=== PATIENT | female | born 1940 | race Caucasian/White ===

== ENCOUNTER 2019-11-26 13:00 | Inpatient (IN) | payer MEDICARE, SELFPAY ==
[2019-11-26 13:39] VITALS: BP 147/72; PULSE 87; RESP 18; TEMP 36.8; O2SAT 93
[2019-11-26 14:25] VITALS: BMI 26.4
[2019-11-26 14:26] VITALS: BMI 26.5
--- NOTE | 2019-11-26 14:26 | PCM.HP.STD ---
Problem List (1) Debility Status: Acute (2) Fever Status: Acute (3) Hypoxia Status: Acute (4) Weakness Status: Acute (5) Pulmonary embolism Status: Acute (6) DVT (deep venous thrombosis) Status: Acute (7) Hyponatremia Status: Acute (8) Hypokalemia Status: Acute (9) Coronary artery disease Status: Chronic (10) Hyperlipidemia Status: Chronic (11) Obstructive sleep apnea Status: Chronic (12) Lumbar spinal stenosis Status: Chronic (13) Hypertension Status: Chronic (14) Pulmonary hypertension Status: Chronic (15) Urinary incontinence Status: Chronic (16) Cholelithiasis Status: Chronic (17) Depression Status: Chronic (18) Insomnia Status: Chronic (19) Neuropathic pain Status: Chronic (20) Encephalopathy Status: Acute History of Present Illness Date of Admission: 11/26/19 Chief Complaint: Here for rehabilitation, strengthening, prior to discharge home with . The patient is a 79 year old Female with below past medical history with followin10/05/2019 Lumbar laminectomy/fusion complicated by CSF leak at [facility]. 10/10/2019 Durotomy closure. 10/21/2019 Fever, change mental status. 10/26/2019 Fall, TIA, CT brain showed blood layering along bilateral cerebellar falx. No surgical intervention necessary. 10/31/2019 MRI brain negative. Fever, worsening right lower extremity weakness. 11/18/2019 Weakness, dry mouth, Fever 103. Unable to stand. 11/20/2019 Urine culture grew yeast, treated with Diflucan 100MG daily x 5 days. 11/23/2019 Fever, hypoxia, worsening weakness. Admit to [facility]. Hypoxia, Pulsox 88-92% on RA. CTA chest showed bilateral pulmonary embolism in all lobes, started on Eliquis. PT/OT. Hold Hydrochlorothiazide for Hyponatremia. Potassium chloride for Hypokalemia. COVID-19 NEGATIVE. 11/23/2019 Chest X-ray negative. 11/24/2019 Doppler ultrasound of bilateral lower extremity POSITIVE bilateral lower extremity DVT. 11/26/2019 Admit to TCU with debility, here for rehabilitation, strengthening, prior to discharge home with . Past Medical History Past Medical History (Chronic Problems): Chronic Problems Coronary artery disease (Chronic) Hyperlipidemia (Chronic) Obstructive sleep apnea (Chronic) Lumbar spinal stenosis (Chronic) Hypertension (Chronic) Pulmonary hypertension (Chronic) Urinary incontinence (Chronic) Cholelithiasis (Chronic) Depression (Chronic) Insomnia (Chronic) Neuropathic pain (Chronic) Allergies ibuprofen [From Advil] Adverse Reaction (Verified 11/26/19 14:00) Rash Home Medications: Ambulatory Orders Medication Instructions Recorded Acetaminophen [Tylenol] 650 mg PO Q4H PRN PRN 11/26/19 Amlodipine [Norvasc] 5 mg PO DAILY 11/26/19 Apixaban [Eliquis] 5 mg PO BID 11/26/19 Aspirin 81 mg PO DAILY 11/26/19 Atorvastatin Calcium 40 mg PO DAILY 11/26/19 Gabapentin [Neurontin] 300 mg PO TID 11/26/19 Melatonin 5 mg PO QHS 11/26/19 Mirtazapine 15 mg PO DAILY 11/26/19 Senna [Senokot] 1 tab PO DAILY PRN 11/26/19 Sertraline HCl 50 mg PO DAILY 11/26/19 Surgical History: hysterectomy, - - Lumbar spine surgery, Durotomy closure, Bladder suspension. Psychiatric History: Depression FACILITIES OFFICER History: No pertinent FACILITIES OFFICER history Lives: Spouse/ Significant Other Smoking Status: Never smoker Tobacco Use: Non-smoker Alcohol: Occasional Drugs: None - *Family History Paternal History Items: Stroke Maternal History Items: Heart Disease - Congestive Heart Failure. Sibling History Items: Diabetes, Heart Disease, Hypertension Review of Systems Constitutional: Denies: Chills, Fever, Weight Change HEENT: Denies: Head Aches, Sinus Congestion, Sinus Drainage Cardiovascular: Denies: Chest Pain, Palpitations Respiratory: Denies: Cough, Shortness of breath at rest, Sputum production Gastrointestinal: Denies: Abdominal Pain, Nausea, Vomiting Genitourinary: Denies: Dysuria Musculoskeletal: Denies: Joint Pain, Joint Tenderness Skin: Denies: Rash, Wounds Neurological: Denies: Numbness, Tingling, Focal weakness Psychiatric: Denies: Anxiety, Depression, Homicidal Ideations, Suicidal Ideations Hematologic/ Lymphatic: Denies: Easy Bruising, Easy Bleeding VTE Information - Inpt Only VTE Present on Admission: Yes VTE Mechan Device Prophylaxis: Knee High IESHA Hose VTE Pharm Prophylaxis ordered?: No Reason prophylaxis not ordered:: Treatment Not Indicated Patient Problems: Active and Suspected Problems Debility (Acute) Fever (Acute) Hypoxia (Acute) Weakness (Acute) Pulmonary embolism (Acute) DVT (deep venous thrombosis) (Acute) Hyponatremia (Acute) Hypokalemia (Acute) Encephalopathy (Acute) - Physical Exam Vitals/I&O's: Vital Signs Temp Pulse Resp BP Pulse Ox 98.3 F 87 18 147/72 H 93 11/26/19 13:39 11/26/19 13:39 11/26/19 13:39 11/26/19 13:39 11/26/19 13:39 Oxygen Delivery Method Room Air Weight: 63.616 kg Body Mass Index (BMI) 26.4 General: Alert, Oriented x3, Cooperative HEENT: Atraumatic, PERRLA, EOMI, Normocephalic Neck: Supple, No JVD, Negative Carotid Bruits Lungs: Clear to auscultation, Normal air movement Cardiovascular: Regular rate, No murmurs Abdomen: Bowel Sounds Present, Soft, Non Tender Extremities: No edema, Capillary Refill Less than 3 Seconds Skin: No rashes, No breakdown Musculoskeletal: No Tenderness to Palpation of Joints or Extremities Neurological: Cranial nerves II-XII grossly intact Psych/Mental Status: Normal Affect, Appropriate Current Medications Acetaminophen (Tylenol) 650 mg PO Q4H PRN PRN PRN Reason: Pain or Fever Amlodipine Besylate (Norvasc) 5 mg PO DAILY [facility] Apixaban (Eliquis) 5 mg PO BID [facility] Aspirin (Aspirin, Baby) 81 mg PO DAILYCM [facility] Atorvastatin Calcium (Lipitor) 40 mg PO DAILY [facility] Gabapentin (Neurontin) 300 mg PO TID [facility] Mirtazapine (Remeron) 15 mg PO QPM [facility] Non-Formulary Medication (Melatonin) 5 mg PO QHS [facility] Senna (Senokot) tablet PO DAILY PRN PRN Reason: Constipation Sertraline HCl (Zoloft) 50 mg PO DAILY [facility] Tuberculin PPD (Tubersol, Aplisol, Ppd) 5 tu ID X1 ONE Stop: 11/27/19 10:01 Tuberculin PPD (Tubersol, Aplisol, Ppd) 5 tu ID X1 ONE Stop: 12/04/19 10:01 Assessment/Plan All Active Problems Debility (Acute) Fever (Acute) Hypoxia (Acute) Weakness (Acute) Pulmonary embolism (Acute) DVT (deep venous thrombosis) (Acute) Hyponatremia (Acute) Hypokalemia (Acute) Encephalopathy (Acute) 79 year old female with below past medical history hospitalized for fever, hypoxia, weakness secondary to bilateral pulmonary embolism, bilateral lower extremity DVT, complicated by hyponatremia, hypokalemia, admitted to TCU with debility, here for rehabilitation, strengthening, prior to discharge home with . Debility - PT/OT. Encephalopathy - ST. Pain - Tylenol 1000MG Q6H PRN pain (1-10). Bowel - Miralax 17GM daily, Senna/colace 1 tablet BID, Dulcolax 10MG daily PRN. Adult immunization - Administer Prevnar 13, Pneumovax 23, Fluzone as appropriate. DVT prophylaxis - Not necessary, already anticoagulated. Hypertension - Amlodipine 5MG daily. Pulmonary embolism/DVT - Eliquis 10MG BID thru 11/29/2019, then 5MG BID. Coronary Artery Disease - Aspirin 81MG daily. Hyperlipidemia - Atorvastatin 40MG QHS. Neuropathic pain - Gabapentin 300MG TID. Insomnia - Melatonin 5MG QHS. Appetite loss - Mirtazapine 15MG QPM, stable chronic snf use, GDR not recommended. Depression - Sertraline 50MG daily, stable chronic watermaster use, GDR not recommended. Obstructive sleep apnea - CPAP at night.
[2019-11-26] MEDS: Gabapentin 300 MG Capsule PO ×2 (15:26→22:38)
--- NOTE | 2019-11-26 16:37 | NURSING ---
R' HAS HAD NO BM SINCE 11/21. DR. ESPOSITO ORDERED SSE.
[2019-11-26] MEDS: Senna/Docusate Sodium 1 Tablet PO (17:24)
[2019-11-26] MEDS: APIXABAN 5 MG TABLET 10 MG PO (17:24)
[2019-11-26] MEDS: Menthol/Lanolin/Calamine/Znox 113 GM Tube 1 APPLIC TOPICAL (17:27)
[2019-11-26] MEDS: MELATONIN 10 MG TABLET 5 MG PO (22:37)
[2019-11-27] MEDS: APIXABAN 5 MG TABLET 10 MG PO ×2 (05:33→17:32)
[2019-11-27] MEDS: Atorvastatin Calcium 40 MG Tablet PO (05:33)
[2019-11-27] MEDS: Senna/Docusate Sodium 1 Tablet PO ×2 (05:33→17:32)
[2019-11-27] MEDS: Gabapentin 300 MG Capsule PO ×3 (05:33→17:32)
[2019-11-27] MEDS: amLODIPine 5 MG Tablet PO (05:33)
[2019-11-27] MEDS: Polyethylene Glycol 3350 17 GM PACKET PO (05:33)
[2019-11-27] MEDS: Sertraline 50 MG Tablet PO (05:33)
[2019-11-27] MEDS: Menthol/Lanolin/Calamine/Znox 113 GM Tube 1 APPLIC TOPICAL ×2 (05:33→17:34)
[2019-11-27 06:47] LABS: Absolute Lymphocyte Count 1.07 X10^3/uL (0.83-4.51); Absolute Neutrophil Count 6.2 X10^3/uL (2.0-7.7); Basophil# 0.04 X10^3/uL; Basophil% 0.5 % (0-1); Eosinophil# 0.03 X10^3/uL; Eosinophils% 0.4 % (0-5); Hemoglobin 12.2 g/dL (12.0-15.0); Lymphocyte # 1.07 X10^3/ul (4.0); Lymphocyte % 13.7 % (19-41); Mean Corp Hgb Conc 33.9 g/dL (32-36); Mean Corpuscular Hgb 29.6 pg (27.0-32.0); Mean Corpuscular Volume 87.4 fL (81-99); Mean Platelet Vol. 8.4 fl (6.2-12.0); Monocyte# 0.49 X10^3/uL; Monocyte% 6.3 % (0-10); NRBC Flagged by Analyzer 0 % (0-5); Neutrophil # 6.18 X10^3/uL (2.7-7.7); Neutrophil % 78.8 % (47-70); Platelet Count 324 K/mm3 (150-450); RBC Distribution Width CV 13.1 % (11.6-14.6); RBC Distribution Width SD 41.6 fl (35.1-43.9); Red Blood Count 4.12 M/mm3 (4.2-5.4); White Blood Count 7.8 K/mm3 (4.4-11.0)
[2019-11-27 07:13] LABS: Anion Gap 11 (5-15); BUN 19 mg/dL (7-18); BUN/Creat Ratio 37.2 RATIO (10-20); Calcium,Total 9.1 mg/dL (8.5-10.1); Chloride 97 mmol/L (98-107); Creatinine, Serum 0.51 mg/dL (0.55-1.02); EST Glomerular Filtration Rate 124 mL/min (>60); Est Glom Filt Rate - Afr Amer 149 mL/min (>60); Estimated Creatinine Clearance 34.99 ml/min; Glucose 91 mg/dL (74-106); Potassium 4.1 mmol/L (3.5-5.1); Sodium Level 130 mmol/L (136-145)
[2019-11-27] MEDS: Aspirin 81 MG TAB.CHEW PO (08:46)
[2019-11-27] MEDS: Acetaminophen 500 MG Tablet 1000 MG PO ×2 (10:01→20:31)
[2019-11-27] MEDS: Tuberculin,Purif.prot.deriv. 50 TU/ML Vial 5 ML ID (10:58)
--- NOTE | 2019-11-27 15:59 | NURSING ---
Pt given soaps suds enema at this time, only tolerated 2/3 of bag, unable to withhold most of the fluid, will monitor effect
[2019-11-27 16:00] VITALS: BP 107/66; PULSE 90; RESP 20; TEMP 36.6; O2SAT 96
[2019-11-27 16:29] LABS: Bacteria 0 SEEN /hpf (None Seen); Red Blood Cells-Urine 0 SEEN /hpf (0-5); Squamous Epithelial Cells - UA 0 SEEN /hpf (5-10)
[2019-11-27 16:36] LABS: Color, Urine Yellow (Yellow); Glucose, Dipstick Normal (Normal); Ketone-Dipstick 50 mg/dl (Negative); Leukocyte Esterase-Dipstick 25 /ul (Negative); Nitrite-Dipstick Negative (Negative); Occult Blood-Urine Negative /ul (Negative); Protein-Dipstick 15 mg/dl (Negative); Specific Gravity, Urine 1.025 (1.002-1.030); Urine Clarity Sl. Cloudy (Clear); Urine Urobilinogen 1 mg/dl (Normal)
[2019-11-27 16:37] LABS: Urine Bilirubin Dipstick 1 mg/dL (Negative)
[2019-11-27 16:44] LABS: Mucous, Urine 1+ /hpf (<or=2+); White Blood Cells 0-5 SEEN /hpf (0-5); Yeast-Urine 1+ /hpf (None Seen)
[2019-11-27 20:05] VITALS: BP 143/72; PULSE 89; RESP 20; TEMP 38.6; O2SAT 89
--- NOTE | 2019-11-27 20:18 | NURSING ---
Addendum entered by Bhakti Garcia 11/27/19 22:12: Dr. Vazquez notified of Chest Xray and KUB results, as well as patient not eating well past 2 days. New orders given. Original Note: Patient diaphoretic, lethargic and unable to answer questions at this time. Vitals obtained. Fever noted at 101.4 temporal, 101.5 Axillary. Mary HARDY aware. Dr. Bailey notified.
--- NOTE | 2019-11-27 20:58 | RAD_ITS ---
STUDY: X-RAY - ABDOMEN/PELVIS REASON FOR EXAM: Female, 79 years old. Constipation. TECHNIQUE: Supine exam left lateral decubitus views of the abdomen were performed. COMPARISON: None. FINDINGS: The lung bases were not included. There is an unremarkable bowel gas pattern. There is seen throughout the colon. There is no air fluid levels or small bowel dilatation. There is no demonstrated free abdominal air. The visualized liver, spleen and kidneys are grossly normal in size and morphology. No visualized mass or organomegaly. There are no suspicious calcifications. Normal soft tissue structures. There are degenerative changes lumbar spine with L4-S1 fusion. RAD/Abd Inc Decub and/or Erect IMPRESSION: 1. No evidence of acute intra-abdominal process. There are no findings suspicious for constipation. 2. Lumbar fusion. Electronically Signed: Alfonso Garcia DO at 21:42 EDT Tel [phone], Service support ,
--- NOTE | 2019-11-27 20:58 | RAD_ITS ---
STUDY: X-RAY CHEST REASON FOR EXAM: Female, 79 years old. Fever. TECHNIQUE: PA and lateral views of the chest. COMPARISON: None. FINDINGS: Limited inspiratory effort. There is elevation of both hemidiaphragms right greater than left. There is bibasilar atelectasis There is no demonstrated pleural abnormality. Normal size heart. The mediastinum. There is mild right hilar prominence. Normal visualized aortic arch and descending thoracic aorta. Normal visualized thoracic spine. Normal visualized ribs, clavicles, and shoulders. There is no demonstrated abnormality of the visualized soft tissue structures of the upper abdomen. RAD/Chest PA and Lateral IMPRESSION: Elevated hemidiaphragms with bibasilar atelectasis. Electronically Signed: Alfonso Garcia DO at 21:56 EDT Tel [phone], Service support ,
[2019-11-27 21:47] VITALS: TEMP 37.7
[2019-11-27] MEDS: 0.9% Normal Saline 1,000 ML 999 ML IV (23:03)
[2019-11-28] MEDS: 0.9% Normal Saline 1,000 ML 60 ML IV (00:06)
[2019-11-28 04:00] VITALS: TEMP 37.9
[2019-11-28 04:16] VITALS: TEMP 37.4
[2019-11-28] MEDS: Acetaminophen 500 MG Tablet 1000 MG PO ×2 (05:37→14:33)
[2019-11-28] MEDS: amLODIPine 5 MG Tablet PO (05:37)
[2019-11-28] MEDS: Atorvastatin Calcium 40 MG Tablet PO (05:37)
[2019-11-28] MEDS: Senna/Docusate Sodium 1 Tablet PO (05:37)
[2019-11-28] MEDS: APIXABAN 5 MG TABLET 10 MG PO (05:38)
[2019-11-28] MEDS: Polyethylene Glycol 3350 17 GM PACKET PO (05:41)
[2019-11-28] MEDS: Menthol/Lanolin/Calamine/Znox 113 GM Tube 1 APPLIC TOPICAL (05:45)
[2019-11-28 06:37] LABS: Absolute Lymphocyte Count 1.09 X10^3/uL (0.83-4.51); Absolute Neutrophil Count 5.2 X10^3/uL (2.0-7.7); Basophil# 0.04 X10^3/uL; Basophil% 0.6 % (0-1); Eosinophils% 1.4 % (0-5); Hematocrit 34.4 % (37-47); Hemoglobin 11.5 g/dL (12.0-15.0); Lymphocyte # 1.09 X10^3/ul (4.0); Lymphocyte % 15.5 % (19-41); Mean Corp Hgb Conc 33.4 g/dL (32-36); Mean Corpuscular Hgb 30.1 pg (27.0-32.0); Mean Corpuscular Volume 90.1 fL (81-99); Mean Platelet Vol. 8.6 fl (6.2-12.0); Monocyte# 0.58 X10^3/uL; Monocyte% 8.3 % (0-10); NRBC Flagged by Analyzer 0 % (0-5); Neutrophil # 5.19 X10^3/uL (2.7-7.7); Neutrophil % 73.8 % (47-70); Platelet Count 297 K/mm3 (150-450); RBC Distribution Width CV 13.2 % (11.6-14.6); RBC Distribution Width SD 43.4 fl (35.1-43.9); Red Blood Count 3.82 M/mm3 (4.2-5.4)
[2019-11-28 07:00] LABS: Anion Gap 7 (5-15); BUN 16 mg/dL (7-18); BUN/Creat Ratio 34.9 RATIO (10-20); Calcium,Total 8.6 mg/dL (8.5-10.1); Chloride 105 mmol/L (98-107); Creatinine, Serum 0.46 mg/dL (0.55-1.02); EST Glomerular Filtration Rate 140 mL/min (>60); Est Glom Filt Rate - Afr Amer 170 mL/min (>60); Estimated Creatinine Clearance 34.99 ml/min; Glucose 105 mg/dL (74-106); Potassium 3.5 mmol/L (3.5-5.1); Sodium Level 135 mmol/L (136-145)
[2019-11-28] MEDS: Aspirin 81 MG TAB.CHEW PO (07:53)
[2019-11-28] MEDS: Gabapentin 300 MG Capsule PO (07:53)
[2019-11-28 08:26] VITALS: TEMP 37
[2019-11-28 09:17] VITALS: PULSE 87; RESP 16; O2SAT 97
[2019-11-28 09:26] VITALS: PULSE 87; RESP 16; TEMP 36.9; O2SAT 97
--- NOTE | 2019-11-28 14:44 | DCINST_ITS ---
- Discharge Diagnoses Current Active Problems: Current Active and Chronic Problems Debility (Acute) Fever (Acute) Hypoxia (Acute) Weakness (Acute) Pulmonary embolism (Acute) DVT (deep venous thrombosis) (Acute) Hyponatremia (Acute) Hypokalemia (Acute) Coronary artery disease (Chronic) Hyperlipidemia (Chronic) Obstructive sleep apnea (Chronic) Lumbar spinal stenosis (Chronic) Hypertension (Chronic) Pulmonary hypertension (Chronic) Urinary incontinence (Chronic) Cholelithiasis (Chronic) Depression (Chronic) Insomnia (Chronic) Neuropathic pain (Chronic) Encephalopathy (Acute) You will use the following diet at home:: No restrictions, Regular Your food should be the consistency of: Regular Your liquids should be the consistency of: Regular/Thin Discharge Activity: Return to Normal Activity, May Shower, Use Walker Weight Bearing Status: Weight bearing as tolerated Call your doctor if you observe: Fever of 101 or Higher, Inability to urinate, Inability to have a bowel movement, Shortness of breath, Chest pain, Uncontrolled pain Allergies/Adverse Reactions: Allergies ibuprofen [From Advil] Adverse Reaction (Verified 11/26/19 14:00) Rash Medications to take at Discharge Acetaminophen [Tylenol] 650 mg PO Q4H PRN PRN 11/26/19 Amlodipine [Norvasc] 5 mg PO DAILY 11/26/19 Apixaban [Eliquis] 5 mg PO BID 11/26/19 Aspirin 81 mg PO DAILY 11/26/19 Atorvastatin Calcium 40 mg PO DAILY 11/26/19 Gabapentin [Neurontin] 300 mg PO TID 11/26/19 Melatonin 5 mg PO QHS 11/26/19 Mirtazapine 15 mg PO DAILY 11/26/19 Senna [Senokot] 1 tab PO DAILY PRN 11/26/19 Sertraline HCl 50 mg PO DAILY 11/26/19 Primary Care Physician: Emile Steward [NON-STAFF] - Please follow up with your Primary Care Physician in: 1 week. Test Results: Test results from this visit will be discussed in further detail at your follow- up appointment, if applicable. Proposed Discharge Date: 11/28/19
--- NOTE | 2019-11-28 14:46 | PCM.DC.SUM ---
Discharge Date and Diagnosis - Problem List Patient Problems: Active and Suspected Problems Debility (Acute) Fever (Acute) Hypoxia (Acute) Weakness (Acute) Pulmonary embolism (Acute) DVT (deep venous thrombosis) (Acute) Hyponatremia (Acute) Hypokalemia (Acute) Encephalopathy (Acute) Date of Admission: 11/26/19 Date of Discharge: 11/28/19 - Primary Discharge Diagnosis Active and Suspected Problems Debility (Acute) Fever (Acute) Hypoxia (Acute) Weakness (Acute) Pulmonary embolism (Acute) DVT (deep venous thrombosis) (Acute) Hyponatremia (Acute) Hypokalemia (Acute) Encephalopathy (Acute) - Secondary Discharge Diagnosis Chronic Problems Coronary artery disease (Chronic) Hyperlipidemia (Chronic) Obstructive sleep apnea (Chronic) Lumbar spinal stenosis (Chronic) Hypertension (Chronic) Pulmonary hypertension (Chronic) Urinary incontinence (Chronic) Cholelithiasis (Chronic) Depression (Chronic) Insomnia (Chronic) Neuropathic pain (Chronic) Hospital Course and Treatment Imaging Results: 11/26/19 13:54 Diet: Regular Diet Food consistency:: Regular Liquid Consistency:: Regular/Thin Is pt able to select menu?: Yes Diet Comments: Low fat, Low salt Clinical Impression(s) from Imaging Studies Abdomen X-Ray 11/27/19 20:58 IMPRESSION: 1. No evidence of acute intra-abdominal process. There are no findings suspicious for constipation. 2. Lumbar fusion. Electronically Signed: Alfonso Garcia DO at 21:42 EDT Tel [phone], Service support , Chest X-Ray 11/27/19 20:58 IMPRESSION: Elevated hemidiaphragms with bibasilar atelectasis. Electronically Signed: Alfonso Garcia DO at 21:56 EDT Tel [phone], Service support , Labs (Last 48 Hours) 11/27/19 11/27/19 11/27/19 06:30 06:30 16:15 WBC 7.8 RBC 4.12 L Hgb 12.2 Hct 36.0 L MCV 87.4 MCH 29.6 MCHC 33.9 RDW Std Deviation 41.6 RDW Coeff of [place] 13.1 Plt Count 324 MPV 8.4 Immature Gran % (Auto) 0.300 Neut % (Auto) 78.8 H Lymph % (Auto) 13.7 L [place] % (Auto) 6.3 Eos % (Auto) 0.4 Baso % (Auto) 0.5 Absolute Neuts (auto) 6.2 Absolute Lymphs (auto) 1.07 Nucleated RBC % 0 Sodium 130 L Potassium 4.1 Chloride 97 L Carbon Dioxide 22.0 Anion Gap 11 BUN 19 H Creatinine 0.51 L Estim Creat Clear Calc 34.99 Est GFR (MDRD) Af Amer 149 Est GFR (MDRD) Non-Af 124 BUN/Creatinine Ratio 37.2 H Glucose 91 Calcium 9.1 Urine Color Yellow Urine Clarity Sl. Cloudy Urine pH 5.0 Ur Specific [place] 1.025 Urine Protein 15 H Urine Glucose (UA) Normal Urine Ketones 50 H Urine Occult Blood Negative Urine Nitrite Negative Urine Bilirubin 1 H Urine Urobilinogen 1 H Ur Leukocyte Esterase 25 H Urine RBC 0 SEEN Urine WBC 0-5 SEEN Ur Squamous Epith Cells 0 SEEN Urine Bacteria 0 SEEN Urine Mucus 1+ Urine Yeast 1+ 11/28/19 11/28/19 06:20 06:20 WBC 7.0 RBC 3.82 L Hgb 11.5 L Hct 34.4 L MCV 90.1 MCH 30.1 MCHC 33.4 RDW Std Deviation 43.4 RDW Coeff of [place] 13.2 Plt Count 297 MPV 8.6 Immature Gran % (Auto) 0.400 Neut % (Auto) 73.8 H Lymph % (Auto) 15.5 L [place] % (Auto) 8.3 Eos % (Auto) 1.4 Baso % (Auto) 0.6 Absolute Neuts (auto) 5.2 Absolute Lymphs (auto) 1.09 Nucleated RBC % 0 Sodium 135 L Potassium 3.5 Chloride 105 Carbon Dioxide 23.0 Anion Gap 7 BUN 16 Creatinine 0.46 L Estim Creat Clear Calc 34.99 Est GFR (MDRD) Af Amer 170 Est GFR (MDRD) Non-Af 140 BUN/Creatinine Ratio 34.9 H Glucose 105 Calcium 8.6 Urine Color Urine Clarity Urine pH Ur Specific [place] Urine Protein Urine Glucose (UA) Urine Ketones Urine Occult Blood Urine Nitrite Urine Bilirubin Urine Urobilinogen Ur Leukocyte Esterase Urine RBC Urine WBC Ur Squamous Epith Cells Urine Bacteria Urine Mucus Urine Yeast Microbiology 11/27/19 22:00 Blood Culture (Wb) - Left Hand Blood Culture - Preliminary 11/27/19 16:15 Urine, Catheterized Urine Culture - Preliminary Gram negative tonja 11/27/19 21:55 Mucosa - Nose Respiratory Panel (PCR) - Final Operations: None Procedures: None Summary of Care Provided: The patient is a 79 year old Female with below past medical history hospitalized for fever, hypoxia, weakness secondary to bilateral pulmonary embolism, bilateral lower extremity DVT, complicated by hyponatremia, hypokalemia, admitted to TCU with debility, here for rehabilitation, strengthening, prior to discharge home with . 11/26/2019 Resident encephalopathic on admission. 11/27/2019 Confusion worsened, not eating, Fever 101.4. Bloodwork unremarkable, UA, Urine culture negative, respiratory panel negative, COVID-19 negative previously, CXR negative, KUB negative. Resident started on IV fluids. 11/28/2019 Not eating, blood culture positive gram positive cocci in clusters aerobic bottle. 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 Discharge to [facility] Emergency Department for evaluation, admission to hospital. Patient Problems: Active and Suspected Problems Debility (Acute) Fever (Acute) Hypoxia (Acute) Weakness (Acute) Pulmonary embolism (Acute) DVT (deep venous thrombosis) (Acute) Hyponatremia (Acute) Hypokalemia (Acute) Encephalopathy (Acute) - Physical Exam Vitals/I&O's: Vital Signs Temp Pulse Resp BP Pulse Ox 98.4 F 87 16 143/72 H 97 11/28/19 09:26 11/28/19 09:26 11/28/19 09:26 11/27/19 20:05 11/28/19 09:26 Oxygen Delivery Method Room Air Weight: 63.616 kg Body Mass Index (BMI) 26.4 Intake and Output for Last 24 Hours 11/26/19 11/27/19 11/28/19 23:59 23:59 23:59 Intake Total 240 / 240 300 / 300 1180 / 1180 Balance 240 / 240 300 / 300 1180 / 1180 Microbiology Past 72 Hours 11/27/19 22:00 Blood Culture (Wb) - Left Hand Blood Culture - Preliminary 11/27/19 16:15 Urine, Catheterized Urine Culture - Preliminary Gram negative tonja 11/27/19 21:55 Mucosa - Nose Respiratory Panel (PCR) - Final Laboratory Results 11/27/19 16:15: Urine Color Yellow, Urine Clarity Sl. Cloudy, Urine pH 5.0, Ur Specific [place] 1.025, Urine Protein 15 H, Urine Glucose (UA) Normal, Urine Ketones 50 H, Urine Occult Blood Negative, Urine Nitrite Negative, Urine Bilirubin 1 H, Urine Urobilinogen 1 H, Ur Leukocyte Esterase 25 H, Urine RBC 0 SEEN, Urine WBC 0-5 SEEN, Ur Squamous Epith Cells 0 SEEN, Urine Bacteria 0 SEEN, Urine Mucus 1+, Urine Yeast 1+ 11/28/19 06:20: WBC 7.0, RBC 3.82 L, Hgb 11.5 L, Hct 34.4 L, MCV 90.1, MCH 30.1, MCHC 33.4, RDW Std Deviation 43.4, RDW Coeff of [place] 13.2, Plt Count 297, MPV 8.6, Immature Gran % (Auto) 0.400, Neut % (Auto) 73.8 H, Lymph % (Auto) 15.5 L, [place] % (Auto) 8.3, Eos % (Auto) 1.4, Baso % (Auto) 0.6, Absolute Neuts (auto) 5.2, Absolute Lymphs (auto) 1.09, Nucleated RBC % 0 11/28/19 06:20: Sodium 135 L, Potassium 3.5, Chloride 105, Carbon Dioxide 23.0, Anion Gap 7, BUN 16, Creatinine 0.46 L, Estim Creat Clear Calc 34.99, Est GFR (MDRD) Af Amer 170, Est GFR (MDRD) Non-Af 140, BUN/Creatinine Ratio 34.9 H, Glucose 105, Calcium 8.6 Current Medications Acetaminophen (Tylenol) 1,000 mg PO Q6H PRN Last Admin: 11/28/19 14:33 Dose: 1,000 mg Documented by: Amlodipine Besylate (Norvasc) 5 mg PO DAILY [facility] Last Admin: 11/28/19 05:37 Dose: 5 mg Documented by: Apixaban (Eliquis) 10 mg PO BID [facility] Stop: 11/29/19 23:59 Last Admin: 11/28/19 05:38 Dose: 10 mg Documented by: Apixaban (Eliquis) 5 mg PO BID [facility], [facility]) [facility] Last Admin: 11/28/19 07:53 Dose: 81 mg Documented by: Atorvastatin Calcium (Lipitor) 40 mg PO DAILY [facility] Last Admin: 11/28/19 05:37 Dose: 40 mg Documented by: Bisacodyl (Dulcolax) 10 mg PO DAILY PRN PRN Reason: Constipation Calamine/Phenol (Calmoseptine Ointment) 1 applic TOPICAL BID [facility]; Protocol Last Admin: 11/28/19 05:45 Dose: 1 applicatio Documented by: Gabap[facility]in) [facility] Stop: 11/30/19 17:01 Last Admin: 11/28/19 07:53 Dose: 300 mg Documented by: Gabapentin (Neurontin) 300 mg PO QHS [facility] Stop: 12/04/19 22:01 Dextrose/Sodium Chloride () 1,000 mls @ 75 mls/hr IV .[id number] [facility] Polyethylene Glycol (Miralax) 17 gm PO DAILY [facility] Last Admin: 11/28/19 05:41 Dose: 17 gm Documented by: Senna/Docusate Sodium (Senokot-S, Karlene-Colace) 1 tablet PO BID [facility] Last Admin: 11/28/19 05:37 Dose: 1 tablet Documented by: Sodium Chloride () 10 - 40 ml IV UD PRN PRN Reason: SALINE FLUSH Tuberculin PPD (Tubersol, Aplisol, Ppd) 5 tu ID X1 ONE Stop: 12/04/19 10:01 Discharge Diet: No Restrictions Discharge Activity: Return to Normal Activity, May Shower, Use Walker Weight Bearing Status: Weight bearing as tolerated Call your doctor if you observe: Fever of 101 or Higher, Inability to urinate, Inability to have a bowel movement, Shortness of breath, Chest pain, Uncontrolled pain Home Medications: Medications to take at Discharge Acetaminophen [Tylenol] 650 mg PO Q4H PRN PRN 11/26/19 Amlodipine [Norvasc] 5 mg PO DAILY 11/26/19 Apixaban [Eliquis] 5 mg PO BID 11/26/19 Aspirin 81 mg PO DAILY 11/26/19 Atorvastatin Calcium 40 mg PO DAILY 11/26/19 Gabapentin [Neurontin] 300 mg PO TID 11/26/19 Melatonin 5 mg PO QHS 11/26/19 Mirtazapine 15 mg PO DAILY 11/26/19 Senna [Senokot] 1 tab PO DAILY PRN 11/26/19 Sertraline HCl 50 mg PO DAILY 11/26/19 Primary Care Physician: Emile Steward [NON-STAFF] - Please follow up with your Primary Care Physician in: 1 week. Disposition: Acute care Hospital Minutes spent on discharge:: 30 Patient Condition:: Guarded Medical Necessity - Tobacco Use Smoking Status: Never smoker Tobacco Use: Non-smoker Meaningful Use Info Meaningful Use Diagnoses (Choose all that apply): None applicable
--- NOTE | 2019-11-28 14:53 | NURSING ---
Lab called with blood culture prelim results, Dr. Vazquez paged and results read. N.O. to send to the ER for eval and admission to acute side of hospital. Vitals obtained, report called to ER, camp housekeeper updated, family updated.
--- NOTE | 2019-12-07 09:22 | MDS.RN ---
Information for the mds was obtained from review of the clinical record, interview of resident, staff, and direct observation of resident's care.
== END 2019-11-28 18:38 | disposition short-term general hospital (02) | DRG 176 ==
PROVIDERS: Admitting Provider Family Medicine Geriatric Medicine; Visit Provider Family Medicine Geriatric Medicine
DX: I26.99 Other pulmonary embolism without acute cor pulmonale (principal); I82.403 Acute embolism and thrombosis of unspecified deep veins of lower extremity, bilateral; E87.1 Hypo-osmolality and hyponatremia; G93.40 Encephalopathy, unspecified; I25.10 Atherosclerotic heart disease of native coronary artery without angina pectoris; E78.5 Hyperlipidemia, unspecified; I10 Essential (primary) hypertension; G47.33 Obstructive sleep apnea (adult) (pediatric); M48.061 Spinal stenosis, lumbar region without neurogenic claudication; I27.20 Pulmonary hypertension, unspecified; F32.9 Major depressive disorder, single episode, unspecified; Z98.1 Arthrodesis status; G62.9 Polyneuropathy, unspecified
CPT/HCPCS: 36415; 71046; 74019; 80048; 81001; 85025; 87040; 87077; 87086; 87088; 87149; 87186; 87633; 92507; 92523; 97110; 97162; 97166; 97530; 97535; J7030

== ENCOUNTER 2019-11-28 15:06 | Emergency (ER) | payer MEDICARE, SELFPAY ==
[2019-11-28 15:08] VITALS: BP 135/67; PULSE 89; RESP 18; TEMP 36.6; O2SAT 95; BMI 26.6
[2019-11-28 15:14] VITALS: BP 135/67; PULSE 89; RESP 18; TEMP 36.6; O2SAT 95
[2019-11-28 16:10] VITALS: O2SAT 96
[2019-11-28 16:23] VITALS: BP 113/79; PULSE 83; RESP 20; TEMP 36.6; O2SAT 96; O2SAT 97
[2019-11-28 16:48] LABS: International Normalized Ratio 1.9
[2019-11-28 16:51] LABS: Partial Thromboplast Time 98.1 Seconds (24.1-36.2)
[2019-11-28 17:03] VITALS: BP 112/74; PULSE 79; RESP 20; TEMP 36.7; O2SAT 99
--- NOTE | 2019-11-28 17:06 | ED.VISSUMM ---
- ER Visit Summary Date of Service: 11/28/19 Chief Complaint: Positive blood culture History of Present Illness: The patient is a [address] Nima vincent. Patient was sent down from TCU because she had a fever and a blood culture was obtained yesterday. Both the aerobic and anaerobic cultures show gram-positive cocci in clusters. Currently the patient reports that she has a slight headache. She denies back pain. Physical Examination: Vitals: Stable. Afebrile. General: Well-nourished and well-developed. Head: Normocephalic atraumatic. Neck: Supple, no lymphadenopathy. No JVD. Nontender. Cardiovascular: Regular rate and rhythm. No murmurs. Respiratory: No respiratory distress. Clear to auscultation bilaterally. Abdominal: Soft, nontender, nondistended, normal bowel sounds. No guarding, rebound, or peritoneal signs. Back: Nontender. Incision is well-healed. There is no erythema, induration, or fluctuance. It is nontender. Extremities: Nontender, no edema. Skin: Normal color, no rash. Neurologic: Alert and oriented ?2. Cranial nerves II through XII are intact. Normal strength and sensation. Psych: Normal affect. Test Results: Patient has had blood work obtained this morning. Her white count was normal with segmented neutrophils of 74 and lymphocytes of 16. H&H is 11.5 and 34.4. Chem-7 showed a sodium of 135 and creatinine 0.46. UA from yesterday showed leukocytes, ketones, and 1+ yeast. The urine culture shows less than 1000 colony-forming units of gram-negative rods. She had a negative respiratory panel yesterday. She had a chest x-ray shows atelectasis yesterday. These were not repeated. Emergency Department Course and Treatment: Due to the concern of bacteremia the patient was given Rocephin and vancomycin IV to cover the possibility of an epidural abscess. The patient had a lumbar laminectomy and fusion on October 04. She had a dural leak that was closed on October 09. The notes from TCU stated the patient had a fever of 103 degrees with weakness on November 17. She had a urine culture on November 19 that showed yeast and was placed on Diflucan. She was admitted to [facility] on November 22. At that time she was diagnosed with a PE and hyponatremia. She was COVID negative. She was placed on Eliquis. I am unsure whether they got an MRI there. I am waiting on records from there. On arrival to the TCU on November 25 it is documented the patient was encephalopathic. She developed a fever to 101.4 degrees on the second. She has had poor p.o. intake. Treatment Plan: Patient was discussed with Dr. Olmos. There is concerned that she does have an epidural abscess given her recent procedure and her bacteremia. She is also had a significant risk of developing an epidural abscess with a bacteremia given her recent procedure. She has the patient be transferred to a tertiary care center. She was discussed with Dr. Fernandez at [facility] who is accepted her in transfer. Disposition: Transferred in stable condition. Impression: 1. Gram-positive cocci in clusters bacteremia. 2. Status post lumbar laminectomy/fusion October 05, 2019. This note was generated with [employer] dictation software. It may contain incorrect words, spelling, and punctuation that were not noted in review of the chart prior to signing ED Disposition - Plan for ED Patient: Referrals: Emile Steward [Primary Care Provider] -
--- NOTE | 2019-11-28 17:40 | NURSING ---
CALLED [facility] FOR TRANSPORT
[2019-11-28] MEDS: Vancomycin IV 1,000 MG/200 ML BAG 200 MG IV (17:48)
[2019-11-28 18:02] VITALS: BP 119/77; PULSE 83; PULSE 84; PULSE 87; RESP 18; TEMP 36.5; O2SAT 100; O2SAT 99
== END 2019-11-28 18:22 | disposition short-term general hospital (02) ==
PROVIDERS: Emergency Provider Emergency Medicine; PCP Internal Medicine
DX: R78.81 Bacteremia (principal); R51 Headache; Z98.1 Arthrodesis status; J98.11 Atelectasis; I25.10 Atherosclerotic heart disease of native coronary artery without angina pectoris; I10 Essential (primary) hypertension; E78.00 Pure hypercholesterolemia, unspecified; G47.33 Obstructive sleep apnea (adult) (pediatric); Z87.19 Personal history of other diseases of the digestive system; Z86.711 Personal history of pulmonary embolism; Z79.01 Long term (current) use of anticoagulants; Z79.82 Long term (current) use of aspirin; Z79.899 Other long term (current) drug therapy
CPT/HCPCS: 83605; 85610; 85730; 87040; 96365; 96367; 99284; J7050; J0696

== ENCOUNTER 2019-12-06 15:30 | Inpatient (IN) | payer MEDICARE, SELFPAY ==
[2019-12-06 16:02] VITALS: BP 165/84; PULSE 82; RESP 16; TEMP 36.8; O2SAT 96; BMI 24.9
[2019-12-06 17:45] VITALS: BMI 24.9
[2019-12-06] MEDS: Gabapentin 300 MG Capsule PO (18:17)
[2019-12-06 18:29] LABS: Anion Gap 10 (5-15); BUN 11 mg/dL (7-18); BUN/Creat Ratio 12.4 RATIO (10-20); Calcium,Total 9.6 mg/dL (8.5-10.1); Chloride 102 mmol/L (98-107); Creatinine, Serum 0.89 mg/dL (0.55-1.02); EST Glomerular Filtration Rate 65 mL/min (>60); Est Glom Filt Rate - Afr Amer 79 mL/min (>60); Glucose 107 mg/dL (74-106); Potassium 3.1 mmol/L (3.5-5.1); Sodium Level 137 mmol/L (136-145)
[2019-12-06] MEDS: APIXABAN 5 MG TABLET PO (18:59)
--- NOTE | 2019-12-06 20:45 | HP.PCM_ITS ---
Problem List (1) Toxic encephalopathy Status: Acute (2) Bacteremia Status: Acute (3) Hydrocephalus Status: Chronic (4) Meningitis Status: Acute (5) Debility Status: Acute (6) Fever Status: Acute (7) Pulmonary embolism Status: Chronic (8) DVT (deep venous thrombosis) Status: Chronic (9) Hypokalemia Status: Acute (10) Coronary artery disease Status: Chronic (11) Hyperlipidemia Status: Chronic (12) Obstructive sleep apnea Status: Chronic (13) Lumbar spinal stenosis Status: Chronic (14) Hypertension Status: Chronic (15) Pulmonary hypertension Status: Chronic (16) Cholelithiasis Status: Chronic (17) Insomnia Status: Chronic (18) Neuropathic pain Status: Chronic History of Present Illness Date of Admission: 12/06/19 Chief Complaint: Here for rehabilitation, strengthening, intravenous antibiotics, prior to discharge home with . The patient is a 79 year old Female with below past medical history with followin11/26/2019 Admit to TCU debility, pulmonary embolism, DVT. 11/28/2019 [facility] Emergency Department fever, confusion, gram positive cocci clusters, blood cultures x 2 bottles. Transfer to [facility]. 11/28/2019 Admit to [facility]. 11/29/2019 CTA head/neck negative for significant stenosis/occlusion. 11/29/2019 MRI lumbar spine small fluid collection L4-L5. 11/29/2019 CT brain ?hydrocephalus, small vessel ischemic disease. 11/29/2019 Neurosurgery thought hydrocephalus unlikely. Recommended MRI/MRA brain, neck. 11/30/2019 MRI brain ?left occipital horn infarct, plan for lumbar puncture. 12/01/2019 Infectious Disease, no signs or symptoms infection lumbar spine. Staph epidermidis bacteremia resolved, repeat blood cultures negative to date. Echo negative vegetation. 12/01/2019 Neurology concerned with infectious meningitis. Recommend lumbar puncture. Meropenem, Vancomycin IV for bacteremia. 12/02/2019 MRI brain no enhancement, infection less likely. Patient continues to have waxing/waning mental status. COVID negative. 12/05/2019 Lumbar puncture WBC 248. Infectious Disease recommends Acyclovir, Vancomycin, Meropenem for acute meningitis. PICC line right upper extremity. 12/06/2019 Admit to TCU with debility, here for rehabilitation, strengthening, intravenous antibiotics, prior to discharge home with . Past Medical History Past Medical History (Chronic Problems): Chronic Problems Pulmonary embolism (Chronic) DVT (deep venous thrombosis) (Chronic) Coronary artery disease (Chronic) Hyperlipidemia (Chronic) Obstructive sleep apnea (Chronic) Lumbar spinal stenosis (Chronic) Hypertension (Chronic) Pulmonary hypertension (Chronic) Urinary incontinence (Chronic) Cholelithiasis (Chronic) Depression (Chronic) Insomnia (Chronic) Neuropathic pain (Chronic) Hydrocephalus (Chronic) Allergies ibuprofen [From Advil] Adverse Reaction (Verified 11/28/19 15:14) Rash Home Medications: Ambulatory Orders Medication Instructions Recorded Amlodipine [Norvasc] 5 mg PO DAILY 11/26/19 Apixaban [Eliquis] 5 mg PO BID 11/26/19 Atorvastatin Calcium 40 mg PO DAILY 11/26/19 Gabapentin [Neurontin] 300 mg PO TID 11/26/19 Melatonin 5 mg PO QHS PRN 11/26/19 Mirtazapine 15 mg PO DAILY 11/26/19 Senna [Senokot] 1 tab PO DAILY PRN 11/26/19 Sertraline HCl 50 mg PO DAILY 11/26/19 Acyclovir Sodium 660 mg IV Q8 12/06/19 Meropenem 2 gm IV Q8 12/06/19 Oxybutynin Chloride [Oxybutynin 10 mg PO DAILY 12/06/19 Chloride ER] Oxycodone HCl/Acetaminophen 1 ea PO Q6H PRN PRN 12/06/19 [Oxycodone-Acetaminophen 5-325] Vancomycin HCl in Water 1,250 mg IV DAILY 12/06/19 [Vancomycin 1,250 mg/12.5 ml Vl] Surgical History: hysterectomy, - - Lumbar spine surgery, Durotomy closure, Bladder suspension. 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 Sibling History Items: Diabetes, Heart Disease, Hypertension Review of Systems Constitutional: Denies: Chills, Fever, Weight Change HEENT: Denies: Head Aches, Sinus Congestion, Sinus Drainage Cardiovascular: Denies: Chest Pain, Palpitations Respiratory: Denies: Cough, Shortness of breath at rest, Sputum production Gastrointestinal: Denies: Abdominal Pain, Nausea, Vomiting Genitourinary: Denies: Dysuria Musculoskeletal: Denies: Joint Pain, Joint Tenderness Skin: Denies: Rash, Wounds Neurological: Denies: Numbness, Tingling, Focal weakness Psychiatric: Denies: Anxiety, Depression, Homicidal Ideations, Suicidal Ideations Hematologic/ Lymphatic: Denies: Easy Bruising, Easy Bleeding VTE Information - Inpt Only VTE Present on Admission: Yes VTE Mechan Device Prophylaxis: Knee High IESHA Hose VTE Pharm Prophylaxis ordered?: No Reason prophylaxis not ordered:: Treatment Not Indicated Patient Problems: Active and Suspected Problems Toxic encephalopathy (Acute) Bacteremia (Acute) Meningitis (Acute) - Physical Exam Vitals/I&O's: Vital Signs Temp Pulse Resp BP Pulse Ox 98.2 F 82 16 165/84 H 96 12/06/19 16:02 12/06/19 16:02 12/06/19 16:02 12/06/19 16:02 12/06/19 16:02 Oxygen Delivery Method Room Air Weight: 63.73 kg Body Mass Index (BMI) 24.9 General: Alert, Oriented x3, Cooperative HEENT: Atraumatic, PERRLA, EOMI, Normocephalic Neck: Supple, No JVD, Negative Carotid Bruits Lungs: Clear to auscultation, Normal air movement Cardiovascular: Regular rate, No murmurs Abdomen: Bowel Sounds Present, Soft, Non Tender Extremities: No edema, Capillary Refill Less than 3 Seconds, - - Right upper extremity PICC line. Skin: No rashes, No breakdown Musculoskeletal: No Tenderness to Palpation of Joints or Extremities Neurological: Cranial nerves II-XII grossly intact Psych/Mental Status: Normal Affect, Appropriate Laboratory Results 12/06/19 18:07: Sodium 137, Potassium 3.1 L, Chloride 102, Carbon Dioxide 25.0, Anion Gap 10, BUN 11, Creatinine 0.89, Estim Creat Clear Calc 41.20, Est GFR (MDRD) Af Amer 79, Est GFR (MDRD) Non-Af 65, BUN/Creatinine Ratio 12.4, Glucose 107 H, Calcium 9.6 12/06/19 20:19: COVID-19 (PRIETO) Pending Current Medications Amlodipine Besylate (Norvasc) 5 mg PO DAILY [facility] Apixaban (Eliquis) 5 mg PO BID [facility] Last Admin: 12/06/19 18:59 Dose: 5 mg Documented by: Atorvastatin Calcium (Lipitor) 40 mg PO QHS DAREK Gabapentin (Neurontin) 300 mg PO TIDCM [facility] Last Admin: 12/06/19 18:17 Dose: 300 mg Documented by: Meropenem 2 gm/ Sodium (Chloride) 290 mls @ 97 mls/hr IV Q12 DAREK Acyclovir Sodium 525 mg/ (Dextrose) 260.5 mls @ 260.5 mls/hr IV Q12H [facility] Vancomycin IV Pharmacy to Dose (1 ea/ Sodium Chloride) 500 mls @ 250 mls/hr IV PRN PRN; Protocol PRN Reason: Rx to Dose Melatonin (Melatonin) 5 mg PO QHS PRN PRN Reason: INSOMNIA Mirtazapine (Remeron) 15 mg PO QHS DAREK Oxycodone HCl (Oxyir) 5 mg PO Q6H PRN PRN PRN Reason: Pain Score 1-10/10 Senna (Senokot) 1 tablet PO DAILY PRN PRN Reason: Constipation Sertraline HCl (Zoloft) 50 mg PO DAILY [facility] Tolterodine Tartrate (Detrol La) 2 mg PO DAILY [facility] Tuberculin PPD (Tubersol, Aplisol, Ppd) 5 tu ID [id number] ONE Stop: 12/07/19 10:01 Tuberculin PPD (Tubersol, Aplisol, Ppd) 5 tu ID [id number] ONE Stop: 12/14/19 10:01 Assessment/Plan All Active Problems Debility (Acute) Fever (Acute) Hypoxia (Acute) Weakness (Acute) Hyponatremia (Acute) Hypokalemia (Acute) Encephalopathy (Acute) Toxic encephalopathy (Acute) Bacteremia (Acute) Meningitis (Acute) 79 year old female with below past medical history hospitalized for toxic encephalopathy secondary to meningitis, complicated by staph epidermidis bacteremia, admitted to TCU with debility, here for rehabilitation, strengthening, intravenous antibiotics, prior to discharge home with . * Debility - PT/OT. * Pain - Tylenol 1000MG Q6H PRN pain (1-5), Oxycodone 5MG Q6H PRN pain (6-10) * Bowel - Miralax 17GM daily, Senna/colace 1 tablet BID, Dulcolax 10MG daily PRN. * Adult immunization - Administer Prevnar 13, Pneumovax 23, Fluzone as appropriate. * DVT prophylaxis - Not necessary, already on Eliquis. * Meningitis - Acyclovir 525MG IV Q12H, Meropenem 2GM IV Q12H, Vancomycin 1250MG IV Q24H, Consult Dr. Hamilton. * Hypertension - Amlodipine 5MG daily. * Pulmonary embolism/DVT - Eliquis 5MG BID. * Hyperlipidemia - Atorvastatin 40MG QHS. * Neuropathic pain - Gabapentin 300MG TIDCM. * Insomnia - Melatonin 5MG QHS PRN. * Appetite loss - Mirtazapine 15MG QHS. * Depression - Sertraline 50MG daily. * Overactive bladder - Tolterodine 2MG daily. * Hypokalemia - KCL 20MEQ PO x 1 dose, then daily, BMP in 2 days.
[2019-12-06] MEDS: Atorvastatin Calcium 40 MG Tablet PO (21:01)
[2019-12-06] MEDS: Mirtazapine 15 MG Tablet PO (21:01)
--- NOTE | 2019-12-07 02:24 | PCM.RX.CS ---
Consult Pharmacy has been consulted to manage selected antiobiotic: Vancomycin Type of Consult: New start Suspected Infection: Meningitis Labs: Sodium 137 mmol/L (136-145) 12/06/19 18:07 Potassium 3.1 mmol/L (3.5-5.1) L 12/06/19 18:07 Chloride 102 mmol/L (98-107) 12/06/19 18:07 Carbon Dioxide 25.0 mmol/L (21.0-32.0) 12/06/19 18:07 Anion Gap 10 (5-15) 12/06/19 18:07 BUN 11 mg/dL (7-18) 12/06/19 18:07 Creatinine 0.89 mg/dL (0.55-1.02) 12/06/19 18:07 Est GFR (MDRD) Af Amer 79 mL/min (>60) 12/06/19 18:07 Est GFR (MDRD) Non-Af 65 mL/min (>60) 12/06/19 18:07 BUN/Creatinine Ratio 12.4 RATIO (10-20) 12/06/19 18:07 Glucose 107 mg/dL (74-106) H 12/06/19 18:07 Microbiology: Microbiology 12/06/19 20:19 Mucosa - Nasopharyngeal Coronavirus COVID-19 PCR - Final Goal Trough: 15-20 mcg/mL Pharmacy Plan for Drug Dosing: Pharmacy Service will continue to monitor and adjust dosing as required. Medications Vancomycin HCl 1,250 mg/ (Sodium Chloride) 275 mls @ 167 mls/hr IV Q24H DAREK Follow-Up Labs: Trough Vancomycin Labs to be done on [date and time ordered]: 12/06 @ 7610
[2019-12-07 03:29] VITALS: RESP 18; TEMP 36.3
[2019-12-07] MEDS: Menthol/Lanolin/Calamine/Znox 113 GM Tube 1 APPLIC TOPICAL ×2 (05:26→18:08)
[2019-12-07] MEDS: amLODIPine 5 MG Tablet PO (05:31)
[2019-12-07] MEDS: APIXABAN 5 MG TABLET PO ×2 (05:31→18:02)
[2019-12-07] MEDS: Tolterodine Tartrate 2 MG CAP.SA PO (05:31)
[2019-12-07] MEDS: Senna/Docusate Sodium 1 Tablet PO ×2 (05:32→18:02)
[2019-12-07] MEDS: Polyethylene Glycol 3350 17 GM PACKET PO (05:32)
[2019-12-07] MEDS: Sertraline 50 MG Tablet PO (05:32)
[2019-12-07 06:06] LABS: Absolute Lymphocyte Count 0.87 X10^3/uL (0.83-4.51); Absolute Neutrophil Count 3.1 X10^3/uL (2.0-7.7); Basophil# 0.04 X10^3/uL; Basophil% 0.8 % (0-1); Eosinophil# 0.21 X10^3/uL; Eosinophils% 4.4 % (0-5); Hematocrit 32.5 % (37-47); Hemoglobin 10.8 g/dL (12.0-15.0); Lymphocyte # 0.87 X10^3/ul (4.0); Lymphocyte % 18.3 % (19-41); Mean Corp Hgb Conc 33.2 g/dL (32-36); Mean Corpuscular Hgb 30.4 pg (27.0-32.0); Mean Corpuscular Volume 91.5 fL (81-99); Mean Platelet Vol. 9.2 fl (6.2-12.0); Monocyte# 0.55 X10^3/uL; Monocyte% 11.6 % (0-10); NRBC Flagged by Analyzer 0 % (0-5); Neutrophil # 3.06 X10^3/uL (2.7-7.7); Neutrophil % 64.5 % (47-70); Platelet Count 197 K/mm3 (150-450); RBC Distribution Width SD 45.7 fl (35.1-43.9); Red Blood Count 3.55 M/mm3 (4.2-5.4); White Blood Count 4.8 K/mm3 (4.4-11.0)
[2019-12-07 06:31] LABS: Anion Gap 7 (5-15); BUN 11 mg/dL (7-18); BUN/Creat Ratio 13.4 RATIO (10-20); Calcium,Total 9.1 mg/dL (8.5-10.1); Chloride 104 mmol/L (98-107); Creatinine, Serum 0.82 mg/dL (0.55-1.02); EST Glomerular Filtration Rate 71 mL/min (>60); Est Glom Filt Rate - Afr Amer 86 mL/min (>60); Estimated Creatinine Clearance 44.72 ml/min; Glucose 94 mg/dL (74-106); Potassium 3.2 mmol/L (3.5-5.1); Sodium Level 138 mmol/L (136-145)
[2019-12-07] MEDS: Gabapentin 300 MG Capsule PO ×3 (08:30→18:02)
[2019-12-07] MEDS: Tuberculin,Purif.prot.deriv. 50 TU/ML Vial 5 ML ID (09:07)
--- NOTE | 2019-12-07 11:10 | CON.PCM_ITS ---
Problem List (1) Meningitis Status: Acute Reason for Consult: meningitis Consulted by: Dr. Vazquez History of Present Illness: The patient is a 79 year old F with h/o CAD, htn, now admitted to TCU. Had lumbar laminectomy by Dr. Alexandra 10/05/19, had 2 more admissions for CSF leak and punctate ICH. Developed fever around 11/17, dx with diffuse bilat PE 11/22. COVID neg at [facility] reportedly 11/24. Admitted to rehab unit, developed fever, sent to [facility] ED, bcx x2 with MRSE. 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 Was on vanc/cefepime without improvement, changed to vanc/zohaib. Seen by ID, neuro, and neurosurg. Sx then reported to be improving. Had LP done 12/01 with wbc 248, 69% neutrophils. Acyclovir added 12/02. Discharged 12/05 on 2 more weeks of vanc/zohaib/acyclovir. Covid neg here. Feeling fine, no fever, no headache, no issues with lumbar incision, no problems with picc. Full ROS performed and neg except as noted above. - Medical History Past Medical History (Chronic Problems): Chronic Problems Pulmonary embolism (Chronic) DVT (deep venous thrombosis) (Chronic) Coronary artery disease (Chronic) Hyperlipidemia (Chronic) Obstructive sleep apnea (Chronic) Lumbar spinal stenosis (Chronic) Hypertension (Chronic) Pulmonary hypertension (Chronic) Urinary incontinence (Chronic) Cholelithiasis (Chronic) Depression (Chronic) Insomnia (Chronic) Neuropathic pain (Chronic) Hydrocephalus (Chronic) Allergies/Adverse Reactions: Allergies ibuprofen [From Advil] Adverse Reaction (Verified 11/28/19 15:14) Rash Home Medications: Ambulatory Orders Medication Instructions Recorded Amlodipine [Norvasc] 5 mg PO DAILY 11/26/19 Apixaban [Eliquis] 5 mg PO BID 11/26/19 Atorvastatin Calcium 40 mg PO DAILY 11/26/19 Gabapentin [Neurontin] 300 mg PO TID 11/26/19 Melatonin 5 mg PO QHS PRN 11/26/19 Mirtazapine 15 mg PO DAILY 11/26/19 Senna [Senokot] 1 tab PO DAILY PRN 11/26/19 Sertraline HCl 50 mg PO DAILY 11/26/19 Acyclovir Sodium 660 mg IV Q8 12/06/19 Meropenem 2 gm IV Q8 12/06/19 Oxybutynin Chloride [Oxybutynin 10 mg PO DAILY 12/06/19 Chloride ER] Oxycodone HCl/Acetaminophen 1 ea PO Q6H PRN PRN 12/06/19 [Oxycodone-Acetaminophen 5-325] Vancomycin HCl in Water 1,250 mg IV DAILY 12/06/19 [Vancomycin 1,250 mg/12.5 ml Vl] - Social History SMOKING STATUS:: Never smoker Vital Signs Temp Pulse Resp BP Pulse Ox 97.4 F L 82 18 165/84 H 96 12/07/19 03:29 12/06/19 16:02 12/07/19 03:29 12/06/19 16:02 12/06/19 16:02 Oxygen Delivery Method Room Air Weight: 63.73 kg Body Mass Index (BMI) 24.9 Microbiology Past 72 Hours 12/06/19 20:19 Coronavirus COVID-19 PCR - Final Mucosa - Nasopharyngeal Laboratory Tests Past 24 Hrs 12/06/19 12/06/19 12/07/19 18:07 20:19 05:25 WBC 4.8 RBC 3.55 L Hgb 10.8 L Hct 32.5 L MCV 91.5 MCH 30.4 MCHC 33.2 RDW Std Deviation 45.7 H RDW Coeff of La 14.0 Plt Count 197 MPV 9.2 Immature Gran % (Auto) 0.400 Neut % (Auto) 64.5 Lymph % (Auto) 18.3 L Ashley % (Auto) 11.6 H Eos % (Auto) 4.4 Baso % (Auto) 0.8 Absolute Neuts (auto) 3.1 Absolute Lymphs (auto) 0.87 Nucleated RBC % 0 Sodium 137 Potassium 3.1 L Chloride 102 Carbon Dioxide 25.0 Anion Gap 10 BUN 11 Creatinine 0.89 Estim Creat Clear Calc 41.20 Est GFR (MDRD) Af Amer 79 Est GFR (MDRD) Non-Af 65 BUN/Creatinine Ratio 12.4 Glucose 107 H Calcium 9.6 COVID-19 (PRIETO) Pending 12/07/19 05:25 WBC RBC Hgb Hct MCV MCH MCHC RDW Std Deviation RDW Coeff of La Plt Count MPV Immature Gran % (Auto) Neut % (Auto) Lymph % (Auto) Ashley % (Auto) Eos % (Auto) Baso % (Auto) Absolute Neuts (auto) Absolute Lymphs (auto) Nucleated RBC % Sodium 138 Potassium 3.2 L Chloride 104 Carbon Dioxide 27.0 Anion Gap 7 BUN 11 Creatinine 0.82 Estim Creat Clear Calc 44.72 Est GFR (MDRD) Af Amer 86 Est GFR (MDRD) Non-Af 71 BUN/Creatinine Ratio 13.4 Glucose 94 Calcium 9.1 COVID-19 (PRIETO) - Other Studies Radiology: [] reviewed Other Studies: [] Route of nutrition/ use of supplements: [] Nutritional Intake: [] IV Site: [] Stanton Catheter: [] - Physical Exam General: Alert, Oriented x3, Cooperative, No apparent distress HEENT: Atraumatic, PERRLA, EOMI Neck: Supple, No Nodes Lungs: Clear to auscultation, Normal air movement Cardiovascular: Regular rate, Regular Rhythm, No murmurs Abdomen: Soft, Non Tender, Non-Distended Extremities: No edema Skin: No rashes, Incision - lumbar incision well healed IV Site: PICC, without redness Musculoskeletal: No Tenderness to Palpation of Joints or Extremities Neurological: Cranial nerves II-XII grossly intact - Assessment/Plan Antibiotics: [] Assessment/Plan: [] Active and Suspected Problems Toxic encephalopathy (Acute) Bacteremia (Acute) Meningitis (Acute) MRSE bacteremia, suspected bacterial meningitis s/p lumbar laminectomy complicated by CSF leak. LP done at [place] 12/02/19, reviewed [place] records, labs, imaging, notes. CSF pcr neg for virus. Daily notes reported she was improving prior to starting acyclovir; with no evidence of viral infection, will stop acyclovir. COVID neg here, but suspicious for the infection given fever, PEs, and stroke. Will send serology testing for covid. Cont vanc/zohaib, trough for vanc planned. Following weekly bmp, cbc, LFT, vanc trough. Ok for her to be out of isolation. Planned stop date for abx is 12/19. May need repeat MRI w/contrast of brain prior to stopping. Will follow, thank you.
--- NOTE | 2019-12-07 12:55 | PCM.PN.RX ---
<TerrancechantelleAngelia M - Last Filed: 12/07/19 12:55> Progress Note - Pharmacy Subjective: TCU ADMISSION Objective: Allergies ibuprofen [From Advil] Adverse Reaction (Verified 11/28/19 15:14) Rash Current Medications Generic Name Dose Route Start Last Admin Trade Name Freq PRN Reason Stop Dose Admin Acetaminophen 1,000 mg 12/06/19 21:07 Tylenol PO Q6H PRN PRN Pain Score 1-5/10 Amlodipine Besylate 5 mg 12/07/19 06:00 12/07/19 05:31 Norvasc PO 5 mg DAILY [facility] Administration Apixaban 5 mg 12/06/19 18:00 12/07/19 05:31 Eliquis PO 5 mg BID D[facility]K Administration Atorvastatin Calcium 40 mg 12/06/19 22:00 12/06/19 21:01 Lipitor PO 40 mg QHS D[facility]K Administration Bisacodyl 10 mg 12/06/19 21:08 Dulcolax PO DAILY PRN Constipation Calamine/Phenol 1 applic 12/07/19 06:00 12/07/19 05:26 Calmoseptine Ointment TOPICAL 1 applicatio BID [facility]K Administration Protocol Gabapentin 300 mg 12/06/19 17:45 12/07/19 08:30 Neurontin PO 300 mg TIDCM [facility] Administration Heparin Sodium (Beef Lung) 50 units 12/07/19 10:16 IV UD PRN PICC Line Heparin Flush Meropenem 2 gm/ Sodium 290 mls @ 97 mls/hr 12/07/19 06:00 12/07/19 09:24 Chloride IV Infused Q12 [facility] Infusion Vancomycin IV Pharmacy to Dose 500 mls @ 250 mls/hr 12/06/19 20:39 1 ea/ Sodium Chloride IV PRN PRN Rx to Dose Protocol Vancomycin HCl 1,250 mg/ 275 mls @ 167 mls/hr 12/07/19 22:00 Sodium Chloride IV Q24H [facility] Melatonin 5 mg 12/06/19 22:00 Melatonin PO QHS PRN INSOMNIA Mirtazapine 15 mg 12/06/19 22:00 12/06/19 21:01 Remeron PO 15 mg QHS [facility] Administration Multi-Ingredient Cream 1 applic 12/06/19 22:00 12/07/19 05:27 Eucerin TOPICAL 1 applicatio 599,2199 D[facility] Administration Protocol Oxycodone HCl 5 mg 05/11/20 17:35 Oxyir PO Q6H PRN PRN Pain Score 6-10/10 Polyethylene Glycol 17 gm 12/07/19 06:00 12/07/19 05:32 Miralax PO 17 gm DAILY D[facility]K Administration Potassium Chloride 20 meq 12/07/19 17:00 K-Dur PO BIDCM D[facility]K Senna/Docusate Sodium 1 tablet 12/07/19 06:00 12/07/19 05:32 Senokot-S, Karlene-Colace PO 1 tablet BID [facility] Administration Sertraline HCl 50 mg 12/07/19 06:00 12/07/19 05:32 Zoloft PO 50 mg DAILY [facility] Administration Sodium Chloride 10 - 30 ml 12/07/19 06:57 0.9% Nacl (Sterile) Posiflush IV PRN PRN saline flush Sodium Chloride 250 ml 12/07/19 06:57 IV PRN PRN IVPB flush Sodium Chloride 10 - 40 ml 12/07/19 10:16 IV UD PRN Open End PICC Flush Sodium Chloride 10 - 40 ml 12/07/19 10:16 0.9% Nacl (Sterile) Posiflush IV UD PRN Port access or dressing change Tolterodine Tartrate 2 mg 12/07/19 06:00 12/07/19 05:31 Detrol La PO 2 mg DAILY D[facility] Administration Tuberculin PPD 5 tu 12/14/19 10:00 Tubersol, Aplisol, Ppd ID 12/14/19 10:01 X1 ONE Problem List Toxic encephalopathy (Acute) Bacteremia (Acute) Hydrocephalus (Chronic) Meningitis (Acute) Vital Signs Temp Pulse Resp BP Pulse Ox 97.4 F L 82 18 165/84 H 96 12/07/19 03:29 12/06/19 16:02 12/07/19 03:29 12/06/19 16:02 12/06/19 16:02 Oxygen Delivery Method Room Air Weight: 63.73 kg Body Mass Index (BMI) 24.9 Sodium 138 mmol/L (136-145) 12/07/19 05:25 Potassium 3.2 mmol/L (3.5-5.1) L 12/07/19 05:25 Chloride 104 mmol/L (98-107) 12/07/19 05:25 Carbon Dioxide 27.0 mmol/L (21.0-32.0) 12/07/19 05:25 Anion Gap 7 (5-15) 12/07/19 05:25 BUN 11 mg/dL (7-18) 12/07/19 05:25 Creatinine 0.82 mg/dL (0.55-1.02) 12/07/19 05:25 Est GFR (MDRD) Af Amer 86 mL/min (>60) 12/07/19 05:25 Est GFR (MDRD) Non-Af 71 mL/min (>60) 12/07/19 05:25 BUN/Creatinine Ratio 13.4 RATIO (10-20) 12/07/19 05:25 Glucose 94 mg/dL (74-106) 12/07/19 05:25 Assessment/Plan: 1. Pain: Tylenol 100mg PO Q6h PRN pain 1-10, Oxycodone 5mg PO Q6h PRN pain 6-10. Please continue to monitor for S/S of increased/decreased pain, PRN medication usage. 2. Meningitis/ Bacteremia: Meropenem 2g IV Q12h, Vancomycin 1250mg IV Q24h. Please continue to monitor for improvement in mentation, S/S of infection reoccurrence, renal function, culture data. ID consulted, no stop date for abx at this time. 3. DVT/PE: Eliquis 5mg PO BID. Please continue to monitor renal function, S/S bleeding/bruising, or S/S of recurrent DVT/Stroke/PE. 4. Hypertension: Norvasc 5mg PO Daily. Please continue to monitor BP, HR. 5. Hyperlipidemia: Lipitor 40mg PO QHS. Please continue to monitor lipid panel at least annually or sooner if clinically indicated. 6. Hypokalemia: KCl 20mEq PO BID. Please continue to monitor potassium levels appropriately to assess if more/less repletion is needed. 7. Neuropathic Pain: Gabapentin 300mg PO TID. Please continue to monitor for medication effectiveness, as well as renal function. If renal function declines, medication dose adjustment may be required. 8. Overactive Bladder: Detrol LA 2mg PO Daily. Please continue to monitor for improvement in OAB symptoms, medication effectiveness. 9. Insomnia: Melatonin 5,g PO QHS PRN. Please continue to monitor PRN medication use, medication effectiveness. Psychotropic Medications: *10. Depression: Zoloft 50mg PO Daily. Please consider a GDR by 05/2020 if clinically indicated. *11. Appetite loss: Remeron 15mg PO QHS. Please evaluate appetite on a frequent basis and reduce dose/discontinue medication if clinically appropriate. Unnecessary Medications: None noted Bowel Regimen: Miralax 17g PO daily, Senna/ Docusate 1 tab PO BID, Bisacodyl 10mg PO Daily PRN. Please continue to monitor for increased/decreased constipation and/or diarrhea. Date of Note:: 12/07/19 - Provider Comments Provider responsibility: Provider responsible to enter orders to implement recommendations <Aldo Vazquez Chi - Last Filed: 12/07/19 17:36> Progress Note - Pharmacy Subjective: [] Objective: Allergies ibuprofen [From Advil] Adverse Reaction (Verified 11/28/19 15:14) Rash Current Medications Generic Name Dose Route Start Last Admin Trade Name Freq PRN Reason Stop Dose Admin Acetaminophen 1,000 mg 12/06/19 21:07 Tylenol PO Q6H PRN PRN Pain Score 1-5/10 Amlodipine Besylate 5 mg 12/07/19 06:00 12/07/19 05:31 Norvasc PO 5 mg DAILY D[facility] Administration Apixaban 5 mg 12/06/19 18:00 12/07/19 05:31 Eliquis PO 5 mg BID DAREK Administration Atorvastatin Calcium 40 mg 12/06/19 22:00 12/06/19 21:01 Lipitor PO 40 mg QHS DAREK Administration Bisacodyl 10 mg 12/06/19 21:08 Dulcolax PO DAILY PRN Constipation Calamine/Phenol 1 applic 12/07/19 06:00 12/07/19 05:26 Calmoseptine Ointment TOPICAL 1 applicatio BID D[facility]K Administration Protocol Gabapentin 300 mg 12/06/19 17:45 12/07/19 13:05 Neurontin PO 300 mg TIDCM D[facility]K Administration Heparin Sodium (Beef Lung) 50 units 12/07/19 10:16 IV UD PRN PICC Line Heparin Flush Meropenem 2 gm/ Sodium 290 mls @ 97 mls/hr 12/07/19 06:00 12/07/19 09:24 Chloride IV Infused Q12 [facility] Infusion Vancomycin IV Pharmacy to Dose 500 mls @ 250 mls/hr 12/06/19 20:39 1 ea/ Sodium Chloride IV PRN PRN Rx to Dose Protocol Vancomycin HCl 1,250 mg/ 275 mls @ 167 mls/hr 12/07/19 22:00 Sodium Chloride IV Q24H [facility] Melatonin 5 mg 12/06/19 22:00 Melatonin PO QHS PRN INSOMNIA Mirtazapine 15 mg 12/06/19 22:00 12/06/19 21:01 Remeron PO 15 mg QHS D[facility]K Administration Multi-Ingredient Cream 1 applic 12/06/19 22:00 12/07/19 05:27 Eucerin TOPICAL 1 applicatio 0600,2200 [facility] Administration Protocol Oxycodone HCl 5 mg 12/06/19 17:35 Oxyir PO Q6H PRN PRN Pain Score 6-10/10 Polyethylene Glycol 17 gm 12/07/19 06:00 12/07/19 05:32 Miralax PO 17 gm DAILY DAREK Administration Potassium Chloride 20 meq 12/07/19 17:00 K-Dur PO BIDCM DAREK Senna/Docusate Sodium 1 tablet 12/07/19 06:00 12/07/19 05:32 Senokot-S, Karlene-Colace PO 1 tablet BID [facility] Administration Sertraline HCl 50 mg 12/07/19 06:00 12/07/19 05:32 Zoloft PO 50 mg DAILY DAREK Administration Sodium Chloride 10 - 30 ml 12/07/19 06:57 0.9% Nacl (Sterile) Posiflush IV PRN PRN saline flush Sodium Chloride 250 ml 12/07/19 06:57 IV PRN PRN IVPB flush Sodium Chloride 10 - 40 ml 12/07/19 10:16 IV UD PRN Open End PICC Flush Sodium Chloride 10 - 40 ml 12/07/19 10:16 0.9% Nacl (Sterile) Posiflush IV UD PRN Port access or dressing change Tolterodine Tartrate 2 mg 12/07/19 06:00 12/07/19 05:31 Detrol La PO 2 mg DAILY DAREK Administration Tuberculin PPD 5 tu 12/14/19 10:00 Tubersol, Aplisol, Ppd ID 12/14/19 10:01 X1 ONE Problem List Toxic encephalopathy (Acute) Bacteremia (Acute) Hydrocephalus (Chronic) Meningitis (Acute) Vital Signs Temp Pulse Resp BP Pulse Ox 97.9 F 82 20 H 126/60 H 95 12/07/19 16:00 12/07/19 16:00 12/07/19 16:00 12/07/19 16:00 12/07/19 16:00 Oxygen Delivery Method Room Air Weight: 63.7 kg Body Mass Index (BMI) 24.9 Sodium 138 mmol/L (136-145) 12/07/19 05:25 Potassium 3.2 mmol/L (3.5-5.1) L 12/07/19 05:25 Chloride 104 mmol/L (98-107) 12/07/19 05:25 Carbon Dioxide 27.0 mmol/L (21.0-32.0) 12/07/19 05:25 Anion Gap 7 (5-15) 12/07/19 05:25 BUN 11 mg/dL (7-18) 12/07/19 05:25 Creatinine 0.82 mg/dL (0.55-1.02) 12/07/19 05:25 Est GFR (MDRD) Af Amer 86 mL/min (>60) 12/07/19 05:25 Est GFR (MDRD) Non-Af 71 mL/min (>60) 12/07/19 05:25 BUN/Creatinine Ratio 13.4 RATIO (10-20) 12/07/19 05:25 Glucose 94 mg/dL (74-106) 12/07/19 05:25 Assessment/Plan: Psychotropic Medications: Unnecessary Medications: Bowel Regimen: - Provider Comments Provider responsibility: Provider responsible to enter orders to implement recommendations Provider Comments to Recommendations by Pharmacy: Agree
[2019-12-07 13:09] VITALS: TEMP 36.4
[2019-12-07 16:00] VITALS: BP 126/60; PULSE 82; RESP 20; TEMP 36.6; O2SAT 95
[2019-12-07] MEDS: 0.9% Saline Lock 10 ML Syringe IV (18:08)
[2019-12-07] MEDS: Juven (unflavored) Packet 1 PACKET PO (18:08)
--- NOTE | 2019-12-07 18:18 | NURSING ---
Stool softener given. Resident states its been about a week since last BM but this is normal for me.
[2019-12-07] MEDS: Atorvastatin Calcium 40 MG Tablet PO (22:48)
[2019-12-07] MEDS: Mirtazapine 15 MG Tablet PO (22:51)
[2019-12-07 23:25] LABS: Vancomycin, Trough Level 25.4 ug/mL (5.0-15.0)
[2019-12-08] MEDS: Menthol/Lanolin/Calamine/Znox 113 GM Tube 1 APPLIC TOPICAL ×2 (04:48→17:59)
[2019-12-08] MEDS: Sertraline 50 MG Tablet PO (04:52)
[2019-12-08] MEDS: Tolterodine Tartrate 2 MG CAP.SA PO (04:52)
[2019-12-08] MEDS: amLODIPine 5 MG Tablet PO (04:52)
[2019-12-08] MEDS: Polyethylene Glycol 3350 17 GM PACKET PO (04:52)
[2019-12-08] MEDS: APIXABAN 5 MG TABLET PO ×2 (04:53→17:59)
[2019-12-08] MEDS: Senna/Docusate Sodium 1 Tablet PO ×2 (04:55→17:59)
[2019-12-08 06:06] LABS: Anion Gap 7 (5-15); BUN 17 mg/dL (7-18); BUN/Creat Ratio 22.1 RATIO (10-20); Calcium,Total 9.4 mg/dL (8.5-10.1); Chloride 105 mmol/L (98-107); Creatinine, Serum 0.77 mg/dL (0.55-1.02); EST Glomerular Filtration Rate 77 mL/min (>60); Est Glom Filt Rate - Afr Amer 93 mL/min (>60); Estimated Creatinine Clearance 38.35 ml/min; Glucose 90 mg/dL (74-106); Potassium 3.7 mmol/L (3.5-5.1); Sodium Level 139 mmol/L (136-145)
--- NOTE | 2019-12-08 06:29 | PCM.RX.CS ---
Consult Pharmacy has been consulted to manage selected antiobiotic: Vancomycin Type of Consult: Follow-up Labs: Sodium 139 mmol/L (136-145) 12/08/19 05:20 Potassium 3.7 mmol/L (3.5-5.1) 12/08/19 05:20 Chloride 105 mmol/L (98-107) 12/08/19 05:20 Carbon Dioxide 27.0 mmol/L (21.0-32.0) 12/08/19 05:20 Anion Gap 7 (5-15) 12/08/19 05:20 BUN 17 mg/dL (7-18) 12/08/19 05:20 Creatinine 0.77 mg/dL (0.55-1.02) 12/08/19 05:20 Est GFR (MDRD) Af Amer 93 mL/min (>60) 12/08/19 05:20 Est GFR (MDRD) Non-Af 77 mL/min (>60) 12/08/19 05:20 BUN/Creatinine Ratio 22.1 RATIO (10-20) H 12/08/19 05:20 Glucose 90 mg/dL (74-106) 12/08/19 05:20 Vancomycin Trough 25.4 ug/mL (5.0-15.0) H 12/07/19 21:30 Microbiology: Microbiology 12/06/19 20:19 Mucosa - Nasopharyngeal Coronavirus COVID-19 PCR - Final Goal Trough: 15-20 mcg/mL Pharmacy Plan for Drug Dosing: Pharmacy Service will continue to monitor and adjust dosing as required. TROUGH 25.1 HOLD AND REDRAW TROUGH 12/08 @ 1000 Follow-Up Labs: Trough Vancomycin Labs to be done on [date and time ordered]: 12/08 @1000
[2019-12-08 07:11] VITALS: BP 120/63; PULSE 62; RESP 16; TEMP 36.9; O2SAT 95
[2019-12-08] MEDS: Juven (unflavored) Packet 1 PACKET PO (08:22)
[2019-12-08] MEDS: Gabapentin 300 MG Capsule PO ×3 (08:23→17:59)
[2019-12-08] MEDS: 0.9% Saline Lock 10 ML Syringe IV ×2 (09:49→18:00)
[2019-12-08 11:47] VITALS: PULSE 88; RESP 18; O2SAT 97
[2019-12-08 13:46] VITALS: BP 134/67; PULSE 87; RESP 18; TEMP 36.3; O2SAT 94
[2019-12-08] MEDS: 0.9% Normal Saline 250 ML IV.SOLN. IV (18:00)
[2019-12-08] MEDS: Mirtazapine 15 MG Tablet PO (22:59)
[2019-12-08] MEDS: Atorvastatin Calcium 40 MG Tablet PO (22:59)
[2019-12-09] MEDS: Menthol/Lanolin/Calamine/Znox 113 GM Tube 1 APPLIC TOPICAL ×2 (06:26→18:17)
[2019-12-09] MEDS: Senna/Docusate Sodium 1 Tablet PO ×2 (06:27→18:17)
[2019-12-09] MEDS: Tolterodine Tartrate 2 MG CAP.SA PO (06:27)
[2019-12-09] MEDS: Sertraline 50 MG Tablet PO (06:27)
[2019-12-09] MEDS: amLODIPine 5 MG Tablet PO (06:27)
[2019-12-09] MEDS: Polyethylene Glycol 3350 17 GM PACKET PO (06:27)
[2019-12-09] MEDS: APIXABAN 5 MG TABLET PO ×2 (06:27→18:17)
[2019-12-09 06:30] VITALS: BP 133/63; PULSE 82; RESP 16; TEMP 36.5; O2SAT 96
[2019-12-09] MEDS: Gabapentin 300 MG Capsule PO ×3 (08:36→18:17)
[2019-12-09] MEDS: 0.9% Saline Lock 10 ML Syringe IV ×4 (08:37→21:38)
[2019-12-09] MEDS: Juven (unflavored) Packet 1 PACKET PO ×2 (08:42→18:17)
[2019-12-09 15:55] VITALS: BP 124/67; PULSE 85; RESP 16; TEMP 36.9; O2SAT 95
--- NOTE | 2019-12-09 16:09 | PCM.RX.CS ---
Consult Pharmacy has been consulted to manage selected antiobiotic: Vancomycin Type of Consult: Follow-up Suspected Infection: Meningitis Prior Doses of Antibiotics Received/Current Regimen: Last dose 1250mg iv on 12.07.19. Labs: Sodium 139 mmol/L (136-145) 12/08/19 05:20 Potassium 3.7 mmol/L (3.5-5.1) 12/08/19 05:20 Chloride 105 mmol/L (98-107) 12/08/19 05:20 Carbon Dioxide 27.0 mmol/L (21.0-32.0) 12/08/19 05:20 Anion Gap 7 (5-15) 12/08/19 05:20 BUN 17 mg/dL (7-18) 12/08/19 05:20 Creatinine 0.77 mg/dL (0.55-1.02) 12/08/19 05:20 Est GFR (MDRD) Af Amer 93 mL/min (>60) 12/08/19 05:20 Est GFR (MDRD) Non-Af 77 mL/min (>60) 12/08/19 05:20 BUN/Creatinine Ratio 22.1 RATIO (10-20) H 12/08/19 05:20 Glucose 90 mg/dL (74-106) 12/08/19 05:20 Vancomycin Trough 25.4 ug/mL (5.0-15.0) H 12/07/19 21:30 Random Vancomycin 18.0 ug/mL (0.0-15.0) H 12/09/19 10:12 Microbiology: Microbiology 12/06/19 20:19 Mucosa - Nasopharyngeal Coronavirus COVID-19 PCR - Final Weight used for dosin.7 kg Estimated Creatinine Clearance: ~38ml/min Goal Trough: 15-20 mcg/mL Pharmacy Plan for Drug Dosing: Today's random level ~35hrs post last dose was 18. Will reduce dose from previous 1250mg to 750mg iv q24h starting at 2200 12.09.19. Another trough level will be ordered for before 4th dose of this new dosing schedule on 12.12.19. Pharmacy Service will continue to monitor and adjust dosing as required. Follow-Up Labs: Trough Vancomycin - 12.12.19 @2130 before 2200 dose
[2019-12-09] MEDS: Mirtazapine 15 MG Tablet PO (21:37)
[2019-12-09] MEDS: Atorvastatin Calcium 40 MG Tablet PO (21:37)
[2019-12-09] MEDS: 0.9% Normal Saline 250 ML IV.SOLN. IV (21:42)
[2019-12-10 04:58] VITALS: BP 129/71; PULSE 78; RESP 18; TEMP 36.2; O2SAT 94
[2019-12-10] MEDS: Polyethylene Glycol 3350 17 GM PACKET PO (05:00)
[2019-12-10] MEDS: Sertraline 50 MG Tablet PO (05:01)
[2019-12-10] MEDS: Tolterodine Tartrate 2 MG CAP.SA PO (05:01)
[2019-12-10] MEDS: APIXABAN 5 MG TABLET PO ×2 (05:01→17:58)
[2019-12-10] MEDS: amLODIPine 5 MG Tablet PO (05:01)
[2019-12-10] MEDS: Senna/Docusate Sodium 1 Tablet PO ×2 (05:01→17:58)
[2019-12-10] MEDS: Menthol/Lanolin/Calamine/Znox 113 GM Tube 1 APPLIC TOPICAL ×2 (05:05→17:58)
[2019-12-10 05:48] LABS: SAR-COV-2 IGG ANTIBODY Negative (Negative); SAR-COV-2 IGM ANTIBODY Negative (Negative)
[2019-12-10] MEDS: Gabapentin 300 MG Capsule PO ×3 (08:48→17:58)
[2019-12-10] MEDS: Juven (unflavored) Packet 1 PACKET PO ×2 (08:48→17:58)
[2019-12-10 11:08] VITALS: PULSE 90
[2019-12-10 14:28] VITALS: BP 160/70; PULSE 92; RESP 18; TEMP 36.5; O2SAT 93
--- NOTE | 2019-12-10 16:20 | PN.ID_ITS ---
Patient Problems: Active and Suspected Problems Toxic encephalopathy (Acute) Bacteremia (Acute) Meningitis (Acute) Subjective: Feeling ok, no fever, mild loose BM today. - Physical Exam Vitals/I&O's: Vital Signs Temp Pulse Resp BP Pulse Ox 97.7 F L 92 18 160/70 H 93 12/10/19 14:28 12/10/19 14:28 12/10/19 14:28 12/10/19 14:28 12/10/19 14:28 Oxygen Delivery Method Room Air Weight: 63.7 kg Body Mass Index (BMI) 24.9 Intake and Output for Last 24 Hours 12/08/19 12/09/19 12/10/19 23:59 23:59 23:59 Intake Total 1215 / 1215 1205 / 1205 770 / 770 Balance 1215 / 1215 1205 / 1205 770 / 770 General: Alert, Cooperative, No apparent distress Lungs: Clear to auscultation, Normal air movement Cardiovascular: Regular rate, Regular Rhythm Abdomen: Soft, Non Tender, Non-Distended Skin: No rashes Laboratory Results 12/08/19 05:20: SARS-CoV-2 IgG Ab Negative, SARS-CoV-2 IgM Ab Negative Current Medications Acetaminophen (Tylenol) 1,000 mg PO Q6H PRN PRN PRN Reason: Pain Score 1-5/10 Amlodipine Besylate (Norvasc) 5 mg PO DAILY [facility] Last Admin: 12/10/19 05:01 Dose: 5 mg Documented by: Apixaban (Eliquis) 5 mg PO BID [facility] Last Admin: 12/10/19 05:01 Dose: 5 mg Documented by: Atorvastatin Calcium (Lipitor) 40 mg PO QHS [facility] Last Admin: 12/09/19 21:37 Dose: 40 mg Documented by: Bisacodyl (Dulcolax) 10 mg PO DAILY PRN PRN Reason: Constipation Calamine/Phenol (Calmoseptine Ointment) 1 applic TOPICAL BID [facility]; Protocol Last Admin: 12/10/19 05:05 Dose: 1 applicatio Documented by: Gabapentin (Neurontin) 300 mg PO TIDCM [facility] Last Admin: 12/10/19 14:34 Dose: 300 mg Documented by: Heparin Sodium (Beef Lung) () 50 units IV UD PRN PRN Reason: PICC Line Heparin Flush Meropenem 2 gm/ Sodium (Chloride) 290 mls @ 97 mls/hr IV Q12 [facility] Last Infusion: 12/10/19 08:05 Dose: Infused Documented by: Vancomycin IV Pharmacy to Dose (1 ea/ Sodium Chloride) 500 mls @ 250 mls/hr IV PRN PRN; Protocol PRN Reason: Rx to Dose Vancomycin HCl 750 mg/ Sodium (Chloride) 265 mls @ 250 mls/hr IV Q24H [facility] Last Infusion: 12/09/19 23:00 Dose: Infused Documented by: Melatonin (Melatonin) 5 mg PO QHS PRN PRN Reason: INSOMNIA Mirtazapine (Remeron) 15 mg PO QHS [facility] Last Admin: 12/09/19 21:37 Dose: 15 mg Documented by: Multi-Ingredient Cream (Eucerin) 1 applic TOPICAL 0600,2200 [facility]; Protocol Last Admin: 12/10/19 05:00 Dose: 1 applicatio Documented by: Oxycodone HCl (Oxyir) 5 mg PO Q6H PRN PRN PRN Reason: Pain Score 6-10/10 Polyethylene Glycol (Miralax) 17 gm PO DAILY [facility] Last Admin: 12/10/19 05:00 Dose: 17 gm Documented by: [facility] Admin: 12/10/19 08:48 Dose: 20 meq Documented by: Senna/Docusate Sodium (Senokot-S, Karlene-Colace) 1 tablet PO BID [facility] Last Admin: 12/10/19 05:01 Dose: 1 tablet Documented by: Sertraline HCl (Zoloft) 50 mg PO DAILY [facility] Last Admin: 12/10/19 05:01 Dose: 50 mg Documented by: Sodium Chloride (0.9% Nacl (Sterile) Posiflush) 10 - 30 ml IV PRN PRN PRN Reason: saline flush Sodium Chloride () 250 ml IV PRN PRN PRN Reason: IVPB flush Last Admin: 12/09/19 21:42 Dose: 250 ml Documented by: Sodium Chloride () 10 - 40 ml IV UD PRN PRN Reason: Open End PICC Flush Last Admin: 12/09/19 21:38 Dose: 20 ml Documented by: Sodium Chloride (0.9% Nacl (Sterile) Posiflush) 10 - 40 ml IV UD PRN PRN Reason: Port access or dressing change Tolterodine Tartrate (Detrol La) 2 mg PO DAILY [facility] Last Admin: 12/10/19 05:01 Dose: 2 mg Documented by: Tuberculin PPD (Tubersol, Aplisol, Ppd) 5 tu ID [id number] ONE Stop: 12/14/19 10:01 Medical Necessity - Tobacco Use Smoking Status: Never smoker Tobacco Use: Non-smoker Route of nutrition/ use of supplements: [] Nutritional Intake: [] IV Site: [] Stanton Catheter: [] - Assessment/Plan Antibiotics: [] Assessment/Plan: [] Active and Suspected Problems Toxic encephalopathy (Acute) Bacteremia (Acute) Meningitis (Acute) MRSE bacteremia, suspected bacterial meningitis s/p lumbar laminectomy complicated by CSF leak. LP done at [facility] 12/02/19, reviewed [facility] records, labs, imaging, notes. CSF pcr neg for virus. Daily notes reported she was improving prior to starting acyclovir; with no evidence of viral infection, stopped acyclovir here. COVID serology neg. Cont vanc/zohaib. Following weekly bmp, cbc, LFT, vanc trough. Ok for her to be out of isolation. Planned stop date for abx is 12/19. May need repeat MRI w/contrast of brain prior to stop ping. Will follow
[2019-12-10] MEDS: 0.9% Saline Lock 10 ML Syringe IV ×2 (18:00→23:04)
[2019-12-10] MEDS: Mirtazapine 15 MG Tablet PO (20:38)
[2019-12-10] MEDS: Atorvastatin Calcium 40 MG Tablet PO (20:38)
[2019-12-10] MEDS: 0.9% Normal Saline 250 ML IV.SOLN. IV (23:04)
[2019-12-11 05:49] VITALS: BP 136/70; PULSE 87; RESP 18; TEMP 36.6; O2SAT 96
[2019-12-11] MEDS: Sertraline 50 MG Tablet PO (05:51)
[2019-12-11] MEDS: Senna/Docusate Sodium 1 Tablet PO ×2 (05:51→17:53)
[2019-12-11] MEDS: Polyethylene Glycol 3350 17 GM PACKET PO (05:51)
[2019-12-11] MEDS: Tolterodine Tartrate 2 MG CAP.SA PO (05:51)
[2019-12-11] MEDS: amLODIPine 5 MG Tablet PO (05:51)
[2019-12-11] MEDS: APIXABAN 5 MG TABLET PO ×2 (05:51→17:53)
[2019-12-11] MEDS: Menthol/Lanolin/Calamine/Znox 113 GM Tube 1 APPLIC TOPICAL ×2 (05:57→17:59)
[2019-12-11] MEDS: Juven (unflavored) Packet 1 PACKET PO ×2 (09:13→17:52)
[2019-12-11] MEDS: Gabapentin 300 MG Capsule PO ×3 (09:13→17:53)
[2019-12-11] MEDS: 0.9% Saline Lock 10 ML Syringe IV (09:18)
[2019-12-11 14:39] VITALS: BP 141/69; PULSE 87; RESP 16; TEMP 36.7; O2SAT 95
[2019-12-11 20:12] VITALS: RESP 18
[2019-12-11] MEDS: Mirtazapine 15 MG Tablet PO (20:13)
[2019-12-11] MEDS: Atorvastatin Calcium 40 MG Tablet PO (20:13)
[2019-12-11 21:53] VITALS: BP 115/56; PULSE 94; RESP 18; TEMP 37.6; O2SAT 91
[2019-12-12 06:15] VITALS: BP 123/79; PULSE 85; RESP 18; TEMP 36.6; O2SAT 94
[2019-12-12] MEDS: 0.9% Saline Lock 10 ML Syringe IV ×3 (06:24→22:29)
[2019-12-12] MEDS: Tolterodine Tartrate 2 MG CAP.SA PO (06:24)
[2019-12-12] MEDS: amLODIPine 5 MG Tablet PO (06:24)
[2019-12-12] MEDS: Sertraline 50 MG Tablet PO (06:24)
[2019-12-12] MEDS: Senna/Docusate Sodium 1 Tablet PO ×2 (06:24→17:09)
[2019-12-12] MEDS: APIXABAN 5 MG TABLET PO ×2 (06:24→17:08)
[2019-12-12] MEDS: Menthol/Lanolin/Calamine/Znox 113 GM Tube 1 APPLIC TOPICAL ×2 (06:33→17:12)
--- NOTE | 2019-12-12 06:34 | NURSING ---
She does not want the Miralax yet this morning. Pt would like Miralax with breakfast this morning with water.
[2019-12-12] MEDS: Gabapentin 300 MG Capsule PO ×3 (09:06→17:08)
[2019-12-12] MEDS: Polyethylene Glycol 3350 17 GM PACKET PO (09:06)
[2019-12-12] MEDS: Juven (unflavored) Packet 1 PACKET PO ×2 (09:06→17:08)
[2019-12-12 15:21] VITALS: BP 125/61; PULSE 91; RESP 16; TEMP 37.3; O2SAT 96
[2019-12-12] MEDS: Atorvastatin Calcium 40 MG Tablet PO (20:05)
[2019-12-12] MEDS: Mirtazapine 15 MG Tablet PO (20:05)
[2019-12-12 22:22] LABS: Vancomycin, Trough Level 14.7 ug/mL (5.0-15.0)
--- NOTE | 2019-12-12 22:53 | PCM.RX.CS ---
Consult Pharmacy has been consulted to manage selected antiobiotic: Vancomycin Type of Consult: Follow-up Suspected Infection: Meningitis Prior Doses of Antibiotics Received/Current Regimen: Medications Vancomycin HCl 750 mg/ Sodium (Chloride) 265 mls @ 250 mls/hr IV Q24H [facility] Last Admin: 12/12/19 22:23 Dose: 220 mls/hr Labs: Sodium 139 mmol/L (136-145) 12/08/19 05:20 Potassium 3.7 mmol/L (3.5-5.1) 12/08/19 05:20 Chloride 105 mmol/L (98-107) 12/08/19 05:20 Carbon Dioxide 27.0 mmol/L (21.0-32.0) 12/08/19 05:20 Anion Gap 7 (5-15) 12/08/19 05:20 BUN 17 mg/dL (7-18) 12/08/19 05:20 Creatinine 0.77 mg/dL (0.55-1.02) 12/08/19 05:20 Est GFR (MDRD) Af Amer 93 mL/min (>60) 12/08/19 05:20 Est GFR (MDRD) Non-Af 77 mL/min (>60) 12/08/19 05:20 BUN/Creatinine Ratio 22.1 RATIO (10-20) H 12/08/19 05:20 Glucose 90 mg/dL (74-106) 12/08/19 05:20 Vancomycin Trough 14.7 ug/mL (5.0-15.0) 12/12/19 21:33 Random Vancomycin 18.0 ug/mL (0.0-15.0) H 12/09/19 10:12 Microbiology: Microbiology 12/06/19 20:19 Mucosa - Nasopharyngeal Coronavirus COVID-19 PCR - Final Weight used for dosin.7 kg Estimated Creatinine Clearance: 38 Goal Trough: 15-20 mcg/mL Pharmacy Plan for Drug Dosing: Trough level of 14.7 was just slightly below target goal range of 15-20. Will continue same dosing and re-draw trough in 3 days. Pharmacy Service will continue to monitor and adjust dosing as required. Follow-Up Labs: Trough Vancomycin Labs to be done on [date and time ordered]: 12/15/19 @2078
[2019-12-13 05:41] VITALS: BP 154/91; PULSE 80; RESP 16; TEMP 36.6; O2SAT 91
[2019-12-13] MEDS: 0.9% Normal Saline 250 ML IV.SOLN. IV (05:42)
[2019-12-13] MEDS: 0.9% Saline Lock 10 ML Syringe IV ×3 (05:49→21:30)
[2019-12-13] MEDS: amLODIPine 5 MG Tablet PO (05:52)
[2019-12-13] MEDS: Senna/Docusate Sodium 1 Tablet PO ×3 (05:52→17:45)
[2019-12-13] MEDS: APIXABAN 5 MG TABLET PO ×2 (05:52→17:45)
[2019-12-13] MEDS: Sertraline 50 MG Tablet PO (05:52)
[2019-12-13] MEDS: Polyethylene Glycol 3350 17 GM PACKET PO (05:53)
[2019-12-13] MEDS: Tolterodine Tartrate 2 MG CAP.SA PO (05:53)
[2019-12-13] MEDS: Menthol/Lanolin/Calamine/Znox 113 GM Tube 1 APPLIC TOPICAL ×2 (05:58→17:51)
[2019-12-13] MEDS: Gabapentin 300 MG Capsule PO ×3 (07:59→17:45)
[2019-12-13] MEDS: Juven (unflavored) Packet 1 PACKET PO (07:59)
[2019-12-13 16:00] VITALS: BP 116/77; PULSE 82; RESP 16; TEMP 36.4; O2SAT 94
[2019-12-13] MEDS: Atorvastatin Calcium 40 MG Tablet PO (21:38)
[2019-12-13] MEDS: Mirtazapine 15 MG Tablet PO (21:38)
[2019-12-14 05:47] LABS: Absolute Lymphocyte Count 0.96 X10^3/uL (0.83-4.51); Absolute Neutrophil Count 2.7 X10^3/uL (2.0-7.7); Basophil# 0.05 X10^3/uL; Basophil% 1.1 % (0-1); Eosinophil# 0.38 X10^3/uL; Eosinophils% 8.3 % (0-5); Hematocrit 31.5 % (37-47); Hemoglobin 10.4 g/dL (12.0-15.0); Lymphocyte # 0.96 X10^3/ul (4.0); Lymphocyte % 21.1 % (19-41); Mean Corpuscular Hgb 30.9 pg (27.0-32.0); Mean Corpuscular Volume 93.5 fL (81-99); Mean Platelet Vol. 9.3 fl (6.2-12.0); NRBC Flagged by Analyzer 0 % (0-5); Neutrophil # 2.66 X10^3/uL (2.7-7.7); Neutrophil % 58.3 % (47-70); Platelet Count 182 K/mm3 (150-450); RBC Distribution Width CV 14.8 % (11.6-14.6); RBC Distribution Width SD 50.4 fl (35.1-43.9); Red Blood Count 3.37 M/mm3 (4.2-5.4); White Blood Count 4.6 K/mm3 (4.4-11.0)
[2019-12-14 06:11] LABS: Anion Gap 6 (5-15); BUN 20 mg/dL (7-18); BUN/Creat Ratio 29.9 RATIO (10-20); Calcium,Total 8.8 mg/dL (8.5-10.1); Chloride 110 mmol/L (98-107); Creatinine, Serum 0.67 mg/dL (0.55-1.02); EST Glomerular Filtration Rate 91 mL/min (>60); Est Glom Filt Rate - Afr Amer 110 mL/min (>60); Estimated Creatinine Clearance 38.35 ml/min; Glucose 82 mg/dL (74-106); Potassium 3.9 mmol/L (3.5-5.1); Sodium Level 142 mmol/L (136-145)
[2019-12-14 06:40] VITALS: BP 136/76; PULSE 85; RESP 20; TEMP 36.8; O2SAT 95
[2019-12-14] MEDS: APIXABAN 5 MG TABLET PO ×2 (06:46→17:33)
[2019-12-14] MEDS: Tolterodine Tartrate 2 MG CAP.SA PO (06:46)
[2019-12-14] MEDS: amLODIPine 5 MG Tablet PO (06:46)
[2019-12-14] MEDS: Polyethylene Glycol 3350 17 GM PACKET PO (06:46)
[2019-12-14] MEDS: Sertraline 50 MG Tablet PO (06:46)
[2019-12-14] MEDS: Menthol/Lanolin/Calamine/Znox 113 GM Tube 1 APPLIC TOPICAL ×2 (06:48→17:34)
[2019-12-14] MEDS: Gabapentin 300 MG Capsule PO ×3 (08:22→17:33)
[2019-12-14] MEDS: 0.9% Saline Lock 10 ML Syringe IV ×3 (10:29→21:26)
[2019-12-14 14:16] VITALS: BP 118/74; PULSE 92; RESP 17; TEMP 36.2; O2SAT 98
[2019-12-14] MEDS: Tuberculin,Purif.prot.deriv. 50 TU/ML Vial 5 ML ID (15:24)
[2019-12-14] MEDS: Senna/Docusate Sodium 1 Tablet PO (17:34)
[2019-12-14] MEDS: Mirtazapine 15 MG Tablet PO (20:10)
[2019-12-14] MEDS: Atorvastatin Calcium 40 MG Tablet PO (20:11)
[2019-12-15 05:26] VITALS: BP 145/74; PULSE 88; RESP 16; TEMP 36.8; O2SAT 96
[2019-12-15] MEDS: amLODIPine 5 MG Tablet PO (05:28)
[2019-12-15] MEDS: Polyethylene Glycol 3350 17 GM PACKET PO (05:28)
[2019-12-15] MEDS: Sertraline 50 MG Tablet PO (05:28)
[2019-12-15] MEDS: Tolterodine Tartrate 2 MG CAP.SA PO (05:28)
[2019-12-15] MEDS: Senna/Docusate Sodium 1 Tablet PO ×2 (05:28→17:07)
[2019-12-15] MEDS: APIXABAN 5 MG TABLET PO ×2 (05:28→17:07)
[2019-12-15] MEDS: 0.9% Saline Lock 10 ML Syringe IV ×2 (05:31→09:04)
[2019-12-15] MEDS: Menthol/Lanolin/Calamine/Znox 113 GM Tube 1 APPLIC TOPICAL ×2 (05:36→17:13)
[2019-12-15] MEDS: Gabapentin 300 MG Capsule PO ×3 (09:03→17:07)
--- NOTE | 2019-12-15 11:56 | CASEMGMT ---
Social Work IDT met with patient and left message with son for care plan meeting. Pt is SBA for bed mobility, transfers, ambulating 50 ft x2 with rest breaks with FWW. Pt is using 2# wts for LE exercises. Pt is CGA for grooming, min assist for all ADLs. Pt does get fatigued and rt leg can give out. Pt is on a soft/thin diet, completed DAVID test and having trouble with numbers, requires assistance with daily cognitive tasks and problem solving for safety. Pt reported her does meds and finances currently. Activities continues with 1:1 visits, and when out of room isolation on 12/18 will begin baking. Pt receiving IV ATB Q109/20. Explained [employer] insurance NRD 12/20, approved through 12/22. Pt was independent prior, 2 steps to enter. Spouse can assist with minimal things at home. Will continue to follow. Bren Garcia, [employer] SPECIALIST DIVISION DIRECTOR
[2019-12-15 13:47] VITALS: BP 128/72; PULSE 83; RESP 18; TEMP 37; O2SAT 95
[2019-12-15] MEDS: Atorvastatin Calcium 40 MG Tablet PO (21:04)
[2019-12-15] MEDS: Mirtazapine 15 MG Tablet PO (21:04)
[2019-12-15 22:00] VITALS: RESP 16
[2019-12-15 22:17] LABS: Vancomycin, Trough Level 26.2 ug/mL (5.0-15.0)
--- NOTE | 2019-12-16 00:09 | PCM.RX.CS ---
Consult Pharmacy has been consulted to manage selected antiobiotic: Vancomycin Type of Consult: Follow-up Labs: Sodium 142 mmol/L (136-145) 12/14/19 05:10 Potassium 3.9 mmol/L (3.5-5.1) 12/14/19 05:10 Chloride 110 mmol/L (98-107) H 12/14/19 05:10 Carbon Dioxide 26.0 mmol/L (21.0-32.0) 12/14/19 05:10 Anion Gap 6 (5-15) 12/14/19 05:10 BUN 20 mg/dL (7-18) H 12/14/19 05:10 Creatinine 0.67 mg/dL (0.55-1.02) 12/14/19 05:10 Est GFR (MDRD) Af Amer 110 mL/min (>60) 12/14/19 05:10 Est GFR (MDRD) Non-Af 91 mL/min (>60) 12/14/19 05:10 BUN/Creatinine Ratio 29.9 RATIO (10-20) H 12/14/19 05:10 Glucose 82 mg/dL (74-106) 12/14/19 05:10 Vancomycin Trough 26.2 ug/mL (5.0-15.0) H 12/15/19 21:34 Random Vancomycin 18.0 ug/mL (0.0-15.0) H 12/09/19 10:12 Microbiology: Microbiology 12/06/19 20:19 Mucosa - Nasopharyngeal Coronavirus COVID-19 PCR - Final Goal Trough: 15-20 mcg/mL Pharmacy Plan for Drug Dosing: Pharmacy Service will continue to monitor and adjust dosing as required. TROUGH 26.2 DRAWN 30 MIN AFTER VANCO BAG STARTED. REDRAW NEW TROUGH WITH NEXT DOSE Follow-Up Labs: Trough Vancomycin Labs to be done on [date and time ordered]: 12/15 @ 7656
[2019-12-16 06:39] VITALS: BP 159/72; PULSE 87; RESP 16; TEMP 37.2; O2SAT 94
[2019-12-16] MEDS: Menthol/Lanolin/Calamine/Znox 113 GM Tube 1 APPLIC TOPICAL ×2 (06:42→17:52)
[2019-12-16] MEDS: Senna/Docusate Sodium 1 Tablet PO ×2 (06:43→17:46)
[2019-12-16] MEDS: amLODIPine 5 MG Tablet PO (06:43)
[2019-12-16] MEDS: Tolterodine Tartrate 2 MG CAP.SA PO (06:43)
[2019-12-16] MEDS: APIXABAN 5 MG TABLET PO ×2 (06:43→17:46)
[2019-12-16] MEDS: Sertraline 50 MG Tablet PO (06:43)
[2019-12-16] MEDS: Polyethylene Glycol 3350 17 GM PACKET PO (06:44)
[2019-12-16] MEDS: Gabapentin 300 MG Capsule PO ×3 (09:18→17:45)
[2019-12-16] MEDS: 0.9 % NaCl (Sterile) Posiflush 10 mL IV (10:39)
[2019-12-16 13:34] VITALS: PULSE 92; RESP 16; O2SAT 95
[2019-12-16 15:05] VITALS: BP 133/65; PULSE 86; RESP 18; TEMP 36.6; O2SAT 96
[2019-12-16] MEDS: 0.9% Saline Lock 10 ML Syringe IV (17:49)
[2019-12-16] MEDS: Mirtazapine 15 MG Tablet PO (22:02)
[2019-12-16] MEDS: Atorvastatin Calcium 40 MG Tablet PO (22:02)
[2019-12-16 23:03] LABS: Vancomycin, Trough Level 12.6 ug/mL (5.0-15.0)
--- NOTE | 2019-12-17 01:15 | PCM.RX.CS ---
Consult Pharmacy has been consulted to manage selected antiobiotic: Vancomycin Type of Consult: Follow-up Labs: Sodium 142 mmol/L (136-145) 12/14/19 05:10 Potassium 3.9 mmol/L (3.5-5.1) 12/14/19 05:10 Chloride 110 mmol/L (98-107) H 12/14/19 05:10 Carbon Dioxide 26.0 mmol/L (21.0-32.0) 12/14/19 05:10 Anion Gap 6 (5-15) 12/14/19 05:10 BUN 20 mg/dL (7-18) H 12/14/19 05:10 Creatinine 0.67 mg/dL (0.55-1.02) 12/14/19 05:10 Est GFR (MDRD) Af Amer 110 mL/min (>60) 12/14/19 05:10 Est GFR (MDRD) Non-Af 91 mL/min (>60) 12/14/19 05:10 BUN/Creatinine Ratio 29.9 RATIO (10-20) H 12/14/19 05:10 Glucose 82 mg/dL (74-106) 12/14/19 05:10 Vancomycin Trough 12.6 ug/mL (5.0-15.0) 12/16/19 21:40 Random Vancomycin 18.0 ug/mL (0.0-15.0) H 12/09/19 10:12 Microbiology: Microbiology 12/06/19 20:19 Mucosa - Nasopharyngeal Coronavirus COVID-19 PCR - Final Goal Trough: 15-20 mcg/mL Pharmacy Plan for Drug Dosing: Pharmacy Service will continue to monitor and adjust dosing as required. TROUGH 12.6 INCREASE TO 1GM Q24 HOURS Follow-Up Labs: Trough Vancomycin Labs to be done on [date and time ordered]: 12/18 @ 0878
[2019-12-17 05:17] VITALS: BP 116/57; PULSE 89; RESP 18; TEMP 37.1; O2SAT 94
[2019-12-17] MEDS: Polyethylene Glycol 3350 17 GM PACKET PO (05:23)
[2019-12-17] MEDS: Senna/Docusate Sodium 1 Tablet PO ×2 (05:24→17:41)
[2019-12-17] MEDS: Tolterodine Tartrate 2 MG CAP.SA PO (05:24)
[2019-12-17] MEDS: APIXABAN 5 MG TABLET PO ×2 (05:24→17:41)
[2019-12-17] MEDS: amLODIPine 5 MG Tablet PO (05:24)
[2019-12-17] MEDS: Sertraline 50 MG Tablet PO (05:24)
[2019-12-17] MEDS: Menthol/Lanolin/Calamine/Znox 113 GM Tube 1 APPLIC TOPICAL ×2 (05:26→17:43)
[2019-12-17] MEDS: 0.9% Saline Lock 10 ML Syringe IV ×3 (07:17→21:44)
[2019-12-17] MEDS: Gabapentin 300 MG Capsule PO ×3 (08:19→17:41)
[2019-12-17 14:33] VITALS: BP 130/77; PULSE 88; RESP 16; TEMP 36.9; O2SAT 97
[2019-12-17] MEDS: Vancomycin IV 1,000 MG/200 ML BAG 200 MG IV (21:40)
[2019-12-17] MEDS: Atorvastatin Calcium 40 MG Tablet PO (21:43)
[2019-12-17] MEDS: Mirtazapine 15 MG Tablet PO (21:43)
[2019-12-18 04:00] VITALS: BP 131/71; PULSE 94; RESP 18; TEMP 37.1; O2SAT 94
[2019-12-18] MEDS: 0.9% Normal Saline 250 ML IV.SOLN. IV (05:36)
[2019-12-18] MEDS: Polyethylene Glycol 3350 17 GM PACKET PO (05:36)
[2019-12-18] MEDS: APIXABAN 5 MG TABLET PO ×2 (05:36→17:56)
[2019-12-18] MEDS: Tolterodine Tartrate 2 MG CAP.SA PO (05:36)
[2019-12-18] MEDS: Sertraline 50 MG Tablet PO (05:36)
[2019-12-18] MEDS: amLODIPine 5 MG Tablet PO (05:37)
[2019-12-18] MEDS: Senna/Docusate Sodium 1 Tablet PO ×2 (05:37→17:56)
[2019-12-18] MEDS: Menthol/Lanolin/Calamine/Znox 113 GM Tube 1 APPLIC TOPICAL ×2 (05:37→17:58)
[2019-12-18] MEDS: Gabapentin 300 MG Capsule PO ×3 (08:40→17:56)
[2019-12-18] MEDS: 0.9% Saline Lock 10 ML Syringe IV ×2 (09:17→17:58)
[2019-12-18 10:00] VITALS: PULSE 96; RESP 16; O2SAT 97
[2019-12-18 13:53] VITALS: BP 118/60; PULSE 80; RESP 18; TEMP 37.3; O2SAT 94
[2019-12-18] MEDS: Mirtazapine 15 MG Tablet PO (21:12)
[2019-12-18] MEDS: Atorvastatin Calcium 40 MG Tablet PO (21:13)
[2019-12-18] MEDS: Vancomycin IV 1,000 MG/200 ML BAG 200 MG IV (21:13)
[2019-12-19] MEDS: Polyethylene Glycol 3350 17 GM PACKET PO (05:59)
[2019-12-19] MEDS: Senna/Docusate Sodium 1 Tablet PO ×2 (06:00→17:55)
[2019-12-19] MEDS: amLODIPine 5 MG Tablet PO (06:00)
[2019-12-19] MEDS: Tolterodine Tartrate 2 MG CAP.SA PO (06:00)
[2019-12-19] MEDS: Sertraline 50 MG Tablet PO (06:00)
[2019-12-19] MEDS: APIXABAN 5 MG TABLET PO ×2 (06:00→17:55)
[2019-12-19] MEDS: Menthol/Lanolin/Calamine/Znox 113 GM Tube 1 APPLIC TOPICAL ×2 (06:01→17:56)
[2019-12-19 06:06] VITALS: BP 137/69; PULSE 83; RESP 16; TEMP 37.2; O2SAT 93
[2019-12-19] MEDS: Gabapentin 300 MG Capsule PO ×3 (07:42→17:55)
[2019-12-19 14:52] VITALS: BP 107/73; PULSE 88; RESP 16; TEMP 36.9; O2SAT 94
[2019-12-19] MEDS: 0.9% Saline Lock 10 ML Syringe IV ×2 (18:02→22:48)
[2019-12-19] MEDS: Mirtazapine 15 MG Tablet PO (21:35)
[2019-12-19] MEDS: Atorvastatin Calcium 40 MG Tablet PO (21:35)
[2019-12-19 22:18] LABS: Vancomycin, Trough Level 14.5 ug/mL (5.0-15.0)
[2019-12-19] MEDS: Vancomycin IV 1,000 MG/200 ML BAG 200 MG IV (22:45)
--- NOTE | 2019-12-20 00:03 | PCM.RX.CS ---
Consult Pharmacy has been consulted to manage selected antiobiotic: Vancomycin Type of Consult: Follow-up Labs: Sodium 142 mmol/L (136-145) 12/14/19 05:10 Potassium 3.9 mmol/L (3.5-5.1) 12/14/19 05:10 Chloride 110 mmol/L (98-107) H 12/14/19 05:10 Carbon Dioxide 26.0 mmol/L (21.0-32.0) 12/14/19 05:10 Anion Gap 6 (5-15) 12/14/19 05:10 BUN 20 mg/dL (7-18) H 12/14/19 05:10 Creatinine 0.67 mg/dL (0.55-1.02) 12/14/19 05:10 Est GFR (MDRD) Af Amer 110 mL/min (>60) 12/14/19 05:10 Est GFR (MDRD) Non-Af 91 mL/min (>60) 12/14/19 05:10 BUN/Creatinine Ratio 29.9 RATIO (10-20) H 12/14/19 05:10 Glucose 82 mg/dL (74-106) 12/14/19 05:10 Vancomycin Trough 14.5 ug/mL (5.0-15.0) 12/19/19 21:30 Random Vancomycin 18.0 ug/mL (0.0-15.0) H 12/09/19 10:12 Microbiology: Microbiology 12/06/19 20:19 Mucosa - Nasopharyngeal Coronavirus COVID-19 PCR - Final Goal Trough: 15-20 mcg/mL Pharmacy Plan for Drug Dosing: Pharmacy Service will continue to monitor and adjust dosing as required. TROUGH 14.5 NO CHANGES Follow-Up Labs: Trough Vancomycin Labs to be done on [date and time ordered]: 12/23 @ 4557
[2019-12-20 04:00] VITALS: BP 123/63; PULSE 91; RESP 18; O2SAT 93
[2019-12-20] MEDS: Senna/Docusate Sodium 1 Tablet PO (05:48)
[2019-12-20] MEDS: Tolterodine Tartrate 2 MG CAP.SA PO (05:48)
[2019-12-20] MEDS: Polyethylene Glycol 3350 17 GM PACKET PO (05:48)
[2019-12-20] MEDS: Sertraline 50 MG Tablet PO (05:48)
[2019-12-20] MEDS: amLODIPine 5 MG Tablet PO (05:48)
[2019-12-20] MEDS: APIXABAN 5 MG TABLET PO ×2 (05:48→17:26)
[2019-12-20] MEDS: 0.9% Saline Lock 10 ML Syringe IV ×3 (05:55→22:03)
[2019-12-20] MEDS: Menthol/Lanolin/Calamine/Znox 113 GM Tube 1 APPLIC TOPICAL ×2 (05:58→17:27)
[2019-12-20] MEDS: Gabapentin 300 MG Capsule PO ×3 (07:48→17:26)
[2019-12-20 10:25] VITALS: PULSE 97; RESP 18; O2SAT 97
[2019-12-20 14:58] VITALS: BP 117/64; PULSE 90; RESP 14; TEMP 36.9; O2SAT 93
[2019-12-20] MEDS: Mirtazapine 15 MG Tablet PO (21:08)
[2019-12-20] MEDS: Atorvastatin Calcium 40 MG Tablet PO (21:08)
[2019-12-20] MEDS: Vancomycin IV 1,000 MG/200 ML BAG 200 MG IV (22:03)
[2019-12-21 05:49] LABS: Absolute Lymphocyte Count 0.69 X10^3/uL (0.83-4.51); Absolute Neutrophil Count 2.2 X10^3/uL (2.0-7.7); Basophil# 0.04 X10^3/uL; Eosinophil# 0.42 X10^3/uL; Hematocrit 30.5 % (37-47); Hemoglobin 9.9 g/dL (12.0-15.0); Lymphocyte # 0.69 X10^3/ul (4.0); Lymphocyte % 18.1 % (19-41); Mean Corp Hgb Conc 32.5 g/dL (32-36); Mean Corpuscular Hgb 30.4 pg (27.0-32.0); Mean Corpuscular Volume 93.6 fL (81-99); Mean Platelet Vol. 9.2 fl (6.2-12.0); Monocyte# 0.43 X10^3/uL; Monocyte% 11.3 % (0-10); NRBC Flagged by Analyzer 0 % (0-5); Neutrophil # 2.22 X10^3/uL (2.7-7.7); Neutrophil % 58.3 % (47-70); Platelet Count 187 K/mm3 (150-450); RBC Distribution Width CV 14.7 % (11.6-14.6); RBC Distribution Width SD 49.8 fl (35.1-43.9); Red Blood Count 3.26 M/mm3 (4.2-5.4); White Blood Count 3.8 K/mm3 (4.4-11.0)
[2019-12-21 06:04] VITALS: BP 119/62; PULSE 82; RESP 18; TEMP 36.8; O2SAT 94
[2019-12-21] MEDS: Senna/Docusate Sodium 1 Tablet PO ×2 (06:05→17:05)
[2019-12-21] MEDS: Polyethylene Glycol 3350 17 GM PACKET PO (06:05)
[2019-12-21] MEDS: Tolterodine Tartrate 2 MG CAP.SA PO (06:05)
[2019-12-21] MEDS: APIXABAN 5 MG TABLET PO ×2 (06:05→17:05)
[2019-12-21] MEDS: Sertraline 50 MG Tablet PO (06:05)
[2019-12-21] MEDS: amLODIPine 5 MG Tablet PO (06:05)
[2019-12-21] MEDS: Menthol/Lanolin/Calamine/Znox 113 GM Tube 1 APPLIC TOPICAL ×2 (06:07→17:04)
[2019-12-21] MEDS: 0.9% Saline Lock 10 ML Syringe IV ×2 (06:07→22:09)
[2019-12-21 06:11] LABS: Anion Gap 5 (5-15); BUN 13 mg/dL (7-18); BUN/Creat Ratio 19.6 RATIO (10-20); Calcium,Total 8.6 mg/dL (8.5-10.1); Chloride 110 mmol/L (98-107); Creatinine, Serum 0.66 mg/dL (0.55-1.02); EST Glomerular Filtration Rate 91 mL/min (>60); Est Glom Filt Rate - Afr Amer 111 mL/min (>60); Estimated Creatinine Clearance 38.35 ml/min; Glucose 88 mg/dL (74-106); Sodium Level 140 mmol/L (136-145)
[2019-12-21] MEDS: Gabapentin 300 MG Capsule PO ×3 (07:54→17:04)
--- NOTE | 2019-12-21 10:59 | PN.ID_ITS ---
Patient Problems: Active and Suspected Problems Toxic encephalopathy (Acute) Bacteremia (Acute) Meningitis (Acute) Subjective: Feeling well, no fever, no n/v/d, no headache, no neck pain - Physical Exam Vitals/I&O's: Vital Signs Temp Pulse Resp BP Pulse Ox 98.2 F 82 18 119/62 94 12/21/19 06:04 12/21/19 06:04 12/21/19 06:04 12/21/19 06:04 12/21/19 06:04 Oxygen Delivery Method Room Air Weight: 70.534 kg Body Mass Index (BMI) 24.9 Intake and Output for Last 24 Hours 12/19/19 12/20/19 12/21/19 23:59 23:59 23:59 Intake Total 1360 / 1360 1600 / 1600 120 / 120 Balance 1360 / 1360 1600 / 1600 120 / 120 General: Alert, Cooperative, No apparent distress Lungs: Clear to auscultation, Normal air movement Cardiovascular: Regular rate, Regular Rhythm Abdomen: Soft, Non Tender, Non-Distended Skin: No rashes Laboratory Results 12/21/19 05:25: WBC 3.8 L, RBC 3.26 L, Hgb 9.9 L, Hct 30.5 L, MCV 93.6, MCH 30.4, MCHC 32.5, RDW Std Deviation 49.8 H, RDW Coeff of La 14.7 H, Plt Count 187, MPV 9.2, Immature Gran % (Auto) 0.300, Neut % (Auto) 58.3, Lymph % (Auto) 18.1 L, Reeves % (Auto) 11.3 H, Eos % (Auto) 11.0 H, Baso % (Auto) 1.0, Absolute Neuts (auto) 2.2, Absolute Lymphs (auto) 0.69 L, Nucleated RBC % 0 12/21/19 05:25: Sodium 140, Potassium 4.0, Chloride 110 H, Carbon Dioxide 25.0, Anion Gap 5, BUN 13, Creatinine 0.66, Estim Creat Clear Calc 38.35, Est GFR (MDRD) Af Amer 111, Est GFR (MDRD) Non-Af 91, BUN/Creatinine Ratio 19.6, Glucose 88, Calcium 8.6 Current Medications Acetaminophen (Tylenol) 1,000 mg PO Q6H PRN PRN PRN Reason: Pain Score 1-5/10 Amlodipine Besylate (Norvasc) 5 mg PO DAILY [facility] Last Admin: 12/21/19 06:05 Dose: 5 mg Documented by: Apixaban (Eliquis) 5 mg PO BID [facility] Last Admin: 12/21/19 06:05 Dose: 5 mg Documented by: Atorvastatin Calcium (Lipitor) 40 mg PO QHS [facility] Last Admin: 12/20/19 21:08 Dose: 40 mg Documented by: Bisacodyl (Dulcolax) 10 mg PO DAILY PRN PRN Reason: Constipation Calamine/Phenol (Calmoseptine Ointment) 1 applic TOPICAL BID [facility]; Protocol Last Admin: 12/21/19 06:07 Dose: 1 applicatio Documented by: Gabapentin (Neurontin) 300 mg PO TIDCM [facility] Last Admin: 12/21/19 07:54 Dose: 300 mg Documented by: Heparin Sodium (Beef Lung) () 50 units IV UD PRN PRN Reason: PICC Line Heparin Flush Melatonin (Melatonin) 5 mg PO QHS PRN PRN Reason: INSOMNIA Mirtazapine (Remeron) 15 mg PO QHS [facility] Last Admin: 12/20/19 21:08 Dose: 15 mg Documented by: Multi-Ingredient Cream (Eucerin) 1 applic TOPICAL 0600,2200 [facility]; Protocol Last Admin: 12/21/19 06:07 Dose: 1 applicatio Documented by: Oxycodone HCl (Oxyir) 5 mg PO Q6H PRN PRN PRN Reason: Pain Score 6-10/10 Polyethylene Glycol (Miralax) 17 gm PO DAILY [facility] Last Admin: 12/21/19 06:05 Dose: 17 gm Documented by: Potassium Chloride (K-Dur) 20 meq PO BIDCM [facility] Last Admin: 12/21/19 07:54 Dose: 20 meq Documented by: Senna/Docusate Sodium (Senokot-S, Karlene-Colace) 1 tablet PO BID [facility] Last Admin: 12/21/19 06:05 Dose: 1 tablet Documented by: Sertraline HCl (Zoloft) 50 mg PO DAILY [facility] Last Admin: 12/21/19 06:05 Dose: 50 mg Documented by: Sodium Chloride (0.9% Nacl (Sterile) Posiflush) 10 - 30 ml IV PRN PRN PRN Reason: saline flush Last Admin: 12/16/19 10:39 Dose: 20 ml Documented by: Sodium Chloride () 250 ml IV PRN PRN PRN Reason: IVPB flush Last Admin: 12/18/19 05:36 Dose: 250 ml Documented by: Sodium Chloride () 10 - 40 ml IV UD PRN PRN Reason: Open End PICC Flush Last Admin: 12/21/19 06:07 Dose: 20 ml Documented by: Sodium Chloride (0.9% Nacl (Sterile) Posiflush) 10 - 40 ml IV UD PRN PRN Reason: Port access or dressing change Tolterodine Tartrate (Detrol La) 2 mg PO DAILY [facility] Last Admin: 12/21/19 06:05 Dose: 2 mg Documented by: Medical Necessity - Tobacco Use Smoking Status: Never smoker Tobacco Use: Non-smoker Route of nutrition/ use of supplements: [] Nutritional Intake: [] IV Site: [] Stanton Catheter: [] - Assessment/Plan Antibiotics: [] Assessment/Plan: [] Active and Suspected Problems Toxic encephalopathy (Acute) Bacteremia (Acute) Meningitis (Acute) MRSE bacteremia, suspected bacterial meningitis s/p lumbar laminectomy complicated by CSF leak. LP done at [facility] 12/02/19, reviewed [facility] records, labs, imaging, notes. CSF pcr neg for virus. Now completed abx and feeling well. Ok for discharge and picc removal from my perspective. Will follow as needed
[2019-12-21 16:00] VITALS: BP 138/74; PULSE 92; RESP 16; TEMP 37.4; O2SAT 95
--- NOTE | 2019-12-21 16:16 | CASEMGMT ---
Addendum entered by Bren Garcia 12/23/19 15:42: Provided pt list of [facility] agencies - pt used [facility] prior. Referral made for PT/OT/ST. No DME needs. Plan: DC home alone 12/30 with [facility] PT.OT.ST. Original Note: Social Work ID. Dr. Patel IV AT. Spoke with pt, dtr and son. Pt is still progressing in therapy. Pt agreeable to remain in TCU. IDT recommending DC date 12/30. Pt agreeable. Pt will DC home with [facility] PT/OT/ST. Will continue to follow. 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
[2019-12-21] MEDS: Mirtazapine 15 MG Tablet PO (20:23)
[2019-12-21] MEDS: Atorvastatin Calcium 40 MG Tablet PO (20:23)
--- NOTE | 2019-12-21 21:08 | DCINST_ITS ---
- Discharge Diagnoses Current Active Problems: Current Active and Chronic Problems Toxic encephalopathy (Acute) Bacteremia (Acute) Hydrocephalus (Chronic) Meningitis (Acute) You will use the following diet at home:: No restrictions, Regular Your food should be the consistency of: Regular Your liquids should be the consistency of: Regular/Thin Discharge Activity: Return to Normal Activity, May Shower, Use Walker Weight Bearing Status: Weight bearing as tolerated Call your doctor if you observe: Fever of 101 or Higher, Inability to urinate, Inability to have a bowel movement, Shortness of breath, Chest pain, Uncontrolled pain Allergies/Adverse Reactions: Allergies ibuprofen [From Advil] Adverse Reaction (Verified 11/28/19 15:14) Rash Medications to take at Discharge Amlodipine [Norvasc] 5 mg PO DAILY 11/26/19 Apixaban [Eliquis] 5 mg PO BID 11/26/19 Atorvastatin Calcium 40 mg PO DAILY 11/26/19 Gabapentin [Neurontin] 300 mg PO TID 11/26/19 Melatonin 5 mg PO QHS PRN 11/26/19 Mirtazapine 15 mg PO DAILY 11/26/19 Sertraline HCl 50 mg PO DAILY 11/26/19 Oxybutynin Chloride [Oxybutynin Chloride ER] 10 mg PO DAILY 12/06/19 Acetaminophen [Tylenol] 1,000 mg PO Q6H PRN PRN tablet 12/21/19 Menthol/Lanolin/Calamine/Znox [Calmoseptine Ointment] 1 applic TOPICAL BID tube 12/21/19 Mineral Oil/Petrolatum,White [Eucerin] 1 applic TOPICAL 0600,2200 jar 12/21/19 Potassium Chloride [K-Dur] 20 meq PO BIDCM #60 tab 12/21/19 The following prescriptions were given: Potassium Chloride [K-Dur] 20 meq PO BIDCM #60 tab Transmission Status: Pending to [id number] Primary Care Physician: Emile Steward MD [Primary Care Provider] - Please follow up with your Primary Care Physician in: 1 week. Test Results: Test results from this visit will be discussed in further detail at your follow- up appointment, if applicable. Please Follow Up With: KRISTAL BRIONES BA, MD Please Follow Up With: Rodger Morel When: prn Please Follow Up With: Bin Baptiste When: PRN Please Follow Up With: Neurosurgery When: [phone] Please Follow Up With: MRI (brain) Proposed Discharge Date: 12/31/19
--- NOTE | 2019-12-21 21:09 | PCM.DC.SUM ---
Discharge Date and Diagnosis - Problem List Patient Problems: Active and Suspected Problems Toxic encephalopathy (Acute) Bacteremia (Acute) Meningitis (Acute) Date of Admission: 12/06/19 Date of Discharge: 12/31/19 - Primary Discharge Diagnosis Acute Problems: Active Problems Toxic encephalopathy (Acute) Bacteremia (Acute) Meningitis (Acute) - Secondary Discharge Diagnosis Chronic Problems: Chronic Problems Pulmonary embolism (Chronic) DVT (deep venous thrombosis) (Chronic) Coronary artery disease (Chronic) Hyperlipidemia (Chronic) Obstructive sleep apnea (Chronic) Lumbar spinal stenosis (Chronic) Hypertension (Chronic) Pulmonary hypertension (Chronic) Urinary incontinence (Chronic) Cholelithiasis (Chronic) Depression (Chronic) Insomnia (Chronic) Neuropathic pain (Chronic) Hydrocephalus (Chronic) Hospital Course and Treatment Imaging Results: 12/06/19 17:15 Diet: Regular Diet Food consistency:: Soft Liquid Consistency:: Regular/Thin Is pt able to select menu?: Yes Diet Comments: add sauce/gravy to tray; magic cup with every meal; no milk Labs (Last 48 Hours) 12/06/19 12/19/19 12/21/19 20:19 21:30 05:25 WBC 3.8 L RBC 3.26 L Hgb 9.9 L Hct 30.5 L MCV 93.6 MCH 30.4 MCHC 32.5 RDW Std Deviation 49.8 H RDW Coeff of La 14.7 H Plt Count 187 MPV 9.2 Immature Gran % (Auto) 0.300 Neut % (Auto) 58.3 Lymph % (Auto) 18.1 L Mills % (Auto) 11.3 H Eos % (Auto) 11.0 H Baso % (Auto) 1.0 Absolute Neuts (auto) 2.2 Absolute Lymphs (auto) 0.69 L Nucleated RBC % 0 Sodium Potassium Chloride Carbon Dioxide Anion Gap BUN Creatinine Estim Creat Clear Calc Est GFR (MDRD) Af Amer Est GFR (MDRD) Non-Af BUN/Creatinine Ratio Glucose Calcium Vancomycin Trough 14.5 COVID-19 ([facility]) Cancelled 12/21/19 05:25 WBC RBC Hgb Hct MCV MCH MCHC RDW Std Deviation RDW Coeff of La Plt Count MPV Immature Gran % (Auto) Neut % (Auto) Lymph % (Auto) Mills % (Auto) Eos % (Auto) Baso % (Auto) Absolute Neuts (auto) Absolute Lymphs (auto) Nucleated RBC % Sodium 140 Potassium 4.0 Chloride 110 H Carbon Dioxide 25.0 Anion Gap 5 BUN 13 Creatinine 0.66 Estim Creat Clear Calc 38.35 Est GFR (MDRD) Af Amer 111 Est GFR (MDRD) Non-Af 91 BUN/Creatinine Ratio 19.6 Glucose 88 Calcium 8.6 Vancomycin Trough COVID-19 ([facility]) Operations: None Procedures: None Summary of Care Provided: The patient is a 79 year old Female with below past medical history hospitalized for toxic encephalopathy secondary to meningitis, complicated by staph epidermidis bacteremia, admitted to TCU with debility, here for rehabilitation, strengthening, intravenous antibiotics, prior to discharge home with . Discharge home with , Home Health Care PT/OT/ST. Patient Problems: Active and Suspected Problems Toxic encephalopathy (Acute) Bacteremia (Acute) Meningitis (Acute) - Physical Exam Vitals/I&O's: Vital Signs Temp Pulse Resp BP Pulse Ox 99.4 F H 92 16 138/74 H 95 12/21/19 16:00 12/21/19 16:00 12/21/19 16:00 12/21/19 16:00 12/21/19 16:00 Oxygen Delivery Method Room Air Weight: 69.763 kg Body Mass Index (BMI) 24.9 Intake and Output for Last 24 Hours 12/19/19 12/20/19 12/21/19 23:59 23:59 23:59 Intake Total 1360 / 1360 1600 / 1600 240 / 240 Balance 1360 / 1360 1600 / 1600 240 / 240 Laboratory Results 12/06/19 20:19: COVID-19 ([facility]) Cancelled 12/21/19 05:25: WBC 3.8 L, RBC 3.26 L, Hgb 9.9 L, Hct 30.5 L, MCV 93.6, MCH 30.4, MCHC 32.5, RDW Std Deviation 49.8 H, RDW Coeff of La 14.7 H, Plt Count 187, MPV 9.2, Immature Gran % (Auto) 0.300, Neut % (Auto) 58.3, Lymph % (Auto) 18.1 L, Mills % (Auto) 11.3 H, Eos % (Auto) 11.0 H, Baso % (Auto) 1.0, Absolute Neuts (auto) 2.2, Absolute Lymphs (auto) 0.69 L, Nucleated RBC % 0 12/21/19 05:25: Sodium 140, Potassium 4.0, Chloride 110 H, Carbon Dioxide 25.0, Anion Gap 5, BUN 13, Creatinine 0.66, Estim Creat Clear Calc 38.35, Est GFR (MDRD) Af Amer 111, Est GFR (MDRD) Non-Af 91, BUN/Creatinine Ratio 19.6, Glucose 88, Calcium 8.6 Current Medications Acetaminophen (Tylenol) 1,000 mg PO Q6H PRN PRN PRN Reason: Pain Score 1-5/10 Amlodipine Besylate (Norvasc) 5 mg PO DAILY [facility] Last Admin: 12/21/19 06:05 Dose: 5 mg Documented by: Apixaban (Eliquis) 5 mg PO BID [facility] Last Admin: 12/21/19 17:05 Dose: 5 mg Documented by: Atorvastatin Calcium (Lipitor) 40 mg PO QHS [facility] Last Admin: 12/21/19 20:23 Dose: 40 mg Documented by: Bisacodyl (Dulcolax) 10 mg PO DAILY PRN PRN Reason: Constipation Calamine/Phenol (Calmoseptine Ointment) 1 applic TOPICAL BID [facility]; Protocol Last Admin: 12/21/19 17:04 Dose: 1 applicatio Documented by: Gabapentin (Neurontin) 300 mg PO TIDCM [facility] Last Admin: 12/21/19 17:04 Dose: 300 mg Documented by: Heparin Sodium (Beef Lung) () 50 units IV UD PRN PRN Reason: PICC Line Heparin Flush Melatonin (Melatonin) 5 mg PO QHS PRN PRN Reason: INSOMNIA Mirtazapine (Remeron) 15 mg PO QHS [facility] Last Admin: 12/21/19 20:23 Dose: 15 mg Documented by: Multi-Ingredient Cream (Eucerin) 1 applic TOPICAL 0600,2200 [facility]; Protocol Last Admin: 12/21/19 20:22 Dose: 1 applicatio Documented by: Oxycodone HCl (Oxyir) 5 mg PO Q6H PRN PRN PRN Reason: Pain Score 6-10/10 Polyethylene Glycol (Miralax) 17 gm PO DAILY [facility] Last Admin: 12/21/19 06:05 Dose: 17 gm Documented by: Potassium Chloride (K-Dur) 20 meq PO BIDCM [facility] Last Admin: 12/21/19 17:04 Dose: 20 meq Documented by: Senna/Docusate Sodium (Senokot-S, Karlene-Colace) 1 tablet PO BID [facility] Last Admin: 12/21/19 17:05 Dose: 1 tablet Documented by: Sertraline HCl (Zoloft) 50 mg PO DAILY [facility] Last Admin: 12/21/19 06:05 Dose: 50 mg Documented by: Sodium Chloride (0.9% Nacl (Sterile) Posiflush) 10 - 30 ml IV PRN PRN PRN Reason: saline flush Last Admin: 12/16/19 10:39 Dose: 20 ml Documented by: Sodium Chloride () 250 ml IV PRN PRN PRN Reason: IVPB flush Last Admin: 12/18/19 05:36 Dose: 250 ml Documented by: Sodium Chloride () 10 - 40 ml IV UD PRN PRN Reason: Open End PICC Flush Last Admin: 12/21/19 06:07 Dose: 20 ml Documented by: Sodium Chloride (0.9% Nacl (Sterile) Posiflush) 10 - 40 ml IV UD PRN PRN Reason: Port access or dressing change Tolterodine Tartrate (Detrol La) 2 mg PO DAILY [facility] Last Admin: 12/21/19 06:05 Dose: 2 mg Documented by: Discharge Diet: No Restrictions Discharge Activity: Return to Normal Activity, May Shower, Use Walker Weight Bearing Status: Weight bearing as tolerated Call your doctor if you observe: Fever of 101 or Higher, Inability to urinate, Inability to have a bowel movement, Shortness of breath, Chest pain, Uncontrolled pain Home Medications: Medications to take at Discharge Amlodipine [Norvasc] 5 mg PO DAILY 11/26/19 Apixaban [Eliquis] 5 mg PO BID 11/26/19 Atorvastatin Calcium 40 mg PO DAILY 11/26/19 Gabapentin [Neurontin] 300 mg PO TID 11/26/19 Melatonin 5 mg PO QHS PRN 11/26/19 Mirtazapine 15 mg PO DAILY 11/26/19 Sertraline HCl 50 mg PO DAILY 11/26/19 Oxybutynin Chloride [Oxybutynin Chloride ER] 10 mg PO DAILY 12/06/19 Acetaminophen [Tylenol] 1,000 mg PO Q6H PRN PRN tablet 12/21/19 Menthol/Lanolin/Calamine/Znox [Calmoseptine Ointment] 1 applic TOPICAL BID tube 12/21/19 Mineral Oil/Petrolatum,White [Eucerin] 1 applic TOPICAL 0600,2200 jar 12/21/19 Potassium Chloride [K-Dur] 20 meq PO BIDCM #60 tab 12/21/19 Following Prescrptions Were Given to Patient: Potassium Chloride [K-Dur] 20 meq PO BIDCM #60 tab Transmission Status: Pending to [id number] Primary Care Physician: Emile Steward MD [Primary Care Provider] - Please follow up with your Primary Care Physician in: 1 week. Please Follow Up With: KRISTAL BRIONES BA, MD Please Follow Up With: Rodger Morel When: prn Please Follow Up With: Bin Baptiste When: PRN Please Follow Up With: Neurosurgery When: [phone] Please Follow Up With: MRI (brain) Disposition: Home with Home Health Minutes spent on discharge:: 35 Patient Condition:: Stable Medical Necessity - Tobacco Use Smoking Status: Never smoker Tobacco Use: Non-smoker Meaningful Use Info Meaningful Use Diagnoses (Choose all that apply): None applicable
[2019-12-22 05:51] VITALS: BP 132/68; PULSE 87; RESP 18; TEMP 36.9; O2SAT 93
[2019-12-22] MEDS: Polyethylene Glycol 3350 17 GM PACKET PO (05:55)
[2019-12-22] MEDS: APIXABAN 5 MG TABLET PO ×2 (06:00→18:09)
[2019-12-22] MEDS: Menthol/Lanolin/Calamine/Znox 113 GM Tube 1 APPLIC TOPICAL ×2 (06:00→18:10)
[2019-12-22] MEDS: Tolterodine Tartrate 2 MG CAP.SA PO (06:00)
[2019-12-22] MEDS: Senna/Docusate Sodium 1 Tablet PO ×2 (06:01→18:09)
[2019-12-22] MEDS: Sertraline 50 MG Tablet PO (06:01)
[2019-12-22] MEDS: amLODIPine 5 MG Tablet PO (06:01)
--- NOTE | 2019-12-22 06:51 | NURSING ---
PICC line removed from right upper ext. Pt tolerated well. petroleum jelly, 2x2 and [id number] dressing applied. Updated pt to let staff know if she notices and discomfort or bleeding. Resting in bed with call light in reach.
[2019-12-22] MEDS: Gabapentin 300 MG Capsule PO ×3 (07:46→18:09)
[2019-12-22 10:00] VITALS: PULSE 97; RESP 16; O2SAT 97
[2019-12-22 13:22] VITALS: BP 122/59; PULSE 90; RESP 16; TEMP 36.4; O2SAT 96
[2019-12-22] MEDS: Atorvastatin Calcium 40 MG Tablet PO (20:15)
[2019-12-22] MEDS: Mirtazapine 15 MG Tablet PO (20:16)
[2019-12-23 04:00] VITALS: BP 141/68; PULSE 83; RESP 18; TEMP 36.8; O2SAT 94
[2019-12-23] MEDS: APIXABAN 5 MG TABLET PO ×2 (06:13→17:34)
[2019-12-23] MEDS: Sertraline 50 MG Tablet PO (06:13)
[2019-12-23] MEDS: Senna/Docusate Sodium 1 Tablet PO ×2 (06:13→17:34)
[2019-12-23] MEDS: amLODIPine 5 MG Tablet PO (06:13)
[2019-12-23] MEDS: Tolterodine Tartrate 2 MG CAP.SA PO (06:14)
[2019-12-23] MEDS: Menthol/Lanolin/Calamine/Znox 113 GM Tube 1 APPLIC TOPICAL ×2 (06:18→20:44)
[2019-12-23] MEDS: Gabapentin 300 MG Capsule PO ×3 (08:01→17:34)
[2019-12-23] MEDS: Polyethylene Glycol 3350 17 GM PACKET PO (12:38)
[2019-12-23 14:58] VITALS: BP 124/70; PULSE 97; RESP 18; TEMP 36.7; O2SAT 97
[2019-12-23] MEDS: Bisacodyl 5 MG Tablet 10 MG PO (17:36)
[2019-12-23] MEDS: Mirtazapine 15 MG Tablet PO (20:44)
[2019-12-23] MEDS: Atorvastatin Calcium 40 MG Tablet PO (20:44)
[2019-12-24 06:42] VITALS: BP 142/80; PULSE 84; RESP 18; TEMP 37.1; O2SAT 96
[2019-12-24] MEDS: Sertraline 50 MG Tablet PO (06:46)
[2019-12-24] MEDS: Polyethylene Glycol 3350 17 GM PACKET PO (06:46)
[2019-12-24] MEDS: amLODIPine 5 MG Tablet PO (06:47)
[2019-12-24] MEDS: APIXABAN 5 MG TABLET PO ×2 (06:47→16:42)
[2019-12-24] MEDS: Tolterodine Tartrate 2 MG CAP.SA PO (06:47)
[2019-12-24] MEDS: Senna/Docusate Sodium 1 Tablet PO ×2 (06:47→16:42)
[2019-12-24] MEDS: Menthol/Lanolin/Calamine/Znox 113 GM Tube 1 APPLIC TOPICAL ×2 (06:47→16:42)
[2019-12-24] MEDS: Gabapentin 300 MG Capsule PO ×3 (07:56→16:42)
--- NOTE | 2019-12-24 08:34 | NURSING ---
ox sat 97% on 4 lm turned down to 3 lm.
[2019-12-24] MEDS: Furosemide 40 MG Tablet PO (09:30)
--- NOTE | 2019-12-24 14:08 | NURSING ---
called to update, son Phillips, very appreciative of answers to questions. Dr Vazquez on phone speaking with Phillips. Kelley PT aware to update Phillips as well per his request.
[2019-12-24 14:15] VITALS: BP 116/73; PULSE 89; RESP 18; TEMP 36.9; O2SAT 98
[2019-12-24] MEDS: Mirtazapine 15 MG Tablet PO (20:35)
[2019-12-24] MEDS: Atorvastatin Calcium 40 MG Tablet PO (20:35)
[2019-12-25] MEDS: Sertraline 50 MG Tablet PO (05:13)
[2019-12-25] MEDS: Senna/Docusate Sodium 1 Tablet PO ×2 (05:13→17:19)
[2019-12-25] MEDS: Tolterodine Tartrate 2 MG CAP.SA PO (05:13)
[2019-12-25] MEDS: Furosemide 40 MG Tablet PO (05:13)
[2019-12-25] MEDS: APIXABAN 5 MG TABLET PO ×2 (05:13→17:19)
[2019-12-25] MEDS: amLODIPine 5 MG Tablet PO (05:13)
[2019-12-25] MEDS: Menthol/Lanolin/Calamine/Znox 113 GM Tube 1 APPLIC TOPICAL ×2 (05:16→17:21)
[2019-12-25 05:17] VITALS: BP 146/80; PULSE 75; RESP 18; TEMP 36.4; O2SAT 96
[2019-12-25] MEDS: Gabapentin 300 MG Capsule PO ×3 (07:45→17:19)
[2019-12-25] MEDS: Acetaminophen 500 MG Tablet 1000 MG PO ×2 (11:20→18:54)
[2019-12-25 12:40] VITALS: PULSE 94; RESP 18; O2SAT 95
[2019-12-25 14:32] VITALS: BP 151/85; PULSE 106; RESP 181; TEMP 36.9; O2SAT 96
--- NOTE | 2019-12-25 14:44 | NURSING ---
AID CALLED THIS NURSE TO ROOM. PT WAS SITTING ON FLOOR IN BATH ROOM AGAINST WALL. ASKED PT WHAT HAPPENED PT STATED I DONT KNOW. ASKED PT IF SHE HURT OR HIT HER HEAD. PT STATED NO. GOT PT UP AND TO CHAIR. VITALS DONE, NO SIGNS OF CUTS OR BRUISES AT THIS TIME. REPORTED TO RN AND ALARM TO CHAIR AND BED APPLIED. EXPLAINED TO PT ON WHY TO USE CALL LIGHT AND REORIENTED TO CALL LIGHT. PT STATED SHE UNDER STOOD. 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
--- NOTE | 2019-12-25 15:12 | NURSING ---
THIS NURSE CALLED SON TO UPDATE ON HIS MOTHER. STATED TO SON THAT PT GOT UP ON OWN AND FOUND PT ON FLOOR IN BATHROOM. THIS NURSE STATED TO SON NO CUTS,BRUISES ETC WAS FOUND BUT WILL CONTINUE TO MONITOR. AND PT STATED SHE DIDNT KNOW WHAT HAPPENED. ASKED SON IF HE KNEW HOW PT ACTED IF SHE EVER HAD A UTI/INFECTION. SON STATED THAT THE LAST FEW TIMES SHE CAME HOME AFTER A HOSPITAL STAY AND WAS OFF ANTIBIOTICS A FEW DAYS SHE STARTED GOING BACKWARDS TO BEING CONFUSED AND NOT PUTTING SENTENCES TOGETHER AGAIN. SON STATED HE WOULD CALL HIS MOM AND SEE IF HE NOTICED ANY THING DIFFERENT. THIS NURSE STATED SHE WOULD WAIT TO HERE FROM HIM.
--- NOTE | 2019-12-25 15:37 | NURSING ---
Notified Dr. Vazquez of patient's status change, received orders for. Respiratory panel, CBC with diff, BMP, UA & CS, 2 sets of blood cultures, Chest X-Ray, KUB, and start a line running D5 1/2 NS at 75 ml/hr.
--- NOTE | 2019-12-25 15:43 | NURSING ---
SON CALLED THIS NURSE BACK AND STATED HIS MOM IS CONFESSED AND FUMBLING HER WORDS. THANKED SON FOR CALLING AND THIS NURSE AND RN WENT IN TO REVALUATE XOCHILT. XOCHILT CANT REMEMBER WHERE SHE IS AT AND IS JITTERY AND FUMBLING HER WORDS. XOCHILT HAS A TEMP AND FEELS HOT TO THE TOUCH. PT STATED SHE HAS A HEADACHE AND IS COLD. GOT PATENT BACK TO BED AND CALL MADE TO DR. ESPOSITO. WILL UPDATE SON.
--- NOTE | 2019-12-25 16:00 | RAD_ITS ---
STUDY: X-RAY CHEST REASON FOR EXAM: Female, 79 years old. confusion, recent fall, no complaints per pt TECHNIQUE: AP upright COMPARISON: None. FINDINGS: Nonspecific elevation of right hemidiaphragm. No acute infiltration.. There is no demonstrated pleural abnormality. Normal size heart. Normal mediastinum and fide. Normal visualized pulmonary arteries. Tortuous aortic arch and descending thoracic aorta. Dorsal spine demonstrates scoliosis and degenerative changes. Normal visualized ribs and, clavicles. There are degenerative changes of the shoulder joints.. There is no demonstrated abnormality of the visualized soft tissue structures of the upper abdomen. RAD/Chest 1 View IMPRESSION: No acute cardiopulmonary pathology Electronically Signed: Chandra Cast MD at 20:06 EDT , Service support ,
--- NOTE | 2019-12-25 16:00 | RAD_ITS ---
STUDY: X-RAY - ABDOMEN/PELVIS REASON FOR EXAM: Female, 79 years old. confusion, recent fall, no complaints per pt TECHNIQUE: Two AP supine views of the abdomen and pelvis. COMPARISON: November 27, 2019 FINDINGS: Normal visualized lung bases. There is an unremarkable bowel gas pattern. There is no demonstrated free abdominal air. The visualized liver, spleen and kidneys are grossly normal in size and morphology. Multiple gallstones. Lower lumbar postoperative changes. RAD/Abdomen Single View IMPRESSION: Normal bowel gas pattern. Multiple gallstones. Electronically Signed: Martir Irving MD at 16:03 EDT Tel , Service support ,
--- NOTE | 2019-12-25 16:02 | NURSING ---
UPDATED SON ON NEW ORDERS AND STATED TO SON WE WILL KEEP HIM UPDATED ON RESULTS AND ANY THING NEW. SON VERY THANKFUL.
[2019-12-25 16:49] LABS: Absolute Neutrophil Count 5.6 X10^3/uL (2.0-7.7); Basophil# 0.06 X10^3/uL; Basophil% 0.8 % (0-1); Eosinophil# 0.19 X10^3/uL; Eosinophils% 2.7 % (0-5); Hemoglobin 10.9 g/dL (12.0-15.0); Lymphocyte % 11.2 % (19-41); Mean Corp Hgb Conc 31.1 g/dL (32-36); Mean Corpuscular Hgb 30.6 pg (27.0-32.0); Mean Corpuscular Volume 98.3 fL (81-99); Mean Platelet Vol. 9.3 fl (6.2-12.0); Monocyte# 0.45 X10^3/uL; Monocyte% 6.3 % (0-10); NRBC Flagged by Analyzer 0 % (0-5); Neutrophil # 5.61 X10^3/uL (2.7-7.7); Neutrophil % 78.7 % (47-70); Platelet Count 236 K/mm3 (150-450); RBC Distribution Width CV 14.1 % (11.6-14.6); Red Blood Count 3.56 M/mm3 (4.2-5.4); White Blood Count 7.1 K/mm3 (4.4-11.0)
[2019-12-25] MEDS: Dext 5%-0.45% NS 1,000 ML 75 ML IV (16:55)
[2019-12-25 17:07] LABS: ALB/GLOB Ratio 0.9 RATIO (0.9-2.4); AST(SGOT) 20 U/L (15-37); Alanine Aminotransfer ALT/SGPT 16 U/L (13-56); Albumin, Serum 3.5 g/dL (3.2-5.0); Alkaline Phosphatase 135 U/L (45-117); Anion Gap 9 (5-15); BUN 13 mg/dL (7-18); BUN/Creat Ratio 16.7 RATIO (10-20); Calcium,Total 9.1 mg/dL (8.5-10.1); Chloride 106 mmol/L (98-107); Creatinine, Serum 0.78 mg/dL (0.55-1.02); EST Glomerular Filtration Rate 76 mL/min (>60); Est Glom Filt Rate - Afr Amer 92 mL/min (>60); Estimated Creatinine Clearance 38.35 ml/min; Globulin 3.7 g/dL (2.2-4.2); Glucose 97 mg/dL (74-106); Potassium 3.8 mmol/L (3.5-5.1); Protein, Total 7.2 g/dL (6.4-8.2); Sodium Level 136 mmol/L (136-145)
[2019-12-25 17:47] LABS: Bacteria 0 SEEN /hpf (None Seen); Mucous, Urine 0 SEEN /hpf (<or=2+); Red Blood Cells-Urine 0 SEEN /hpf (0-5); Squamous Epithelial Cells - UA 0 SEEN /hpf (5-10)
[2019-12-25 18:11] LABS: Color, Urine Yellow (Yellow); Glucose, Dipstick Normal (Normal); Ketone-Dipstick Negative (Negative); Leukocyte Esterase-Dipstick Negative /ul (Negative); Nitrite-Dipstick Negative (Negative); Occult Blood-Urine Negative /ul (Negative); Protein-Dipstick 30 mg/dl (Negative); Urine Bilirubin Dipstick Negative (Negative); Urine Clarity Clear (Clear); Urine Urobilinogen Normal (Normal)
[2019-12-25 18:32] LABS: White Blood Cells 0-5 SEEN /hpf (0-5)
[2019-12-25 18:45] VITALS: TEMP 39.2
[2019-12-25 18:49] VITALS: BP 162/83; PULSE 113; RESP 18; O2SAT 93
--- NOTE | 2019-12-25 18:55 | NURSING ---
temp taken oral,temp 102.6. prn Tylenol given. rn notified.
--- NOTE | 2019-12-25 18:56 | NURSING ---
Addendum entered by Yareli Balderas 12/25/19 19:08: 1908- pt's son Phillips updated on plan of care and pt's transfer to ER. Original Note: 1849- Notified by Toan BERNAL of increase in pt's temp and having aches/chills. Dr. Vazquez updated on pt's vital signs and symptoms. PRN tylenol administered, will continue to monitor. 1857- Send to ER per Dr. Vazquez
== END 2019-12-25 19:30 | disposition short-term general hospital (02) | DRG 94 ==
PROVIDERS: Internal Medicine Infectious Disease; Admitting Provider Family Medicine Geriatric Medicine; PCP Internal Medicine; Referring Provider Family Medicine Geriatric Medicine; Visit Provider Family Medicine Geriatric Medicine
DX: G00.9 Bacterial meningitis, unspecified (principal); G92 Toxic encephalopathy; B95.7 Other staphylococcus as the cause of diseases classified elsewhere; E78.5 Hyperlipidemia, unspecified; F32.9 Major depressive disorder, single episode, unspecified; I10 Essential (primary) hypertension; N32.81 Overactive bladder; E87.6 Hypokalemia; G47.33 Obstructive sleep apnea (adult) (pediatric); I27.20 Pulmonary hypertension, unspecified; M48.061 Spinal stenosis, lumbar region without neurogenic claudication; I25.10 Atherosclerotic heart disease of native coronary artery without angina pectoris; Z86.711 Personal history of pulmonary embolism; Z86.718 Personal history of other venous thrombosis and embolism; R41.0 Disorientation, unspecified
CPT/HCPCS: 36415; 71045; 74018; 80048; 80053; 80202; 81001; 85025; 86769; 87040; 87086; 87635; 92507; 92523; 92526; 92610; 97110; 97116; 97162; 97166; 97530; 97535; 97802; G2023; J2185; J7050; A4216; J7799; U0002; U0004

== ENCOUNTER 2019-12-25 19:13 | Inpatient (IN) | payer MEDICARE, SELFPAY ==
[2019-12-25] VITALS (9 sets, daily range): BP systolic 108–149; BP diastolic 58–78; PULSE 93–111; RESP 18–29; TEMP 36.9–39.4; O2SAT 89–98; BMI 26.6; BMI 29.4
--- NOTE | 2019-12-25 19:19 | EKG12_ITS ---
Test Reason : FEVER, CONFUSION Blood Pressure : / mmHG Vent. Rate : 102 BPM Atrial Rate : 102 BPM P-R Int : 166 ms QRS Dur : 088 ms QT Int : 356 ms P-R-T Axes : 041 -58 024 degrees QTc Int : 463 ms Sinus tachycardia Left anterior fascicular block Abnormal ECG Confirmed by EDWIN OSWALD, VJ ([id number]), assignment editor JEANNA PANCHAL ([id number]) on 12/28/2019 1:39:21 PM Referred By: JAMESON Confirmed By:VJ PINEDA MD
[2019-12-25] MEDS: Acetaminophen 650 MG Suppository RECTAL (19:54)
--- NOTE | 2019-12-25 20:00 | ED.DCSUM_ITS ---
History of Present Illness Chief Complaint: Fever Informant: [facility] Onset: Today Current Severity: Moderate Maximum Severity: Moderate Worsened by: Unknown Relieved by: Unknown Associated Symptoms: Per TCU nurse, Yareli, complained of aches and chills at 1100 Narrative: Patient is a 79-year-old woman who presents from the TCU because of a change in mental status that occurred abruptly today. She complained of aches and chills at 1100. She was found wandering the halls and disoriented at 1400. She was sent to the ER because Dr. Narayan apparently could not authorize a CAT scan of her head. Chest x-ray and abdominal x-rays were obtained. These were not read by radiology and I reviewed them at 1930. The chest x-ray is unremarkable. There is slight rotation. There is no infiltrate. Cardiac silhouette and size are normal. Mediastinum is normal. Osseous structures appear normal. Abdominal x- ray was obtained which reveals an ossific gas pattern with no evidence of obstruction or pneumoperitoneum. 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 MRI on November 28 of the lumbar spine revealed a small fluid collection at L4 and 5. CT of the brain revealed question of hydrocephalus with small vessel ischemic changes noted. Neurosurgery was consulted and commented hydrocephalus unlikely. 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 6 infectious disease no signs or symptoms of infectious lumbar spine. Comment made staph epidermidis bacteremia resolved repeat blood cultures negative. Echo was performed which was negative. On 11 30 neurology concerned infectious meningitis recommended lumbar puncture. Patient was started on broad-spectrum antibiotics. MRI on December 01 no enhancement infection unlikely. COVID test was negative. She had waxing waning mental status changes at that time. Lumbar puncture revealed 248 WBCs. Infectious disease recommended acyclovir, vancomycin and meropenem. On December 05 she was admitted to TCU with debility and here for rehabilitation, strengthening, intravenous antibiotics. Past medical history medical for pulmonary embolus, chronic, DVT, chronic, coronary disease, hyperlipidemia, obstructive sleep apnea, lumbar stenosis, hypertension, pulmonary hypertension, cholelithiasis Patient is unable to contribute to her history. Prior similar symptoms: Yes Recent Illness/Hospitalization: Yes - Past Medical History (1) Meningitis Status: Inactive (2) Toxic encephalopathy Status: Deleted (3) Hypokalemia Status: Deleted (4) Cholelithiasis Status: Chronic (5) Coronary artery disease Status: Chronic (6) DVT (deep venous thrombosis) Status: Chronic (7) Depression Status: Chronic (8) Hyperlipidemia Status: Chronic (9) Hypertension Status: Chronic (10) Lumbar spinal stenosis Status: Chronic (11) Obstructive sleep apnea Status: Chronic (12) Pulmonary embolism Status: Chronic Past Medical History - Allergies and Home Meds Allergies/Adverse Reactions: Allergies ibuprofen [From Advil] Adverse Reaction (Verified 11/28/19 15:14) Rash Primary Care Physician: Emile Steward MD [Primary Care Provider] - Prior records reviewed: Yes Surgical History: hysterectomy, - - Lumbar spine surgery, Durotomy closure, Bladder suspension. [facility]: [facility] Smoking Status: Never smoker Alcohol: None Drugs: None - Family History Paternal Family History: Reports: Stroke Maternal Family History: Reports: Heart Disease - Congestive Heart Failure. Sibling Family History: Reports: Diabetes, Heart Disease, Hypertension Review of Systems ROS: Unable to Obtain Physical Exam Vital Signs/Narrative: Vital Signs Temp Pulse Resp BP Pulse Ox 12/25/19 19:34 108 H 28 H 147/74 H 96 12/25/19 19:15 101 F H 111 H 23 H 149/66 H 94 12/25/19 19:13 101 F H 111 H 23 H 149/66 H 94 General: Well nourished, Well developed, No Acute Distress Head: Normocephalic, Atraumatic Eyes: Perrl, EOMI. Negative for: Pale conjunctiva, Scleral icterus ENT: Moist mucous membranes, No rhinorrhea, TM's clear Neck: Supple, Nontender, No lymphadenopathy, No JVD Cardiovascular: Regular rhythm, No murmurs, Normal S1, Normal S2, Tachycardia Respiratory: No distress, CTA bilaterally, Chest nontender, - - Is tachypneic but in no distress Abdomen: Soft, Nontender, Nondistended, Normal bowel sounds, No masses Rectal: Deferred Back: Nontender, - - Midline lumbar incision well-healed without erythema, warmth, point tenderness to percussion or fluctuance. There is no induration.. Negative for: CVA tenderness, Spinal tenderness Skin: Normal color, No rash, No Trauma. Negative for: Cyanosis, Diaphoresis, Jaundice Neurological: Cranial nerves II-XII grossly intact, Normal Strength, Normal Sensation, Normal DTR. Negative for: Alert, Oriented x3 Psychological: Normal affect Diagnostic/Tx/Re-eval Chest X-Ray - ED: 1 View, Read by ED Physician, - - Chest x-ray and abdominal x-rays that were performed separately were documented in the HPI portion of the chart. These were read prior to radiologist read. Laboratory Results 12/25/19 12/25/19 19:40 19:40 PT 17.9 H INR 1.5 APTT 75.3 H Lactic Acid 2.1 H* Lactate is elevated. Patient does not have obvious source. COVID test is pending. - Rhythm Strip Rhythm Strip: Sinus Tach Rate: 106 Ectopy: None - EKG Initial EKG Interpretation: Sinus Tachycardia - Sinus tachycardia with a ventricular rate of 102. OR interval 106 6 ms. QRS duration 88 ms. QT duration 3 and 56 ms. [place] is to the left. There appears to be a left anterior fascicular block. - Medical Decision Making She presents with abrupt onset of mental status change and fever. Sepsis work- up was undertaken. Patient had test done prior to arrival. X-rays of the chest and abdomen were reviewed interpreted by me as previously documented. Blood work reveals a normal white count, basic metabolic panel is unremarkable. BUN and creatinine are normal. Alkaline phosphatase is slight elevated 135 which is nonspecific. UA is a clean specimen and normal. In light of history of meningitis she was treated with 2 g of Rocephin and 25 mg/kg of vancomycin. A lumbar puncture was not performed since she is on Eliquis and this is a contraindication because there is a 50+ percent incidence of hemiplegia. Since she does not have focal neurologic findings and had similar presentation with extensive work-up that did not reveal any intracranial pathology and there is no history of trauma or evidence of trauma imaging was not repeated. After had perform a history and physical left the room the patient's nurse, Ms. Herron, informed me that patient had a significant nonproductive cough. This raises concern for COVID since x-ray is normal. Patient's initial cover test may be negative since symptoms started less than 12 hours ago and viral load may be low. Will page hospitalist to discuss case for admission. Infectious disease was also paged since they were involved in her care at the TCU. The hospitalist informed me at 0220 since patient has fever, tachycardia, tachypnea with elevated lactate she meets criteria for severe sepsis. - Critical Care Time Critical care time (excluding procedures): 30-74 minutes, Discussing w/Patient &/or Family/Circular Knitter Helper, Discussing w/Consultants - Case was discussed with infe ctious disease and specifically Dr. Raghavendra Hamilton. He agrees with antibiotic choice. He agrees LP cannot be performed because patient is on Eliquis. He does not believe there is a reason to transfer patient. Therefore, hospitalist was paged for admission., Arranging Admission or Transfer - CC time 32 minutes ED Disposition - Plan for ED Patient: Disposition: Acute Care Hospital [facility] Diagnosis: Infectious encephalitis, Sinus tachycardia by electrocardiogram, Fever and chills, Suspected 2019 novel coronavirus infection, Severe sepsis Referrals: Emile Steward MD [Primary Care Provider] -
[2019-12-25 20:04] LABS: International Normalized Ratio 1.5; Prothrombin Time (Protime)PT. 17.9 SECONDS (11.7-14.9)
[2019-12-25 20:05] LABS: Partial Thromboplast Time 75.3 Seconds (24.1-36.2)
[2019-12-25 20:20] LABS: Lactic Acid 2.1 mmol/L (0.4-1.9)
--- NOTE | 2019-12-25 21:39 | HP.PCM_ITS ---
Problem List (1) Pulmonary embolism Status: Chronic (2) DVT (deep venous thrombosis) Status: Chronic (3) Coronary artery disease Status: Chronic (4) Hyperlipidemia Status: Chronic (5) Obstructive sleep apnea Status: Chronic (6) Hypertension Status: Chronic (7) Urinary incontinence Status: Chronic (8) Depression Status: Chronic (9) Encephalopathy Status: Acute (10) Bacteremia Status: Suspected History of Present Illness Date of Admission: 12/25/19 Chief Complaint: Fever. The patient is a 79 year old F with past medical history as mentioned above was sent from TCU to the emergency department because of fever and confusion. At this time, patient is confused and disoriented although she was able to answer direct questions. Her complaints are headache that has been going on for couple of days as well as dry cough. She is aware that she was sent to ED from TCU because of fever. According to TCU nursing staff, patient had change in mental status started yesterday and she complained of chills. From dry cough, no shortness of breath, denied nasal or sinus congestion. She denied abdominal pain, nausea or vomiting. She denied urinary symptoms. Patient admitted to TCU on November 26, 2019 due to debility for PT OT after she underwent lumbar laminectomy and fusion that was complicated by CSF leak and suspected meningitis and MRSE bacteremia that was treated with IV antibiotics and was completed on December 21, 2019. She had blood culture on November 27, 2019 that revealed staph epidermidis that was resistant to oxacillin. On the same day, she had urine culture that was positive for pseudomonas aeruginosa. She had a repeat blood culture on November 27 that showed no growth in 5 days. Her COVID-19 test came back negative on December 06, 2019. On November 24, 2019, she was found to have bilateral lower extremity DVT and she has been on Eliquis since then. She had a history of hypertension and has been under control with Norvasc and Lasix. She had a history of hyperlipidemia and she has been on statins. In the emergency department, patient was febrile, tachycardic, tachypneic, blood pressure was stable and pulse ox was 94% on room air. Her routine blood work was remarkable for hemoglobin of 10.9 g/dL, otherwise normal. LFT was unremarkable. Lactic acid was 2.1. Urinalysis showed no evidence of acute infection. Chest x-ray showed no acute infiltrate or consolidation. EKG revealed sinus tachycardia, otherwise unremarkable. She is being admitted for severe sepsis probably due to persistent bacteremia without obvious source of infection. Past Medical History Past Medical History (Chronic Problems): Chronic Problems Pulmonary embolism (Chronic) DVT (deep venous thrombosis) (Chronic) Coronary artery disease (Chronic) Hyperlipidemia (Chronic) Obstructive sleep apnea (Chronic) Lumbar spinal stenosis (Chronic) Hypertension (Chronic) Pulmonary hypertension (Chronic) Urinary incontinence (Chronic) Cholelithiasis (Chronic) Depression (Chronic) Insomnia (Chronic) Neuropathic pain (Chronic) Hydrocephalus (Chronic) Allergies ibuprofen [From Advil] Adverse Reaction (Verified 11/28/19 15:14) Rash Home Medications: Ambulatory Orders Medication Instructions Recorded Amlodipine [Norvasc] 5 mg PO DAILY 11/26/19 Apixaban [Eliquis] 5 mg PO BID 11/26/19 Atorvastatin Calcium 40 mg PO DAILY 11/26/19 Gabapentin [Neurontin] 300 mg PO TID 11/26/19 Melatonin 5 mg PO QHS PRN 11/26/19 Mirtazapine 15 mg PO DAILY 11/26/19 Sertraline HCl 50 mg PO DAILY 11/26/19 Oxybutynin Chloride [Oxybutynin 5 mg PO DAILY 12/06/19 Chloride ER] Acetaminophen [Tylenol] 1,000 mg PO Q6H PRN PRN tab 12/21/19 Menthol/Lanolin/Calamine/Znox 1 applic TOPICAL BID tube 12/21/19 [Calmoseptine Ointment] Mineral Oil/Petrolatum,White 1 applic TOPICAL 0600,2200 jar 12/21/19 [Eucerin] Potassium Chloride [K-Dur] 20 meq PO BIDCM #60 tab 12/21/19 Bisacodyl [Dulcolax] 10 mg PO PRN PRN 12/25/19 Furosemide [Lasix] 40 mg PO DAILY 12/25/19 Polyethylene Glycol 3350 [Miralax] 17 gm PO DAILY 12/25/19 Sennosides/Docusate Sodium 1 ea PO BID 12/25/19 [Senna-Docusate Sodium Tablet] Tolterodine Tartrate [Detrol LA] 2 mg PO DAILY 12/25/19 Surgical History: hysterectomy, - - Lumbar spine surgery, Durotomy closure, Bladder suspension. 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 Sibling History Items: Diabetes, Heart Disease, Hypertension Review of Systems Constitutional: Reports: Chills, Fever, Weakness. Denies: Anorexia Eyes: Denies: Blurred vision, Double vision, Drainage, Redness HEENT: Reports: Head Aches. Denies: Difficulty Hearing, Ear Pain, Eye Pain, Nasal Congestion, Sore Throat Cardiovascular: Denies: Chest Pain, Chest Pressure, Chest Tightness, Edema, Light Headedness, Palpitations, Paroxysmal Noc. Dyspnea, Syncope Respiratory: Reports: Cough. Denies: Pleuritic Pain, Shortness of Breath, Sputum production, Wheezing Gastrointestinal: Denies: Abdominal Pain, Constipation, Diarrhea, Nausea, Vomiting Genitourinary: Denies: Dysuria, Frequency, Hematuria Musculoskeletal: Denies: Arm Pain, Back Pain, Foot Pain Skin: Denies: Dryness, Rash Neurological: Reports: Headaches. Denies: Balance problems, Blurred vision, Double vision, Slurred speech, Confusion, Focal weakness, Incoordination, Numbness Psychiatric: Reports: Depression. Denies: Anxiety Endocrine: Denies: Change in Body Habitus, Polydipsia, Polyuria VTE Information - Inpt Only VTE Present on Admission: No VTE Mechan Device Prophylaxis: None VTE Pharm Prophylaxis ordered?: No Patient Problems: Active and Suspected Problems Severe sepsis (Acute) - Physical Exam Vitals/I&O's: Vital Signs Temp Pulse Resp BP Pulse Ox 101.6 F H 101 H 23 H 131/72 H 94 12/25/19 21:35 12/25/19 21:35 12/25/19 21:35 12/25/19 21:35 12/25/19 21:35 Oxygen Delivery Method Room Air Weight: 145 lb 15.136 oz Body Mass Index (BMI) 26.6 Intake and Output for Last 24 Hours 12/23/19 12/24/19 12/25/19 23:59 23:59 23:59 Intake Total 550 / 550 Balance 550 / 550 General: Alert, Cooperative, No apparent distress, Confused, Disoriented HEENT: Atraumatic, PERRLA, EOMI Oral: Moist Mucosa, No Gingival or Mucosal Lesions/ Ulcerations Neck: Supple, No JVD, Negative Carotid Bruits, Trachea Midline, Thyroid Normal Size and Texture Lungs: Clear to auscultation, Normal air movement, No rhonchi, No wheeze, No rales, Diminished Cardiovascular: Regular rate, Regular Rhythm, Normal S1, Normal S2, PMI Normal, Tachycardic Abdomen: Bowel Sounds Present, Soft, Non Tender, Non-Distended, No Hepato- splenomegaly Extremities: No clubbing, No cyanosis, No edema Skin: No rashes, No breakdown, - - Lower back surgical scar intact, dry, no evidence of infection or drainage. Musculoskeletal: No Tenderness to Palpation of Joints or Extremities Lymphatic: No Cervical, Supraclavicular, or Inguinal Adenopathy Neurological: Cranial nerves II-XII grossly intact, Motor Exam 5/5 strength throughout Psych/Mental Status: Normal Affect, Appropriate Laboratory Results 12/25/19 19:40: PT 17.9 H, INR 1.5, APTT 75.3 H 12/25/19 19:40: Lactic Acid 2.1 H* RAD/Chest 1 View IMPRESSION: No acute cardiopulmonary pathology Electronically Signed: Chandra Cast MD at 20:06 EDT , Service support , Current Medications Vancomycin HCl 1,750 mg/ (Sodium Chloride) 535 mls @ 250 mls/hr IV X1 ONE Stop: 12/25/19 21:48 Last Admin: 12/25/19 20:40 Dose: 250 mls/hr Documented by: Assessment/Plan All Active Problems Severe sepsis (Acute) Encephalopathy (Acute) This is a 79 years old female patient was referred from TCU to ED because of fever and confusion, found to have severe sepsis in context of recent history of lumbar laminectomy/fusion that was complicated by CSF leak and suspected meningitis and also complicated by MRSE bacteremia and she is being admitted for evaluation and treatment. #1 severe sepsis: Without obvious source of infection. She had recent history of suspected meningitis and MRSE bacteremia following lumbar laminectomy/fusion with CSF leak. Chest x-ray showed no acute findings. Urinalysis was unremarkable. COVID-19 test is negative. Previous blood and urine cultures reviewed. Patient had work-up for bacteremia at [facility] including 2D echocardiogram which was unremarkable according to the H&P from her admission to TCU. Plan: Admit to PCU stepdown, repeat blood culture, urine culture, gentle IV fluids for hydration, repeat lactic acid in 3 hours, start IV vancomycin and meropenem, infectious disease consult, CT scan abdomen and pelvis with IV and oral contrast, patient may need AHSAN, repeat CBC and BMP tomorrow morning, PT OT evaluation and treatment. #2 encephalopathy: Patient is confused, disoriented. It is likely due to severe sepsis. No focal deficits. Plan to treat underlying cause. #3 recent history of MRSA bacteremia: Completed course of IV antibiotics including meropenem and vancomycin on December 21, 2019. As mentioned on her chart, she had 2D echocardiogram at [facility] which was unremarkable. Plan as above, IV antibiotics, CT scan abdomen pelvis, patient may need AHSAN, infectious disease consult. #4 recent history of lumbar laminectomy/fusion/CSF leak: Surgical scar at the lower back is clean, dry, no open wounds, no drainage, no local tenderness, no erythema. #5 recent history of bilateral lower extremity DVT: Continue Eliquis. #6 hypertension: Blood pressure stable, continue Norvasc, hold Lasix for now. #7 hyperlipidemia: Continue statins. #8 obstructive sleep apnea: Not sure if she uses CPAP at home or not. #9 depression/insomnia: Continue melatonin and sertraline. #10 DVT prophylaxis: Continue Eliquis. This note was generated with [employer]ol[employer] dictation software. It may contain incorrect words, spelling, and punctuation that were not noted in checking the note before signing. Inpatient E&M: 45353 Init Hosp L3
--- NOTE | 2019-12-25 22:52 | ED.RN ---
THIS NURSE CALLED PT'S SON TAHIR YBARRA AT [phone] AND INFORMED HIM THAT PT WAS BEING ADMITTED TO PCU 101.
--- NOTE | 2019-12-25 23:25 | CT_ITS ---
STUDY: CT ABDOMEN AND PELVIS WITH CONTRAST REASON FOR EXAM: Female, 79 years old. FEVER, PERSISTENT BACTEREMIA, CONFUSION, CHILLS. Patient with known cholelithiasis. RADIATION DOSAGE (If Supplied By Facility): CTDIvol = ( 27.98 ) mGy, DLP = ( 624.40 ) mGycm TECHNIQUE: Transaxial 3.75 mm images were obtained from the dome of the diaphragm to the symphysis pubis with oral contrast. 100mL Isovue-300 was administered. Sagittal and coronal images were reconstructed. Individualized dose optimization techniques were used for this CT. COMPARISON: None. FINDINGS: Atelectatic changes in the lung bases. There is coronary artery calcification. Normal liver. There are multiple gallstones in the distended gallbladder. There is no gallbladder wall thickening. There is no intra or extrahepatic biliary ductal dilatation or choledocholithiasis. Normal spleen. Normal pancreas. Normal bilateral adrenal glands. Normal right kidney. 0.8 cm low-attenuation in the left posterior upper renal pole. Probable small peripelvic cysts. Minimal indistinct contour of the left greater than right kidney. There is a moderate to large size hiatal hernia. Oral contrast is reaching the distal transverse colon. Normal small intestine. There are multiple colonic diverticula consistent with diverticulosis. The appendix is visualized and appears normal allowing for a 2 mm appendicolith.. There is atherosclerosis of the abdominal aorta, greater branches and pelvic arteries without aneurysm or leak. Normal inferior vena cava. Normal retroperitoneum. Stanton catheter decompressing the urinary bladder which has wall thickening. There is air within the nondependent portion of the urinary bladder likely iatrogenic. There is mild mucosal enhancement. The urinary bladder appears low lying.. Normal abdominal wall. There are diffuse degenerative changes of the visualized spine, bilateral hip and sacroiliac joints, osteopenia, mild lower lumbar laminectomy and fusion, grade 1 anterolisthesis L3 on L4.. CT/Abdomen/Pelvis WITH Contrast IMPRESSION: Wall thickening of the urinary bladder with mild mucosal enhancement may indicate mild inflammation. Clinical laboratory correlation advised. Wall thickening can be seen due to nondistention. Probable left peripelvic cyst, small cortical cysts suspected. This can be verified with ultrasound as needed. The left kidney is minimally indistinct in contour, there is however no filling defect to suggest pyelonephritis or obstructing renal or ureteral calculus. Cholelithiasis without wall thickening. Distention possibly due to nothing by mouth status. Presumed atelectasis in the lung bases. Extensive coronary artery disease and atherosclerosis. Hiatal hernia. Colonic diverticulosis predominantly involving the sigmoid colon. Degenerative changes and osteopenia. Electronically Signed: Lexy Dutton MD at 3:22 EDT , Service support ,
[2019-12-25 23:45] LABS: Reflex Lactate? Y
--- NOTE | 2019-12-25 23:58 | PCM.RX.CS ---
Consult Pharmacy has been consulted to manage selected antiobiotic: Vancomycin Type of Consult: New start Suspected Infection: Sepsis Prior Doses of Antibiotics Received/Current Regimen: Medications Vancomycin HCl (Vancomycin) 1,000 mg in 200 mls @ 200 mls/hr IV Q24H DAREK Discontinued Medications Vancomycin HCl 1,750 mg/ (Sodium Chloride) 535 mls @ 250 mls/hr IV X1 ONE Stop: 12/25/19 21:48 Last Admin: 12/25/19 23:01 Dose: Infused Microbiology: Microbiology 12/25/19 19:50 Mucosa - Nasopharyngeal Coronavirus COVID-19 PCR - Final Weight used for dosin.2 kg Estimated Creatinine Clearance: 38 Goal Trough: 15-20 mcg/mL Pharmacy Plan for Drug Dosing: Pharmacy Service will continue to monitor and adjust dosing as required. Follow-Up Labs: Trough Vancomycin Labs to be done on [date and time ordered]: 12/27/19 @1999
[2019-12-26] VITALS (16 sets, daily range): BP systolic 120–150; BP diastolic 59–82; PULSE 90–105; RESP 16–20; TEMP 37.8–39.5; O2SAT 93–99; BMI 29.4
[2019-12-26] MEDS: 0.9% Normal Saline 1,000 ML 75 ML IV ×2 (00:04→10:11)
[2019-12-26] MEDS: Gabapentin 300 MG Capsule PO ×4 (01:06→22:19)
[2019-12-26] MEDS: APIXABAN 5 MG TABLET PO ×3 (01:06→22:19)
[2019-12-26] MEDS: 0.9% Saline Lock 10 ML Syringe IV (05:40)
[2019-12-26] MEDS: Acetaminophen 325 MG Tablet 650 MG PO (05:51)
[2019-12-26 06:23] LABS: Absolute Lymphocyte Count 0.68 X10^3/uL (0.83-4.51); Absolute Neutrophil Count 4.7 X10^3/uL (2.0-7.7); Basophil# 0.05 X10^3/uL; Basophil% 0.8 % (0-1); Eosinophil# 0.08 X10^3/uL; Eosinophils% 1.3 % (0-5); Hematocrit 30.4 % (37-47); Hemoglobin 9.7 g/dL (12.0-15.0); Lymphocyte # 0.68 X10^3/ul (4.0); Lymphocyte % 11.2 % (19-41); Mean Corp Hgb Conc 31.9 g/dL (32-36); Mean Corpuscular Hgb 29.8 pg (27.0-32.0); Mean Corpuscular Volume 93.3 fL (81-99); Mean Platelet Vol. 9.5 fl (6.2-12.0); Monocyte# 0.59 X10^3/uL; Monocyte% 9.7 % (0-10); NRBC Flagged by Analyzer 0 % (0-5); Neutrophil # 4.65 X10^3/uL (2.7-7.7); Neutrophil % 76.7 % (47-70); Platelet Count 244 K/mm3 (150-450); RBC Distribution Width CV 14.6 % (11.6-14.6); RBC Distribution Width SD 49.4 fl (35.1-43.9); Red Blood Count 3.26 M/mm3 (4.2-5.4); White Blood Count 6.1 K/mm3 (4.4-11.0)
[2019-12-26 06:58] LABS: Anion Gap 7 (5-15); BUN 9 mg/dL (7-18); BUN/Creat Ratio 12.8 RATIO (10-20); Calcium,Total 8.5 mg/dL (8.5-10.1); Chloride 112 mmol/L (98-107); EST Glomerular Filtration Rate 85 mL/min (>60); Est Glom Filt Rate - Afr Amer 103 mL/min (>60); Glucose 99 mg/dL (74-106); Potassium 3.7 mmol/L (3.5-5.1); Sodium Level 141 mmol/L (136-145)
[2019-12-26] MEDS: Polyethylene Glycol 3350 17 GM PACKET PO (10:06)
[2019-12-26] MEDS: Sertraline 50 MG Tablet PO (10:07)
[2019-12-26] MEDS: amLODIPine 5 MG Tablet PO (10:07)
[2019-12-26] MEDS: Tolterodine Tartrate 2 MG CAP.SA PO (10:07)
--- NOTE | 2019-12-26 10:44 | MRI_ITS ---
STUDY: MRI LUMBAR SPINE WITH AND WITHOUT CONTRAST REASON FOR EXAM: Female, 79 years old. LOW BACK PAIN, FEVER TECHNIQUE: Standardized fat and water weighted pulse sequences were obtained in the sagittal and axial planes. IV 10cc dotarem was administered for the contrast portion of the examination. COMPARISON: None FINDINGS: T12-L1: Bulging annulus without compressive sequelae. Grade 1 L3-4 anterolisthesis. There is no substantial scoliosis. Normal conus medullaris that terminates at the L1 level. Bilateral posterior pedicle fusions at the L3, L4, and L5 levels. L1-2: Bulging annulus with severe left and moderate right foraminal stenoses. L2-3: Bulging annulus and bilateral facet and ligamentum flavum hypertrophy. Central disc protrusion with moderate central canal stenosis. Moderate bilateral foraminal stenoses. L3-4: Bilateral laminectomies. Anterolisthesis and bulging annulus with mild central canal and moderate bilateral foraminal stenoses. L4-5: Bilateral laminectomies. Bulging annulus and bilateral facet hypertrophy with mild bilateral foraminal stenoses. L5-S1: Bulging annulus and bilateral facet hypertrophy with mild left foraminal stenosis. Normal visualized sacral ala. Normal visualized paraspinous soft tissue structures. MRI/Spine Lumbar W/WO Contrast IMPRESSION: No evidence of discitis, osteomyelitis, or epidural abscess. Multilevel degenerative disease and postoperative change as described. Severe left foraminal stenosis at the L1-2 level. No evidence of abnormal intrathecal postcontrast enhancement. Electronically Signed: Martir Irving MD at 18:39 EDT Tel , Service support ,
--- NOTE | 2019-12-26 12:48 | PN_ITS ---
<Don Lewis - Last Filed: 12/26/19 12:48> Patient Problems: Active and Suspected Problems Severe sepsis (Acute) Subjective: Patient resting comfortably in bed NAD. She complains primarily of increased lumbar pain. She denies radicular pain. She has mild neck soreness however no nuchal rigidity and no increased pain with flexion (chin to chest). She has ongoing fever/chills. She denies hx of recent dysuria. Stanton placed last night. No cough or SOB. No abd pain, nausea/vomiting/diarrhea. She denies wounds. The skin around her surgical site and sutures look well healed without evidence of infection. Vitals/I&O's: Vital Signs Temp Pulse Resp BP Pulse Ox 100.4 F H 104 H 18 140/61 H 99 12/26/19 10:15 12/26/19 11:00 12/26/19 10:15 12/26/19 10:15 12/26/19 10:15 Oxygen Flow Rate (L/min) 1 Oxygen Delivery Method Nasal Cannula Weight: 140 lb 10.479 oz Body Mass Index (BMI) 29.4 Intake and Output for Last 24 Hours 12/24/19 12/25/19 12/26/19 23:59 23:59 23:59 Intake Total 1085 / 1085 1271.50 / 1271.50 Output Total 1200 / 1200 1500 / 1500 Balance -115 / -115 -228.50 / -228.50 General: Alert, Oriented x3, Cooperative HEENT: Atraumatic, PERRLA, EOMI, Normocephalic, - Neck: Supple, No JVD, Negative Carotid Bruits, No Nuchal Rigidity Lungs: Clear to auscultation, Normal air movement Cardiovascular: Regular rate, No murmurs Abdomen: Bowel Sounds Present, Soft, Non Tender Extremities: No edema, Capillary Refill Less than 3 Seconds Skin: No rashes, No breakdown Musculoskeletal: No Tenderness to Palpation of Joints or Extremities Neurological: Cranial nerves II-XII grossly intact Psych/Mental Status: Normal Affect, Appropriate, Alert and oriented to time, place, person, mood and affect Microbiology Past 72 Hours 12/25/19 19:50 Mucosa - Nasopharyngeal Coronavirus COVID-19 PCR - Final Laboratory Results 12/25/19 19:40: PT 17.9 H, INR 1.5, APTT 75.3 H 12/25/19 19:40: Lactic Acid 2.1 H* 12/26/19 00:15: Lactic Acid 2.0 12/26/19 05:41: WBC 6.1, RBC 3.26 L, Hgb 9.7 L, Hct 30.4 L, MCV 93.3 D, MCH 29.8, MCHC 31.9 L, RDW Std Deviation 49.4 H, RDW Coeff of La 14.6, Plt Count 244, MPV 9.5, Immature Gran % (Auto) 0.300, Neut % (Auto) 76.7 H, Lymph % (Auto) 11.2 L, [place]asta % (Auto) 9.7, Eos % (Auto) 1.3, Baso % (Auto) 0.8, Absolute Neuts (auto) 4.7, Absolute Lymphs (auto) 0.68 L, Nucleated RBC % 0 12/26/19 05:41: Sodium 141, Potassium 3.7, Chloride 112 H, Carbon Dioxide 22.0, Anion Gap 7, BUN 9, Creatinine 0.70, Estim Creat Clear Calc 46.70, Est GFR (MDRD) Af Amer 103, Est GFR (MDRD) Non-Af 85, BUN/Creatinine Ratio 12.8, Glucose 99, Calcium 8.5 Current Medications Acetaminophen (Tylenol) 650 mg PO Q6H PRN PRN PRN Reason: Pain Score 1-10/Temp > 100.7 F Last Admin: 12/26/19 05:51 Dose: 650 mg Documented by: Amlodipine Besylate (Norvasc) 5 mg PO DAILY [facility] Last Admin: 12/26/19 10:07 Dose: 5 mg Documented by: Apixaban (Eliquis) 5 mg PO BID [facility] Last Admin: 12/26/19 10:07 Dose: 5 mg Documented by: Atorvastatin Calcium (Lipitor) 40 mg PO DAILY@2200 [facility] Gabapentin (Neurontin) 300 mg PO TID [facility] Last Admin: 12/26/19 05:40 Dose: 300 mg Documented by: Sodium Chloride () 1,000 mls @ 75 mls/hr IV .[id number] [facility] Last Admin: 12/26/19 10:11 Dose: 75 mls/hr Documented by: Vancomycin HCl 750 mg/ Sodium (Chloride) 265 mls @ 250 mls/hr IV PRN PRN Meropenem 1 gm/ Sodium (Chloride) 120 mls @ 33 mls/hr IV Q12 [facility] Last Admin: 12/26/19 10:09 Dose: 33 mls/hr Documented by: Sodium Chloride () 250 mls @ 15 mls/hr IV .[id number] PRN PRN Reason: Saline Flush Last Infusion: 12/26/19 05:55 Dose: 0 mls/hr Documented by: Sodium Chloride () 250 mls @ 15 mls/hr IV .[id number] PRN PRN Reason: Additional IVPB Infusion Vancomycin HCl (Vancomycin) 1,000 mg in 200 mls @ 200 mls/hr IV Q24H [facility] Mirtazapine (Remeron) 15 mg PO DAILY@2200 [facility] Ondansetron HCl (Zofran) 4 mg IV Q8H PRN PRN PRN Reason: NAUSEA/VOMITING Polyethylene Glycol (Miralax) 17 gm PO DAILY [facility] Last Admin: 12/26/19 10:06 Dose: 17 gm Documented by: Potassium Chloride (K-Dur) 20 meq PO BIDCM [facility] Last Admin: 12/26/19 07:55 Dose: 20 meq Documented by: Senna/Docusate Sodium (Senokot-S, Karlene-Colace) 2 tablet PO BID PRN PRN PRN Reason: Constipation Sertraline HCl (Zoloft) 50 mg PO DAILY [facility] Last Admin: 12/26/19 10:07 Dose: 50 mg Documented by: Sodium Chloride () 10 - 40 ml IV UD PRN PRN Reason: SALINE FLUSH Last Admin: 12/26/19 05:40 Dose: 30 ml Documented by: Tolterodine Tartrate (Detrol La) 2 mg PO DAILY [facility] Last Admin: 12/26/19 10:07 Dose: 2 mg Documented by: Zolpidem Tartrate (Ambien (Generic)) 5 mg PO QHS PRN PRN PRN Reason: INSOMNIA STROKE Vital Signs/Narrative: Vital Signs Temp Pulse Resp BP Pulse Ox 12/26/19 11:00 104 H 12/26/19 10:15 100.4 F H 105 H 18 140/61 H 99 Medical Necessity - Tobacco Use Smoking Status: Never smoker Assessment/Plan All Active Problems Severe sepsis (Acute) Encephalopathy (Acute) 1. Severe sepsis 2/2 suspected recurrent bacteremia - pt has had meningitis and bacteremia following Lumbar fusion. Her initial surgery and subsequent readmission were at [facility]. I have requested MRI reports and records from recent admissions. She continues to have fever. Lactate was elevated at admission however no leukocytosis. ID to see the patient tomorrow. Blood cultures pending. UA is negative. She has worsening back pain so I have requested an MRI of the lumbar spine w&w/o to look for abscess or discitis as a possible etiology. She has negative meningeal signs. Her surgical sight looks well healed and she has no obvious wounds. 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 She previously had Pseudomonas UTI. UA is negative. Chest xray neg and no pulmonary symptoms. No abdominal symptoms. CT abdomen is without an obvious source of infection. She is now on Vancomycin and meropenem. 2. Encephalopathy - acute metabolic 2/2 above. resolved. 3. Recent lumbar laminectomy, fusion, CSF leak, bacteremia, meningitis - as above. Previously completed vanc/zohaib regimen. 4. Recent BL DVTs - eliquis 5. HTN -stable 6. HLD - statin 7. RHIANNON - need to clarify if she has CPAP 8. Depression/insomnia - continue home meds DVT ppx: eliquis DC planning: likely return to TCU for rehab when stable. This patient was seen by Don Lewis PA-C under the supervision of Dr. Ott. <Eric Ott F - Last Filed: 12/26/19 15:26> Vitals/I&O's: Vital Signs Temp Pulse Resp BP Pulse Ox 100.4 F H 104 H 16 140/61 H 93 12/26/19 10:15 12/26/19 11:00 12/26/19 14:30 12/26/19 10:15 12/26/19 14:30 Oxygen Flow Rate (L/min) 1 Oxygen Delivery Method Nasal Cannula Weight: 140 lb 10.479 oz Body Mass Index (BMI) 29.4 Intake and Output for Last 24 Hours 12/24/19 12/25/19 12/26/19 23:59 23:59 23:59 Intake Total 1085 / 1085 1576.80 / 1576.80 Output Total 1200 / 1200 1500 / 1500 Balance -115 / -115 76.80 / 76.80 Microbiology Past 72 Hours 12/25/19 19:50 Mucosa - Nasopharyngeal Coronavirus COVID-19 PCR - Final Laboratory Results 12/25/19 19:40: PT 17.9 H, INR 1.5, APTT 75.3 H 12/25/19 19:40: Lactic Acid 2.1 H* 12/26/19 00:15: Lactic Acid 2.0 12/26/19 05:41: WBC 6.1, RBC 3.26 L, Hgb 9.7 L, Hct 30.4 L, MCV 93.3 D, MCH 29.8, MCHC 31.9 L, RDW Std Deviation 49.4 H, RDW Coeff of La 14.6, Plt Count 244, MPV 9.5, Immature Gran % (Auto) 0.300, Neut % (Auto) 76.7 H, Lymph % (Auto) 11.2 L, [place] % (Auto) 9.7, Eos % (Auto) 1.3, Baso % (Auto) 0.8, Absolute Neuts (auto) 4.7, Absolute Lymphs (auto) 0.68 L, Nucleated RBC % 0 12/26/19 05:41: Sodium 141, Potassium 3.7, Chloride 112 H, Carbon Dioxide 22.0, Anion Gap 7, BUN 9, Creatinine 0.70, Estim Creat Clear Calc 46.70, Est GFR (MDRD) Af Amer 103, Est GFR (MDRD) Non-Af 85, BUN/Creatinine Ratio 12.8, Glucose 99, Calcium 8.5 12/26/19 14:45: POC Glucose 106 Current Medications Acetaminophen (Tylenol) 650 mg PO Q6H PRN PRN PRN Reason: Pain Score 1-10/Temp > 100.7 F Last Admin: 12/26/19 05:51 Dose: 650 mg Documented by: Amlodipine Besylate (Norvasc) 5 mg PO DAILY [facility] Last Admin: 12/26/19 10:07 Dose: 5 mg Documented by: Apixaban (Eliquis) 5 mg PO BID [facility] Last Admin: 12/26/19 10:07 Dose: 5 mg Documented by: Atorvastatin Calcium (Lipitor) 40 mg PO DAILY@2200 [facility] Gabapentin (Neurontin) 300 mg PO TID [facility] Last Admin: 12/26/19 05:40 Dose: 300 mg Documented by: Sodium Chloride () 1,000 mls @ 75 mls/hr IV .[id number] [facility] Last Infusion: 12/26/19 13:00 Dose: 0 mls/hr Documented by: Vancomycin HCl 750 mg/ Sodium (Chloride) 265 mls @ 250 mls/hr IV PRN PRN Meropenem 1 gm/ Sodium (Chloride) 120 mls @ 33 mls/hr IV Q12 [facility] Last Infusion: 12/26/19 13:00 Dose: 0 mls/hr Documented by: Sodium Chloride () 250 mls @ 15 mls/hr IV .[id number] PRN PRN Reason: Saline Flush Last Infusion: 12/26/19 05:55 Dose: 0 mls/hr Documented by: Sodium Chloride () 250 mls @ 15 mls/hr IV .[id number] PRN PRN Reason: Additional IVPB Infusion Vancomycin HCl (Vancomycin) 1,000 mg in 200 mls @ 200 mls/hr IV Q24H [facility] Mirtazapine (Remeron) 15 mg PO DAILY@2200 [facility] Ondansetron HCl (Zofran) 4 mg IV Q8H PRN PRN PRN Reason: NAUSEA/VOMITING Polyethylene Glycol (Miralax) 17 gm PO DAILY [facility] Last Admin: 12/26/19 10:06 Dose: 17 gm Documented by: Potassium Chloride (K-Dur) 20 meq PO BIDCM [facility] Last Admin: 12/26/19 07:55 Dose: 20 meq Documented by: Senna/Docusate Sodium (Senokot-S, Karlene-Colace) 2 tablet PO BID PRN PRN PRN Reason: Constipation Sertraline HCl (Zoloft) 50 mg PO DAILY [facility] Last Admin: 12/26/19 10:07 Dose: 50 mg Documented by: Sodium Chloride () 10 - 40 ml IV UD PRN PRN Reason: SALINE FLUSH Last Admin: 12/26/19 05:40 Dose: 30 ml Documented by: Tolterodine Tartrate (Detrol La) 2 mg PO DAILY [facility] Last Admin: 12/26/19 10:07 Dose: 2 mg Documented by: Zolpidem Tartrate (Ambien (Generic)) 5 mg PO QHS PRN PRN PRN Reason: INSOMNIA STROKE Vital Signs/Narrative: Vital Signs Resp Pulse Ox 12/26/19 14:30 16 93 Addendum: Dr. Ott I personally examined the patient and reviewed the chart. I agree with the above. 79-year-old female who was sent from TCU because of fever and confusion last night. She recently has had a history of DVT and is on Eliquis as well as spinal fusion of her lumbar region and suspected CSF leak with meningitis treated at [facility]. She was started on vancomycin and meropenem on admission and this morning was doing well. Because she was having increased back pain another MRI of her lumbar spine was obtained for further evaluation though I expect the read will be difficult given hardware. At the time of my evaluation at around 215, she appeared confused with a left facial droop that according to staff was there in the morning. She also had drift in her right lower extremity as well as dysarthria and was given an NIH of 6. A stroke alert was called and she was transferred down to the ER, blood sugar was 106 CT of the head was negative and a CTA of the head and neck was also negative. The case was discussed with [facility] neurology and because she had received Eliquis this morning for diagnosis of a DVT around October this year, she was not a candidate for TPA. She at this time does appear to be improving so we will continue with NIH every 4 for at least 24 hours and continue to monitor. Blood cultures are pending and ID has been consulted to assist in management given the complexity of her previous infectious disease. Inpatient E&M: [id number] Subs Hosp L2
--- NOTE | 2019-12-26 14:25 | CT_ITS ---
We are attempting to reach an attending provider to discuss findings. An addendum with communication details will be sent when the communication is complete. STUDY: CT BRAIN WITHOUT CONTRAST REASON FOR EXAM: Female, 79 years old. Altered mental status, FACIAL DROOP. RADIATION DOSAGE (If Supplied By Facility): CTDIvol = ( 45 ) mGy, DLP = ( 745 ) mGycm TECHNIQUE: Transaxial CT imaging of the brain was performed without administration of intravenous contrast material. Individualized dose optimization techniques were used for this CT. COMPARISON: No relevant priors. FINDINGS: Normal soft tissue structures. Normal calvarium. Normal size ventricles and extra-axial spaces for the patient''s age. There are areas of decreased attenuation within the white matter tracts of the supratentorial brain, consistent with microvascular disease changes. Normal age-related changes of the basal ganglia. Normal brainstem. Normal cerebellum. There is no intracranial hemorrhage. There are no findings of an acute ischemic infarction. Normal visualized paranasal sinuses. CT/Brain/Head without Contrast IMPRESSION: No CT evidence of acute infarct or hemorrhage. ASPECTS Score 10/10. If there is clinical concern for hyperacute ischemia that is not evident by CT, MRI should be considered if possible. Electronically Signed: Martir Irving MD at 14:48 EDT Tel , Service support ,
--- NOTE | 2019-12-26 14:38 | CT_ITS ---
We are attempting to reach an attending provider to discuss findings. An addendum with communication details will be sent when the communication is complete. STUDY: CTA HEAD AND NECK WITH CONTRAST REASON FOR EXAM: Female, 79 years old. CVA, altered mental status. RADIATION DOSAGE (If Supplied By Facility): CTDIvol = ( 13.46 ) mGy, DLP = ( 667.44 ) mGycm TECHNIQUE: CT angiography was performed with a multi-detector CT scanner. Data acquisition was obtained from the skull base through the vertex following intravenous administration of 100mL isovue 300. MIP images were reconstructed from the axial data set. Post-processing of the angiographic images was performed, with multiplanar reformation and 3D reconstruction. Individualized dose optimization techniques were used for this CT. COMPARISON: Head CT same day FINDINGS: Intracranial ICA calcifications. Otherwise: Normal bilateral petrous carotid arteries. Normal right cavernous carotid artery with a normal supraclinoid bifurcation. Normal left cavernous carotid artery with a normal supraclinoid bifurcation. Normal right A1 segments of the anterior cerebral artery. Normal left A1 segments of the anterior cerebral artery. Normal intact anterior communicating artery (ACOM). Normal bilateral A2 segments of the anterior cerebral arteries. Normal right M1 and M2 segments of the middle cerebral arteries, with a normal M1 bifurcation. Normal left M1 and M2 segments of the middle cerebral arteries, with a normal M1 bifurcation. Normal right posterior communicating artery (PCOM). There is a persistent origin of the left posterior cerebral artery with absence of the posterior communicating artery (PCOM). The left vertebral artery terminates as the posterior inferior cerebellar artery. Normal basilar artery with a normal basilar bifurcation. The visualized bilateral superior cerebellar (SCA) arteries are normal. Normal bilateral P1, P2 and visualized P3 segments of the posterior cerebral arteries. There is no demonstrated aneurysm of the [place] of [place]. There is no demonstrated abnormality of the visualized brain. AORTIC ARCH: Bovine aortic arch. Normal origins of the brachiocephalic, left common carotid, and left subclavian arteries. RIGHT CAROTID ARTERIES: Normal right common carotid artery (CCA). Mild eccentric calcified bulb plaque without underlying stenosis. Normal origin of the right internal carotid (ICA) artery without a hemodynamically significant stenosis. Retropharyngeal ICA. Normal origin of the right external carotid artery (ECA). LEFT CAROTID ARTERIES: Normal left common carotid artery (CCA). Normal left common carotid bulb. Normal origin of the left internal carotid (ICA) artery without a hemodynamically significant stenosis. Normal visualized cervical portion of the left internal carotid artery. Normal origin of the left external carotid artery (ECA). VERTEBRAL ARTERIES: Normal bilateral vertebral arteries. CT/CTA Head AND Neck W/ Contrast IMPRESSION: No CTA evidence of significant intracranial arterial pathology. No CTA evidence of significant arterial pathology in the neck. NASCET criteria was used. Electronically Signed: Martir Irving MD at 15:11 EDT Tel , Service support ,
--- NOTE | 2019-12-26 14:40 | NURSING ---
Called [facility] to give report/update on pt concerning stroke alert. Was informed someone else was speaking to them from [facility] and they would call if they needed additional info.
[2019-12-26] MEDS: Acetaminophen 650 MG Suppository RECTAL (14:50)
[2019-12-26 15:01] LABS: Bedside Glucose 106 mg/dL (70-110)
--- NOTE | 2019-12-26 15:02 | PCM.PN.BLA ---
Progress Note Stroke alert note: Pt returned from MRI of the lumbar spine and was found confused at 1415. She had slurred speech, confusion, right arm and leg weakness and decreased coordination, left lip and eye droop. NIH was 6. stroke alert was called. [facility] contacted and the pt was not a candidate for tPA due to receiving eliquis this AM. CTA of the head and neck are pending. Don Lewis PA-C STROKE Vital Signs/Narrative: Vital Signs Resp Pulse Ox 12/26/19 14:30 16 93
--- NOTE | 2019-12-26 15:22 | EKG12_ITS ---
Test Reason : STROKE TEAM Blood Pressure : / mmHG Vent. Rate : 097 BPM Atrial Rate : 097 BPM P-R Int : 164 ms QRS Dur : 090 ms QT Int : 350 ms P-R-T Axes : 049 -46 019 degrees QTc Int : 444 ms Normal sinus rhythm Low voltage QRS Left anterior fascicular block Abnormal ECG When compared with ECG of 25-DEC-2019 19:55, MANUAL COMPARISON REQUIRED, DATA IS UNCONFIRMED Confirmed by EDWIN OSWALD, VJ ([id number]), subeditor JEANNA PANCHAL ([id number]) on 12/28/2019 1:58:31 PM Referred By: NENO Confirmed By:VJ PINEDA MD
[2019-12-26] MEDS: Vancomycin IV 1,000 MG/200 ML BAG 200 MG IV (20:37)
[2019-12-26] MEDS: Mirtazapine 15 MG Tablet PO (22:19)
[2019-12-26] MEDS: Atorvastatin Calcium 40 MG Tablet PO (22:19)
[2019-12-27] VITALS (12 sets, daily range): BP systolic 126–150; BP diastolic 65–77; PULSE 80–110; RESP 17–20; TEMP 36.5–38.7; O2SAT 90–96; BMI 29.4
[2019-12-27] MEDS: Acetaminophen 325 MG Tablet 650 MG PO ×3 (02:11→21:42)
[2019-12-27] MEDS: 0.9% Normal Saline 1,000 ML 75 ML IV (02:14)
[2019-12-27 05:48] LABS: Absolute Lymphocyte Count 0.94 X10^3/uL (0.83-4.51); Absolute Neutrophil Count 5.1 X10^3/uL (2.0-7.7); Basophil# 0.07 X10^3/uL; Eosinophil# 0.05 X10^3/uL; Eosinophils% 0.7 % (0-5); Hematocrit 27.6 % (37-47); Hemoglobin 8.9 g/dL (12.0-15.0); Lymphocyte # 0.94 X10^3/ul (4.0); Lymphocyte % 13.6 % (19-41); Mean Corp Hgb Conc 32.2 g/dL (32-36); Mean Corpuscular Hgb 30.7 pg (27.0-32.0); Mean Corpuscular Volume 95.2 fL (81-99); Mean Platelet Vol. 9.5 fl (6.2-12.0); Monocyte# 0.78 X10^3/uL; Monocyte% 11.3 % (0-10); NRBC Flagged by Analyzer 0 % (0-5); Neutrophil # 5.06 X10^3/uL (2.7-7.7); Neutrophil % 73.1 % (47-70); Platelet Count 213 K/mm3 (150-450); RBC Distribution Width CV 14.6 % (11.6-14.6); RBC Distribution Width SD 51.4 fl (35.1-43.9); White Blood Count 6.9 K/mm3 (4.4-11.0)
[2019-12-27] MEDS: Gabapentin 300 MG Capsule PO ×3 (06:13→21:35)
[2019-12-27 06:31] LABS: ALB/GLOB Ratio 0.8 RATIO (0.9-2.4); AST(SGOT) 13 U/L (15-37); Alanine Aminotransfer ALT/SGPT 12 U/L (13-56); Albumin, Serum 2.6 g/dL (3.2-5.0); Alkaline Phosphatase 86 U/L (45-117); Anion Gap 7 (5-15); BUN 11 mg/dL (7-18); BUN/Creat Ratio 14.9 RATIO (10-20); Calcium,Total 8.5 mg/dL (8.5-10.1); Chloride 109 mmol/L (98-107); Creatinine, Serum 0.74 mg/dL (0.55-1.02); EST Glomerular Filtration Rate 81 mL/min (>60); Est Glom Filt Rate - Afr Amer 98 mL/min (>60); Globulin 3.4 g/dL (2.2-4.2); Glucose 103 mg/dL (74-106); Potassium 3.5 mmol/L (3.5-5.1); Sodium Level 138 mmol/L (136-145)
[2019-12-27] MEDS: amLODIPine 5 MG Tablet PO (08:15)
[2019-12-27] MEDS: Tolterodine Tartrate 2 MG CAP.SA PO (08:15)
[2019-12-27] MEDS: Polyethylene Glycol 3350 17 GM PACKET PO (08:15)
[2019-12-27] MEDS: APIXABAN 5 MG TABLET PO ×2 (08:15→21:34)
[2019-12-27] MEDS: Sertraline 50 MG Tablet PO (08:16)
--- NOTE | 2019-12-27 08:27 | MRI_ITS ---
We are attempting to reach an attending provider to discuss findings. An addendum with communication details will be sent when the communication is complete. STUDY: MRI BRAIN WITHOUT CONTRAST REASON FOR EXAM: Female, 79 years old. stroke TECHNIQUE: Standardized multiplanar fat and water weighted pulse sequences were obtained. COMPARISON: 12/26/2019 FINDINGS: There is moderate cerebral atrophy with widening of the extra-axial spaces and ventricular dilatation. There are multiple white matter hyperintensities, distributed throughout the deep white matter tracts of the cerebral hemispheres, consistent with moderate chronic white matter ischemic changes. Punctate hyperintensity of the pericecal white matter of the left occipital lobe demonstrates restricted diffusion consistent with an acute/subacute infarct. Normal T2* images of the brain without demonstrated susceptibility artifact. There is no demonstrated hemosiderin stain. Normal bilateral basal ganglia. Normal thalami. There is no extra-axial fluid accumulation. Normal flow voids within the major intracranial circulation suggesting patency by spin echo criteria. Normal sella turcica, pituitary gland, infundibular stalk, optic chiasm and hypothalamus. Normal tectal plate and pineal gland. Normal midbrain, ras and medulla. Normal cerebellum. Normal basal cisterns. Normal bilateral temporal bones. Normal bilateral internal auditory canals. No demonstrated orbital abnormality, within the constraints of a routine brain study. Normal visualized paranasal sinuses. Normal calvarium and skull base. Normal visualized soft tissue structures. Normal visualized upper cervical spine. MRI/Brain without Contrast IMPRESSION: Involutional changes of the brain, as described above. 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 Electronically Signed: Morgan Ochoa MD at 11:33 EDT Tel , Service support ,
--- NOTE | 2019-12-27 09:41 | RAD_ITS ---
STUDY: X-RAY CHEST REASON FOR EXAM: Female, 79 years old. FEVER AND SEPSIS TECHNIQUE: Single AP portable view of the chest. COMPARISON: Comparison is made with prior study dated December 25, 2019. FINDINGS: EKG electrodes are seen. Elevation of the right hemidiaphragm. Mild increased linear markings at the left lung base suggestive of linear atelectasis. There is no demonstrated pleural abnormality. Normal size heart. Normal mediastinum and fide. Normal visualized pulmonary arteries. There is atherosclerotic calcification of the aortic arch with tortuosity. There are diffuse degenerative changes of the visualized thoracic spine. Normal visualized ribs, clavicles, and shoulders. Small hiatal hernia. RAD/Chest 1 View (Portable) IMPRESSION: Increased linear markings at the left lung base suggestive of overlying atelectasis. Small hiatal hernia. Electronically Signed: Ubaldo Oshea, at 12:23 EDT , Service support ,
--- NOTE | 2019-12-27 09:56 | PN.ID_ITS ---
Patient Problems: Active and Suspected Problems Severe sepsis (Acute) Subjective: Sent to ED 12/24 with fever, altered mental status. Started on vanc/ceftriaxone, changed to vanc/zohaib. Concern yesterday for new focal weakness. This AM, feeling ok, denies weakness, denies fever. No cough/SOB, no dysuria, no abd pain, no n/v/d, no headache, no neck pain. - Physical Exam Vitals/I&O's: Vital Signs Temp Pulse Resp BP Pulse Ox 97.7 F L 85 18 126/66 H 90 12/27/19 06:00 12/27/19 06:44 12/27/19 06:00 12/27/19 06:00 12/27/19 07:00 Oxygen Flow Rate (L/min) 1.5 Oxygen Delivery Method Room Air Weight: 63.8 kg Body Mass Index (BMI) 29.4 Finger Stick Blood Glucose 106 Intake and Output for Last 24 Hours 12/25/19 12/26/19 12/27/19 23:59 23:59 23:59 Intake Total 1085 / 1085 2162.75 / 2162.75 1452.5 / 1452.5 Output Total 1200 / 1200 2200 / 2200 200 / 200 Balance -115 / -115 -37.25 / -37.25 1252.5 / 1252.5 General: Alert, Cooperative, No apparent distress Neck: Supple Lungs: Clear to auscultation, Normal air movement Cardiovascular: Regular rate, Regular Rhythm Abdomen: Soft, Non Tender, Non-Distended Extremities: No edema Skin: No rashes Microbiology Past 72 Hours 12/25/19 19:50 Mucosa - Nasopharyngeal Coronavirus COVID-19 PCR - Final Laboratory Results 12/26/19 14:45: POC Glucose 106 12/27/19 05:10: WBC 6.9, RBC 2.90 L, Hgb 8.9 L, Hct 27.6 L, MCV 95.2, MCH 30.7, MCHC 32.2, RDW Std Deviation 51.4 H, RDW Coeff of La 14.6, Plt Count 213, MPV 9.5, Immature Gran % (Auto) 0.300, Neut % (Auto) 73.1 H, Lymph % (Auto) 13.6 L, [place] % (Auto) 11.3 H, Eos % (Auto) 0.7, Baso % (Auto) 1.0, Absolute Neuts (auto) 5.1, Absolute Lymphs (auto) 0.94, Nucleated RBC % 0 12/27/19 05:10: Sodium 138, Potassium 3.5, Chloride 109 H, Carbon Dioxide 22.0, Anion Gap 7, BUN 11, Creatinine 0.74, Estim Creat Clear Calc 46.70, Est GFR (MDRD) Af Amer 98, Est GFR (MDRD) Non-Af 81, BUN/Creatinine Ratio 14.9, Glucose 103, Calcium 8.5, Total Bilirubin 0.80, AST 13 L, ALT 12 L, Alkaline Phosphatase 86, Total Protein 6.0 L, Albumin 2.6 L, Globulin 3.4, Albumin/Globulin Ratio 0.8 L Current Medications Acetaminophen (Tylenol) 650 mg PO Q6H PRN PRN PRN Reason: Pain Score 1-10/Temp > 100.7 F Last Admin: 12/27/19 02:11 Dose: 650 mg Documented by: Amlodipine Besylate (Norvasc) 5 mg PO DAILY [facility] Last Admin: 12/27/19 08:15 Dose: 5 mg Documented by: Apixaban (Eliquis) 5 mg PO BID [facility] Last Admin: 12/27/19 08:15 Dose: 5 mg Documented by: Atorvastatin Calcium (Lipitor) 40 mg PO DAILY@2200 [facility] Last Admin: 12/26/19 22:19 Dose: 40 mg Documented by: Gabapentin (Neurontin) 300 mg PO TID [facility] Last Admin: 12/27/19 06:13 Dose: 300 mg Documented by: Sodium Chloride () 1,000 mls @ 75 mls/hr IV .[id number] [facility] Last Infusion: 12/27/19 08:30 Dose: 0 mls/hr Documented by: Vancomycin HCl 750 mg/ Sodium (Chloride) 265 mls @ 250 mls/hr IV PRN PRN Meropenem 1 gm/ Sodium (Chloride) 120 mls @ 33 mls/hr IV Q12 [facility] Last Infusion: 12/27/19 01:58 Dose: Infused Documented by: Sodium Chloride () 250 mls @ 15 mls/hr IV .[id number] PRN PRN Reason: Saline Flush Last Infusion: 12/26/19 05:55 Dose: 0 mls/hr Documented by: Sodium Chloride () 250 mls @ 15 mls/hr IV .[id number] PRN PRN Reason: Additional IVPB Infusion Vancomycin HCl (Vancomycin) 1,000 mg in 200 mls @ 200 mls/hr IV Q24H [facility] Last Infusion: 12/26/19 21:37 Dose: Infused Documented by: Mirtazapine (Remeron) 15 mg PO DAILY@2200 [facility] Last Admin: 12/26/19 22:19 Dose: 15 mg Documented by: Ondansetron HCl (Zofran) 4 mg IV Q8H PRN PRN PRN Reason: NAUSEA/VOMITING Polyethylene Glycol (Miralax) 17 gm PO DAILY [facility] Last Admin: 12/27/19 08:15 Dose: 17 gm Documented by: Potassium Chloride (K-Dur) 20 meq PO BIDCM [facility] Last Admin: 12/27/19 08:15 Dose: 20 meq Documented by: Senna/Docusate Sodium (Senokot-S, Karlene-Colace) 2 tablet PO BID PRN PRN PRN Reason: Constipation Sertraline HCl (Zoloft) 50 mg PO DAILY [facility] Last Admin: 12/27/19 08:16 Dose: 50 mg Documented by: Sodium Chloride () 10 - 40 ml IV UD PRN PRN Reason: SALINE FLUSH Last Admin: 12/26/19 05:40 Dose: 30 ml Documented by: Tolterodine Tartrate (Detrol La) 2 mg PO DAILY [facility] Last Admin: 12/27/19 08:15 Dose: 2 mg Documented by: Zolpidem Tartrate (Ambien (Generic)) 5 mg PO QHS PRN PRN PRN Reason: INSOMNIA Medical Necessity - Tobacco Use Smoking Status: Never smoker Tobacco Use: Non-smoker Route of nutrition/ use of supplements: [] Nutritional Intake: [] IV Site: [] Stanton Catheter: [] - Assessment/Plan Antibiotics: [] Assessment/Plan: [] Active and Suspected Problems Severe sepsis (Acute) Fever, normal wbc, altered mental status with concern for new stroke on 12/25 after completing empiric course of vanc/zohaib 12/20 for suspected bacterial meningitis after admission to [place]. Prior h/o CSF leak from laminectomy in the past few months. Now back on vanc/zohaib. Fever to 103.1 yesterday but afebrile overnight. CXR clear, UA clear, bcx neg so far. Mental status seems to be improving. Brain/spine imaging neg so far. Will check repeat bcx and cxr today. Cont vanc/zohaib. Recommend holding eliquis as she may need LP. Will follow
--- NOTE | 2019-12-27 10:26 | NURSING ---
NIH & VS late d/t CXR & lab in room.
--- NOTE | 2019-12-27 11:27 | CASEMGMT ---
SW spoke w/[facility] in TCU as pt is here from TCU. They will take pt back when ready, and pt will not need a COVID test to return. A new precert will be needed. SW spoke w/pt in room, confirmed the plan will be for her to go back to TCU when ready. SW asked if she would like SW to check in w/ or son, pt states not needed, she is her own decision maker. SW will continue to follow, will go to [facility] for precert for pt to return to TCU when appropriate. NATE Elliott
--- NOTE | 2019-12-27 11:33 | CASEMGMT ---
LW/POA forms not on file. SW let pt know that the forms are not on file and asked her to have family bring in the forms as able. Pt states understanding. She states she thinks her son is POA. NATE Elliott
--- NOTE | 2019-12-27 12:18 | PCM.PN.HOSP ---
<Don Lewis - Last Filed: 12/27/19 12:18> Patient Problems: Active and Suspected Problems Severe sepsis (Acute) Reason for Visit: Fever Subjective: Pt continues to have right upper and lower ext weakness, frontal headache, and left facial droop at the lips. She has ongoing back pain that is about the same as yesterday. No Neck pain. No subjective fever/chills. Pt denies recent hx of ataxia or urinary incontinence. The patient has no N/V/D. She denies vision or hearing changes, denies parasthesias. Vitals/I&O's: Vital Signs Temp Pulse Resp BP Pulse Ox 99.8 F H 97 18 137/76 H 95 12/27/19 10:22 12/27/19 10:22 12/27/19 10:22 12/27/19 10:22 12/27/19 10:22 Oxygen Flow Rate (L/min) 1.5 Oxygen Delivery Method Room Air Weight: 140 lb 10.479 oz Body Mass Index (BMI) 29.4 Finger Stick Blood Glucose 106 Intake and Output for Last 24 Hours 12/25/19 12/26/19 12/27/19 23:59 23:59 23:59 Intake Total 1085 / 1085 2162.75 / 2162.75 1452.5 / 1452.5 Output Total 1200 / 1200 2200 / 2200 200 / 200 Balance -115 / -115 -37.25 / -37.25 1252.5 / 1252.5 General: Alert, Oriented x3, Cooperative HEENT: Atraumatic, PERRLA, EOMI, Normocephalic Neck: Supple, No JVD, Negative Carotid Bruits Lungs: Clear to auscultation, Normal air movement Cardiovascular: Regular rate, No murmurs Abdomen: Bowel Sounds Present, Soft, Non Tender Extremities: No edema, Capillary Refill Less than 3 Seconds Skin: No rashes, No breakdown Musculoskeletal: No Tenderness to Palpation of Joints or Extremities Neurological: Facial Droop, - - decreased strength right arm and leg. left lip droop. Speech is improved. Confusion is improved. Psych/Mental Status: Normal Affect, Appropriate, Alert and oriented to time, place, person, mood and affect Microbiology Past 72 Hours 12/26/19 12:15 Urine Catheter - Stanton Urine Culture - Preliminary Culture exhibits no growth. 12/25/19 19:50 Mucosa - Nasopharyngeal Coronavirus COVID-19 PCR - Final Laboratory Results 12/26/19 14:45: POC Glucose 106 12/27/19 05:10: WBC 6.9, RBC 2.90 L, Hgb 8.9 L, Hct 27.6 L, MCV 95.2, MCH 30.7, MCHC 32.2, RDW Std Deviation 51.4 H, RDW Coeff of La 14.6, Plt Count 213, MPV 9.5, Immature Gran % (Auto) 0.300, Neut % (Auto) 73.1 H, Lymph % (Auto) 13.6 L, [place] % (Auto) 11.3 H, Eos % (Auto) 0.7, Baso % (Auto) 1.0, Absolute Neuts (auto) 5.1, Absolute Lymphs (auto) 0.94, Nucleated RBC % 0 12/27/19 05:10: Sodium 138, Potassium 3.5, Chloride 109 H, Carbon Dioxide 22.0, Anion Gap 7, BUN 11, Creatinine 0.74, Estim Creat Clear Calc 46.70, Est GFR (MDRD) Af Amer 98, Est GFR (MDRD) Non-Af 81, BUN/Creatinine Ratio 14.9, Glucose 103, Calcium 8.5, Total Bilirubin 0.80, AST 13 L, ALT 12 L, Alkaline Phosphatase 86, Total Protein 6.0 L, Albumin 2.6 L, Globulin 3.4, Albumin/Globulin Ratio 0.8 L Current Medications Acetaminophen (Tylenol) 650 mg PO Q6H PRN PRN PRN Reason: Pain Score 1-10/Temp > 100.7 F Last Admin: 12/27/19 02:11 Dose: 650 mg Documented by: Amlodipine Besylate (Norvasc) 5 mg PO DAILY [facility] Last Admin: 12/27/19 08:15 Dose: 5 mg Documented by: Apixaban (Eliquis) 5 mg PO BID [facility] Last Admin: 12/27/19 08:15 Dose: 5 mg Documented by: Atorvastatin Calcium (Lipitor) 40 mg PO DAILY@2200 [facility] Last Admin: 12/26/19 22:19 Dose: 40 mg Documented by: Gabapentin (Neurontin) 300 mg PO TID [facility] Last Admin: 12/27/19 06:13 Dose: 300 mg Documented by: Sodium Chloride () 1,000 mls @ 75 mls/hr IV .[id number] [facility] Last Infusion: 12/27/19 08:30 Dose: 0 mls/hr Documented by: Vancomycin HCl 750 mg/ Sodium (Chloride) 265 mls @ 250 mls/hr IV PRN PRN Meropenem 1 gm/ Sodium (Chloride) 120 mls @ 33 mls/hr IV Q12 [facility] Last Infusion: 12/27/19 01:58 Dose: Infused Documented by: Sodium Chloride () 250 mls @ 15 mls/hr IV .[id number] PRN PRN Reason: Saline Flush Last Infusion: 12/26/19 05:55 Dose: 0 mls/hr Documented by: Sodium Chloride () 250 mls @ 15 mls/hr IV .[id number] PRN PRN Reason: Additional IVPB Infusion Vancomycin HCl (Vancomycin) 1,000 mg in 200 mls @ 200 mls/hr IV Q24H [facility] Last Infusion: 12/26/19 21:37 Dose: Infused Documented by: Mirtazapine (Remeron) 15 mg PO DAILY@2200 [facility] Last Admin: 12/26/19 22:19 Dose: 15 mg Documented by: Ondansetron HCl (Zofran) 4 mg IV Q8H PRN PRN PRN Reason: NAUSEA/VOMITING Polyethylene Glycol (Miralax) 17 gm PO DAILY [facility] Last Admin: 12/27/19 08:15 Dose: 17 gm Documented by: Potassium Chloride (K-Dur) 20 meq PO BIDCM [facility] Last Admin: 12/27/19 08:15 Dose: 20 meq Documented by: Senna/Docusate Sodium (Senokot-S, Karlene-Colace) 2 tablet PO BID PRN PRN PRN Reason: Constipation Sertraline HCl (Zoloft) 50 mg PO DAILY [facility] Last Admin: 12/27/19 08:16 Dose: 50 mg Documented by: Sodium Chloride () 10 - 40 ml IV UD PRN PRN Reason: SALINE FLUSH Last Admin: 12/26/19 05:40 Dose: 30 ml Documented by: Tolterodine Tartrate (Detrol La) 2 mg PO DAILY [facility] Last Admin: 12/27/19 08:15 Dose: 2 mg Documented by: Zolpidem Tartrate (Ambien (Generic)) 5 mg PO QHS PRN PRN PRN Reason: INSOMNIA STROKE Vital Signs/Narrative: Vital Signs Temp Pulse Resp BP Pulse Ox 12/27/19 10:22 99.8 F H 97 18 137/76 H 95 Medical Necessity - Tobacco Use Smoking Status: Never smoker Tobacco Use: Non-smoker Assessment/Plan All Active Problems Severe sepsis (Acute) Encephalopathy (Acute) 1. Severe sepsis 2/2 suspected recurrent bacteremia - ID following. Continue Vanc/Zosyn. Called micro, prelim blood cx NTD. Fever 103.1 at time of mental status change yesterday. -MRI lumbar spine neg for source of infection -UA neg -CT abd / pelvis neg -covid neg -urine cx negative -CXR pending. -No leukocytosis -negative meningeal signs 2. Acute/subacute infarct - punctuate infarct periventricular white matter left occipital lobe on MRI today. CT brain yesterday neg. CTA head/neck negative. She has ongoing right upper/lower ext weakness and left facial droop. Mentation and speech improved. She did not receive tPA due to eliquis. Per imaging received from [facility] at previous admission she had an MRI showing right cerebellar hemorrhage, lacunar infarct. 3. Encephalopathy - acute metabolic 2/2 #1 and #2. fluctuant. 4. Recent lumbar laminectomy, fusion, CSF leak, bacteremia, meningitis - as above. Previously completed vanc/zohaib regimen. 5. 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 HTN -stable 7. HLD - statin 8. Hx of RHIANNON 9. Depression/insomnia - continue home meds DVT ppx: eliquis DC planning: Consider acute rehab [place]. This patient was seen by Don Lewis PA-C under the supervision of Dr. Fontanez <Braxton Fontanez - Last Filed: 12/27/19 13:41> Reason for Visit: Fever, infection of unclear focus. Subjective: Patient has right upper and lower extremity weakness and left facial droop. No neck rigidity. Patient externalized lumbar spine pain. T-max 103.1 yesterday afternoon. Vitals/I&O's: Vital Signs Temp Pulse Resp BP Pulse Ox 99.8 F H 97 18 137/76 H 95 12/27/19 10:22 12/27/19 10:12/27/19 10:12/27/19 10:22 12/27/19 10:22 Oxygen Flow Rate (L/min) 1.5 Oxygen Delivery Method Room Air Weight: 140 lb 10.479 oz Body Mass Index (BMI) 29.4 Finger Stick Blood Glucose 106 Intake and Output for Last 24 Hours 12/25/19 12/26/19 12/27/19 23:59 23:59 23:59 Intake Total 1085 / 1085 2162.75 / 2162.75 1452.5 / 1452.5 Output Total 1200 / 1200 2200 / 2200 200 / 200 Balance -115 / -115 -37.25 / -37.25 1252.5 / 1252.5 General: Alert, Oriented x3, Cooperative HEENT: Atraumatic, PERRLA, EOMI, Normocephalic Neck: Supple, No JVD, Negative Carotid Bruits Lungs: Clear to auscultation, No rhonchi, No wheeze, No rales, Diminished Cardiovascular: Regular rate, Regular Rhythm, Normal S1, Normal S2, No murmurs Abdomen: Bowel Sounds Present, Soft, Non Tender, Non-Distended Extremities: No edema, Capillary Refill Less than 3 Seconds Skin: No rashes, No breakdown Musculoskeletal: No Tenderness to Palpation of Joints or Extremities, Arthritic Changes Neurological: Cranial nerves II-XII grossly intact, Facial Droop, - - decreased strength right leg. left face face droop. Speech is improved. Confusion is improved. Psych/Mental Status: Appropriate Microbiology Past 72 Hours 12/26/19 12:15 Urine Catheter - Stanton Urine Culture - Preliminary Culture exhibits no growth. 12/25/19 19:50 Mucosa - Nasopharyngeal Coronavirus COVID-19 PCR - Final Laboratory Results 12/26/19 14:45: POC Glucose 106 12/27/19 05:10: WBC 6.9, RBC 2.90 L, Hgb 8.9 L, Hct 27.6 L, MCV 95.2, MCH 30.7, MCHC 32.2, RDW Std Deviation 51.4 H, RDW Coeff of La 14.6, Plt Count 213, MPV 9.5, Immature Gran % (Auto) 0.300, Neut % (Auto) 73.1 H, Lymph % (Auto) 13.6 L, [place] % (Auto) 11.3 H, Eos % (Auto) 0.7, Baso % (Auto) 1.0, Absolute Neuts (auto) 5.1, Absolute Lymphs (auto) 0.94, Nucleated RBC % 0 12/27/19 05:10: Sodium 138, Potassium 3.5, Chloride 109 H, Carbon Dioxide 22.0, Anion Gap 7, BUN 11, Creatinine 0.74, Estim Creat Clear Calc 46.70, Est GFR (MDRD) Af Amer 98, Est GFR (MDRD) Non-Af 81, BUN/Creatinine Ratio 14.9, Glucose 103, Calcium 8.5, Total Bilirubin 0.80, AST 13 L, ALT 12 L, Alkaline Phosphatase 86, Total Protein 6.0 L, Albumin 2.6 L, Globulin 3.4, Albumin/Globulin Ratio 0.8 L Current Medications Acetaminophen (Tylenol) 650 mg PO Q6H PRN PRN PRN Reason: Pain Score 1-10/Temp > 100.7 F Last Admin: 12/27/19 02:11 Dose: 650 mg Documented by: Amlodipine Besylate (Norvasc) 5 mg PO DAILY [facility] Last Admin: 12/27/19 08:15 Dose: 5 mg Documented by: Apixaban (Eliquis) 5 mg PO BID [facility] Last Admin: 12/27/19 08:15 Dose: 5 mg Documented by: Atorvastatin Calcium (Lipitor) 40 mg PO DAILY@2200 [facility] Last Admin: 12/26/19 22:19 Dose: 40 mg Documented by: Gabapentin (Neurontin) 300 mg PO TID [facility] Last Admin: 12/27/19 06:13 Dose: 300 mg Documented by: Sodium Chloride () 1,000 mls @ 75 mls/hr IV .[id number] [facility] Last Infusion: 12/27/19 08:30 Dose: 0 mls/hr Documented by: Vancomycin HCl 750 mg/ Sodium (Chloride) 265 mls @ 250 mls/hr IV PRN PRN Meropenem 1 gm/ Sodium (Chloride) 120 mls @ 33 mls/hr IV Q12 [facility] Last Infusion: 12/27/19 01:58 Dose: Infused Documented by: Sodium Chloride () 250 mls @ 15 mls/hr IV .[id number] PRN PRN Reason: Saline Flush Last Infusion: 12/26/19 05:55 Dose: 0 mls/hr Documented by: Sodium Chloride () 250 mls @ 15 mls/hr IV .[id number] PRN PRN Reason: Additional IVPB Infusion Vancomycin HCl (Vancomycin) 1,000 mg in 200 mls @ 200 mls/hr IV Q24H [facility] Last Infusion: 12/26/19 21:37 Dose: Infused Documented by: Mirtazapine (Remeron) 15 mg PO DAILY@2200 [facility] Last Admin: 12/26/19 22:19 Dose: 15 mg Documented by: Ondansetron HCl (Zofran) 4 mg IV Q8H PRN PRN PRN Reason: NAUSEA/VOMITING Polyethylene Glycol (Miralax) 17 gm PO DAILY [facility] Last Admin: 12/27/19 08:15 Dose: 17 gm Documented by: Potassium Chloride (K-Dur) 20 meq PO BIDCM [facility] Last Admin: 12/27/19 08:15 Dose: 20 meq Documented by: Senna/Docusate Sodium (Senokot-S, Karlene-Colace) 2 tablet PO BID PRN PRN PRN Reason: Constipation Sertraline HCl (Zoloft) 50 mg PO DAILY [facility] Last Admin: 12/27/19 08:16 Dose: 50 mg Documented by: Sodium Chloride () 10 - 40 ml IV UD PRN PRN Reason: SALINE FLUSH Last Admin: 12/26/19 05:40 Dose: 30 ml Documented by: Tolterodine Tartrate (Detrol La) 2 mg PO DAILY [facility] Last Admin: 12/27/19 08:15 Dose: 2 mg Documented by: Zolpidem Tartrate (Ambien (Generic)) 5 mg PO QHS PRN PRN PRN Reason: INSOMNIA STROKE Vital Signs/Narrative: Vital Signs Temp Pulse Resp BP Pulse Ox 12/27/19 10:22 99.8 F H 97 18 137/76 H 95 Assessment/Plan This patient was seen in conjunction with Don CLEMONS. I have independently interviewed and examined the patient and reviewed pertinent history, examination findings, laboratory and plan of management. I have reviewed the note and agree with the documented findings with the few additional points. In brief, patient is admitted for fever, altered mental status severe sepsis secondary to recurrent bacteremia: Previous blood culture on 11/27/2019 shows gram-positive cocci in cluster, MRSE and urine culture was positive of Pseudomonas aeruginosa. Patient seen by ID wig sales consultant. As mentioned above, MRI lumbar spine, UA and urine culture negative, COVID-19 PCR are negative. Patient is on vancomycin and meropenem. No meningeal signs suggestive of meningitis but prior history of CSF leak after lumbar spine laminectomy in August 2019. Eliquis is on hold as she might need LP. MRI brain shows acute/subacute punctate infarct of periventricular white matter of left occipital lobe. CTA brain and neck are negative. Patient had acute encephalopathy probably secondary to infectious or metabolic. Other comorbidities as mentioned above. Total time of the visit including total time spent in counseling or coordination of care, (more than 50% of the total time, spent in obtaining medical information from nurses and other ancillary care providers), discussion with wig sales consultant, clinical update son and daughter, review of labs and imaging is 30 minutes I have discussed my assessment with Don CLEMONS and orders have been reviewed. Inpatient E&M: [id number] [facility] L[facility]
--- NOTE | 2019-12-27 13:05 | CHAPLAIN ---
Type of Pastoral Visit _x__ Initial Visit ___ Follow-up Visit ___ On-call Visit ___ General Patient Visit ___ Spiritual Assessment ___ Family Conference ___ Bereavement ___ Rapid Response ___ Code Blue ___ Other (describe below) Pastoral Care Referral From _x__ Patient ___ Family ___ Nurse ___ Physician ___ Public Relations Account Supervisor ___ Surgical Services Assistant ___ Other (describe below) Sacrament/Intervention _x__ Active listening ___ Anointing ___ Amish ___ Bereavement ___ Communion ___ Nikkie exploration ___ ___ Life review _x__ Prayer ___ Reconciliation ___ Sacrament of Sick _x__ Supportive presence ___ Wedding ___ Other (describe below) Pastoral Comments
--- NOTE | 2019-12-27 14:17 | CASEMGMT ---
SW completed PHQ-9 w/pt, pt scored a 3. No further intervention in regard to this required at this time. NATE Elliott
--- NOTE | 2019-12-27 14:20 | CASEMGMT ---
SW spoke w/PA who suggested rehab may be indicated for this pt as she had a stroke. SW spoke w/pt about this, and she is agreeable to see if insurance would authorize. SW explained when indicated, SW will follow up w/insurance to see if they would authorize. NATE Elliott
[2019-12-27] MEDS: 0.9% Saline Lock 10 ML Syringe IV (14:37)
[2019-12-27] MEDS: Mirtazapine 15 MG Tablet PO (21:35)
[2019-12-27] MEDS: Atorvastatin Calcium 40 MG Tablet PO (21:35)
[2019-12-27 21:36] LABS: Vancomycin, Trough Level 9.1 ug/mL (5.0-15.0)
[2019-12-27] MEDS: Vancomycin IV 1,000 MG/200 ML BAG 200 MG IV (21:41)
--- NOTE | 2019-12-27 23:06 | PCM.RX.CS ---
Consult Pharmacy has been consulted to manage selected antiobiotic: Vancomycin Type of Consult: Follow-up Suspected Infection: Sepsis Prior Doses of Antibiotics Received/Current Regimen: Medications Vancomycin HCl 750 mg/ Sodium (Chloride) 265 mls @ 250 mls/hr IV Q12H [facility] Discontinued Medications Vancomycin HCl (Vancomycin) 1,000 mg in 200 mls @ 200 mls/hr IV Q24H [facility] Last Admin: 12/27/19 21:41 Dose: 200 mls/hr Labs: Sodium 138 mmol/L (136-145) 12/27/19 05:10 Potassium 3.5 mmol/L (3.5-5.1) 12/27/19 05:10 Chloride 109 mmol/L (98-107) H 12/27/19 05:10 Carbon Dioxide 22.0 mmol/L (21.0-32.0) 12/27/19 05:10 Anion Gap 7 (5-15) 12/27/19 05:10 BUN 11 mg/dL (7-18) 12/27/19 05:10 Creatinine 0.74 mg/dL (0.55-1.02) 12/27/19 05:10 Est GFR (MDRD) Af Amer 98 mL/min (>60) 12/27/19 05:10 Est GFR (MDRD) Non-Af 81 mL/min (>60) 12/27/19 05:10 BUN/Creatinine Ratio 14.9 RATIO (10-20) 12/27/19 05:10 Glucose 103 mg/dL (74-106) 12/27/19 05:10 Vancomycin Trough 9.1 ug/mL (5.0-15.0) 12/27/19 20:20 Microbiology: Microbiology 12/26/19 12:15 Urine Catheter - Stanton Urine Culture - Preliminary Culture exhibits no growth. 12/25/19 19:50 Mucosa - Nasopharyngeal Coronavirus COVID-19 PCR - Final Weight used for dosin.8 kg Estimated Creatinine Clearance: 47 Goal Trough: 15-20 mcg/mL Pharmacy Plan for Drug Dosing: Trough level of 9.1 was lower than the target range of 15-20. Using vancomycin dosing calculator, the dose was adjusted to 750mg q12h. Will re-draw trough level prior to 4th dose of new regimen. Pharmacy Service will continue to monitor and adjust dosing as required. Follow-Up Labs: Trough Vancomycin Labs to be done on [date and time ordered]: 12/29/19 @2100
[2019-12-27] MEDS: Aspirin 81 MG TAB.CHEW PO (23:17)
[2019-12-28] VITALS (16 sets, daily range): BP systolic 97–127; BP diastolic 60–94; PULSE 73–90; RESP 16–20; TEMP 36.5–38.5; O2SAT 90–96; BMI 29.4
[2019-12-28] MEDS: 0.9% Normal Saline 1,000 ML 75 ML IV ×2 (03:23→16:43)
[2019-12-28 05:44] LABS: Absolute Neutrophil Count 2.8 X10^3/uL (2.0-7.7); Basophil# 0.04 X10^3/uL; Basophil% 0.9 % (0-1); Eosinophil# 0.27 X10^3/uL; Hematocrit 31.4 % (37-47); Hemoglobin 10.4 g/dL (12.0-15.0); Lymphocyte % 19.9 % (19-41); Mean Corp Hgb Conc 33.1 g/dL (32-36); Mean Corpuscular Hgb 30.7 pg (27.0-32.0); Mean Corpuscular Volume 92.6 fL (81-99); Mean Platelet Vol. 9.5 fl (6.2-12.0); Monocyte# 0.52 X10^3/uL; Monocyte% 11.5 % (0-10); NRBC Flagged by Analyzer 0 % (0-5); Neutrophil # 2.77 X10^3/uL (2.7-7.7); Platelet Count 209 K/mm3 (150-450); RBC Distribution Width SD 47.9 fl (35.1-43.9); Red Blood Count 3.39 M/mm3 (4.2-5.4); White Blood Count 4.5 K/mm3 (4.4-11.0)
[2019-12-28 06:04] LABS: Anion Gap 8 (5-15); BUN 10 mg/dL (7-18); BUN/Creat Ratio 15.1 RATIO (10-20); Calcium,Total 8.9 mg/dL (8.5-10.1); Chloride 111 mmol/L (98-107); Cholesterol 150 mg/dL (200); Creatinine, Serum 0.66 mg/dL (0.55-1.02); EST Glomerular Filtration Rate 91 mL/min (>60); Est Glom Filt Rate - Afr Amer 111 mL/min (>60); Glucose 84 mg/dL (74-106); High Density Lipoprotein 38 mg/dL; Potassium 3.7 mmol/L (3.5-5.1); Sodium Level 142 mmol/L (136-145); Triglycerides 148 mg/dL; Very Low Density Lipoprotein 30 mg/dL (5-40)
[2019-12-28 08:26] LABS: Erythrocyte Sedimentation Rate 46 mm/hr (0-30)
[2019-12-28] MEDS: Acetaminophen 325 MG Tablet 650 MG PO ×2 (08:33→21:24)
--- NOTE | 2019-12-28 09:59 | PN.ID_ITS ---
Patient Problems: Active and Suspected Problems Severe sepsis (Acute) Subjective: Feeling ok, no fever. No cough or SOB. - Physical Exam Vitals/I&O's: Vital Signs Temp Pulse Resp BP Pulse Ox 98.4 F 86 18 126/66 H 92 12/28/19 06:20 12/28/19 06:46 12/28/19 06:20 12/28/19 06:20 12/28/19 07:45 Oxygen Flow Rate (L/min) 1.5 Oxygen Delivery Method Room Air Weight: 63.8 kg Body Mass Index (BMI) 29.4 Finger Stick Blood Glucose 106 Intake and Output for Last 24 Hours 12/26/19 12/27/19 12/28/19 23:59 23:59 23:59 Intake Total 2162.75 / 2162.75 2986.55 / 2986.55 520.95 / 520.95 Output Total 2200 / 2200 925 / 925 900 / 900 Balance -37.25 / -37.25 2061.55 / 2061.55 -379.05 / -379.05 General: Cooperative, No apparent distress Lungs: Clear to auscultation, Normal air movement Cardiovascular: Regular rate, Regular Rhythm Abdomen: Soft, Non Tender, Non-Distended Skin: No rashes Microbiology Past 72 Hours 12/25/19 19:40 Blood Culture (Wb) - Right Hand Blood Culture - Preliminary No growth in 48 hours. 12/26/19 12:15 Urine Catheter - Stanton Urine Culture - Preliminary Culture exhibits no growth. 12/25/19 19:50 Mucosa - Nasopharyngeal Coronavirus COVID-19 PCR - Final Laboratory Results 12/27/19 20:20: Vancomycin Trough 9.1 12/28/19 05:05: WBC 4.5, RBC 3.39 L, Hgb 10.4 L, Hct 31.4 L, MCV 92.6, MCH 30.7, MCHC 33.1, RDW Std Deviation 47.9 H, RDW Coeff of La 14.0, Plt Count 209, MPV 9.5, Immature Gran % (Auto) 0.700, Neut % (Auto) 61.0, Lymph % (Auto) 19.9, [place] % (Auto) 11.5 H, Eos % (Auto) 6.0 H, Baso % (Auto) 0.9, Absolute Neuts (auto) 2.8, Absolute Lymphs (auto) 0.90, Nucleated RBC % 0 12/28/19 05:05: Sodium 142, Potassium 3.7, Chloride 111 H, Carbon Dioxide 23.0, Anion Gap 8, BUN 10, Creatinine 0.66, Estim Creat Clear Calc 46.70, Est GFR (MDRD) Af Amer 111, Est GFR (MDRD) Non-Af 91, BUN/Creatinine Ratio 15.1, Glucose 84, Calcium 8.9, Triglycerides 148, Cholesterol 150, LDL Cholesterol 82, VLDL Cholesterol 30, HDL Cholesterol 38 L 12/28/19 05:05: ESR 46 H 12/28/19 05:05: C-React Prot Ext Range 66.60 H Current Medications Acetaminophen (Tylenol) 650 mg PO Q6H PRN PRN PRN Reason: Pain Score 1-10/Temp > 100.7 F Last Admin: 12/28/19 08:33 Dose: 650 mg Documented by: Amlodipine Besylate (Norvasc) 5 mg PO DAILY [facility] Last Admin: 12/27/19 08:15 Dose: 5 mg Documented by: Apixaban (Eliquis) 5 mg PO BID [facility] Last Admin: 12/27/19 21:34 Dose: 5 mg Documented by: Atorvastatin Calcium (Lipitor) 40 mg PO DAILY@2200 [facility] Last Admin: 12/27/19 21:35 Dose: 40 mg Documented by: Gabapentin (Neurontin) 300 mg PO TID [facility] Last Admin: 12/28/19 06:28 Dose: Not Given Documented by: Sodium Chloride () 1,000 mls @ 75 mls/hr IV .[id number] [facility] Last Admin: 12/28/19 03:23 Dose: 75 mls/hr Documented by: Vancomycin HCl 750 mg/ Sodium (Chloride) 265 mls @ 250 mls/hr IV PRN PRN Meropenem 1 gm/ Sodium (Chloride) 120 mls @ 33 mls/hr IV Q12 [facility] Last Admin: 12/28/19 09:40 Dose: 33 mls/hr Documented by: Sodium Chloride () 250 mls @ 15 mls/hr IV .[id number] PRN PRN Reason: Saline Flush Last Infusion: 12/26/19 05:55 Dose: 0 mls/hr Documented by: Sodium Chloride () 250 mls @ 15 mls/hr IV .[id number] PRN PRN Reason: Additional IVPB Infusion Vancomycin HCl 750 mg/ Sodium (Chloride) 265 mls @ 250 mls/hr IV Q12H [facility] Last Infusion: 12/28/19 09:40 Dose: Infused Documented by: Mirtazapine (Remeron) 15 mg PO DAILY@2200 [facility] Last Admin: 12/27/19 21:35 Dose: 15 mg Documented by: Ondansetron HCl (Zofran) 4 mg IV Q8H PRN PRN PRN Reason: NAUSEA/VOMITING Polyethylene Glycol (Miralax) 17 gm PO DAILY [facility] Last Admin: 12/27/19 08:15 Dose: 17 gm Documented by: Potassium Chloride (K-Dur) 20 meq PO BIDCM [facility] Last Admin: 12/27/19 17:42 Dose: 20 meq Documented by: Senna/Docusate Sodium (Senokot-S, Karlene-Colace) 2 tablet PO BID PRN PRN PRN Reason: Constipation Sertraline HCl (Zoloft) 50 mg PO DAILY [facility] Last Admin: 12/27/19 08:16 Dose: 50 mg Documented by: Sodium Chloride () 10 - 40 ml IV UD PRN PRN Reason: SALINE FLUSH Last Admin: 12/27/19 14:37 Dose: 10 ml Documented by: Tolterodine Tartrate (Detrol La) 2 mg PO DAILY [facility] Last Admin: 12/27/19 08:15 Dose: 2 mg Documented by: Zolpidem Tartrate (Ambien (Generic)) 5 mg PO QHS PRN PRN PRN Reason: INSOMNIA Medical Necessity - Tobacco Use Smoking Status: Never smoker Tobacco Use: Non-smoker Route of nutrition/ use of supplements: [] Nutritional Intake: [] IV Site: [] Stanton Catheter: [] - Assessment/Plan Antibiotics: [] Assessment/Plan: [] Active and Suspected Problems Severe sepsis (Acute) Fever, normal wbc, altered mental status with concern for new stroke on 12/25 after completing empiric course of vanc/zohaib 12/20 for suspected bacterial meningitis after admission to [place]. Prior h/o CSF leak from laminectomy in the past few months. Now back on vanc/zohaib. CXR clear, UA clear, bcx neg so far. Mental status seems to be improving, fever resolved. MRI now shows new occipital stroke, recommend AHSAN, d/w primary team and cardiology. Will follow
--- NOTE | 2019-12-28 10:54 | CASEMGMT ---
CRUZ called Teri at [facility]. SW inquired if patient would possibly be able to go to the Inpatient Rehab Unit at [facility] instead of back to TCU as she had a Stroke. She said if patient can tolerate the 3 hours of therapy she could possibly be approved to go to Rehab instead. SW will check with therapy and patient to see what their thoughts are for d/c. Antoinette KILPATRICK
--- NOTE | 2019-12-28 11:05 | PN_ITS ---
<Don Lewis - Last Filed: 12/28/19 11:05> Patient Problems: Active and Suspected Problems Severe sepsis (Acute) Reason for Visit: Recurrent fever. Subjective: Pt has no specific complaints today. No cough/sob. No fever/chills. No CP, pressure heaviness, tightness, or palp. No LH/dizziness. No neck pain. No dysuria. No abd pain, nausea/vomiting/diarrhea. Vitals/I&O's: Vital Signs Temp Pulse Resp BP Pulse Ox 98.4 F 82 16 114/62 94 12/28/19 09:30 12/28/19 09:30 12/28/19 09:30 12/28/19 09:30 12/28/19 09:30 Oxygen Flow Rate (L/min) 1.5 Oxygen Delivery Method Room Air Weight: 140 lb 10.479 oz Body Mass Index (BMI) 29.4 Finger Stick Blood Glucose 106 Intake and Output for Last 24 Hours 12/26/19 12/27/19 12/28/19 23:59 23:59 23:59 Intake Total 2162.75 / 2162.75 2986.55 / 2986.55 520.95 / 520.95 Output Total 2200 / 2200 925 / 925 900 / 900 Balance -37.25 / -37.25 2061.55 / 2061.55 -379.05 / -379.05 General: Alert, Oriented x3, Cooperative HEENT: Atraumatic, PERRLA, EOMI, Normocephalic Neck: Supple, No JVD, Negative Carotid Bruits Lungs: Clear to auscultation, Normal air movement Cardiovascular: Regular rate, No murmurs Abdomen: Bowel Sounds Present, Soft, Non Tender Extremities: No edema, Capillary Refill Less than 3 Seconds Skin: No rashes, No breakdown Musculoskeletal: No Tenderness to Palpation of Joints or Extremities Neurological: Cranial nerves II-XII grossly intact, - - ongoing slight left lip droop. Psych/Mental Status: Normal Affect, Appropriate, Alert and oriented to time, place, person, mood and affect Microbiology Past 72 Hours 12/25/19 19:40 Blood Culture (Wb) - Right Hand Blood Culture - Preliminary No growth in 48 hours. 12/26/19 12:15 Urine Catheter - Stanton Urine Culture - Preliminary Culture exhibits no growth. 12/25/19 19:50 Mucosa - Nasopharyngeal Coronavirus COVID-19 PCR - Final Laboratory Results 12/27/19 20:20: Vancomycin Trough 9.1 12/28/19 05:05: WBC 4.5, RBC 3.39 L, Hgb 10.4 L, Hct 31.4 L, MCV 92.6, MCH 30.7, MCHC 33.1, RDW Std Deviation 47.9 H, RDW Coeff of La 14.0, Plt Count 209, MPV 9.5, Immature Gran % (Auto) 0.700, Neut % (Auto) 61.0, Lymph % (Auto) 19.9, [place] % (Auto) 11.5 H, Eos % (Auto) 6.0 H, Baso % (Auto) 0.9, Absolute Neuts (auto) 2.8, Absolute Lymphs (auto) 0.90, Nucleated RBC % 0 12/28/19 05:05: Sodium 142, Potassium 3.7, Chloride 111 H, Carbon Dioxide 23.0, Anion Gap 8, BUN 10, Creatinine 0.66, Estim Creat Clear Calc 46.70, Est GFR (MDRD) Af Amer 111, Est GFR (MDRD) Non-Af 91, BUN/Creatinine Ratio 15.1, Glucose 84, Calcium 8.9, Triglycerides 148, Cholesterol 150, LDL Cholesterol 82, VLDL Cholesterol 30, HDL Cholesterol 38 L 12/28/19 05:05: ESR 46 H 12/28/19 05:05: C-React Prot Ext Range 66.60 H Current Medications Acetaminophen (Tylenol) 650 mg PO Q6H PRN PRN PRN Reason: Pain Score 1-10/Temp > 100.7 F Last Admin: 12/28/19 08:33 Dose: 650 mg Documented by: Amlodipine Besylate (Norvasc) 5 mg PO DAILY [facility] Last Admin: 12/27/19 08:15 Dose: 5 mg Documented by: Apixaban (Eliquis) 5 mg PO BID [facility] Last Admin: 12/27/19 21:34 Dose: 5 mg Documented by: Atorvastatin Calcium (Lipitor) 40 mg PO DAILY@2200 [facility] Last Admin: 12/27/19 21:35 Dose: 40 mg Documented by: Gabapentin (Neurontin) 300 mg PO TID [facility] Last Admin: 12/28/19 06:28 Dose: Not Given Documented by: Sodium Chloride () 1,000 mls @ 75 mls/hr IV .[id number] [facility] Last Admin: 12/28/19 03:23 Dose: 75 mls/hr Documented by: Vancomycin HCl 750 mg/ Sodium (Chloride) 265 mls @ 250 mls/hr IV PRN PRN Meropenem 1 gm/ Sodium (Chloride) 120 mls @ 33 mls/hr IV Q12 [facility] Last Admin: 12/28/19 09:40 Dose: 33 mls/hr Documented by: Sodium Chloride () 250 mls @ 15 mls/hr IV .[id number] PRN PRN Reason: Saline Flush Last Infusion: 12/26/19 05:55 Dose: 0 mls/hr Documented by: Sodium Chloride () 250 mls @ 15 mls/hr IV .[id number] PRN PRN Reason: Additional IVPB Infusion Vancomycin HCl 750 mg/ Sodium (Chloride) 265 mls @ 250 mls/hr IV Q12H [facility] Last Infusion: 12/28/19 09:40 Dose: Infused Documented by: Mirtazapine (Remeron) 15 mg PO DAILY@2200 [facility] Last Admin: 12/27/19 21:35 Dose: 15 mg Documented by: Ondansetron HCl (Zofran) 4 mg IV Q8H PRN PRN PRN Reason: NAUSEA/VOMITING Polyethylene Glycol (Miralax) 17 gm PO DAILY [facility] Last Admin: 12/27/19 08:15 Dose: 17 gm Documented by: Potassium Chloride (K-Dur) 20 meq PO BIDCM [facility] Last Admin: 12/27/19 17:42 Dose: 20 meq Documented by: Senna/Docusate Sodium (Senokot-S, Karlene-Colace) 2 tablet PO BID PRN PRN PRN Reason: Constipation Sertraline HCl (Zoloft) 50 mg PO DAILY [facility] Last Admin: 12/27/19 08:16 Dose: 50 mg Documented by: Sodium Chloride () 10 - 40 ml IV UD PRN PRN Reason: SALINE FLUSH Last Admin: 12/27/19 14:37 Dose: 10 ml Documented by: Tolterodine Tartrate (Detrol La) 2 mg PO DAILY [facility] Last Admin: 12/27/19 08:15 Dose: 2 mg Documented by: Zolpidem Tartrate (Ambien (Generic)) 5 mg PO QHS PRN PRN PRN Reason: INSOMNIA STROKE Vital Signs/Narrative: Vital Signs Temp Pulse Resp BP Pulse Ox 12/28/19 09:30 98.4 F 82 16 114/62 94 12/28/19 07:45 92 Medical Necessity - Tobacco Use Smoking Status: Never smoker Tobacco Use: Non-smoker Assessment/Plan All Active Problems Severe sepsis (Acute) Encephalopathy (Acute) 1. Severe sepsis 2/2 suspected recurrent bacteremia - ID following. Continue Vanc/Zosyn. Blood cx pending. Last fever last night 100.5 at 2130. -MRI lumbar spine neg for source of infection -UA neg -CT abd / pelvis neg -covid neg -urine cx negative -CXR pending. -No leukocytosis -negative meningeal signs -AHSAN -I discussed this with neuro and ID, recommend AHSAN. -Infarct possibly septic emboli. -Reviewed Recent TTE at [place] - no vegetation, at that time recommended AHSAN if suspicious for endocarditis. -ESR 46, CRP 66.60 -Neuro does not recommend LP at this time. 2. Acute/subacute infarct - d/w neuro, as above, needs AHSAN. Continue eliquis and statin. Infarct is small, punctate infarct of the periventricular white matter of the left occipital lobe. 3. Encephalopathy - acute metabolic 2/2 #1 and #2. fluctuant. A/ox3 today 4. Recent lumbar laminectomy, fusion, CSF leak, bacteremia, meningitis - as above. Previously completed vanc/zohaib regimen. 5. 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 HTN -stable 7. HLD - statin 8. Hx of RHIANNON 9. Depression/insomnia - continue home meds DVT ppx: eliquis DC planning: Consider acute rehab at [facility]. This patient was seen by Don Lewis PA-C under the supervision of Dr. Fontanez <Braxton Fontanez - Last Filed: 12/28/19 13:15> Reason for Visit: Recurrent fever, focus of infection unclear Objective: T-max 100.5 Fahrenheit last night. Currently afebrile. Normal sinus rhythm. Pulse ox 94% on room air. Right lower extremity weakness Vitals/I&O's: Vital Signs Temp Pulse Resp BP Pulse Ox 98.4 F 82 16 114/62 94 12/28/19 09:30 12/28/19 09:30 12/28/19 09:30 12/28/19 09:30 12/28/19 09:30 Oxygen Flow Rate (L/min) 1.5 Oxygen Delivery Method Room Air Weight: 140 lb 10.479 oz Body Mass Index (BMI) 29.4 Finger Stick Blood Glucose 106 Intake and Output for Last 24 Hours 12/26/19 12/27/19 12/28/19 23:59 23:59 23:59 Intake Total 2162.75 / 2162.75 2986.55 / 2986.55 520.95 / 520.95 Output Total 2200 / 2200 925 / 925 900 / 900 Balance -37.25 / -37.25 2061.55 / 2061.55 -379.05 / -379.05 General: Alert, Oriented x3, Cooperative HEENT: Atraumatic, PERRLA, EOMI, Normocephalic Neck: Supple, No JVD, Negative Carotid Bruits Lungs: Clear to auscultation, Normal air movement Cardiovascular: Regular rate, Regular Rhythm, Normal S1, Normal S2, No murmurs Abdomen: Bowel Sounds Present, Soft, Non Tender, Non-Distended Extremities: No edema, Capillary Refill Less than 3 Seconds Skin: No rashes, No breakdown Musculoskeletal: No Tenderness to Palpation of Joints or Extremities Neurological: Cranial nerves II-XII grossly intact, - - ongoing slight left lip droop. Right lower weakness, strength 4/5. Mild left-sided facial droop Psych/Mental Status: Normal Affect, Appropriate Microbiology Past 72 Hours 12/25/19 19:40 Blood Culture (Wb) - Right Hand Blood Culture - Preliminary No growth in 48 hours. 12/26/19 12:15 Urine Catheter - Stanton Urine Culture - Preliminary Culture exhibits no growth. 12/25/19 19:50 Mucosa - Nasopharyngeal Coronavirus COVID-19 PCR - Final Laboratory Results 12/27/19 20:20: Vancomycin Trough 9.1 12/28/19 05:05: WBC 4.5, RBC 3.39 L, Hgb 10.4 L, Hct 31.4 L, MCV 92.6, MCH 30.7, MCHC 33.1, RDW Std Deviation 47.9 H, RDW Coeff of La 14.0, Plt Count 209, MPV 9.5, Immature Gran % (Auto) 0.700, Neut % (Auto) 61.0, Lymph % (Auto) 19.9, [place] % (Auto) 11.5 H, Eos % (Auto) 6.0 H, Baso % (Auto) 0.9, Absolute Neuts (auto) 2.8, Absolute Lymphs (auto) 0.90, Nucleated RBC % 0 12/28/19 05:05: Sodium 142, Potassium 3.7, Chloride 111 H, Carbon Dioxide 23.0, Anion Gap 8, BUN 10, Creatinine 0.66, Estim Creat Clear Calc 46.70, Est GFR (MDRD) Af Amer 111, Est GFR (MDRD) Non-Af 91, BUN/Creatinine Ratio 15.1, Glucose 84, Calcium 8.9, Triglycerides 148, Cholesterol 150, LDL Cholesterol 82, VLDL Cholesterol 30, HDL Cholesterol 38 L 12/28/19 05:05: ESR 46 H 12/28/19 05:05: C-React Prot Ext Range 66.60 H Current Medications Acetaminophen (Tylenol) 650 mg PO Q6H PRN PRN PRN Reason: Pain Score 1-10/Temp > 100.7 F Last Admin: 12/28/19 08:33 Dose: 650 mg Documented by: Amlodipine Besylate (Norvasc) 5 mg PO DAILY [facility] Last Admin: 12/27/19 08:15 Dose: 5 mg Documented by: Apixaban (Eliquis) 5 mg PO BID [facility] Last Admin: 12/27/19 21:34 Dose: 5 mg Documented by: Atorvastatin Calcium (Lipitor) 40 mg PO DAILY@2200 [facility] Last Admin: 12/27/19 21:35 Dose: 40 mg Documented by: Gabapentin (Neurontin) 300 mg PO TID [facility] Last Admin: 12/28/19 06:28 Dose: Not Given Documented by: Sodium Chloride () 1,000 mls @ 75 mls/hr IV .[id number] [facility] Last Admin: 12/28/19 03:23 Dose: 75 mls/hr Documented by: Vancomycin HCl 750 mg/ Sodium (Chloride) 265 mls @ 250 mls/hr IV PRN PRN Meropenem 1 gm/ Sodium (Chloride) 120 mls @ 33 mls/hr IV Q12 [facility] Last Admin: 12/28/19 09:40 Dose: 33 mls/hr Documented by: Sodium Chloride () 250 mls @ 15 mls/hr IV .[id number] PRN PRN Reason: Saline Flush Last Infusion: 12/26/19 05:55 Dose: 0 mls/hr Documented by: Sodium Chloride () 250 mls @ 15 mls/hr IV .[id number] PRN PRN Reason: Additional IVPB Infusion Vancomycin HCl 750 mg/ Sodium (Chloride) 265 mls @ 250 mls/hr IV Q12H [facility] Last Infusion: 12/28/19 09:40 Dose: Infused Documented by: Mirtazapine (Remeron) 15 mg PO DAILY@2200 [facility] Last Admin: 12/27/19 21:35 Dose: 15 mg Documented by: Ondansetron HCl (Zofran) 4 mg IV Q8H PRN PRN PRN Reason: NAUSEA/VOMITING Polyethylene Glycol (Miralax) 17 gm PO DAILY [facility] Last Admin: 12/27/19 08:15 Dose: 17 gm Documented by: Potassium Chloride (K-Dur) 20 meq PO BIDCM [facility] Last Admin: 12/27/19 17:42 Dose: 20 meq Documented by: Senna/Docusate Sodium (Senokot-S, Karlene-Colace) 2 tablet PO BID PRN PRN PRN Reason: Constipation Sertraline HCl (Zoloft) 50 mg PO DAILY [facility] Last Admin: 12/27/19 08:16 Dose: 50 mg Documented by: Sodium Chloride () 10 - 40 ml IV UD PRN PRN Reason: SALINE FLUSH Last Admin: 12/27/19 14:37 Dose: 10 ml Documented by: Tolterodine Tartrate (Detrol La) 2 mg PO DAILY [facility] Last Admin: 12/27/19 08:15 Dose: 2 mg Documented by: Zolpidem Tartrate (Ambien (Generic)) 5 mg PO QHS PRN PRN PRN Reason: INSOMNIA STROKE Vital Signs/Narrative: Vital Signs Temp Pulse Resp BP Pulse Ox 12/28/19 09:30 98.4 F 82 16 114/62 94 Assessment/Plan This patient was seen in conjunction with Don CLEMONS. I have independently interviewed and examined the patient and reviewed pertinent history, examination findings, laboratory and plan of management. I have reviewed the note and agree with the documented findings with the few additional points. In brief, patient is admitted for fever, altered mental status severe sepsis secondary to recurrent bacteremia: Previous blood culture on 11/27/2019 shows gram-positive cocci in cluster, MRSE and urine culture was positive of Pseudomonas aeruginosa. As mentioned above, MRI lumbar spine, UA and urine culture negative, COVID-19 PCR are negative. Patient is on vancomycin and meropenem. No meningeal signs suggestive of meningitis but prior history of CSF leak after lumbar spine laminectomy in August 2019. Eliquis is on hold as she might need LP. MRI brain shows acute/subacute punctate infarct of periventricular white matter of left occipital lobe. CTA brain and neck are negative. Continue Eliquis and statin. Patient is on Eliquis for DVT/PE. Patient had acute encephalopathy probably secondary to infectious or metabolic. Recent 2D echo from [facility], 11/29/2019 reviewed. No significant valvular pathology. Mild TR. No vegetation on TTE. Patient had AHSAN today and no vegetation found. Cultures have so far been negative. Discussed with ID. Other comorbidities as mentioned above. Total time of the visit including total time spent in counseling or coordination of care, (more than 50% of the total time, spent in obtaining medical information from nurses and other ancillary care providers), discussion with store consultant, clinical update son and daughter, review of labs and imaging is 30 minutes Inpatient E&M: 30140 Subs Hosp L2
[2019-12-28] MEDS: Tolterodine Tartrate 2 MG CAP.SA PO (16:42)
[2019-12-28] MEDS: Gabapentin 300 MG Capsule PO ×2 (16:42→21:18)
[2019-12-28] MEDS: Polyethylene Glycol 3350 17 GM PACKET PO (16:42)
[2019-12-28] MEDS: APIXABAN 5 MG TABLET PO ×2 (16:42→21:18)
[2019-12-28] MEDS: amLODIPine 5 MG Tablet PO (16:43)
[2019-12-28] MEDS: Sertraline 50 MG Tablet PO (16:43)
--- NOTE | 2019-12-28 19:40 | NURSING ---
DTR CALLED FOR UPDATE ON PT. INFORMATION PROVIDED TO HER. CHECKED IN PT ROOM TO CONFIRM THAT HER ROOM PHONE WAS AVAILABLE AND AT PT'S SIDE.
[2019-12-28] MEDS: Mirtazapine 15 MG Tablet PO (21:18)
[2019-12-28] MEDS: Atorvastatin Calcium 40 MG Tablet PO (21:18)
[2019-12-29] VITALS (13 sets, daily range): BP systolic 110–137; BP diastolic 52–76; PULSE 69–93; RESP 16–18; TEMP 36.6–37.4; O2SAT 91–97; BMI 29.4
[2019-12-29] MEDS: 0.9% Normal Saline 1,000 ML 75 ML IV (05:21)
[2019-12-29] MEDS: Gabapentin 300 MG Capsule PO ×3 (05:22→21:15)
[2019-12-29 05:45] LABS: Absolute Lymphocyte Count 0.73 X10^3/uL (0.83-4.51); Absolute Neutrophil Count 2.4 X10^3/uL (2.0-7.7); Basophil# 0.06 X10^3/uL; Basophil% 1.5 % (0-1); Eosinophil# 0.36 X10^3/uL; Hematocrit 31.3 % (37-47); Lymphocyte # 0.73 X10^3/ul (4.0); Lymphocyte % 18.2 % (19-41); Mean Corp Hgb Conc 31.9 g/dL (32-36); Mean Corpuscular Hgb 30.1 pg (27.0-32.0); Mean Corpuscular Volume 94.3 fL (81-99); Monocyte# 0.42 X10^3/uL; Monocyte% 10.4 % (0-10); NRBC Flagged by Analyzer 0 % (0-5); Neutrophil # 2.44 X10^3/uL (2.7-7.7); Neutrophil % 60.7 % (47-70); Platelet Count 230 K/mm3 (150-450); RBC Distribution Width CV 13.9 % (11.6-14.6); RBC Distribution Width SD 47.6 fl (35.1-43.9); Red Blood Count 3.32 M/mm3 (4.2-5.4)
[2019-12-29 06:09] LABS: Anion Gap 7 (5-15); BUN 9 mg/dL (7-18); BUN/Creat Ratio 13.7 RATIO (10-20); Calcium,Total 8.8 mg/dL (8.5-10.1); Chloride 108 mmol/L (98-107); Creatinine, Serum 0.66 mg/dL (0.55-1.02); EST Glomerular Filtration Rate 93 mL/min (>60); Est Glom Filt Rate - Afr Amer 112 mL/min (>60); Glucose 80 mg/dL (74-106); Potassium 3.6 mmol/L (3.5-5.1); Sodium Level 139 mmol/L (136-145)
--- NOTE | 2019-12-29 09:11 | CASEMGMT ---
SW met with patient, introduced self and role at [facility]. SW spoke with patient about going back to TCU vs the Inpatient Rehab Unit. SW told her SW spoke with insurance and they would approve her for either unit. She told SW she would prefer to go home and do therapy at home. She said she has had the agency in [place] in the past and that is who she would like again. SW asked her how her family feels and she said she could talk with them. SW told her we can see how she does with therapy today and decide. Antoinette BACK DISABILITY LIAISON OFFICER
[2019-12-29] MEDS: Sertraline 50 MG Tablet PO (10:03)
[2019-12-29] MEDS: Polyethylene Glycol 3350 17 GM PACKET PO (10:03)
[2019-12-29] MEDS: amLODIPine 5 MG Tablet PO (10:03)
[2019-12-29] MEDS: Tolterodine Tartrate 2 MG CAP.SA PO (10:03)
[2019-12-29 10:20] LABS: International Normalized Ratio 1.4; Prothrombin Time (Protime)PT. 16.8 SECONDS (11.7-14.9)
[2019-12-29] MEDS: Enoxaparin 80 MG/0.8 ML Syringe 70 MG SC ×2 (11:48→21:14)
--- NOTE | 2019-12-29 11:48 | PN_ITS ---
<Don Lewis - Last Filed: 12/29/19 11:48> Patient Problems: Active and Suspected Problems Severe sepsis (Acute) Reason for Visit: Fever unknown etiology Subjective: Last fever last night 101.3. She is doing well otherwise with no complaints and wants to go home. No new neurologic changes. Vitals/I&O's: Vital Signs Temp Pulse Resp BP Pulse Ox 99 F 88 18 110/55 L 96 12/29/19 09:00 12/29/19 09:00 12/29/19 09:00 12/29/19 09:00 12/29/19 09:00 Oxygen Flow Rate (L/min) 2 Oxygen Delivery Method Room Air Weight: 140 lb 10.479 oz Body Mass Index (BMI) 29.4 Finger Stick Blood Glucose 106 Intake and Output for Last 24 Hours 12/27/19 12/28/19 12/29/19 23:59 23:59 23:59 Intake Total 2986.55 / 2986.55 2882.62 / 3122.62 1812.5 / 1812.5 Output Total 925 / 925 1950 / 1950 500 / 500 Balance 2061.55 / 2061.55 932.62 / 1172.62 1312.5 / 1312.5 General: Alert, Oriented x3, Cooperative HEENT: Atraumatic, PERRLA, EOMI, Normocephalic Neck: Supple, No JVD, Negative Carotid Bruits Lungs: Clear to auscultation, Normal air movement Cardiovascular: Regular rate, No murmurs Abdomen: Bowel Sounds Present, Soft, Non Tender Extremities: No edema, Capillary Refill Less than 3 Seconds Skin: No rashes, No breakdown Musculoskeletal: No Tenderness to Palpation of Joints or Extremities Neurological: Cranial nerves II-XII grossly intact Psych/Mental Status: Normal Affect, Appropriate, Alert and oriented to time, place, person, mood and affect Microbiology Past 72 Hours 12/27/19 12:15 Blood Culture (Wb) - Left Hand Blood Culture - Preliminary No growth in 48 hours. 12/27/19 09:40 Blood Culture (Wb) - Right Hand Blood Culture - Preliminary No growth in 48 hours. 12/26/19 12:15 Urine Catheter - Stanton Urine Culture - Final Culture exhibits no growth. 12/25/19 19:40 Blood Culture (Wb) - Right Hand Blood Culture - Preliminary No growth in 48 hours. Laboratory Results 12/29/19 05:15: WBC 4.0 L, RBC 3.32 L, Hgb 10.0 L, Hct 31.3 L, MCV 94.3, MCH 30.1, MCHC 31.9 L, RDW Std Deviation 47.6 H, RDW Coeff of La 13.9, Plt Count 230, MPV 9.0, Immature Gran % (Auto) 0.200, Neut % (Auto) 60.7, Lymph % (Auto) 18.2 L, Dickenson % (Auto) 10.4 H, Eos % (Auto) 9.0 H, Baso % (Auto) 1.5 H, Absolute Neuts (auto) 2.4, Absolute Lymphs (auto) 0.73 L, Nucleated RBC % 0 12/29/19 05:15: Sodium 139, Potassium 3.6, Chloride 108 H, Carbon Dioxide 24.0, Anion Gap 7, BUN 9, Creatinine 0.66, Estim Creat Clear Calc 46.70, Est GFR (MDRD) Af Amer 112, Est GFR (MDRD) Non-Af 93, BUN/Creatinine Ratio 13.7, Glucose 80, Calcium 8.8 12/29/19 10:00: PT 16.8 H, INR 1.4 Current Medications Acetaminophen (Tylenol) 650 mg PO Q6H PRN PRN PRN Reason: Pain Score 1-10/Temp > 100.7 F Last Admin: 12/28/19 21:24 Dose: 650 mg Documented by: Amlodipine Besylate (Norvasc) 5 mg PO DAILY [facility] Last Admin: 12/29/19 10:03 Dose: 5 mg Documented by: Atorvastatin Calcium (Lipitor) 40 mg PO DAILY@2200 [facility] Last Admin: 12/28/19 21:18 Dose: 40 mg Documented by: Enoxaparin Sodium (Lovenox) 70 mg SC Q12 [facility] Gabapentin (Neurontin) 300 mg PO TID [facility] Last Admin: 12/29/19 05:22 Dose: 300 mg Documented by: Meropenem 1 gm/ Sodium (Chloride) 120 mls @ 33 mls/hr IV Q12 [facility] Last Admin: 12/29/19 09:55 Dose: 33 mls/hr Documented by: Sodium Chloride () 250 mls @ 15 mls/hr IV .[id number] PRN PRN Reason: Saline Flush Last Admin: 12/29/19 05:22 Dose: 15 mls/hr Documented by: Sodium Chloride () 250 mls @ 15 mls/hr IV .[id number] PRN PRN Reason: Additional IVPB Infusion Vancomycin HCl 750 mg/ Sodium (Chloride) 265 mls @ 250 mls/hr IV Q12H [facility] Last Infusion: 12/29/19 09:55 Dose: Infused Documented by: Vancomycin IV Pharmacy to Dose (1 ea/ Sodium Chloride) 500 mls @ 250 mls/hr IV X1 PRN; Protocol PRN Reason: Rx to Dose Mirtazapine (Remeron) 15 mg PO DAILY@2200 [facility] Last Admin: 12/28/19 21:18 Dose: 15 mg Documented by: Ondansetron HCl (Zofran) 4 mg IV Q8H PRN PRN PRN Reason: NAUSEA/VOMITING Phenol/Menthol (Chloraseptic (Bkc)) 5 spray MM Q2H PRN PRN PRN Reason: SORE THROAT Polyethylene Glycol (Miralax) 17 gm PO DAILY [facility] Last Admin: 12/29/19 10:03 Dose: 17 gm Documented by: Potassium Chloride (K-Dur) 20 meq PO BIDCM [facility] Last Admin: 12/29/19 08:11 Dose: 20 meq Documented by: Senna/Docusate Sodium (Senokot-S, Karlene-Colace) 2 tablet PO BID PRN PRN PRN Reason: Constipation Sertraline HCl (Zoloft) 50 mg PO DAILY [facility] Last Admin: 12/29/19 10:03 Dose: 50 mg Documented by: Sodium Chloride () 10 - 40 ml IV UD PRN PRN Reason: SALINE FLUSH Last Admin: 12/27/19 14:37 Dose: 10 ml Documented by: Tolterodine Tartrate (Detrol La) 2 mg PO DAILY [facility] Last Admin: 12/29/19 10:03 Dose: 2 mg Documented by: Warfarin Sodium (Coumadin (Pbkc)) 5 mg PO DAILY@1700 [facility] Zolpidem Tartrate (Ambien (Generic)) 5 mg PO QHS PRN PRN PRN Reason: INSOMNIA STROKE Vital Signs/Narrative: Vital Signs Temp Pulse Resp BP Pulse Ox 12/29/19 09:00 99 F 88 18 110/55 L 96 Medical Necessity - Tobacco Use Smoking Status: Never smoker Tobacco Use: Non-smoker Assessment/Plan All Active Problems Severe sepsis (Acute) Encephalopathy (Acute) 1. Severe sepsis 2/2 suspected recurrent bacteremia - ID following. Continue Vanc/Zosyn. Blood cx neg. Fever last night again. Unclear etiology. -UA neg -CT abd / pelvis neg -covid neg -urine cx negative -CXR increased linear marking left lung base suggestive of atelectasis, small hiatal hernia -No leukocytosis -negative meningeal signs -AHSAN negative for vegetation -Reviewed Recent TTE at [place] - no vegetation, at that time recommended AHSAN if suspicious for endocarditis. -ESR 46, CRP 66.60 -Neuro does not recommend LP at this time. -lymphopenic now. 2. Acute/subacute infarct - d/w neuro, as above, needs AHSAN. Continue eliquis and statin. Infarct is small, punctate infarct of the periventricular white matter of the left occipital lobe. -AHSAN no vegetation, escresescence of laml, small PFO. -eliquis stopped, possibly eliquis failure, pt does have recent hx DVT and PE. Started warfarin with lovenox bridge. 3. Encephalopathy - acute metabolic 2/2 #1 and #2. resolved. 4. Recent lumbar laminectomy, fusion, CSF leak, bacteremia, meningitis - as above. Previously completed vanc/zohaib regimen. 5. 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 HTN -stable 7. HLD - statin 8. Hx of RHIANNON 9. Depression/insomnia - continue home meds DVT ppx: stop lovenox started warfarin with lovenox bridge. OR planning: Consider acute rehab [place]. This patient was seen by Don Lewis PA-C under the supervision of Dr. Fontanez <Braxton Fontanez - Last Filed: 12/29/19 16:17> Subjective: Patient had fever last night, T-max 101.3 Fahrenheit. No tachycardia. No hypoxia or tachypnea. Patient awake and alert oriented x3. Objective: On physical exam General: Alert, Oriented x3, Cooperative HEENT: Atraumatic, PERRLA, EOMI, Normocephalic Neck: Supple, No JVD, Negative Carotid Bruits Lungs: Clear to auscultation, Normal air movement Cardiovascular: Regular rate, Regular Rhythm, Normal S1, Normal S2, No murmurs Abdomen: Bowel Sounds Present, Soft, Non Tender, Non-Distended Extremities: No edema, Capillary Refill Less than 3 Seconds Skin: No rashes, No breakdown Musculoskeletal: No Tenderness to Palpation of Joints or Extremities Neurological: Cranial nerves II-XII grossly intact, Right lower weakness, strength 4/5. Mild left-sided facial droop Psych/Mental Status: Normal Affect, Appropriate Vitals/I&O's: Vital Signs Temp Pulse Resp BP Pulse Ox 98.2 F 69 18 125/52 H 97 12/29/19 13:00 12/29/19 13:00 12/29/19 13:00 12/29/19 13:00 12/29/19 13:00 Oxygen Flow Rate (L/min) 2 Oxygen Delivery Method Room Air Weight: 140 lb 10.479 oz Body Mass Index (BMI) 29.4 Finger Stick Blood Glucose 106 Intake and Output for Last 24 Hours 12/27/19 12/28/19 12/29/19 23:59 23:59 23:59 Intake Total 2986.55 / 2986.55 2882.62 / 3122.62 2633.75 / 2633.75 Output Total 925 / 925 1950 / 1950 1500 / 1500 Balance 2061.55 / 2061.55 932.62 / 1172.62 1133.75 / 1133.75 Microbiology Past 72 Hours 12/27/19 12:15 Blood Culture (Wb) - Left Hand Blood Culture - Preliminary No growth in 48 hours. 12/27/19 09:40 Blood Culture (Wb) - Right Hand Blood Culture - Preliminary No growth in 48 hours. 12/26/19 12:15 Urine Catheter - Stanton Urine Culture - Final Culture exhibits no growth. 12/25/19 19:40 Blood Culture (Wb) - Right Hand Blood Culture - Preliminary No growth in 48 hours. Laboratory Results 12/29/19 05:15: WBC 4.0 L, RBC 3.32 L, Hgb 10.0 L, Hct 31.3 L, MCV 94.3, MCH 30.1, MCHC 31.9 L, RDW Std Deviation 47.6 H, RDW Coeff of La 13.9, Plt Count 230, MPV 9.0, Immature Gran % (Auto) 0.200, Neut % (Auto) 60.7, Lymph % (Auto) 18.2 L, Dickenson % (Auto) 10.4 H, Eos % (Auto) 9.0 H, Baso % (Auto) 1.5 H, Absolute Neuts (auto) 2.4, Absolute Lymphs (auto) 0.73 L, Nucleated RBC % 0 12/29/19 05:15: Sodium 139, Potassium 3.6, Chloride 108 H, Carbon Dioxide 24.0, Anion Gap 7, BUN 9, Creatinine 0.66, Estim Creat Clear Calc 46.70, Est GFR (MDRD) Af Amer 112, Est GFR (MDRD) Non-Af 93, BUN/Creatinine Ratio 13.7, Glucose 80, Calcium 8.8 12/29/19 10:00: PT 16.8 H, INR 1.4 Current Medications Acetaminophen (Tylenol) 650 mg PO Q6H PRN PRN PRN Reason: Pain Score 1-10/Temp > 100.7 F Last Admin: 12/28/19 21:24 Dose: 650 mg Documented by: Amlodipine Besylate (Norvasc) 5 mg PO DAILY [facility] Last Admin: 12/29/19 10:03 Dose: 5 mg Documented by: Atorvastatin Calcium (Lipitor) 40 mg PO DAILY@2200 [facility] Last Admin: 12/28/19 21:18 Dose: 40 mg Documented by: Enoxaparin Sodium (Lovenox) 70 mg SC Q12 [facility] Last Admin: 12/29/19 11:48 Dose: 70 mg Documented by: Gabapentin (Neurontin) 300 mg PO TID [facility] Last Admin: 12/29/19 15:09 Dose: 300 mg Documented by: Meropenem 1 gm/ Sodium (Chloride) 120 mls @ 33 mls/hr IV Q12 [facility] Last Infusion: 12/29/19 14:41 Dose: Infused Documented by: Sodium Chloride () 250 mls @ 15 mls/hr IV .[id number] PRN PRN Reason: Saline Flush Last Admin: 12/29/19 05:22 Dose: 15 mls/hr Documented by: Sodium Chloride () 250 mls @ 15 mls/hr IV .[id number] PRN PRN Reason: Additional IVPB Infusion Vancomycin HCl 750 mg/ Sodium (Chloride) 265 mls @ 250 mls/hr IV Q12H [facility] Last Infusion: 12/29/19 09:55 Dose: Infused Documented by: Vancomycin IV Pharmacy to Dose (1 ea/ Sodium Chloride) 500 mls @ 250 mls/hr IV X1 PRN; Protocol PRN Reason: Rx to Dose Mirtazapine (Remeron) 15 mg PO DAILY@2200 [facility] Last Admin: 12/28/19 21:18 Dose: 15 mg Documented by: Ondansetron HCl (Zofran) 4 mg IV Q8H PRN PRN PRN Reason: NAUSEA/VOMITING Phenol/Menthol (Chloraseptic (Bkc)) 5 spray MM Q2H PRN PRN PRN Reason: SORE THROAT Polyethylene Glycol (Miralax) 17 gm PO DAILY [facility] Last Admin: 12/29/19 10:03 Dose: 17 gm Documented by: Potassium Chloride (K-Dur) 20 meq PO BIDCM [facility] Last Admin: 12/29/19 08:11 Dose: 20 meq Documented by: Senna/Docusate Sodium (Senokot-S, Karlene-Colace) 2 tablet PO BID PRN PRN PRN Reason: Constipation Sertraline HCl (Zoloft) 50 mg PO DAILY [facility] Last Admin: 12/29/19 10:03 Dose: 50 mg Documented by: Sodium Chloride () 10 - 40 ml IV UD PRN PRN Reason: SALINE FLUSH Last Admin: 12/27/19 14:37 Dose: 10 ml Documented by: Tolterodine Tartrate (Detrol La) 2 mg PO DAILY [facility] Last Admin: 12/29/19 10:03 Dose: 2 mg Documented by: Warfarin Sodium (Coumadin (Pbkc)) 5 mg PO DAILY@1700 [facility] Zolpidem Tartrate (Ambien (Generic)) 5 mg PO QHS PRN PRN PRN Reason: INSOMNIA STROKE Vital Signs/Narrative: Vital Signs Temp Pulse Resp BP Pulse Ox 12/29/19 13:00 98.2 F 69 18 125/52 H 97 Assessment/Plan This patient was seen in conjunction with Don CLEMONS. I have independently interviewed and examined the patient and reviewed pertinent history, examination findings, laboratory and plan of management. I have reviewed the note and agree with the documented findings with the few additional points. In brief, patient is admitted for fever, altered mental status severe sepsis secondary to recurrent bacteremia: Previous blood culture on 11/27/2019 shows gram-positive cocci in cluster, MRSE and urine culture was positive of Pseu domonas aeruginosa. As mentioned above, MRI lumbar spine, UA and urine culture negative, COVID-19 PCR are negative. Patient is on vancomycin and meropenem. No meningeal signs suggestive of meningitis but prior history of CSF leak after lumbar spine laminectomy in August 2019. Eliquis is on hold as she might need LP. MRI brain shows acute/subacute punctate infarct of periventricular white ma tter of left occipital lobe. CTA brain and neck are negative. Continue Eliquis and statin. Patient is on Eliquis for DVT/PE. Patient had acute encephalopathy probably secondary to infectious or metabolic. Recent 2D echo from [facility], 11/29/2019 reviewed. No significant valvular pathology. Mild TR. No vegetation on TTE. Patient had AHSAN today and no vegetation found although reported as small patent PFO with [id number] interatrial shunt. Since patient has small ischemic acute stroke even on Eliquis therefore antithrombotic agent changed to Coumadin with Lovenox overlap. Discussed with the patient. Cultures have so far been negative. Discussed with ID. Other comorbidities as mentioned above. Total time of the visit including total time spent in counseling or coordination of care, (more than 50% of the total time, spent in obtaining medical information from nurses and other ancillary care providers), discussion with financial sales consultant, clinical update son and daughter, review of labs and imaging is 30 minutes Inpatient E&M: [id number] [facility] L2
--- NOTE | 2019-12-29 15:29 | CASEMGMT ---
Infectious Disease Physician said patient will need to stay on the IV Meropenem Q12 for 4 weeks. SW will notify RN JOSE if patient still plans on going home. Antoinette BACK MSW
--- NOTE | 2019-12-29 16:53 | PCM.PN.ID ---
Patient Problems: Active and Suspected Problems Severe sepsis (Acute) Subjective: Feeling much better, wants to go home soon, denies fever, no cough or SOB. - Physical Exam Vitals/I&O's: Vital Signs Temp Pulse Resp BP Pulse Ox 98.2 F 69 18 125/52 H 97 12/29/19 13:00 12/29/19 13:00 12/29/19 13:00 12/29/19 13:00 12/29/19 13:00 Oxygen Flow Rate (L/min) 2 Oxygen Delivery Method Room Air Weight: 63.8 kg Body Mass Index (BMI) 29.4 Finger Stick Blood Glucose 106 Intake and Output for Last 24 Hours 12/27/19 12/28/19 12/29/19 23:59 23:59 23:59 Intake Total 2986.55 / 2986.55 2882.62 / 3122.62 2633.75 / 2633.75 Output Total 925 / 925 1950 / 1950 1500 / 1500 Balance 2061.55 / 2061.55 932.62 / 1172.62 1133.75 / 1133.75 General: Alert, Cooperative, No apparent distress Lungs: Clear to auscultation, Normal air movement Cardiovascular: Regular rate, Regular Rhythm Abdomen: Soft, Non Tender, Non-Distended Skin: No rashes Microbiology Past 72 Hours 12/27/19 12:15 Blood Culture (Wb) - Left Hand Blood Culture - Preliminary No growth in 48 hours. 12/27/19 09:40 Blood Culture (Wb) - Right Hand Blood Culture - Preliminary No growth in 48 hours. 12/26/19 12:15 Urine Catheter - Stanton Urine Culture - Final Culture exhibits no growth. 12/25/19 19:40 Blood Culture (Wb) - Right Hand Blood Culture - Preliminary No growth in 48 hours. Laboratory Results 12/29/19 05:15: WBC 4.0 L, RBC 3.32 L, Hgb 10.0 L, Hct 31.3 L, MCV 94.3, MCH 30.1, MCHC 31.9 L, RDW Std Deviation 47.6 H, RDW Coeff of La 13.9, Plt Count 230, MPV 9.0, Immature Gran % (Auto) 0.200, Neut % (Auto) 60.7, Lymph % (Auto) 18.2 L, Mellette % (Auto) 10.4 H, Eos % (Auto) 9.0 H, Baso % (Auto) 1.5 H, Absolute Neuts (auto) 2.4, Absolute Lymphs (auto) 0.73 L, Nucleated RBC % 0 12/29/19 05:15: Sodium 139, Potassium 3.6, Chloride 108 H, Carbon Dioxide 24.0, Anion Gap 7, BUN 9, Creatinine 0.66, Estim Creat Clear Calc 46.70, Est GFR (MDRD) Af Amer 112, Est GFR (MDRD) Non-Af 93, BUN/Creatinine Ratio 13.7, Glucose 80, Calcium 8.8 12/29/19 10:00: PT 16.8 H, INR 1.4 Current Medications Acetaminophen (Tylenol) 650 mg PO Q6H PRN PRN PRN Reason: Pain Score 1-10/Temp > 100.7 F Last Admin: 12/28/19 21:24 Dose: 650 mg Documented by: Amlodipine Besylate (Norvasc) 5 mg PO DAILY ON LICENSE OF [facility] Last Admin: 12/29/19 10:03 Dose: 5 mg Documented by: Atorvastatin Calcium (Lipitor) 40 mg PO DAILY@2200 ON LICENSE OF [facility] Last Admin: 12/28/19 21:18 Dose: 40 mg Documented by: Enoxaparin Sodium (Lovenox) 70 mg SC Q12 ON LICENSE OF [facility] Last Admin: 12/29/19 11:48 Dose: 70 mg Documented by: Gabapentin (Neurontin) 300 mg PO TID ON LICENSE OF [facility] Last Admin: 12/29/19 15:09 Dose: 300 mg Documented by: Meropenem 1 gm/ Sodium (Chloride) 120 mls @ 33 mls/hr IV Q12 ON LICENSE OF [facility] Last Infusion: 12/29/19 14:41 Dose: Infused Documented by: Sodium Chloride () 250 mls @ 15 mls/hr IV .[id number] PRN PRN Reason: Saline Flush Last Admin: 12/29/19 05:22 Dose: 15 mls/hr Documented by: Sodium Chloride () 250 mls @ 15 mls/hr IV .[id number] PRN PRN Reason: Additional IVPB Infusion Vancomycin HCl 750 mg/ Sodium (Chloride) 265 mls @ 250 mls/hr IV Q12H ON LICENSE OF [facility] Last Infusion: 12/29/19 09:55 Dose: Infused Documented by: Vancomycin IV Pharmacy to Dose (1 ea/ Sodium Chloride) 500 mls @ 250 mls/hr IV X1 PRN; Protocol PRN Reason: Rx to Dose Mirtazapine (Remeron) 15 mg PO DAILY@2200 ON LICENSE OF [facility] Last Admin: 12/28/19 21:18 Dose: 15 mg Documented by: Ondansetron HCl (Zofran) 4 mg IV Q8H PRN PRN PRN Reason: NAUSEA/VOMITING Phenol/Menthol (Chloraseptic (Bkc)) 5 spray MM Q2H PRN PRN PRN Reason: SORE THROAT Polyethylene Glycol (Miralax) 17 gm PO DAILY ON LICENSE OF [facility] Last Admin: 12/29/19 10:03 Dose: 17 gm Documented by: Potassium Chloride (K-Dur) 20 meq PO BIDCM ON LICENSE OF [facility] Last Admin: 12/29/19 08:11 Dose: 20 meq Documented by: Senna/Docusate Sodium (Senokot-S, Karlene-Colace) 2 tablet PO BID PRN PRN PRN Reason: Constipation Sertraline HCl (Zoloft) 50 mg PO DAILY ON LICENSE OF [facility] Last Admin: 12/29/19 10:03 Dose: 50 mg Documented by: Sodium Chloride () 10 - 40 ml IV UD PRN PRN Reason: SALINE FLUSH Last Admin: 12/27/19 14:37 Dose: 10 ml Documented by: Tolterodine Tartrate (Detrol La) 2 mg PO DAILY ON LICENSE OF [facility] Last Admin: 12/29/19 10:03 Dose: 2 mg Documented by: Warfarin Sodium (Coumadin (Pbkc)) 5 mg PO DAILY@1700 ON LICENSE OF [facility] Zolpidem Tartrate (Ambien (Generic)) 5 mg PO QHS PRN PRN PRN Reason: INSOMNIA Medical Necessity - Tobacco Use Smoking Status: Never smoker Tobacco Use: Non-smoker Route of nutrition/ use of supplements: [] Nutritional Intake: [] IV Site: [] Stanton Catheter: [] - Assessment/Plan Antibiotics: [] Assessment/Plan: [] Active and Suspected Problems Severe sepsis (Acute) Fever, normal wbc, altered mental status with concern for new stroke on 12/25 after completing empiric course of vanc/zohaib 12/20 for suspected bacterial meningitis after admission to [place]. Prior h/o CSF leak from laminectomy in the past few months. Now back on vanc/zohaib. CXR clear, UA clear, bcx neg so far. Mental status much improved, fever resolved except for one time temp last night. MRI now shows new occipital stroke. AHSAN showed no veg. Difficult to say what her infection is at this time with all her negative cxs, but it does seem that she has responded to iv abx. Tentative plan at this point will be discharge home on iv vanc/zohaib for 4-6 weeks of treatment. 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
[2019-12-29] MEDS: Mirtazapine 15 MG Tablet PO (21:15)
[2019-12-29] MEDS: Atorvastatin Calcium 40 MG Tablet PO (21:15)
[2019-12-29 22:45] LABS: Vancomycin, Trough Level 17.5 ug/mL (5.0-15.0)
[2019-12-30] VITALS (8 sets, daily range): BP systolic 108–127; BP diastolic 58–60; PULSE 73–97; RESP 18; TEMP 36.8–37.1; O2SAT 93–96; BMI 29.4
[2019-12-30] MEDS: Gabapentin 300 MG Capsule PO ×2 (05:04→13:54)
[2019-12-30 05:33] LABS: Absolute Lymphocyte Count 0.69 X10^3/uL (0.83-4.51); Absolute Neutrophil Count 1.7 X10^3/uL (2.0-7.7); Basophil# 0.05 X10^3/uL; Basophil% 1.6 % (0-1); Eosinophil# 0.31 X10^3/uL; Eosinophils% 9.9 % (0-5); Hemoglobin 8.9 g/dL (12.0-15.0); Lymphocyte # 0.69 X10^3/ul (4.0); Mean Corp Hgb Conc 31.8 g/dL (32-36); Mean Corpuscular Hgb 30.2 pg (27.0-32.0); Mean Corpuscular Volume 94.9 fL (81-99); Monocyte# 0.36 X10^3/uL; Monocyte% 11.5 % (0-10); NRBC Flagged by Analyzer 0 % (0-5); Neutrophil # 1.72 X10^3/uL (2.7-7.7); Neutrophil % 54.7 % (47-70); Platelet Count 215 K/mm3 (150-450); RBC Distribution Width CV 13.9 % (11.6-14.6); RBC Distribution Width SD 48.2 fl (35.1-43.9); Red Blood Count 2.95 M/mm3 (4.2-5.4); White Blood Count 3.1 K/mm3 (4.4-11.0)
[2019-12-30 05:49] LABS: International Normalized Ratio 1.5
--- NOTE | 2019-12-30 05:54 | PCM.RX.CS ---
Consult Pharmacy has been consulted to manage selected antiobiotic: Vancomycin Type of Consult: Follow-up Suspected Infection: Sepsis Labs: Vancomycin Trough 17.5 ug/mL (5.0-15.0) H 12/29/19 21:06 Microbiology: Microbiology 12/27/19 12:15 Blood Culture (Wb) - Left Hand Blood Culture - Preliminary No growth in 48 hours. 12/27/19 09:40 Blood Culture (Wb) - Right Hand Blood Culture - Preliminary No growth in 48 hours. 12/26/19 12:15 Urine Catheter - Stanton Urine Culture - Final Culture exhibits no growth. 12/25/19 19:40 Blood Culture (Wb) - Right Hand Blood Culture - Preliminary No growth in 48 hours. 12/25/19 19:50 Mucosa - Nasopharyngeal Coronavirus COVID-19 PCR - Final Goal Trough: 15-20 mcg/mL Pharmacy Plan for Drug Dosing: Pharmacy Service will continue to monitor and adjust dosing as required. TROUGH 17.5 NO CHANGES Follow-Up Labs: Trough Vancomycin Labs to be done on [date and time ordered]: 01/01 @ 2100
[2019-12-30 05:58] LABS: Anion Gap 10 (5-15); BUN 8 mg/dL (7-18); BUN/Creat Ratio 12.8 RATIO (10-20); Calcium,Total 8.9 mg/dL (8.5-10.1); Chloride 111 mmol/L (98-107); Creatinine, Serum 0.63 mg/dL (0.55-1.02); EST Glomerular Filtration Rate 98 mL/min (>60); Est Glom Filt Rate - Afr Amer 118 mL/min (>60); Glucose 85 mg/dL (74-106); Potassium 3.7 mmol/L (3.5-5.1); Sodium Level 142 mmol/L (136-145)
--- NOTE | 2019-12-30 10:13 | PCM.PN.ID ---
Patient Problems: Active and Suspected Problems Severe sepsis (Acute) Subjective: Feeling ok, no fever, no cough. - Physical Exam Vitals/I&O's: Vital Signs Temp Pulse Resp BP Pulse Ox 98.3 F 73 18 127/59 H 95 12/30/19 09:00 12/30/19 09:00 12/30/19 09:00 12/30/19 09:00 12/30/19 09:00 Oxygen Flow Rate (L/min) 2 Oxygen Delivery Method Room Air Weight: 63.8 kg Body Mass Index (BMI) 29.4 Finger Stick Blood Glucose 106 Intake and Output for Last 24 Hours 12/28/19 12/29/19 12/30/19 23:59 23:59 23:59 Intake Total 2882.62 / 3122.62 3389.50 / 3489.50 320 / 320 Output Total 1950 / 1950 1900 / 1900 550 / 550 Balance 932.62 / 1172.62 1489.50 / 1589.50 -230 / -230 General: Alert, Cooperative, No apparent distress Lungs: Clear to auscultation, Normal air movement Cardiovascular: Regular rate, Regular Rhythm Abdomen: Soft, Non Tender, Non-Distended Skin: No rashes Microbiology Past 72 Hours 12/27/19 12:15 Blood Culture (Wb) - Left Hand Blood Culture - Preliminary No growth in 48 hours. 12/27/19 09:40 Blood Culture (Wb) - Right Hand Blood Culture - Preliminary No growth in 48 hours. 12/26/19 12:15 Urine Catheter - Stanton Urine Culture - Final Culture exhibits no growth. 12/25/19 19:40 Blood Culture (Wb) - Right Hand Blood Culture - Preliminary No growth in 48 hours. Laboratory Results 12/29/19 10:00: PT 16.8 H, INR 1.4 12/29/19 21:06: Vancomycin Trough 17.5 H 12/30/19 04:52: WBC 3.1 L, RBC 2.95 L, Hgb 8.9 L, Hct 28.0 L, MCV 94.9, MCH 30.2, MCHC 31.8 L, RDW Std Deviation 48.2 H, RDW Coeff of La 13.9, Plt Count 215, MPV 9.0, Immature Gran % (Auto) 0.300, Neut % (Auto) 54.7, Lymph % (Auto) 22.0, [place] % (Auto) 11.5 H, Eos % (Auto) 9.9 H, Baso % (Auto) 1.6 H, Absolute Neuts (auto) 1.7 L, Absolute Lymphs (auto) 0.69 L, Nucleated RBC % 0 12/30/19 04:52: Sodium 142, Potassium 3.7, Chloride 111 H, Carbon Dioxide 21.0, Anion Gap 10, BUN 8, Creatinine 0.63, Estim Creat Clear Calc 46.70, Est GFR (MDRD) Af Amer 118, Est GFR (MDRD) Non-Af 98, BUN/Creatinine Ratio 12.8, Glucose 85, Calcium 8.9 12/30/19 04:52: PT 18.0 H, INR 1.5 Current Medications Acetaminophen (Tylenol) 650 mg PO Q6H PRN PRN PRN Reason: Pain Score 1-10/Temp > 100.7 F Last Admin: 12/28/19 21:24 Dose: 650 mg Documented by: Amlodipine Besylate (Norvasc) 5 mg PO DAILY [facility] Last Admin: 12/29/19 10:03 Dose: 5 mg Documented by: Atorvastatin Calcium (Lipitor) 40 mg PO DAILY@2200 [facility] Last Admin: 12/29/19 21:15 Dose: 40 mg Documented by: Enoxaparin Sodium (Lovenox) 70 mg SC Q12 [facility] Last Admin: 12/29/19 21:14 Dose: 70 mg Documented by: Gabapentin (Neurontin) 300 mg PO TID [facility] Last Admin: 12/30/19 05:04 Dose: 300 mg Documented by: Sodium Chloride () 250 mls @ 15 mls/hr IV .[id number] PRN PRN Reason: Saline Flush Last Infusion: 12/29/19 14:05 Dose: 0 mls/hr Documented by: Sodium Chloride () 250 mls @ 15 mls/hr IV .[id number] PRN PRN Reason: Additional IVPB Infusion Vancomycin HCl 750 mg/ Sodium (Chloride) 265 mls @ 250 mls/hr IV Q12H [facility] Last Infusion: 12/29/19 22:39 Dose: Infused Documented by: Vancomycin IV Pharmacy to Dose (1 ea/ Sodium Chloride) 500 mls @ 250 mls/hr IV X1 PRN; Protocol PRN Reason: Rx to Dose Meropenem 1 gm/ Sodium (Chloride) 120 mls @ 33 mls/hr IV Q8 DAREK Mirtazapine (Remeron) 15 mg PO DAILY@2200 [facility] Last Admin: 12/29/19 21:15 Dose: 15 mg Documented by: Ondansetron HCl (Zofran) 4 mg IV Q8H PRN PRN PRN Reason: NAUSEA/VOMITING Phenol/Menthol (Chloraseptic (Bkc)) 5 spray MM Q2H PRN PRN PRN Reason: SORE THROAT Polyethylene Glycol (Miralax) 17 gm PO DAILY [facility] Last Admin: 12/29/19 10:03 Dose: 17 gm Documented by: Potassium Chloride (K-Dur) 20 meq PO BIDCM [facility] Last Admin: 12/29/19 16:51 Dose: 20 meq Documented by: Senna/Docusate Sodium (Senokot-S, Karlene-Colace) 2 tablet PO BID PRN PRN PRN Reason: Constipation Sertraline HCl (Zoloft) 50 mg PO DAILY [facility] Last Admin: 12/29/19 10:03 Dose: 50 mg Documented by: Sodium Chloride () 10 - 40 ml IV UD PRN PRN Reason: SALINE FLUSH Last Admin: 12/27/19 14:37 Dose: 10 ml Documented by: Tolterodine Tartrate (Detrol La) 2 mg PO DAILY [facility] Last Admin: 12/29/19 10:03 Dose: 2 mg Documented by: Warfarin Sodium (Coumadin (Pbkc)) 5 mg PO DAILY@1700 [facility] Last Admin: 12/29/19 16:51 Dose: 5 mg Documented by: Zolpidem Tartrate (Ambien (Generic)) 5 mg PO QHS PRN PRN PRN Reason: INSOMNIA Medical Necessity - Tobacco Use Smoking Status: Never smoker Tobacco Use: Non-smoker Route of nutrition/ use of supplements: [] Nutritional Intake: [] IV Site: [] Stanton Catheter: [] - Assessment/Plan Antibiotics: [] Assessment/Plan: [] Active and Suspected Problems Severe sepsis (Acute) Fever, normal wbc, altered mental status with concern for new stroke on 12/25 after completing empiric course of vanc/zohaib 12/20 for suspected bacterial meningitis after admission to [place]. Prior h/o CSF leak from laminectomy in the past few months. Now back on vanc/zohaib. CXR clear, UA clear, bcx neg so far. Mental status much improved, fever resolved except for one time temp last night. MRI now shows new occipital stroke. AHSAN showed no veg. Difficult to say what her infection is at this time with all her negative cxs, but it does seem that she has responded to iv abx. Tentative plan at this point will be discharge home on iv vanc/zohaib for 6 weeks of treatment, stop date 02/09/20. Weekly bmp, cbc, LFT, and vanc trough. Certainly at risk for ongoing csf leak causing recurrent meningitis, so will need outpt neurosurgery followup with Dr. Alexandra. Will follow, d/w caser up
[2019-12-30] MEDS: Tolterodine Tartrate 2 MG CAP.SA PO (10:24)
[2019-12-30] MEDS: Enoxaparin 80 MG/0.8 ML Syringe 70 MG SC (10:24)
[2019-12-30] MEDS: amLODIPine 5 MG Tablet PO (10:25)
[2019-12-30] MEDS: Polyethylene Glycol 3350 17 GM PACKET PO (10:25)
[2019-12-30] MEDS: Sertraline 50 MG Tablet PO (10:25)
--- NOTE | 2019-12-30 10:28 | CASEMGMT ---
Social Work CRUZ spoke with Dr. Hamilton and with physical therapy. Upon d/c pt will need 2 IV ATB one is Q8 and the other Q12. Therapy states pt is have decreased safety awareness and would benefit from continued therapy. CRUZ spoke with Bhargavi in [facility] who states that due to length of needed IV ATB pt would be better for TCU. Phone call to Krupa in TCU and they are able to accept pt. CRUZ met with pt in room and explained needs upon d/c. Pt hopeful she can return home. SW talked with pt about IV ATB and pt feels she may be able to administer or a grand daughter would be able to assist. As SW discusses other issues and then returns to topic of IV ATB pt does not seem to remember conversation about this. Some possible cognitive deficits noted. Pt stating she would like to talk to her family and was agreeable for CRUZ to contact them. Phone call placed to pt son Phillips and update given about discharge concerns. Phillips feels pt would benefit from TCU at time of d/c. CRUZ provided portable phone to pt so she could talk to Phillips. After conversation pt confirmed with CRUZ that she will return to TCU at this time. PERLITA Miranda notified of d/c plan and d/c is scheduled for today. Phone call to Teri at [facility] and authorization given for TCU. Phone call to pt son Phillips and updated on d/c plan and agreeable. Plan: TCU today PEDRO Brito
--- NOTE | 2019-12-30 10:31 | TREXTCA.CO_ITS ---
<Ruth Henderson - Last Filed: 12/30/19 10:48> - Diet 12/28/19 15:53 Diet: Regular Diet Is pt able to select menu?: Yes Diet Comments: Add sauce/gravy to tray; no milk - Routine Orders/Code Status Enema Type: Fleetz Enema Frequency: Daily PRN Suppository Type: Dulcolax 10mg Suppository Frequency: Daily PRN Routine Lab Work: - - Weekly CBC, BMP, LFT and Vanco trough. Daily INR until INR therapeutic. Code Status: Full Code - Suggestions for Active Care Change Position every (hours): 2 Times a day to sit in chair: 3 - Therapies Physical Therapy: Eval and Treat Occupational Therapy: Eval and Treat - Problem/Diagnosis (1) Severe sepsis Status: Acute Current Visit: Yes (2) Pulmonary embolism Status: Chronic Current Visit: No (3) DVT (deep venous thrombosis) Status: Chronic Current Visit: No (4) Coronary artery disease Status: Chronic Current Visit: No (5) Hyperlipidemia Status: Chronic Current Visit: No (6) Obstructive sleep apnea Status: Chronic Current Visit: No (7) Lumbar spinal stenosis Status: Chronic Current Visit: No (8) Hypertension Status: Chronic Current Visit: No (9) Depression Status: Chronic Current Visit: No - Allergies/Procedures Done in Hospital Allergies/Adverse Reactions: Allergies ibuprofen [From Advil] Adverse Reaction (Verified 11/28/19 15:14) Rash Procedures: Electroencephalogram, Transesophageal Echo - Type of Care/Length of Stay Estimated LOS: Convalescent Care Less Than 30 days Type of Care Needed: Skilled Rehab Potential: Fair Prognosis: Fair - Additional Orders/Day of Discharge H&P will serve as current which was dated: 12/25/19 Day of Discharge: 12/30/19 - Dietary and Speech Recommendations Dietitian Recommendations/Changes: Will d/c ensure pudding at meals d/t pt dislikes - pt does not want additional ONS at this time - she feels her appetite is starting to improve. Speech Linguistic Eval Summary: Oriented to name, , year and reason for hospitalization. Off by 1 w/ age. Incorrect month stated, able to look to dry erase board w/ prompting to reorient self. Executed multistep commands w/ 100% accuracy. Impaired divergent naming w/ 2-4 items named per category. Confrontation naming WNL. Occasional anomias evident in conversation (i.e. 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 Moderate dysarthria w/ hoarse/gravely vocal quality. Reading comprehension at complex sentence level WNL. 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 Recommend continued skilled ST intervention targeting goals consistent w/ TCU ST plan of care. - Follow Up Care Primary Care Physician: Emile Steward MD [Primary Care Provider] - Please follow up with your Primary Care Physician in: 1 Week Please Follow Up With: James Wallace MD - neurology When: 2 Weeks Please Follow Up With: Dr. Alexandra - neurosurgery When: 1-2 Weeks <Braxton Fontanez - Last Filed: 12/30/19 12:07> - Diet 12/28/19 15:53 Diet: Regular Diet Is pt able to select menu?: Yes Diet Comments: Add sauce/gravy to tray; no milk
--- NOTE | 2019-12-30 11:07 | PHA.DC.MR ---
Pharmacy Service has performed discharge medication reconciliation for this patient upon transfer to TCU The patient's discharge medication list was reviewed for discrepancies and discrepancies were resolved. Home Medications Amlodipine [Norvasc] 5 mg PO DAILY 11/26/19 Atorvastatin Calcium 40 mg PO DAILY 11/26/19 Gabapentin [Neurontin] 300 mg PO TID 11/26/19 Melatonin 5 mg PO QHS PRN 11/26/19 Mirtazapine 15 mg PO DAILY 11/26/19 Sertraline HCl 50 mg PO DAILY 11/26/19 Oxybutynin Chloride [Oxybutynin Chloride ER] 5 mg PO DAILY 12/06/19 Menthol/Lanolin/Calamine/Znox [Calmoseptine Ointment] 1 applic TOPICAL BID tube 12/21/19 Mineral Oil/Petrolatum,White [Eucerin] 1 applic TOPICAL 0600,2200 jar 12/21/19 Potassium Chloride [K-Dur] 20 meq PO BIDCM #60 tab 12/21/19 Bisacodyl [Dulcolax] 10 mg PO PRN PRN 12/25/19 Furosemide [Lasix] 40 mg PO DAILY 12/25/19 Polyethylene Glycol 3350 [Miralax] 17 gm PO DAILY 12/25/19 Sennosides/Docusate Sodium [Senna-Docusate Sodium Tablet] 1 ea PO BID 12/25/19 Tolterodine Tartrate [Detrol LA] 2 mg PO DAILY 12/25/19 Acetaminophen [Tylenol Tablet] 650 mg PO Q6H PRN PRN tab 12/30/19 Enoxaparin [Lovenox] 70 mg SUBCUT Q12 syringe 12/30/19 Meropenem [Merrem] 1 gm IV Q8 40 Days #120 vial 12/30/19 Vancomycin IV 750 mg IV Q12H 40 Days #80 vial 12/30/19 Warfarin [Coumadin] 5 mg PO DAILY@1700 tab 12/30/19
--- NOTE | 2019-12-30 12:17 | NURSING ---
Report called to nurse Amber RN for transfer to TCU.
[2019-12-30] MEDS: 0.9% Saline Lock 10 ML Syringe IV (12:33)
--- NOTE | 2019-12-30 12:42 | DS.PCM_ITS ---
<Ruth Henderson - Last Filed: 12/30/19 13:03> Discharge Date and Diagnosis Date of Admission: 12/25/19 Date of Discharge: 12/30/19 - Primary Discharge Diagnosis Acute Problems: Active Problems 1. Severe sepsis secondary to suspected bacterial meningitis 2. Acute metabolic encephalopathy, secondary to #1 3. Acute/subacute infarct 4. Recent lumbar laminectomy with fusion complicated by CSF leak and bacteremia with meningitis 5. Recent DVT/PE 6. Hypertension 7. Hyperlipidemia 8. History of RHIANNON 9. Depression - Secondary Discharge Diagnosis Chronic Problems: Chronic Problems Pulmonary embolism (Chronic) DVT (deep venous thrombosis) (Chronic) Coronary artery disease (Chronic) Hyperlipidemia (Chronic) Obstructive sleep apnea (Chronic) Lumbar spinal stenosis (Chronic) Hypertension (Chronic) Pulmonary hypertension (Chronic) Urinary incontinence (Chronic) Cholelithiasis (Chronic) Depression (Chronic) Insomnia (Chronic) Neuropathic pain (Chronic) Hydrocephalus (Chronic) Hospital Course and Treatment Imaging Results: Diagnostic Data Abdomen/Pelvis CT 12/25/19 23:25 IMPRESSION: Wall thickening of the urinary bladder with mild mucosal enhancement may indicate mild inflammation. Clinical laboratory correlation advised. Wall thickening can be seen due to nondistention. Probable left peripelvic cyst, small cortical cysts suspected. This can be verified with ultrasound as needed. The left kidney is minimally indistinct in contour, there is however no filling defect to suggest pyelonephritis or obstructing renal or ureteral calculus. Cholelithiasis without wall thickening. Distention possibly due to nothing by mouth status. Presumed atelectasis in the lung bases. Extensive coronary artery disease and atherosclerosis. Hiatal hernia. Colonic diverticulosis predominantly involving the sigmoid colon. Degenerative changes and osteopenia. Electronically Signed: Lexy Dutton MD at 3:22 EDT , Service support , Lumbar Spine MRI 12/26/19 10:44 IMPRESSION: No evidence of discitis, osteomyelitis, or epidural abscess. Multilevel degenerative disease and postoperative change as described. Severe left foraminal stenosis at the L1-2 level. No evidence of abnormal intrathecal postcontrast enhancement. Electronically Signed: Martir Irving MD at 18:39 EDT Tel , Service support , Brain CT 12/26/19 14:25 IMPRESSION: No CT evidence of acute infarct or hemorrhage. ASPECTS Score 10/10. If there is clinical concern for hyperacute ischemia that is not evident by CT, MRI should be considered if possible. Electronically Signed: Martir Irving MD at 14:48 EDT Tel , Service support , ADDENDUM: 12/26/19 1502 IMPRESSION: No CT evidence of acute infarct or hemorrhage. ASPECTS Score 10/10. If there is clinical concern for hyperacute ischemia that is not evident by CT, MRI should be considered if possible. N.B. : The above information has been verbally conveyed by Martir Irvnig MD to Dr. Namrata MD, on 12/26/2019 14:55:42 (ET). Electronically Signed: Martir Irving MD at 14:48 EDT Tel , Service support , Head/Neck CTA 12/26/19 14:38 IMPRESSION: No CTA evidence of significant intracranial arterial pathology. No CTA evidence of significant arterial pathology in the neck. NASCET criteria was used. Electronically Signed: Martir Irving MD at 15:11 EDT Tel , Service support , ADDENDUM: 12/26/19 1528 IMPRESSION: No CTA evidence of significant intracranial arterial pathology. No CTA evidence of significant arterial pathology in the neck. NASCET criteria was used. N.B. : The above information has been verbally conveyed by Martir Irving MD to Dr. Namrata MD, on 12/26/2019 15:21:47 (ET). Electronically Signed: Martir Irving MD at 15:11 EDT Tel , Service support , Brain MRI 12/27/19 08:27 IMPRESSION: Involutional changes of the brain, as described above. 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 Electronically Signed: Morgan Ochoa MD at 11:33 EDT Tel , Service support , ADDENDUM: 12/27/19 1148 IMPRESSION: Involutional changes of the brain, as described above. 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 N.B. : The above information has been verbally conveyed by Morgan Ochoa MD to Raheel Cash RN, on 12/27/2019 11:41:53 (ET). Electronically Signed: Morgan Ochoa MD at 11:33 EDT Tel , Service support , Chest X-Ray 12/27/19 09:41 IMPRESSION: Increased linear markings at the left lung base suggestive of overlying atelectasis. Small hiatal hernia. Electronically Signed: Ubaldo Oshea, at 12:23 EDT , Service support , Dr. Hamilton- ID Operations: None Procedures: Electroencephalogram, Transesophageal Echo Summary of Care Provided: The patient is a 79 year old F admitted 12/25/2019 due to fever. 1. Severe sepsis secondary to suspected bacterial meningitis-blood cultures negative. CT of abdomen pelvis negative. Urinalysis negative. COVID negative. Chest x-ray unremarkable. AHSAN negative for vegetation. Patient recently treated at [place] and completed course of vancomycin/meropenem. Fever now improved. Plan for IV vancomycin and IV meropenem for 6 weeks of treatment with stop date 02/09/2020. ID consulted during admission. Patient will need close outpatient follow-up with neurosurgery, Dr. Alexandra given concern for CSF leak causing recurrent meningitis. 2. Acute metabolic encephalopathy, secondary to #1-improved. 3. Acute/subacute infarct-MRI of brain showed acute/subacute punctate infarct of the periventricular white matter of the left occipital lobe. Eliquis discontinued, transitioned to Coumadin due to possible Eliquis failure. Neurology recommended EEG which showed no epileptiform discharges. 4. Recent lumbar laminectomy with fusion complicated by CSF leak and bacteremia with meningitis-close outpatient follow-up with neurosurgery as noted above. 5. Recent DVT/PE-transitioned from Eliquis to Coumadin as noted above with Lovenox bridge until INR therapeutic. 6. Hypertension-stable, continue current meds. 7. Hyperlipidemia- continue statin. 8. History of RHIANNON 9. Depression-continue home medication regimen. General: Alert, Oriented x3, Cooperative HEENT: Atraumatic, PERRLA, EOMI, Normocephalic Neck: Supple, No JVD, Negative Carotid Bruits Lungs: Clear to auscultation, Normal air movement Cardiovascular: Regular rate, No murmurs Abdomen: Bowel Sounds Present, Soft, Non Tender Extremities: No edema, Capillary Refill Less than 3 Seconds Skin: No rashes, No breakdown Musculoskeletal: No Tenderness to Palpation of Joints or Extremities Neurological: Cranial nerves II-XII grossly intact Psych/Mental Status: Normal Affect, Appropriate Patient seen and examined prior to discharge. Physical assessment as noted above. Patient is stable for discharge with follow up recommendations as noted above. This patient was seen by REKHA Levy under the supervision of Dr. Fontanez. - Physical Exam Vitals/I&O's: Vital Signs Temp Pulse Resp BP Pulse Ox 98.3 F 73 18 127/59 H 95 12/30/19 12:20 12/30/19 12:20 12/30/19 12:20 12/30/19 12:20 12/30/19 12:20 Oxygen Flow Rate (L/min) 2 Oxygen Delivery Method Room Air Weight: 140 lb 10.479 oz Body Mass Index (BMI) 29.4 Finger Stick Blood Glucose 106 Intake and Output for Last 24 Hours 12/28/19 12/29/19 12/30/19 23:59 23:59 23:59 Intake Total 2882.62 / 3122.62 3389.50 / 3489.50 945 / 945 Output Total 1950 / 1950 1900 / 1900 550 / 550 Balance 932.62 / 1172.62 1489.50 / 1589.50 395 / 395 Microbiology Past 72 Hours 12/27/19 12:15 Blood Culture (Wb) - Left Hand Blood Culture - Preliminary No growth in 48 hours. 12/27/19 09:40 Blood Culture (Wb) - Right Hand Blood Culture - Preliminary No growth in 48 hours. 12/26/19 12:15 Urine Catheter - Stanton Urine Culture - Final Culture exhibits no growth. 12/25/19 19:40 Blood Culture (Wb) - Right Hand Blood Culture - Preliminary No growth in 48 hours. Laboratory Results 12/29/19 21:06: Vancomycin Trough 17.5 H 12/30/19 04:52: WBC 3.1 L, RBC 2.95 L, Hgb 8.9 L, Hct 28.0 L, MCV 94.9, MCH 30.2 , MCHC 31.8 L, RDW Std Deviation 48.2 H, RDW Coeff of La 13.9, Plt Count 215, MPV 9.0, Immature Gran % (Auto) 0.300, Neut % (Auto) 54.7, Lymph % (Auto) 22.0, Walton % (Auto) 11.5 H, Eos % (Auto) 9.9 H, Baso % (Auto) 1.6 H, Absolute Neuts (auto) 1.7 L, Absolute Lymphs (auto) 0.69 L, Nucleated RBC % 0 12/30/19 04:52: Sodium 142, Potassium 3.7, Chloride 111 H, Carbon Dioxide 21.0, Anion Gap 10, BUN 8, Creatinine 0.63, Estim Creat Clear Calc 46.70, Est GFR (MDRD) Af Amer 118, Est GFR (MDRD) Non-Af 98, BUN/Creatinine Ratio 12.8, Glucose 85, Calcium 8.9 12/30/19 04:52: PT 18.0 H, INR 1.5 Current Medications Acetaminophen (Tylenol) 650 mg PO Q6H PRN PRN PRN Reason: Pain Score 1-10/Temp > 100.7 F Last Admin: 12/28/19 21:24 Dose: 650 mg Documented by: Amlodipine Besylate (Norvasc) 5 mg PO DAILY [facility] Last Admin: 12/30/19 10:25 Dose: 5 mg Documented by: Atorvastatin Calcium (Lipitor) 40 mg PO DAILY@2200 [facility] Last Admin: 12/29/19 21:15 Dose: 40 mg Documented by: Enoxaparin Sodium (Lovenox) 70 mg SC Q12 [facility] Last Admin: 12/30/19 10:24 Dose: 70 mg Documented by: Gabapentin (Neurontin) 300 mg PO TID [facility] Last Admin: 12/30/19 05:04 Dose: 300 mg Documented by: Sodium Chloride () 250 mls @ 15 mls/hr IV .[id number] PRN PRN Reason: Saline Flush Last Infusion: 12/29/19 14:05 Dose: 0 mls/hr Documented by: Sodium Chloride () 250 mls @ 15 mls/hr IV .[id number] PRN PRN Reason: Additional IVPB Infusion Vancomycin HCl 750 mg/ Sodium (Chloride) 265 mls @ 250 mls/hr IV Q12H [facility] Last Infusion: 12/30/19 12:23 Dose: Infused Documented by: Vancomycin IV Pharmacy to Dose (1 ea/ Sodium Chloride) 500 mls @ 250 mls/hr IV X1 PRN; Protocol PRN Reason: Rx to Dose Meropenem 1 gm/ Sodium (Chloride) 120 mls @ 33 mls/hr IV Q8 [facility] Last Admin: 12/30/19 12:33 Dose: 33 mls/hr Documented by: Mirtazapine (Remeron) 15 mg PO DAILY@2200 [facility] Last Admin: 12/29/19 21:15 Dose: 15 mg Documented by: Ondansetron HCl (Zofran) 4 mg IV Q8H PRN PRN PRN Reason: NAUSEA/VOMITING Phenol/Menthol (Chloraseptic (Bkc)) 5 spray MM Q2H PRN PRN PRN Reason: SORE THROAT Polyethylene Glycol (Miralax) 17 gm PO DAILY [facility] Last Admin: 12/30/19 10:25 Dose: 17 gm Documented by: Potassium Chloride (K-Dur) 20 meq PO BIDCM [facility] Last Admin: 12/30/19 10:23 Dose: 20 meq Documented by: Senna/Docusate Sodium (Senokot-S, Karlene-Colace) 2 tablet PO BID PRN PRN PRN Reason: Constipation Sertraline HCl (Zoloft) 50 mg PO DAILY [facility] Last Admin: 12/30/19 10:25 Dose: 50 mg Documented by: Sodium Chloride () 10 - 40 ml IV UD PRN PRN Reason: SALINE FLUSH Last Admin: 12/30/19 12:33 Dose: 10 ml Documented by: Tolterodine Tartrate (Detrol La) 2 mg PO DAILY [facility] Last Admin: 12/30/19 10:24 Dose: 2 mg Documented by: Warfarin Sodium (Coumadin (Pbkc)) 5 mg PO DAILY@1700 [facility] Last Admin: 12/29/19 16:51 Dose: 5 mg Documented by: Zolpidem Tartrate (Ambien (Generic)) 5 mg PO QHS PRN PRN PRN Reason: INSOMNIA Home Medications: Medications to take at Discharge Amlodipine [Norvasc] 5 mg PO DAILY 11/26/19 Atorvastatin Calcium 40 mg PO DAILY 11/26/19 Gabapentin [Neurontin] 300 mg PO TID 11/26/19 Melatonin 5 mg PO QHS PRN 11/26/19 Mirtazapine 15 mg PO DAILY 11/26/19 Sertraline HCl 50 mg PO DAILY 11/26/19 Oxybutynin Chloride [Oxybutynin Chloride ER] 5 mg PO DAILY 12/06/19 Menthol/Lanolin/Calamine/Znox [Calmoseptine Ointment] 1 applic TOPICAL BID tube 12/21/19 Mineral Oil/Petrolatum,White [Eucerin] 1 applic TOPICAL 0600,2200 jar 12/21/19 Potassium Chloride [K-Dur] 20 meq PO BIDCM #60 tab 12/21/19 Bisacodyl [Dulcolax] 10 mg PO PRN PRN 12/25/19 Furosemide [Lasix] 40 mg PO DAILY 12/25/19 Polyethylene Glycol 3350 [Miralax] 17 gm PO DAILY 12/25/19 Sennosides/Docusate Sodium [Senna-Docusate Sodium Tablet] 1 ea PO BID 12/25/19 Tolterodine Tartrate [Detrol LA] 2 mg PO DAILY 12/25/19 Acetaminophen [Tylenol Tablet] 650 mg PO Q6H PRN PRN tab 12/30/19 Enoxaparin [Lovenox] 70 mg SUBCUT Q12 syringe 12/30/19 Meropenem [Merrem] 1 gm IV Q8 40 Days #120 vial 12/30/19 Vancomycin IV 750 mg IV Q12H 40 Days #80 vial 12/30/19 Warfarin [Coumadin] 5 mg PO DAILY@1700 tab 12/30/19 Following Prescrptions Were Given to Patient: Meropenem [Merrem] 1 gm IV Q8 40 Days #120 vial Prescription Printed Vancomycin IV 750 mg IV Q12H 40 Days #80 vial Prescription Printed Primary Care Physician: Emile Steward MD [Primary Care Provider] - Please follow up with your Primary Care Physician in: 1 Week Please Follow Up With: James Wallace MD - neurology When: 2 Weeks Please Follow Up With: Dr. Alexandra - neurosurgery When: 1-2 Weeks Disposition: Halfway facility Minutes spent on discharge:: 35 Patient Condition:: Stable Medical Necessity - Tobacco Use Smoking Status: Never smoker Tobacco Use: Non-smoker Meaningful Use Info Meaningful Use Diagnoses (Choose all that apply): Ischemic CVA - CVA Therapy Assessed for PT,OT and/or ST?: Yes - Ischemic Stroke Antithrombotic order at d/c?: Yes Dx of Atrial fib/flutter?: No Statins at discharge?: Yes Primary Dx Acute Ischemic CVA?: No IV tPA ordered during stay?: No Reason IV t-PA not ordered: Medical Contraindication <Braxton Fontanez - Last Filed: 12/30/19 14:49> Discharge Date and Diagnosis - Secondary Discharge Diagnosis Chronic Problems: Chronic Problems Pulmonary embolism (Chronic) DVT (deep venous thrombosis) (Chronic) Coronary artery disease (Chronic) Hyperlipidemia (Chronic) Obstructive sleep apnea (Chronic) Lumbar spinal stenosis (Chronic) Hypertension (Chronic) Pulmonary hypertension (Chronic) Urinary incontinence (Chronic) Cholelithiasis (Chronic) Depression (Chronic) Insomnia (Chronic) Neuropathic pain (Chronic) Hydrocephalus (Chronic) Hospital Course and Treatment Summary of Care Provided: This patient was seen in conjunction with FORESTRY AID TECHNICIANRuth. I have independently interviewed and examined the patient and reviewed pertinent history, examination findings, laboratory and plan of management. I have reviewed the note and agree with the documented findings with the few additional points. In brief, patient is 79-year-old female admitted for fever, altered mental status severe sepsis secondary to recurrent bacteremia: Previous blood culture on 11/27/2019 shows gram-positive cocci in cluster, MRSE and urine culture was positive of Pseudomonas aeruginosa. As mentioned above, MRI lumbar spine, UA and urine culture negative, COVID-19 PCR are negative. Patient is on vancomycin and meropenem. No meningeal signs suggestive of meningitis but prior history of CSF leak after lumbar spine laminectomy in August 2019. Eliquis is on hold as she might need LP. MRI brain shows acute/subacute punctate infarct of periventricular white matter of left occipital lobe. CTA brain and neck are negative. Continue Eliquis and statin. Patient is on Eliquis for DVT/PE. Patient had acute encephalopathy probably secondary to infectious or metabolic. Recent 2D echo from [facility], 11/29/2019 reviewed. No significant valvular pathology. Mild TR. No vegetation on TTE. 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 Since patient has small ischemic acute stroke even on Eliquis therefore antithrombotic agent changed to Coumadin with Lovenox overlap. Discussed with the patient. Cultures have so far been negative. Discussed with ID. No focus of infection found despite extensive investigation. Other comorbidities as mentioned above. [] Discharge medication reconciliation done. Discharge follow-up instructions completed. Discharge process discussed with the patient and all questions were answered to patient's satisfaction. Patient is discharged to SNF, TCU on Vanco and meropenem for 6 weeks. Follow-up ID with weekly labs. Stop date 02/09/2020. Total time spent, exact 35 minutes on discharge meds reconciliation, examination, coordination of care with nurses and ancillary staff, review of imaging and blood test and discussion with the patient on follow-up instructions I have discussed my assessment with FORESTRY AID TECHNICIANRuth and orders have been reviewed. Objective: Seen and examined. No fever chills last 48 hours. Patient responded well with antibiotic. Blood pressure is controlled. No hypoxia or tachypnea. On physical exam General: Alert, Oriented x3, Cooperative HEENT: Atraumatic, PERRLA, EOMI, Normocephalic Neck: Supple, No JVD, Negative Carotid Bruits Lungs: Clear to auscultation, Normal air movement Cardiovascular: Regular rate, No murmurs Abdomen: Bowel Sounds Present, Soft, Non Tender Extremities: No edema, Capillary Refill Less than 3 Seconds Skin: No rashes, No breakdown Musculoskeletal: No Tenderness to Palpation of Joints or Extremities Neurological: Cranial nerves II-XII grossly intact Psych/Mental Status: Normal Affect, Appropriate, Alert and oriented to time, place, person, mood and affect - Physical Exam Vitals/I&O's: Vital Signs Temp Pulse Resp BP Pulse Ox 98.3 F 73 18 127/59 H 95 12/30/19 12:20 12/30/19 12:20 12/30/19 12:20 12/30/19 12:20 12/30/19 12:20 Oxygen Flow Rate (L/min) 2 Oxygen Delivery Method Room Air Weight: 140 lb 10.479 oz Body Mass Index (BMI) 29.4 Finger Stick Blood Glucose 106 Intake and Output for Last 24 Hours 12/28/19 12/29/19 12/30/19 23:59 23:59 23:59 Intake Total 2882.62 / 3122.62 3389.50 / 3489.50 945 / 945 Output Total 1950 / 1950 1900 / 1900 550 / 550 Balance 932.62 / 1172.62 1489.50 / 1589.50 395 / 395 Microbiology Past 72 Hours 12/27/19 12:15 Blood Culture (Wb) - Left Hand Blood Culture - Preliminary No growth in 48 hours. 12/27/19 09:40 Blood Culture (Wb) - Right Hand Blood Culture - Preliminary No growth in 48 hours. 12/26/19 12:15 Urine Catheter - Stanton Urine Culture - Final Culture exhibits no growth. 12/25/19 19:40 Blood Culture (Wb) - Right Hand Blood Culture - Preliminary No growth in 48 hours. Laboratory Results 12/29/19 21:06: Vancomycin Trough 17.5 H 12/30/19 04:52: WBC 3.1 L, RBC 2.95 L, Hgb 8.9 L, Hct 28.0 L, MCV 94.9, MCH 30.2, MCHC 31.8 L, RDW Std Deviation 48.2 H, RDW Coeff of La 13.9, Plt Count 215, MPV 9.0, Immature Gran % (Auto) 0.300, Neut % (Auto) 54.7, Lymph % (Auto) 22.0, Walton % (Auto) 11.5 H, Eos % (Auto) 9.9 H, Baso % (Auto) 1.6 H, Absolute Neuts (auto) 1.7 L, Absolute Lymphs (auto) 0.69 L, Nucleated RBC % 0 12/30/19 04:52: Sodium 142, Potassium 3.7, Chloride 111 H, Carbon Dioxide 21.0, Anion Gap 10, BUN 8, Creatinine 0.63, Estim Creat Clear Calc 46.70, Est GFR (MDRD) Af Amer 118, Est GFR (MDRD) Non-Af 98, BUN/Creatinine Ratio 12.8, Glucose 85, Calcium 8.9 12/30/19 04:52: PT 18.0 H, INR 1.5 Current Medications Acetaminophen (Tylenol) 650 mg PO Q6H PRN PRN PRN Reason: Pain Score 1-10/Temp > 100.7 F Last Admin: 12/28/19 21:24 Dose: 650 mg Documented by: Amlodipine Besylate (Norvasc) 5 mg PO DAILY [facility] Last Admin: 12/30/19 10:25 Dose: 5 mg Documented by: Atorvastatin Calcium (Lipitor) 40 mg PO DAILY@2200 [facility] Last Admin: 12/29/19 21:15 Dose: 40 mg Documented by: Enoxaparin Sodium (Lovenox) 70 mg SC Q12 [facility] Last Admin: 12/30/19 10:24 Dose: 70 mg Documented by: Gabapentin (Neurontin) 300 mg PO TID [facility] Last Admin: 12/30/19 13:54 Dose: 300 mg Documented by: Sodium Chloride () 250 mls @ 15 mls/hr IV .[id number] PRN PRN Reason: Saline Flush Last Infusion: 12/29/19 14:05 Dose: 0 mls/hr Documented by: Sodium Chloride () 250 mls @ 15 mls/hr IV .[id number] PRN PRN Reason: Additional IVPB Infusion Vancomycin HCl 750 mg/ Sodium (Chloride) 265 mls @ 250 mls/hr IV Q12H [facility] Last Infusion: 12/30/19 12:23 Dose: Infused Documented by: Vancomycin IV Pharmacy to Dose (1 ea/ Sodium Chloride) 500 mls @ 250 mls/hr IV X1 PRN; Protocol PRN Reason: Rx to Dose Meropenem 1 gm/ Sodium (Chloride) 120 mls @ 33 mls/hr IV Q8 [facility] Last Admin: 12/30/19 12:33 Dose: 33 mls/hr Documented by: Mirtazapine (Remeron) 15 mg PO DAILY@2200 [facility] Last Admin: 12/29/19 21:15 Dose: 15 mg Documented by: Ondansetron HCl (Zofran) 4 mg IV Q8H PRN PRN PRN Reason: NAUSEA/VOMITING Phenol/Menthol (Chloraseptic (Bkc)) 5 spray MM Q2H PRN PRN PRN Reason: SORE THROAT Polyethylene Glycol (Miralax) 17 gm PO DAILY [facility] Last Admin: 12/30/19 10:25 Dose: 17 gm Documented by: Potassium Chloride (K-Dur) 20 meq PO BIDCM [facility] Last Admin: 12/30/19 10:23 Dose: 20 meq Documented by: Senna/Docusate Sodium (Senokot-S, Karlene-Colace) 2 tablet PO BID PRN PRN PRN Reason: Constipation Sertraline HCl (Zoloft) 50 mg PO DAILY [facility] Last Admin: 12/30/19 10:25 Dose: 50 mg Documented by: Sodium Chloride () 10 - 40 ml IV UD PRN PRN Reason: SALINE FLUSH Last Admin: 12/30/19 12:33 Dose: 10 ml Documented by: Tolterodine Tartrate (Detrol La) 2 mg PO DAILY [facility] Last Admin: 12/30/19 10:24 Dose: 2 mg Documented by: Warfarin Sodium (Coumadin (Pbkc)) 5 mg PO DAILY@1700 [facility] Last Admin: 12/29/19 16:51 Dose: 5 mg Documented by: Zolpidem Tartrate (Ambien (Generic)) 5 mg PO QHS PRN PRN PRN Reason: INSOMNIA Inpatient E&M: [id number] [facility]
== END 2019-12-30 15:02 | DRG 871 ==
LOC: ED 20:54 → PCU 23:34
PROVIDERS: Family Medicine; Physician Assistant; Admitting Provider Hospitalist; Emergency Provider Emergency Medicine; PCP Internal Medicine; Visit Provider Internal Medicine
DX: A41.9 Sepsis, unspecified organism (principal); G00.9 Bacterial meningitis, unspecified; G93.41 Metabolic encephalopathy; I63.89 Other cerebral infarction; G81.91 Hemiplegia, unspecified affecting right dominant side; G91.9 Hydrocephalus, unspecified; Q21.1 Atrial septal defect; G97.82 Other postprocedural complications and disorders of nervous system; G96.0 Cerebrospinal fluid leak; R29.810 Facial weakness; R47.81 Slurred speech; R29.706 NIHSS score 6; R65.20 Severe sepsis without septic shock; I10 Essential (primary) hypertension; I27.20 Pulmonary hypertension, unspecified; E78.5 Hyperlipidemia, unspecified; G47.33 Obstructive sleep apnea (adult) (pediatric); F32.9 Major depressive disorder, single episode, unspecified; I25.10 Atherosclerotic heart disease of native coronary artery without angina pectoris; M48.061 Spinal stenosis, lumbar region without neurogenic claudication; R32 Unspecified urinary incontinence; K80.20 Calculus of gallbladder without cholecystitis without obstruction; G47.00 Insomnia, unspecified; M79.2 Neuralgia and neuritis, unspecified; R00.0 Tachycardia, unspecified; Z98.1 Arthrodesis status; Z86.14 Personal history of Methicillin resistant Staphylococcus aureus infection; Z86.718 Personal history of other venous thrombosis and embolism; Z86.711 Personal history of pulmonary embolism; Z79.01 Long term (current) use of anticoagulants; Z79.899 Other long term (current) drug therapy; Z86.73 Personal history of transient ischemic attack (TIA), and cerebral infarction without residual deficits
CPT/HCPCS: 36415; 36569; 70450; 70496; 70498; 70551; 71045; 72158; 74177; 80048; 80053; 80061; 80202; 82962; 83605; 85025; 85610; 85652; 85730; 86140; 87040; 87086; 87635; 92507; 92523; 92610; 93005; 93312; 93320; 93325; 95819; 97110; 97116; 97162; 97165; 97530; 97535; 99251; 99284; A9575; G2023; J2185; J7030; J7040; J7050; Q9967; A4216; G0463; J0696; U0004

== ENCOUNTER 2019-12-30 15:00 | Inpatient (IN) | payer MEDICARE, SELFPAY ==
[2019-12-30 00:34] VITALS: BMI 29.4
[2019-12-30 15:18] VITALS: BP 122/56; PULSE 85; RESP 16; TEMP 37.2; O2SAT 96; BMI 27.3
[2019-12-30] MEDS: Gabapentin 300 MG Capsule PO (17:58)
[2019-12-30] MEDS: Enoxaparin 80 MG/0.8 ML Syringe 70 MG SC (17:59)
[2019-12-30] MEDS: Senna/Docusate Sodium 1 Tablet PO (17:59)
[2019-12-30] MEDS: Menthol/Lanolin/Calamine/Znox 113 GM Tube 1 APPLIC TOPICAL (18:06)
[2019-12-30] MEDS: Atorvastatin Calcium 40 MG Tablet PO (20:59)
[2019-12-30] MEDS: Acetaminophen 325 MG Tablet 650 MG PO (20:59)
[2019-12-30] MEDS: Mirtazapine 15 MG Tablet PO (21:01)
[2019-12-30 21:06] VITALS: TEMP 37.1
[2019-12-30] MEDS: 0.9% Saline Lock 10 ML Syringe IV (21:25)
[2019-12-30] MEDS: 0.9% Normal Saline 250 ML IV.SOLN. IV (21:25)
--- NOTE | 2019-12-30 21:32 | HP.PCM_ITS ---
Problem List (1) Debility Status: Acute (2) Toxic encephalopathy Status: Acute (3) Stroke Status: Acute (4) Severe sepsis Status: Acute (5) Pulmonary embolism Status: Chronic (6) DVT (deep venous thrombosis) Status: Chronic (7) Coronary artery disease Status: Chronic (8) Hyperlipidemia Status: Chronic (9) Obstructive sleep apnea Status: Chronic (10) Lumbar spinal stenosis Status: Chronic (11) Hypertension Status: Chronic (12) Pulmonary hypertension Status: Chronic (13) Cholelithiasis Status: Chronic (14) Neuropathic pain Status: Chronic History of Present Illness Date of Admission: 12/30/19 Chief Complaint: Here for rehabilitation, strengthening, salvage determiner intravenous antibiotics, prior to discharge home with . 12/25/2019 The patient is a 79 year old Female with below past medical history TCU resident presented to [facility] Emergency Department with fever. 12/25/2019 KUB normal bowel gas patter, multiple gallstones. 12/25/2019 Chest X-ray negative. TCU resident fever, change in mental status, fall, aches, chills. WBC normal, BMP normal, UA negative. Rocephin, Vancomycin given to cover meningitis, no lumbar puncture due to Eliquis. 12/25/2019 Admit to Hospital. COVID-19 negative. Sepsis evaluation. Vancomycin, Meropenem, IV fluids, Infectious Disease consult. 12/25/2019 CT abdomen/pelvis urinary bladder mild inflammation, cholelithiasis, bibasilar atelectasis, coronary artery disease, hiatal hernia, sigmoid diverticulosis. 12/26/2019 MRI lumbar spine NEGATIVE for infection. 12/26/2019 CT brain negative. 12/26/2019 CTA head/neck negative. 12/27/2019 MRI brain acute left occipital stroke. 12/27/2019 Chest X-ray left base atelectasis, small hiatal hernia. Blood cultures negative. Urine cultures negative. AHSAN negative vegetation. COVID-19 negative. 12/30/2019 Dr. Hamilton sepsis, unknown source. Vancomycin, Meropenem IV x 6 weeks course. Neurosurgery follow up with Dr. Alexandra to evaluate for CSF leak causing recurrent meningitis. Eliquis failure stroke, changed to coumadin with Lovenox bridge. 12/30/2019 Admit to TCU with debility, here for rehabilitation, strengthening, senior care intravenous antibiotics, prior to discharge home with . Past Medical History Past Medical History (Chronic Problems): Chronic Problems Pulmonary embolism (Chronic) DVT (deep venous thrombosis) (Chronic) Coronary artery disease (Chronic) Hyperlipidemia (Chronic) Obstructive sleep apnea (Chronic) Lumbar spinal stenosis (Chronic) Hypertension (Chronic) Pulmonary hypertension (Chronic) Urinary incontinence (Chronic) Cholelithiasis (Chronic) Depression (Chronic) Insomnia (Chronic) Neuropathic pain (Chronic) Hydrocephalus (Chronic) Allergies ibuprofen [From Advil] Adverse Reaction (Verified 11/28/19 15:14) Rash Home Medications: Ambulatory Orders Medication Instructions Recorded Amlodipine [Norvasc] 5 mg PO DAILY 11/26/19 Atorvastatin Calcium 40 mg PO DAILY 11/26/19 Gabapentin [Neurontin] 300 mg PO TID 11/26/19 Melatonin 5 mg PO QHS PRN 11/26/19 Mirtazapine 15 mg PO DAILY 11/26/19 Sertraline HCl 50 mg PO DAILY 11/26/19 Oxybutynin Chloride [Oxybutynin 5 mg PO DAILY 12/06/19 Chloride ER] Menthol/Lanolin/Calamine/Znox 1 applic TOPICAL BID tube 12/21/19 [Calmoseptine Ointment] Mineral Oil/Petrolatum,White 1 applic TOPICAL 0600,2200 jar 12/21/19 [Eucerin] Potassium Chloride [K-Dur] 20 meq PO BIDCM #60 tab 12/21/19 Bisacodyl [Dulcolax] 10 mg PO PRN PRN 12/25/19 Furosemide [Lasix] 40 mg PO DAILY 12/25/19 Polyethylene Glycol 3350 [Miralax] 17 gm PO DAILY 12/25/19 Sennosides/Docusate Sodium 1 ea PO BID 12/25/19 [Senna-Docusate Sodium Tablet] Tolterodine Tartrate [Detrol LA] 2 mg PO DAILY 12/25/19 Acetaminophen [Tylenol Tablet] 650 mg PO Q6H PRN PRN tab 12/30/19 Enoxaparin [Lovenox] 70 mg SUBCUT Q12 syringe 12/30/19 Meropenem [Merrem] 1 gm IV Q8 40 Days #120 vial 12/30/19 Vancomycin IV 750 mg IV Q12H 40 Days #80 vial 12/30/19 Warfarin [Coumadin] 5 mg PO DAILY@1700 tab 12/30/19 Surgical History: hysterectomy, - - Lumbar spine surgery, Durotomy closure, Bladder suspension. Psychiatric History: Depression [employer] History: No pertinent [employer] history Lives: Spouse/ Significant Other Smoking Status: Never smoker Tobacco Use: Non-smoker Alcohol: None Drugs: None - *Family History Paternal History Items: Stroke Maternal History Items: Heart Disease - Congestive Heart Failure. Sibling History Items: Diabetes, Heart Disease, Hypertension Review of Systems Constitutional: Denies: Chills, Fever, Weight Change HEENT: Denies: Head Aches, Sinus Congestion, Sinus Drainage Cardiovascular: Denies: Chest Pain, Palpitations Respiratory: Denies: Cough, Shortness of breath at rest, Sputum production Gastrointestinal: Denies: Abdominal Pain, Nausea, Vomiting Genitourinary: Denies: Dysuria Musculoskeletal: Denies: Joint Pain, Joint Tenderness Skin: Denies: Rash, Wounds Neurological: Denies: Numbness, Tingling, Focal weakness Psychiatric: Denies: Anxiety, Depression, Homicidal Ideations, Suicidal Ideations Hematologic/ Lymphatic: Denies: Easy Bruising, Easy Bleeding VTE Information - Inpt Only VTE Present on Admission: Yes VTE Mechan Device Prophylaxis: Knee High IESHA Hose VTE Pharm Prophylaxis ordered?: No Reason prophylaxis not ordered:: Treatment Not Indicated Patient Problems: Active and Suspected Problems Debility (Acute) Toxic encephalopathy (Acute) Stroke (Acute) - Physical Exam Vitals/I&O's: Vital Signs Temp Pulse Resp BP Pulse Ox 98.8 F 85 16 122/56 H 96 12/30/19 21:06 12/30/19 15:18 12/30/19 15:18 12/30/19 15:18 12/30/19 15:18 Oxygen Delivery Method Room Air Weight: 65.5 kg Body Mass Index (BMI) 27.3 Finger Stick Blood Glucose 106 Intake and Output for Last 24 Hours 12/28/19 12/29/19 12/30/19 23:59 23:59 23:59 Intake Total 420 / 420 Balance 420 / 420 General: Alert, Oriented x3, Cooperative HEENT: Atraumatic, PERRLA, EOMI, Normocephalic Neck: Supple, No JVD, Negative Carotid Bruits Lungs: Clear to auscultation, Normal air movement Cardiovascular: Regular rate, No murmurs Abdomen: Bowel Sounds Present, Soft, Non Tender Extremities: No edema, Capillary Refill Less than 3 Seconds, - - PICC right upper extremity. Skin: No rashes, No breakdown Musculoskeletal: No Tenderness to Palpation of Joints or Extremities Neurological: Cranial nerves II-XII grossly intact Psych/Mental Status: Normal Affect, Appropriate Current Medications Acetaminophen (Tylenol) 650 mg PO Q6H PRN PRN PRN Reason: Pain Score 1-10/Temp > 100.7 F Last Admin: 12/30/19 20:59 Dose: 650 mg Documented by: Amlodipine Besylate (Norvasc) 5 mg PO DAILY [facility] Atorvastatin Calcium (Lipitor) 40 mg PO DAILY@2200 [facility] Last Admin: 12/30/19 20:59 Dose: 40 mg Documented by: Bisacodyl (Dulcolax) 10 mg PO DAILY PRN PRN Reason: Constipation Calamine/Phenol (Calmoseptine Ointment) 1 applic TOPICAL BID [facility]; Protocol Last Admin: 12/30/19 18:06 Dose: 1 applicatio Documented by: Enoxaparin Sodium (Lovenox) 70 mg SC Q12 [facility] Last Admin: 12/30/19 17:59 Dose: 70 mg Documented by: Furosemide (Lasix) 40 mg PO DAILY [facility] Gabapentin (Neurontin) 300 mg PO TIDCM [facility] Last Admin: 12/30/19 17:58 Dose: 300 mg Documented by: Heparin Sodium (Beef Lung) () 50 units IV UD PRN PRN Reason: PICC Line Heparin Flush Meropenem 1 gm/ Sodium (Chloride) 100 mls @ 33 mls/hr IV Q8 [facility] Stop: 02/09/20 22:01 Vancomycin IV Pharmacy to Dose (1 ea/ Sodium Chloride) 500 mls @ 250 mls/hr IV X1 PRN; Protocol PRN Reason: Rx to Dose Vancomycin HCl 750 mg/ Sodium (Chloride) 265 mls @ 250 mls/hr IV Q12H [facility] Stop: 02/09/20 21:01 Last Admin: 12/30/19 21:25 Dose: 250 mls/hr Documented by: Melatonin (Melatonin) 5 mg PO QHS PRN PRN Reason: SLEEP Mirtazapine (Remeron) 15 mg PO DAILY@2200 [facility] Last Admin: 12/30/19 21:01 Dose: 15 mg Documented by: Multi-Ingredient Cream (Eucerin) 1 applic TOPICAL 0600,2199 [facility]; Protocol Last Admin: 12/30/19 21:01 Dose: 1 applicatio Documented by: Polyethylene Glycol (Miralax) 17 gm PO DAILY [facility] Pot[facility] Last Admin: 12/30/19 17:58 Dose: 20 meq Documented by: Senna/Docusate Sodium (Senokot-S, Karlene-Colace) 1 tablet PO BID [facility] Last Admin: 12/30/19 17:59 Dose: 1 tablet Documented by: Sertraline HCl (Zoloft) 50 mg PO DAILY [facility] Sodium Chloride () 10 - 40 ml IV UD PRN PRN Reason: Open End PICC Flush Last Admin: 12/30/19 21:25 Dose: 10 ml Documented by: Sodium Chloride (0.9% Nacl (Sterile) Posiflush) 10 - 40 ml IV UD PRN PRN Reason: Port access or dressing change Sodium Chloride () 250 ml IV PRN PRN PRN Reason: secondary iv antibiotics Last Admin: 12/30/19 21:25 Dose: 250 ml Documented by: Tolterodine Tartrate (Detrol La) 2 mg PO DAILY [facility] Tuberculin PPD (Tubersol, Aplisol, Ppd) 5 tu ID X1 ONE Stop: 12/31/19 10:01 Tuberculin PPD (Tubersol, Aplisol, Ppd) 5 tu ID X1 ONE Stop: 01/07/20 10:01 Warfarin Sodium (Coumadin (Pbkc)) 5 mg PO DAILY@1700 [facility] Last Admin: 12/30/19 17:58 Dose: 5 mg Documented by: Assessment/Plan All Active Problems Debility (Acute) Toxic encephalopathy (Acute) Stroke (Acute) Severe sepsis (Acute) Encephalopathy (Acute) 79 year old female with below past medical history hospitalized for sepsis, source unknown, 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 * Debility - PT/OT. * Pain - Tylenol 1000MG Q6H PRN pain (1-10). * Bowel - Miralax 17GM daily, Senna/colace 1 tablet BID, Dulcolax 10MG daily PRN. * Adult immunization - Administer Prevnar 13, Pneumovax 23, Fluzone as appropriate. * DVT prophylaxis - Not necessary, already anticoagulated. * Hyperlipidemia - High intensity Atorvastatin 40MG QHS. * DVT/PE/Stroke - Eliquis failure, coumadin 5MG daily with Lovenox 70MG SC Q12H bridge. * Edema - Lasix 40MG daily. * Neuropathic pain - Gabapentin 300MG TID. * Insomnia - Melatonin 5MG QHS PRN. * Skin irritation - Calmoseptine BID, Eucerin BID. * Sepsis, unknown source - Meropenem 1GM IV Q8H, Vancomycin 750MG IV Q12H thru 02/09/2020, consult Dr. Hamilton. Schedule appt with Dr. Alexandra, Neurosurgery to evaluate for possible CSF leak, recurrent meningitis. * Appetite loss - Mirtazapine 15MG QHS. * Hypokalemia - K-Dur 20MEQ BID. * Depression - Sertraline 50MG daily. * Overactive bladder - Tolterodine 2MG daily.
[2019-12-31 05:44] VITALS: BP 113/53; PULSE 71; RESP 16; TEMP 36.2; O2SAT 94
[2019-12-31] MEDS: Sertraline 50 MG Tablet PO (05:46)
[2019-12-31] MEDS: Furosemide 40 MG Tablet PO (05:46)
[2019-12-31] MEDS: Tolterodine Tartrate 2 MG CAP.SA PO (05:46)
[2019-12-31] MEDS: Senna/Docusate Sodium 1 Tablet PO ×2 (05:46→18:40)
[2019-12-31] MEDS: Polyethylene Glycol 3350 17 GM PACKET PO (05:46)
[2019-12-31] MEDS: Enoxaparin 80 MG/0.8 ML Syringe 70 MG SC ×2 (05:46→18:42)
[2019-12-31] MEDS: Menthol/Lanolin/Calamine/Znox 113 GM Tube 1 APPLIC TOPICAL ×2 (05:50→18:43)
[2019-12-31 06:08] LABS: Absolute Lymphocyte Count 0.68 X10^3/uL (0.83-4.51); Absolute Neutrophil Count 1.7 X10^3/uL (2.0-7.7); Basophil# 0.03 X10^3/uL; Eosinophil# 0.34 X10^3/uL; Eosinophils% 11.1 % (0-5); Hematocrit 27.8 % (37-47); Hemoglobin 8.7 g/dL (12.0-15.0); Lymphocyte # 0.68 X10^3/ul (4.0); Lymphocyte % 22.1 % (19-41); Mean Corp Hgb Conc 31.3 g/dL (32-36); Mean Corpuscular Volume 95.9 fL (81-99); Mean Platelet Vol. 9.5 fl (6.2-12.0); Monocyte# 0.36 X10^3/uL; Monocyte% 11.7 % (0-10); NRBC Flagged by Analyzer 0 % (0-5); Neutrophil # 1.65 X10^3/uL (2.7-7.7); Neutrophil % 53.8 % (47-70); Platelet Count 232 K/mm3 (150-450); RBC Distribution Width SD 48.9 fl (35.1-43.9); White Blood Count 3.1 K/mm3 (4.4-11.0)
[2019-12-31 06:39] LABS: Anion Gap 8 (5-15); BUN 9 mg/dL (7-18); BUN/Creat Ratio 16.1 RATIO (10-20); Calcium,Total 8.8 mg/dL (8.5-10.1); Chloride 113 mmol/L (98-107); Creatinine, Serum 0.56 mg/dL (0.55-1.02); EST Glomerular Filtration Rate 111 mL/min (>60); Est Glom Filt Rate - Afr Amer 135 mL/min (>60); Estimated Creatinine Clearance 34.99 ml/min; Glucose 85 mg/dL (74-106); Potassium 3.9 mmol/L (3.5-5.1); Sodium Level 142 mmol/L (136-145)
[2019-12-31] MEDS: Gabapentin 300 MG Capsule PO ×3 (07:56→18:39)
[2019-12-31] MEDS: 0.9% Saline Lock 10 ML Syringe IV ×2 (13:57→20:47)
--- NOTE | 2019-12-31 14:06 | PCM.PN.RX ---
<Angelia Geiger M - Last Filed: 12/31/19 14:06> Progress Note - Pharmacy Subjective: [] Objective: Allergies ibuprofen [From Advil] Adverse Reaction (Verified 11/28/19 15:14) Rash Current Medications Generic Name Dose Route Start Last Admin Trade Name Freq PRN Reason Stop Dose Admin Acetaminophen 1,000 mg 12/30/19 21:56 Tylenol PO Q6H PRN PRN Pain Score 1-10 Atorvastatin Calcium 40 mg 12/30/19 22:00 12/30/19 20:59 Lipitor PO 40 mg DAILY@2200 DAREK Administration Bisacodyl 10 mg 12/30/19 15:22 Dulcolax PO DAILY PRN Constipation Calamine/Phenol 1 applic 12/30/19 18:00 12/31/19 05:50 Calmoseptine Ointment TOPICAL 1 applicatio BID DAREK Administration Protocol Enoxaparin Sodium 70 mg 12/30/19 18:00 12/31/19 05:46 Lovenox SC 70 mg Q12 DAREK Administration Furosemide 40 mg 12/31/19 06:00 12/31/19 05:46 Lasix PO 40 mg DAILY DAREK Administration Gabapentin 300 mg 12/30/19 17:45 12/31/19 12:12 Neurontin PO 300 mg TIDCM DAREK Administration Heparin Sodium (Beef Lung) 50 units 12/30/19 20:50 IV UD PRN PICC Line Heparin Flush Heparin Sodium (Beef Lung) 50 units 12/30/19 21:46 IV UD PRN PICC Line Heparin Flush Meropenem 1 gm/ Sodium 100 mls @ 33 mls/hr 12/30/19 22:00 12/31/19 13:57 Chloride IV 02/09/20 22:01 33 mls/hr Q8 D[facility]K Administration Vancomycin IV Pharmacy to Dose 500 mls @ 250 mls/hr 12/30/19 16:43 1 ea/ Sodium Chloride IV X1 PRN Rx to Dose Protocol Vancomycin HCl 750 mg/ Sodium 265 mls @ 250 mls/hr 12/30/19 21:00 12/31/19 10:17 Chloride IV 02/09/20 21:01 Infused Q12H [facility]ERK Infusion Melatonin 5 mg 12/30/19 15:49 Melatonin PO QHS PRN SLEEP Mirtazapine 15 mg 12/30/19 22:00 12/30/19 21:01 Remeron PO 15 mg DAILY@2199 DAREK Administration Multi-Ingredient Cream 1 applic 12/30/19 22:00 12/31/19 05:49 Eucerin TOPICAL 1 applicatio DAREK Administration Protocol Polyethylene Glycol 17 gm 12/31/19 06:00 12/31/19 05:46 Miralax PO 17 gm DAILY DAREK Administration Potassium Chloride 20 meq 12/30/19 17:00 12/31/19 07:56 K-Dur PO 20 meq BIDCM DAREK Administration Senna/Docusate Sodium 1 tablet 12/30/19 18:00 12/31/19 05:46 Senokot-S, Karlene-Colace PO 1 tablet BID [facility] Administration Sertraline HCl 50 mg 12/31/19 06:00 12/31/19 05:46 Zoloft PO 50 mg DAILY [facility] Administration Sodium Chloride 10 - 40 ml 12/30/19 20:50 12/31/19 13:57 IV 10 ml UD PRN Administration Open End PICC Flush Sodium Chloride 10 - 40 ml 12/30/19 20:50 0.9% Nacl (Sterile) Posiflush IV UD PRN Port access or dressing change Sodium Chloride 250 ml 12/30/19 20:51 12/30/19 21:25 IV 250 ml PRN PRN Administration secondary iv antibiotics Sodium Chloride 10 - 40 ml 12/30/19 21:46 IV UD PRN Open End PICC Flush Sodium Chloride 10 - 40 ml 12/30/19 21:46 0.9% Nacl (Sterile) Posiflush IV UD PRN Port access or dressing change Tolterodine Tartrate 2 mg 12/31/19 06:00 12/31/19 05:46 Detrol La PO 2 mg DAILY [facility] Administration Warfarin Sodium 5 mg 12/30/19 17:00 12/30/19 17:58 Coumadin (Pbkc) PO 5 mg DAILY@1700 [facility] Administration Problem List Debility (Acute) Toxic encephalopathy (Acute) Stroke (Acute) Vital Signs Temp Pulse Resp BP Pulse Ox 97.1 F L 71 16 113/53 L 94 12/31/19 05:44 12/31/19 05:44 12/31/19 05:44 12/31/19 05:44 12/31/19 05:44 Oxygen Delivery Method Room Air Weight: 65.5 kg Body Mass Index (BMI) 27.3 Finger Stick Blood Glucose 106 Sodium 142 mmol/L (136-145) 12/31/19 05:10 Potassium 3.9 mmol/L (3.5-5.1) 12/31/19 05:10 Chloride 113 mmol/L (98-107) H 12/31/19 05:10 Carbon Dioxide 21.0 mmol/L (21.0-32.0) 12/31/19 05:10 Anion Gap 8 (5-15) 12/31/19 05:10 BUN 9 mg/dL (7-18) 12/31/19 05:10 Creatinine 0.56 mg/dL (0.55-1.02) 12/31/19 05:10 Est GFR (MDRD) Af Amer 135 mL/min (>60) 12/31/19 05:10 Est GFR (MDRD) Non-Af 111 mL/min (>60) 12/31/19 05:10 BUN/Creatinine Ratio 16.1 RATIO (-20) 12/31/19 05:10 Glucose 85 mg/dL (74-106) 12/31/19 05:10 Assessment/Plan: 1. Pain: Tylenol 1000mg PO Q6h PRN Pain 1-05/06. Please continue to monitor for S/S increased/decreased pain, PRN medication usage. 2. Stroke/DVT/PE: Warfarin 5mg PO daily, Lovenox 70mg SC BID as bridge therapy until INR therapeutic, Lipitor 40mg PO QHS. Please continue to monitor INR, signs/symptoms of bleeding/bruising, lipid panel annually or sooner if clinically indicated. 3. Sepsis of unknown source: Vancomycin 750mg IV Q12hr thru 02/09/20, Meropenem 1g IV Q8h thru 02/09/20. Please continue to monitor BMP, vanco trough, microbiology if applicable. ID consulted on case. 4. Neuropathic pain: Gabapentin 300mg PO TID. Please continue to monitor renal function, improvement in symptoms. 5. Overactive Bladder: Detrol LA 2mg PO Daily. Please continue to monitor for improvement in symptoms, medication effectiveness. 6. Edema: Lasix 40mg PO Daily, KCl 20mEq PO BID. Please continue to monitor fluid status, potassium/electrolyte levels. 7. Insomnia: Melatonin 5mg PO QHS PRN. Please continue to monitor for medication effectiveness. Can consider giving 2 hours prior to bed if ineffective when administered at bedtime. Psychotropic Medications: *8. Depression: Zoloft 50mg PO Daily. Please consider a GDR by 06/2020 if clinically indicated. *9. Appetite Loss: Mirtazapine 15mg PO QHS. Please consider a GDR by 06/2020 if clinically indicated. Unnecessary Medications: Bowel Regimen: Miralax 17g PO Daily, Senna/Docusate 1 tab PO BID, Bisacodyl 10mg PO Daily PRN. Please continue to monitor for increased/decreased constipation and/or diarrhea. Date of Note:: 12/31/19 - Provider Comments Provider responsibility: Provider responsible to enter orders to implement recommendations <Aldo Vazquez Chi - Last Filed: 12/31/19 15:12> Progress Note - Pharmacy Subjective: [] Objective: Allergies ibuprofen [From Advil] Adverse Reaction (Verified 11/28/19 15:14) Rash Current Medications Generic Name Dose Route Start Last Admin Trade Name Freq PRN Reason Stop Dose Admin Acetaminophen 1,000 mg 12/30/19 21:56 Tylenol PO Q6H PRN PRN Pain Score 1-10/10 Atorvastatin Calcium 40 mg 12/30/19 22:00 12/30/19 20:59 Lipitor PO 40 mg DAILY@2200 DAREK Administration Bisacodyl 10 mg 12/30/19 15:22 Dulcolax PO DAILY PRN Constipation Calamine/Phenol 1 applic 12/30/19 18:00 12/31/19 05:50 Calmoseptine Ointment TOPICAL 1 applicatio BID DAREK Administration Protocol Enoxaparin Sodium 70 mg 12/30/19 18:00 12/31/19 05:46 Lovenox SC 70 mg Q12 DAREK Administration Furosemide 40 mg 12/31/19 06:00 12/31/19 05:46 Lasix PO 40 mg DAILY [facility]K Administration Gabapentin 300 mg 12/30/19 17:45 12/31/19 12:12 Neurontin PO 300 mg TIDCM DAREK Administration Heparin Sodium (Beef Lung) 50 units 12/30/19 20:50 IV UD PRN PICC Line Heparin Flush Heparin Sodium (Beef Lung) 50 units 12/30/19 21:46 IV UD PRN PICC Line Heparin Flush Meropenem 1 gm/ Sodium 100 mls @ 33 mls/hr 12/30/19 22:00 12/31/19 13:57 Chloride IV 02/09/20 22:01 33 mls/hr Q8 [facility]K Administration Vancomycin IV Pharmacy to Dose 500 mls @ 250 mls/hr 12/30/19 16:43 1 ea/ Sodium Chloride IV X1 PRN Rx to Dose Protocol Vancomycin HCl 750 mg/ Sodium 265 mls @ 250 mls/hr 12/30/19 21:00 12/31/19 10:17 Chloride IV 02/09/20 21:01 Infused Q12H [facility] Infusion Melatonin 5 mg 12/30/19 15:49 Melatonin PO QHS PRN SLEEP Mirtazapine 15 mg 12/30/19 22:00 12/30/19 21:01 Remeron PO 15 mg DAILY@2200 DAREK Administration Multi-Ingredient Cream 1 applic 12/30/19 22:00 12/31/19 05:49 Eucerin TOPICAL 1 applicatio 0600,2200 DAREK Administration Protocol Polyethylene Glycol 17 gm 12/31/19 06:00 12/31/19 05:46 Miralax PO 17 gm DAILY DAREK Administration Potassium Chloride 20 meq 12/30/19 17:00 12/31/19 07:56 K-Dur PO 20 meq BIDCM [facility] Administration Senna/Docusate Sodium 1 tablet 12/30/19 18:00 12/31/19 05:46 Senokot-S, Karlene-Colace PO 1 tablet BID [facility] Administration Sertraline HCl 50 mg 12/31/19 06:00 12/31/19 05:46 Zoloft PO 50 mg DAILY [facility] Administration Sodium Chloride 10 - 40 ml 12/30/19 20:50 12/31/19 13:57 IV 10 ml UD PRN Administration Open End PICC Flush Sodium Chloride 10 - 40 ml 12/30/19 20:50 0.9% Nacl (Sterile) Posiflush IV UD PRN Port access or dressing change Sodium Chloride 250 ml 12/30/19 20:51 12/30/19 21:25 IV 250 ml PRN PRN Administration secondary iv antibiotics Sodium Chloride 10 - 40 ml 12/30/19 21:46 IV UD PRN Open End PICC Flush Sodium Chloride 10 - 40 ml 12/30/19 21:46 0.9% Nacl (Sterile) Posiflush IV UD PRN Port access or dressing change Tolterodine Tartrate 2 mg 12/31/19 06:00 12/31/19 05:46 Detrol La PO 2 mg DAILY [facility]K Administration Warfarin Sodium 5 mg 12/30/19 17:00 12/30/19 17:58 Coumadin (Pbkc) PO 5 mg DAILY@1700 D[facility]K Administration Problem List Debility (Acute) Toxic encephalopathy (Acute) Stroke (Acute) Vital Signs Temp Pulse Resp BP Pulse Ox 99.1 F 80 16 128/72 H 97 12/31/19 14:15 12/31/19 14:15 12/31/19 14:15 12/31/19 14:15 12/31/19 14:15 Oxygen Delivery Method Room Air Weight: 65.5 kg Body Mass Index (BMI) 27.3 Finger Stick Blood Glucose 106 Sodium 142 mmol/L (136-145) 12/31/19 05:10 Potassium 3.9 mmol/L (3.5-5.1) 12/31/19 05:10 Chloride 113 mmol/L (98-107) H 12/31/19 05:10 Carbon Dioxide 21.0 mmol/L (21.0-32.0) 12/31/19 05:10 Anion Gap 8 (5-15) 12/31/19 05:10 BUN 9 mg/dL (7-18) 12/31/19 05:10 Creatinine 0.56 mg/dL (0.55-1.02) 12/31/19 05:10 Est GFR (MDRD) Af Amer 135 mL/min (>60) 12/31/19 05:10 Est GFR (MDRD) Non-Af 111 mL/min (>60) 12/31/19 05:10 BUN/Creatinine Ratio 16.1 RATIO (10-20) 12/31/19 05:10 Glucose 85 mg/dL (74-106) 12/31/19 05:10 Assessment/Plan: Psychotropic Medications: Unnecessary Medications: Bowel Regimen: - Provider Comments Provider responsibility: Provider responsible to enter orders to implement recommendations Provider Comments to Recommendations by Pharmacy: Agree
[2019-12-31 14:15] VITALS: BP 128/72; PULSE 80; RESP 16; TEMP 37.3; O2SAT 97
--- NOTE | 2019-12-31 14:24 | PCM.PN.ID ---
Patient Problems: Active and Suspected Problems Debility (Acute) Toxic encephalopathy (Acute) Stroke (Acute) Subjective: Feeling well, no fever, no SOB, no abd pain - Physical Exam Vitals/I&O's: Vital Signs Temp Pulse Resp BP Pulse Ox 99.1 F 80 16 128/72 H 97 12/31/19 14:15 12/31/19 14:15 12/31/19 14:15 12/31/19 14:15 12/31/19 14:15 Oxygen Delivery Method Room Air Weight: 65.5 kg Body Mass Index (BMI) 27.3 Finger Stick Blood Glucose 106 Intake and Output for Last 24 Hours 12/29/19 12/30/19 12/31/19 23:59 23:59 23:59 Intake Total 685 / 685 942.5 / 942.5 Balance 685 / 685 942.5 / 942.5 General: Alert, Cooperative, No apparent distress Lungs: Clear to auscultation, Normal air movement Cardiovascular: Regular rate, Regular Rhythm Abdomen: Soft, Non Tender, Non-Distended Skin: No rashes Laboratory Results 12/31/19 05:10: WBC 3.1 L, RBC 2.90 L, Hgb 8.7 L, Hct 27.8 L, MCV 95.9, MCH 30.0, MCHC 31.3 L, RDW Std Deviation 48.9 H, RDW Coeff of La 14.0, Plt Count 232, MPV 9.5, Immature Gran % (Auto) 0.300, Neut % (Auto) 53.8, Lymph % (Auto) 22.1, [place] % (Auto) 11.7 H, Eos % (Auto) 11.1 H, Baso % (Auto) 1.0, Absolute Neuts (auto) 1.7 L, Absolute Lymphs (auto) 0.68 L, Nucleated RBC % 0 12/31/19 05:10: Sodium 142, Potassium 3.9, Chloride 113 H, Carbon Dioxide 21.0, Anion Gap 8, BUN 9, Creatinine 0.56, Estim Creat Clear Calc 34.99, Est GFR (MDRD) Af Amer 135, Est GFR (MDRD) Non-Af 111, BUN/Creatinine Ratio 16.1, Glucose 85, Calcium 8.8 Current Medications Acetaminophen (Tylenol) 1,000 mg PO Q6H PRN PRN PRN Reason: Pain Score 1-10/10 Atorvastatin Calcium (Lipitor) 40 mg PO DAILY@2199 [facility] Last Admin: 12/30/19 20:59 Dose: 40 mg Documented by: Bisacodyl (Dulcolax) 10 mg PO DAILY PRN PRN Reason: Constipation Calamine/Phenol (Calmoseptine Ointment) 1 applic TOPICAL BID [facility]; Protocol Last Admin: 12/31/19 05:50 Dose: 1 applicatio Documented by: Enoxaparin Sodium (Lovenox) 70 mg SC Q12 [facility] Last Admin: 12/31/19 05:46 Dose: 70 mg Documented by: Furosemide (Lasix) 40 mg PO DAILY [facility] Last Admin: 12/31/19 05:46 Dose: 40 mg Documented by: Gabapentin (Neurontin) 300 mg PO TIDCM [facility] Last Admin: 12/31/19 12:12 Dose: 300 mg Documented by: Heparin Sodium (Beef Lung) () 50 units IV UD PRN PRN Reason: PICC Line Heparin Flush Heparin Sodium (Beef Lung) () 50 units IV UD PRN PRN Reason: PICC Line Heparin Flush Meropenem 1 gm/ Sodium (Chloride) 100 mls @ 33 mls/hr IV Q8 [facility] Stop: 02/09/20 22:01 Last Admin: 12/31/19 13:57 Dose: 33 mls/hr Documented by: Vancomycin IV Pharmacy to Dose (1 ea/ Sodium Chloride) 500 mls @ 250 mls/hr IV X1 PRN; Protocol PRN Reason: Rx to Dose Vancomycin HCl 750 mg/ Sodium (Chloride) 265 mls @ 250 mls/hr IV Q12H [facility] Stop: 02/09/20 21:01 Last Infusion: 12/31/19 10:17 Dose: Infused Documented by: Melatonin (Melatonin) 5 mg PO QHS PRN PRN Reason: SLEEP Mirtazapine (Remeron) 15 mg PO DAILY@2199 [facility] Last Admin: 12/30/19 21:01 Dose: 15 mg Documented by: Multi-Ingredient Cream (Eucerin) 1 applic TOPICAL 0600,2199 [facility]; Protocol Last Admin: 12/31/19 05:49 Dose: 1 applicatio Documented by: Polyethylene Glycol (Miralax) 17 gm PO DAILY [facility] Last Admin: 12/31/19 05:46 Dose: 17 gm Documented by: Potassium [facility] ([facility]) [facility] Last Admin: 12/31/19 07:56 Dose: 20 meq Documented by: Senna/Docusate Sodium (Senokot-S, Karlene-Colace) 1 tablet PO BID [facility] Last Admin: 12/31/19 05:46 Dose: 1 tablet Documented by: Sertraline HCl (Zoloft) 50 mg PO DAILY [facility] Last Admin: 12/31/19 05:46 Dose: 50 mg Documented by: Sodium Chloride () 10 - 40 ml IV UD PRN PRN Reason: Open End PICC Flush Last Admin: 12/31/19 13:57 Dose: 10 ml Documented by: Sodium Chloride (0.9% Nacl (Sterile) Posiflush) 10 - 40 ml IV UD PRN PRN Reason: Port access or dressing change Sodium Chloride () 250 ml IV PRN PRN PRN Reason: secondary iv antibiotics Last Admin: 12/30/19 21:25 Dose: 250 ml Documented by: Sodium Chloride () 10 - 40 ml IV UD PRN PRN Reason: Open End PICC Flush Sodium Chloride (0.9% Nacl (Sterile) Posiflush) 10 - 40 ml IV UD PRN PRN Reason: Port access or dressing change Tolterodine Tartrate (Detrol La) 2 mg PO DAILY [facility] Last Admin: 12/31/19 05:46 Dose: 2 mg Documented by: Warfarin Sodium (Coumadin (Pbkc)) 5 mg PO DAILY@1700 [facility] Last Admin: 12/30/19 17:58 Dose: 5 mg Documented by: Medical Necessity - Tobacco Use Smoking Status: Never smoker Tobacco Use: Non-smoker Route of nutrition/ use of supplements: [] Nutritional Intake: [] IV Site: [] Stanton Catheter: [] - Assessment/Plan Antibiotics: [] Assessment/Plan: [] Active and Suspected Problems Debility (Acute) Toxic encephalopathy (Acute) Stroke (Acute) Fever, normal wbc, altered mental status with concern for new stroke on 12/25 after completing empiric course of vanc/zohaib 12/20 for suspected bacterial meningitis after admission to [place]. Prior h/o CSF leak from laminectomy in the past few months. Now back on vanc/zohaib. CXR clear, UA clear, bcx neg so far. Mental status much improved, fever resolved except for one time temp last night. MRI now shows new occipital stroke. AHSAN showed no veg. Difficult to say what her infection is at this time with all her negative cxs, but it does seem that she has responded to iv abx. Plan now is iv vanc/zohaib for 6 weeks of treatment, stop date 02/09/20. Weekly bmp, cbc, LFT, and vanc trough. Certainly at risk for ongoing csf leak causing recurrent meningitis, so will need outpt neurosurgery followup with Dr. Alexandra. Will follow, d/w Dr. Vazquez
[2019-12-31] MEDS: 0.9% Normal Saline 250 ML IV.SOLN. IV (20:44)
[2019-12-31] MEDS: Atorvastatin Calcium 40 MG Tablet PO (22:04)
[2019-12-31] MEDS: Mirtazapine 15 MG Tablet PO (22:04)
[2020-01-01] MEDS: 0.9% Saline Lock 10 ML Syringe IV ×6 (05:41→20:49)
[2020-01-01] MEDS: Senna/Docusate Sodium 1 Tablet PO (05:46)
[2020-01-01] MEDS: Polyethylene Glycol 3350 17 GM PACKET PO (05:46)
[2020-01-01] MEDS: Tolterodine Tartrate 2 MG CAP.SA PO (05:46)
[2020-01-01] MEDS: Enoxaparin 80 MG/0.8 ML Syringe 70 MG SC (05:46)
[2020-01-01] MEDS: Furosemide 40 MG Tablet PO (05:46)
[2020-01-01] MEDS: Sertraline 50 MG Tablet PO (05:46)
[2020-01-01] MEDS: Menthol/Lanolin/Calamine/Znox 113 GM Tube 1 APPLIC TOPICAL ×2 (05:53→17:13)
[2020-01-01 05:54] VITALS: BP 119/70; PULSE 82; RESP 18; TEMP 36.6; O2SAT 98
[2020-01-01] MEDS: Gabapentin 300 MG Capsule PO ×3 (08:11→17:12)
[2020-01-01 08:17] LABS: AST(SGOT) 23 U/L (15-37); Alanine Aminotransfer ALT/SGPT 17 U/L (13-56); Albumin, Serum 2.9 g/dL (3.2-5.0); Alkaline Phosphatase 93 U/L (45-117); Bilirubin, Direct 0.11 mg/dL (0.00-0.30); Globulin 3.3 g/dL (2.2-4.2); Protein, Total 6.2 g/dL (6.4-8.2)
[2020-01-01 09:02] LABS: Prothrombin Time (Protime)PT. 57.2 SECONDS (11.7-14.9)
[2020-01-01 09:17] LABS: International Normalized Ratio 6.5
--- NOTE | 2020-01-01 09:52 | NURSING ---
Addendum entered by Joanne Tinoco 01/01/20 16:26: UPDATED SON, HARO ON NEW ORDERS & PT STATUS. Original Note: INR 6.5, DR ESPOSITO UPDATED, NEW ORDER TO DC LOVENOX & COUMADIN, DAILY INRs, UPDATED ON HGB 8.7, NEW ORDER FOR IRON PO.
[2020-01-01] MEDS: Iron Polysaccharide Complex 150 MG CAPSULE PO (11:29)
[2020-01-01 14:11] VITALS: BP 132/62; PULSE 84; RESP 18; TEMP 37.2; O2SAT 96
[2020-01-01] MEDS: Atorvastatin Calcium 40 MG Tablet PO (20:55)
[2020-01-01] MEDS: Mirtazapine 15 MG Tablet PO (20:55)
[2020-01-02 04:00] VITALS: BP 128/79; PULSE 55; RESP 14; TEMP 36.7; O2SAT 95
[2020-01-02 06:26] LABS: AST(SGOT) 27 U/L (15-37); Alanine Aminotransfer ALT/SGPT 21 U/L (13-56); Albumin, Serum 2.8 g/dL (3.2-5.0); Alkaline Phosphatase 97 U/L (45-117); Bilirubin, Direct 0.13 mg/dL (0.00-0.30); Globulin 3.5 g/dL (2.2-4.2); Protein, Total 6.3 g/dL (6.4-8.2)
[2020-01-02 06:29] LABS: International Normalized Ratio 1.2; Prothrombin Time (Protime)PT. 14.6 SECONDS (11.7-14.9)
[2020-01-02] MEDS: Tolterodine Tartrate 2 MG CAP.SA PO (06:48)
[2020-01-02] MEDS: Furosemide 40 MG Tablet PO (06:48)
[2020-01-02] MEDS: Senna/Docusate Sodium 1 Tablet PO ×2 (06:48→17:29)
[2020-01-02] MEDS: Menthol/Lanolin/Calamine/Znox 113 GM Tube 1 APPLIC TOPICAL ×2 (06:48→17:32)
[2020-01-02] MEDS: Sertraline 50 MG Tablet PO (06:48)
[2020-01-02] MEDS: Polyethylene Glycol 3350 17 GM PACKET PO (06:49)
[2020-01-02] MEDS: Iron Polysaccharide Complex 150 MG CAPSULE PO (07:57)
[2020-01-02] MEDS: Gabapentin 300 MG Capsule PO ×3 (07:57→17:28)
[2020-01-02 10:05] VITALS: PULSE 56; RESP 18; O2SAT 97
[2020-01-02] MEDS: 0.9% Saline Lock 10 ML Syringe IV ×3 (10:09→22:01)
--- NOTE | 2020-01-02 10:35 | NURSING ---
Dr alejandra notified of INR 1.2 today, new order to restart coumadin 3mg & lovenox 70mg Q12h and check daily INRs
[2020-01-02 14:55] VITALS: BP 124/74; PULSE 94; RESP 16; TEMP 37.4; O2SAT 93
--- NOTE | 2020-01-02 15:59 | NURSING ---
pt stated to this nurse that she already talked to and son and this nurse did not have to call.
[2020-01-02] MEDS: Enoxaparin 80 MG/0.8 ML Syringe 70 MG SC (17:29)
[2020-01-02 21:37] LABS: Vancomycin, Trough Level 20.9 ug/mL (5.0-15.0)
[2020-01-02] MEDS: Mirtazapine 15 MG Tablet PO (22:04)
[2020-01-02] MEDS: Atorvastatin Calcium 40 MG Tablet PO (22:04)
--- NOTE | 2020-01-03 01:40 | PCM.RX.CS ---
Consult Pharmacy has been consulted to manage selected antiobiotic: Vancomycin Type of Consult: Follow-up Labs: Sodium 142 mmol/L (136-145) 12/31/19 05:10 Potassium 3.9 mmol/L (3.5-5.1) 12/31/19 05:10 Chloride 113 mmol/L (98-107) H 12/31/19 05:10 Carbon Dioxide 21.0 mmol/L (21.0-32.0) 12/31/19 05:10 Anion Gap 8 (5-15) 12/31/19 05:10 BUN 9 mg/dL (7-18) 12/31/19 05:10 Creatinine 0.56 mg/dL (0.55-1.02) 12/31/19 05:10 Est GFR (MDRD) Af Amer 135 mL/min (>60) 12/31/19 05:10 Est GFR (MDRD) Non-Af 111 mL/min (>60) 12/31/19 05:10 BUN/Creatinine Ratio 16.1 RATIO (10-20) 12/31/19 05:10 Glucose 85 mg/dL (74-106) 12/31/19 05:10 Vancomycin Trough 20.9 ug/mL (5.0-15.0) H 01/02/20 20:27 Goal Trough: 15-20 mcg/mL Pharmacy Plan for Drug Dosing: Pharmacy Service will continue to monitor and adjust dosing as required. TROUGH 20.9 DRAWN 1 HOUR EARLY AND SCr INPROVED TO 0.56 NO CHANGES RECHECK TROUGH 01/03 Follow-Up Labs: Trough Vancomycin Labs to be done on [date and time ordered]: 01/03
[2020-01-03 04:00] VITALS: BP 137/87; PULSE 84; RESP 14; TEMP 36.6; O2SAT 94
[2020-01-03 05:49] LABS: International Normalized Ratio 1.2; Prothrombin Time (Protime)PT. 14.8 SECONDS (11.7-14.9)
[2020-01-03 05:56] LABS: AST(SGOT) 31 U/L (15-37); Alanine Aminotransfer ALT/SGPT 24 U/L (13-56); Albumin, Serum 2.8 g/dL (3.2-5.0); Alkaline Phosphatase 94 U/L (45-117); Bilirubin, Direct 0.16 mg/dL (0.00-0.30); Globulin 3.3 g/dL (2.2-4.2); Protein, Total 6.1 g/dL (6.4-8.2)
[2020-01-03] MEDS: Menthol/Lanolin/Calamine/Znox 113 GM Tube 1 APPLIC TOPICAL ×2 (07:13→17:17)
[2020-01-03] MEDS: Furosemide 40 MG Tablet PO (07:14)
[2020-01-03] MEDS: Polyethylene Glycol 3350 17 GM PACKET PO (07:14)
[2020-01-03] MEDS: Enoxaparin 80 MG/0.8 ML Syringe 70 MG SC ×2 (07:14→17:13)
[2020-01-03] MEDS: Senna/Docusate Sodium 1 Tablet PO ×2 (07:14→17:14)
[2020-01-03] MEDS: Tolterodine Tartrate 2 MG CAP.SA PO (07:14)
[2020-01-03] MEDS: Sertraline 50 MG Tablet PO (07:14)
[2020-01-03] MEDS: Gabapentin 300 MG Capsule PO ×3 (08:03→17:12)
[2020-01-03] MEDS: Iron Polysaccharide Complex 150 MG CAPSULE PO (08:04)
[2020-01-03 13:39] VITALS: BP 94/52; PULSE 95; RESP 18; TEMP 36.9; O2SAT 94
[2020-01-03] MEDS: 0.9% Normal Saline 250 ML IV.SOLN. IV (17:11)
--- NOTE | 2020-01-03 18:00 | NURSING ---
Spoke with patient's son Phillips, and explained that Dr Wallace does not take the patient's insurance. Dr Vazquez recommended the patient f/u with a neurologist in [place] that the pt had seen, unfortunately Phillips stated that Neurologist is no longer there and he is unable to reach her. He is going to contact the patient's PCP tomorrow and ask for a recommendation for a Neurologist. He will call us back tomorrow with a name.
[2020-01-03] MEDS: Atorvastatin Calcium 40 MG Tablet PO (21:07)
[2020-01-03] MEDS: Mirtazapine 15 MG Tablet PO (21:07)
[2020-01-03] MEDS: 0.9% Saline Lock 10 ML Syringe IV (21:08)
[2020-01-04 04:00] VITALS: BP 133/78; PULSE 87; RESP 18; TEMP 37.2; O2SAT 95
[2020-01-04] MEDS: Enoxaparin 80 MG/0.8 ML Syringe 70 MG SC ×2 (04:14→16:23)
[2020-01-04] MEDS: Sertraline 50 MG Tablet PO (04:15)
[2020-01-04] MEDS: Tolterodine Tartrate 2 MG CAP.SA PO (04:15)
[2020-01-04] MEDS: Senna/Docusate Sodium 1 Tablet PO (04:15)
[2020-01-04] MEDS: Polyethylene Glycol 3350 17 GM PACKET PO (04:15)
[2020-01-04] MEDS: Furosemide 40 MG Tablet PO (04:15)
[2020-01-04] MEDS: Menthol/Lanolin/Calamine/Znox 113 GM Tube 1 APPLIC TOPICAL ×2 (04:17→16:23)
[2020-01-04] MEDS: 0.9% Saline Lock 10 ML Syringe IV ×3 (05:47→21:34)
[2020-01-04 06:10] LABS: International Normalized Ratio 1.7; Prothrombin Time (Protime)PT. 19.5 SECONDS (11.7-14.9)
[2020-01-04 06:21] LABS: AST(SGOT) 31 U/L (15-37); Alanine Aminotransfer ALT/SGPT 27 U/L (13-56); Albumin, Serum 2.9 g/dL (3.2-5.0); Alkaline Phosphatase 98 U/L (45-117); Bilirubin, Direct 0.17 mg/dL (0.00-0.30); Globulin 3.4 g/dL (2.2-4.2); Protein, Total 6.3 g/dL (6.4-8.2)
[2020-01-04] MEDS: Gabapentin 300 MG Capsule PO ×3 (07:44→16:23)
[2020-01-04] MEDS: Iron Polysaccharide Complex 150 MG CAPSULE PO (07:44)
--- NOTE | 2020-01-04 08:04 | NURSING ---
pt shaky and stated she was not feeling right. vitals taken. reported to rn.
[2020-01-04 11:39] VITALS: PULSE 86; RESP 16; O2SAT 95
[2020-01-04 14:05] VITALS: BP 126/60; PULSE 87; RESP 16; TEMP 37.2; O2SAT 93
--- NOTE | 2020-01-04 15:26 | CHAPLAIN ---
Type of Pastoral Visit ___ Initial Visit _x__ Follow-up Visit ___ On-call Visit ___ General Patient Visit ___ Spiritual Assessment ___ Family Conference ___ Bereavement ___ Rapid Response ___ Code Blue ___ Other (describe below) Pastoral Care Referral From _x__ Patient ___ Family ___ Nurse ___ Physician ___ Instrument And Controls Technician ___ Reaming Machine Tender ___ Other (describe below) Sacrament/Intervention _x__ Active listening ___ Anointing ___ Orthodoxy ___ Bereavement ___ Communion ___ Nikkie exploration ___ _x__ Life review _x__ Prayer ___ Reconciliation ___ Sacrament of Sick ___ Supportive presence ___ Wedding ___ Other (describe below) Pastoral Comments
[2020-01-04] MEDS: Atorvastatin Calcium 40 MG Tablet PO (21:33)
[2020-01-04] MEDS: Mirtazapine 15 MG Tablet PO (21:33)
[2020-01-04 21:44] LABS: Vancomycin, Trough Level 21.2 ug/mL (5.0-15.0)
--- NOTE | 2020-01-04 22:27 | NURSING ---
0- vancomycin trough result back and called to pharmacy. OK to run miriam's dose per Juve in pharmacy.
--- NOTE | 2020-01-04 23:09 | PCM.RX.CS ---
Consult Pharmacy has been consulted to manage selected antiobiotic: Vancomycin Type of Consult: Follow-up Labs: Sodium 142 mmol/L (136-145) 12/31/19 05:10 Potassium 3.9 mmol/L (3.5-5.1) 12/31/19 05:10 Chloride 113 mmol/L (98-107) H 12/31/19 05:10 Carbon Dioxide 21.0 mmol/L (21.0-32.0) 12/31/19 05:10 Anion Gap 8 (5-15) 12/31/19 05:10 BUN 9 mg/dL (7-18) 12/31/19 05:10 Creatinine 0.56 mg/dL (0.55-1.02) 12/31/19 05:10 Est GFR (MDRD) Af Amer 135 mL/min (>60) 12/31/19 05:10 Est GFR (MDRD) Non-Af 111 mL/min (>60) 12/31/19 05:10 BUN/Creatinine Ratio 16.1 RATIO (10-20) 12/31/19 05:10 Glucose 85 mg/dL (74-106) 12/31/19 05:10 Vancomycin Trough 21.2 ug/mL (5.0-15.0) H 01/04/20 20:35 Goal Trough: 15-20 mcg/mL Pharmacy Plan for Drug Dosing: Pharmacy Service will continue to monitor and adjust dosing as required. TROUGH 21.2 HOLD NEXT DOSE AND DRAW RANDOM LEVEL Follow-Up Labs: Trough Vancomycin Labs to be done on [date and time ordered]: 01/04 @ 2030
[2020-01-05] MEDS: Polyethylene Glycol 3350 17 GM PACKET PO (05:27)
[2020-01-05] MEDS: Furosemide 40 MG Tablet PO (05:27)
[2020-01-05] MEDS: Enoxaparin 80 MG/0.8 ML Syringe 70 MG SC (05:27)
[2020-01-05] MEDS: Menthol/Lanolin/Calamine/Znox 113 GM Tube 1 APPLIC TOPICAL ×2 (05:28→17:12)
[2020-01-05] MEDS: Tolterodine Tartrate 2 MG CAP.SA PO (05:28)
[2020-01-05] MEDS: Senna/Docusate Sodium 1 Tablet PO ×2 (05:28→17:11)
[2020-01-05] MEDS: Sertraline 50 MG Tablet PO (05:28)
[2020-01-05 05:29] VITALS: BP 134/80; PULSE 82; RESP 18; TEMP 35.8; O2SAT 92
[2020-01-05 05:52] LABS: International Normalized Ratio 2.1; Prothrombin Time (Protime)PT. 23.3 SECONDS (11.7-14.9)
[2020-01-05 06:20] LABS: AST(SGOT) 29 U/L (15-37); Alanine Aminotransfer ALT/SGPT 25 U/L (13-56); Albumin, Serum 2.8 g/dL (3.2-5.0); Alkaline Phosphatase 92 U/L (45-117); Bilirubin, Direct 0.12 mg/dL (0.00-0.30); Globulin 3.1 g/dL (2.2-4.2); Protein, Total 5.9 g/dL (6.4-8.2)
[2020-01-05] MEDS: Gabapentin 300 MG Capsule PO ×3 (07:58→17:11)
[2020-01-05] MEDS: Iron Polysaccharide Complex 150 MG CAPSULE PO (07:58)
[2020-01-05] MEDS: 0.9% Saline Lock 10 ML Syringe IV ×3 (09:20→21:14)
--- NOTE | 2020-01-05 10:44 | CASEMGMT ---
Social Work IDT met with patient, son and DIL via conference call for care plan meeting. Discussed patient's progress in therapy. Pt is SBA for bed mobility, transfers, walking 135 ft with FWW, supervised for UE bathing/dressing, min assist for LE bathing, SBA for LE dressing, CGA for transfers. Pt has lower back gets tired and painful and cannot stand as long, but right leg is getting stronger. ST working on external memory strategies, problem solving, accuracy for increased safety awareness and with written directions. Pt is on a regular, soft/thin diet, good intake, weight is stable. Pt enjoys reading and completing word searches. Activities will continue with 1:1 visits. Pt is on IV ATBs Q8 and Q12 until 02/08. Pt is out of room isolation until 01/11. Explained [employer] insurance with NRD 01/09 and continued stay is not guaranteed. The goal is for pt to remain until end of IVs since nor pt is able to administer. Will continue to follow. Bren Garcia, PLATE MOLDER ETHNOGRAPHIC MATERIALS CONSERVATOR
[2020-01-05 14:33] VITALS: BP 124/73; PULSE 91; RESP 17; TEMP 37.4; O2SAT 98
--- NOTE | 2020-01-05 14:34 | PCM.PN.ID ---
Patient Problems: Active and Suspected Problems Debility (Acute) Toxic encephalopathy (Acute) Stroke (Acute) Subjective: Feeling well, no fever, no n/v/d. - Physical Exam Vitals/I&O's: Vital Signs Temp Pulse Resp BP Pulse Ox 96.4 F L 82 18 134/80 H 92 01/05/20 05:29 01/05/20 05:29 01/05/20 05:29 01/05/20 05:29 01/05/20 05:29 Oxygen Delivery Method Room Air Weight: 63.588 kg Body Mass Index (BMI) 27.3 Finger Stick Blood Glucose 106 Intake and Output for Last 24 Hours 01/03/20 01/04/20 01/05/20 23:59 23:59 23:59 Intake Total 1430 / 1430 1250 / 1250 560 / 560 Balance 1430 / 1430 1250 / 1250 560 / 560 General: Alert, Cooperative, No apparent distress Lungs: Clear to auscultation, Normal air movement Cardiovascular: Regular rate, Regular Rhythm Abdomen: Soft, Non Tender, Non-Distended Skin: No rashes Musculoskeletal: - - no spine tenderness Laboratory Results 01/04/20 20:35: Vancomycin Trough 21.2 H 01/05/20 05:15: Total Bilirubin 0.30, Direct Bilirubin 0.12, AST 29, ALT 25, Alkaline Phosphatase 92, Total Protein 5.9 L, Albumin 2.8 L, Globulin 3.1 01/05/20 05:15: PT 23.3 H, INR 2.1 Current Medications Acetaminophen (Tylenol) 1,000 mg PO Q6H PRN PRN PRN Reason: Pain Score 1-10/10 Atorvastatin Calcium (Lipitor) 40 mg PO DAILY@2200 [facility] Last Admin: 01/04/20 21:33 Dose: 40 mg Documented by: Bisacodyl (Dulcolax) 10 mg PO DAILY PRN PRN Reason: Constipation Calamine/Phenol (Calmoseptine Ointment) 1 applic TOPICAL BID [facility]; Protocol Last Admin: 01/05/20 05:28 Dose: 1 applicatio Documented by: Furosemide (Lasix) 40 mg PO DAILY [facility] Last Admin: 01/05/20 05:27 Dose: 40 mg Documented by: Gabapentin (Neurontin) 300 mg PO TIDCM [facility] Last Admin: 01/05/20 11:41 Dose: 300 mg Documented by: Heparin Sodium (Beef Lung) () 50 units IV UD PRN PRN Reason: PICC Line Heparin Flush Heparin Sodium (Beef Lung) () 50 units IV UD PRN PRN Reason: PICC Line Heparin Flush Meropenem 1 gm/ Sodium (Chloride) 100 mls @ 33 mls/hr IV Q8 [facility] Stop: 02/09/20 22:01 Last Admin: 01/05/20 13:48 Dose: 33 mls/hr Documented by: Vancomycin IV Pharmacy to Dose (1 ea/ Sodium Chloride) 500 mls @ 250 mls/hr IV X1 PRN; Protocol PRN Reason: Rx to Dose Melatonin (Melatonin) 5 mg PO QHS PRN PRN Reason: SLEEP Mirtazapine (Remeron) 15 mg PO DAILY@2200 [facility] Last Admin: 01/04/20 21:33 Dose: 15 mg Documented by: Multi-Ingredient Cream (Eucerin) 1 applic TOPICAL 0600,2200 [facility]; Protocol Last Admin: 01/05/20 05:28 Dose: 1 applicatio Documented by: Polyethylene Glycol (Miralax) 17 gm PO DAILY [facility] Last Admin: 01/05/20 05:27 Dose: 17 gm Documented by: Polysaccharide Iron Complex (Ferrex 150) [facility] Last Admin: 01/05/20 07:58 Dose: 150 mg Documented by: Potassium Chloride (K-Dur) [facility] Last Admin: 01/05/20 07:58 Dose: 20 meq Documented by: Senna/Docusate Sodium (Senokot-S, Karlene-Colace) 1 tablet PO BID [facility] Last Admin: 01/05/20 05:28 Dose: 1 tablet Documented by: Sertraline HCl (Zoloft) 50 mg PO DAILY [facility] Last Admin: 01/05/20 05:28 Dose: 50 mg Documented by: Sodium Chloride () 10 - 40 ml IV UD PRN PRN Reason: Open End PICC Flush Last Admin: 01/05/20 13:49 Dose: 20 ml Documented by: Sodium Chloride (0.9% Nacl (Sterile) Posiflush) 10 - 40 ml IV UD PRN PRN Reason: Port access or dressing change Sodium Chloride () 250 ml IV PRN PRN PRN Reason: secondary iv antibiotics Last Admin: 01/03/20 17:11 Dose: 250 ml Documented by: Sodium Chloride () 10 - 40 ml IV UD PRN PRN Reason: Open End PICC Flush Sodium Chloride (0.9% Nacl (Sterile) Posiflush) 10 - 40 ml IV UD PRN PRN Reason: Port access or dressing change Tolterodine Tartrate (Detrol La) 2 mg PO DAILY [facility] Last Admin: 01/05/20 05:28 Dose: 2 mg Documented by: Warfarin Sodium (Jantoven) 3 mg PO DAILY@1700 [facility] Last Admin: 01/04/20 16:22 Dose: 3 mg Documented by: Medical Necessity - Tobacco Use Smoking Status: Never smoker Tobacco Use: Non-smoker Route of nutrition/ use of supplements: [] Nutritional Intake: [] IV Site: [] Stanton Catheter: [] - Assessment/Plan Antibiotics: [] Assessment/Plan: [] Active and Suspected Problems Debility (Acute) Toxic encephalopathy (Acute) Stroke (Acute) Fever, normal wbc, altered mental status with concern for new stroke on 12/25 after completing empiric course of vanc/zohaib 12/20 for suspected bacterial meningitis after admission to [place]. Prior h/o CSF leak from laminectomy in the past few months. Now back on vanc/zohaib. CXR clear, UA clear, bcx neg so far. Mental status much improved, fever resolved except for one time temp last night. MRI now shows new occipital stroke. AHSAN showed no veg. Difficult to say what her infection is at this time with all her negative cxs, but it does seem that she has responded to iv abx. Plan now is iv vanc/zohaib for 6 weeks of treatment, stop date 02/09/20. Weekly bmp, cbc, LFT, and vanc trough. Certainly at risk for ongoing csf leak causing recurrent meningitis, so will need outpt neurosurgery followup with Dr. Alexandra. Will follow
[2020-01-05] MEDS: 0.9% Normal Saline 250 ML IV.SOLN. IV (21:14)
[2020-01-05] MEDS: Atorvastatin Calcium 40 MG Tablet PO (21:14)
[2020-01-05] MEDS: Mirtazapine 15 MG Tablet PO (21:14)
[2020-01-05 21:47] LABS: Vancomycin, Random Level 15.8 ug/mL (0.0-15.0)
[2020-01-05 22:09] VITALS: RESP 18
--- NOTE | 2020-01-05 23:55 | PCM.RX.CS ---
Consult Pharmacy has been consulted to manage selected antiobiotic: Vancomycin Type of Consult: Follow-up Suspected Infection: Sepsis, Other Prior Doses of Antibiotics Received/Current Regimen: Medications Vancomycin HCl 750 mg/ Sodium (Chloride) 265 mls @ 250 mls/hr IV Q24H [facility] Discontinued Medications Vancomycin HCl 750 mg/ Sodium (Chloride) 265 mls @ 250 mls/hr IV Q12H [facility] Stop: 01/05/20 01:00 Last Admin: 01/04/20 23:35 Dose: Infused Labs: Sodium 142 mmol/L (136-145) 12/31/19 05:10 Potassium 3.9 mmol/L (3.5-5.1) 12/31/19 05:10 Chloride 113 mmol/L (98-107) H 12/31/19 05:10 Carbon Dioxide 21.0 mmol/L (21.0-32.0) 12/31/19 05:10 Anion Gap 8 (5-15) 12/31/19 05:10 BUN 9 mg/dL (7-18) 12/31/19 05:10 Creatinine 0.56 mg/dL (0.55-1.02) 12/31/19 05:10 Est GFR (MDRD) Af Amer 135 mL/min (>60) 12/31/19 05:10 Est GFR (MDRD) Non-Af 111 mL/min (>60) 12/31/19 05:10 BUN/Creatinine Ratio 16.1 RATIO (10-20) 12/31/19 05:10 Glucose 85 mg/dL (74-106) 12/31/19 05:10 Vancomycin Trough 21.2 ug/mL (5.0-15.0) H 01/04/20 20:35 Random Vancomycin 15.8 ug/mL (0.0-15.0) H 01/05/20 20:40 Weight used for dosin.6 kg Estimated Creatinine Clearance: 35 Goal Trough: 15-20 mcg/mL Pharmacy Plan for Drug Dosing: After holding a dose due to high trough level, the 22-hr random level was within target range at 15.8. Will continue dosing at 750mg q24h and re-draw trough prior to 3rd dose of new regimen. Pharmacy Service will continue to monitor and adjust dosing as required. Follow-Up Labs: Trough Vancomycin Labs to be done on [date and time ordered]: 01/08/20 @7030
[2020-01-06 05:00] VITALS: BP 132/76; PULSE 79; RESP 18; TEMP 36.8; O2SAT 92
[2020-01-06] MEDS: Senna/Docusate Sodium 1 Tablet PO ×2 (05:09→16:44)
[2020-01-06] MEDS: Sertraline 50 MG Tablet PO (05:09)
[2020-01-06] MEDS: Polyethylene Glycol 3350 17 GM PACKET PO (05:09)
[2020-01-06] MEDS: Tolterodine Tartrate 2 MG CAP.SA PO (05:09)
[2020-01-06] MEDS: Furosemide 40 MG Tablet PO (05:09)
[2020-01-06] MEDS: Menthol/Lanolin/Calamine/Znox 113 GM Tube 1 APPLIC TOPICAL ×2 (05:10→16:43)
[2020-01-06 06:06] LABS: International Normalized Ratio 2.3; Prothrombin Time (Protime)PT. 24.5 SECONDS (11.7-14.9)
[2020-01-06 06:19] LABS: AST(SGOT) 32 U/L (15-37); Alanine Aminotransfer ALT/SGPT 28 U/L (13-56); Alkaline Phosphatase 100 U/L (45-117); Bilirubin, Direct 0.14 mg/dL (0.00-0.30); Globulin 3.4 g/dL (2.2-4.2); Protein, Total 6.4 g/dL (6.4-8.2)
[2020-01-06] MEDS: Gabapentin 300 MG Capsule PO ×3 (08:19→16:43)
[2020-01-06] MEDS: Iron Polysaccharide Complex 150 MG CAPSULE PO (08:19)
[2020-01-06] MEDS: 0.9% Saline Lock 10 ML Syringe IV ×3 (11:58→21:13)
--- NOTE | 2020-01-06 13:09 | CASEMGMT ---
Social Work BIMS and PHQ-9 completed for MDS assessment. Bren Garcia, SANDBLASTER SUPERVISOR PATIENT CARE SECRETARY
[2020-01-06 13:59] VITALS: BP 125/74; PULSE 88; RESP 16; TEMP 37; O2SAT 96
[2020-01-06] MEDS: Acetaminophen 500 MG Tablet 1000 MG PO (16:42)
[2020-01-06] MEDS: Atorvastatin Calcium 40 MG Tablet PO (21:10)
[2020-01-06] MEDS: Mirtazapine 15 MG Tablet PO (21:10)
[2020-01-06] MEDS: 0.9% Normal Saline 250 ML IV.SOLN. IV (21:13)
[2020-01-07 05:05] VITALS: BP 126/66; PULSE 79; RESP 18; TEMP 36.9; O2SAT 93
[2020-01-07] MEDS: Polyethylene Glycol 3350 17 GM PACKET PO (05:06)
[2020-01-07] MEDS: Senna/Docusate Sodium 1 Tablet PO ×2 (05:07→17:53)
[2020-01-07] MEDS: Furosemide 40 MG Tablet PO (05:07)
[2020-01-07] MEDS: Tolterodine Tartrate 2 MG CAP.SA PO (05:07)
[2020-01-07] MEDS: Sertraline 50 MG Tablet PO (05:07)
[2020-01-07] MEDS: Menthol/Lanolin/Calamine/Znox 113 GM Tube 1 APPLIC TOPICAL ×2 (05:09→18:22)
[2020-01-07 05:40] LABS: Absolute Lymphocyte Count 0.63 X10^3/uL (0.83-4.51); Absolute Neutrophil Count 2.8 X10^3/uL (2.0-7.7); Basophil# 0.05 X10^3/uL; Basophil% 1.1 % (0-1); Eosinophil# 0.41 X10^3/uL; Eosinophils% 9.4 % (0-5); Hematocrit 31.6 % (37-47); Hemoglobin 9.9 g/dL (12.0-15.0); Lymphocyte # 0.63 X10^3/ul (4.0); Lymphocyte % 14.4 % (19-41); Mean Corp Hgb Conc 31.3 g/dL (32-36); Mean Corpuscular Hgb 30.3 pg (27.0-32.0); Mean Corpuscular Volume 96.6 fL (81-99); Mean Platelet Vol. 9.2 fl (6.2-12.0); Monocyte# 0.45 X10^3/uL; Monocyte% 10.3 % (0-10); NRBC Flagged by Analyzer 0 % (0-5); Neutrophil # 2.82 X10^3/uL (2.7-7.7); Neutrophil % 64.3 % (47-70); Platelet Count 239 K/mm3 (150-450); RBC Distribution Width SD 52.5 fl (35.1-43.9); Red Blood Count 3.27 M/mm3 (4.2-5.4); White Blood Count 4.4 K/mm3 (4.4-11.0)
[2020-01-07 05:54] LABS: International Normalized Ratio 2.8; Prothrombin Time (Protime)PT. 29.2 SECONDS (11.7-14.9)
[2020-01-07 05:58] LABS: AST(SGOT) 37 U/L (15-37); Alanine Aminotransfer ALT/SGPT 32 U/L (13-56); Albumin, Serum 2.9 g/dL (3.2-5.0); Alkaline Phosphatase 101 U/L (45-117); Anion Gap 6 (5-15); BUN 13 mg/dL (7-18); BUN/Creat Ratio 21.8 RATIO (10-20); Bilirubin, Direct 0.12 mg/dL (0.00-0.30); Calcium,Total 8.9 mg/dL (8.5-10.1); Chloride 108 mmol/L (98-107); EST Glomerular Filtration Rate 104 mL/min (>60); Est Glom Filt Rate - Afr Amer 125 mL/min (>60); Estimated Creatinine Clearance 34.99 ml/min; Globulin 3.4 g/dL (2.2-4.2); Glucose 90 mg/dL (74-106); Potassium 4.1 mmol/L (3.5-5.1); Protein, Total 6.3 g/dL (6.4-8.2); Sodium Level 141 mmol/L (136-145)
[2020-01-07] MEDS: Gabapentin 300 MG Capsule PO ×3 (08:10→17:53)
[2020-01-07] MEDS: Iron Polysaccharide Complex 150 MG CAPSULE PO (08:10)
[2020-01-07] MEDS: 0.9% Saline Lock 10 ML Syringe IV ×2 (13:30→21:28)
[2020-01-07 13:55] VITALS: BP 127/76; PULSE 92; RESP 18; TEMP 36.7; O2SAT 96
--- NOTE | 2020-01-07 14:54 | NURSING ---
Pt's son Phillips called in and asked about pts appointment with Dr. Alexandra on the . He was wondering if pt could have a virtual visit instead of an in person appointment so pt would not have to restart her quarantine and hinder her therapy. This nurse contacted Dr. Alexandra's office and they stated they do not do virtual appointments, but that Phillips had already called in and there is currently a note out to Dr. Alexandra asking if they could postpone appointment until after pt discharges. Dr. Vazquez was made aware and stated he does not recommend postponing the appointment or doing anything virtual that the pt needs to be physically examined. Son Phillips was called and was educated on the importance of keeping and attending the appointment and he verbalized understanding. RN and Dr. Vazquez aware of conversation with Phillips.
[2020-01-07] MEDS: Mirtazapine 15 MG Tablet PO (21:22)
[2020-01-07] MEDS: Atorvastatin Calcium 40 MG Tablet PO (21:22)
[2020-01-07] MEDS: 0.9% Normal Saline 250 ML IV.SOLN. IV (21:26)
[2020-01-08 05:25] VITALS: BP 131/71; PULSE 86; RESP 16; TEMP 36.8; O2SAT 92
[2020-01-08] MEDS: Furosemide 40 MG Tablet PO (05:28)
[2020-01-08] MEDS: Polyethylene Glycol 3350 17 GM PACKET PO (05:28)
[2020-01-08] MEDS: Senna/Docusate Sodium 1 Tablet PO ×2 (05:28→16:45)
[2020-01-08] MEDS: Sertraline 50 MG Tablet PO (05:29)
[2020-01-08] MEDS: Tolterodine Tartrate 2 MG CAP.SA PO (05:29)
[2020-01-08] MEDS: 0.9% Saline Lock 10 ML Syringe IV ×3 (05:35→20:51)
[2020-01-08] MEDS: Menthol/Lanolin/Calamine/Znox 113 GM Tube 1 APPLIC TOPICAL ×2 (05:37→16:44)
[2020-01-08 07:58] LABS: Absolute Lymphocyte Count 0.89 X10^3/uL (0.83-4.51); Basophil# 0.06 X10^3/uL; Basophil% 1.2 % (0-1); Eosinophil# 0.39 X10^3/uL; Eosinophils% 8.1 % (0-5); Hematocrit 32.9 % (37-47); Hemoglobin 10.5 g/dL (12.0-15.0); Lymphocyte # 0.89 X10^3/ul (4.0); Lymphocyte % 18.5 % (19-41); Mean Corp Hgb Conc 31.9 g/dL (32-36); Mean Corpuscular Hgb 30.2 pg (27.0-32.0); Mean Corpuscular Volume 94.5 fL (81-99); Mean Platelet Vol. 9.4 fl (6.2-12.0); Monocyte# 0.51 X10^3/uL; Monocyte% 10.6 % (0-10); NRBC Flagged by Analyzer 0 % (0-5); Neutrophil # 2.95 X10^3/uL (2.7-7.7); Neutrophil % 61.4 % (47-70); Platelet Count 291 K/mm3 (150-450); RBC Distribution Width CV 14.9 % (11.6-14.6); RBC Distribution Width SD 50.7 fl (35.1-43.9); Red Blood Count 3.48 M/mm3 (4.2-5.4); White Blood Count 4.8 K/mm3 (4.4-11.0)
[2020-01-08] MEDS: Gabapentin 300 MG Capsule PO ×3 (08:00→16:43)
[2020-01-08] MEDS: Iron Polysaccharide Complex 150 MG CAPSULE PO (08:00)
[2020-01-08 08:09] LABS: Anion Gap 8 (5-15); BUN 15 mg/dL (7-18); BUN/Creat Ratio 25.9 RATIO (10-20); Calcium,Total 9.3 mg/dL (8.5-10.1); Chloride 107 mmol/L (98-107); Creatinine, Serum 0.58 mg/dL (0.55-1.02); EST Glomerular Filtration Rate 107 mL/min (>60); Est Glom Filt Rate - Afr Amer 129 mL/min (>60); Estimated Creatinine Clearance 34.99 ml/min; Glucose 90 mg/dL (74-106); International Normalized Ratio 2.8; Potassium 4.1 mmol/L (3.5-5.1); Prothrombin Time (Protime)PT. 29.4 SECONDS (11.7-14.9); Sodium Level 140 mmol/L (136-145)
[2020-01-08 08:21] LABS: Vancomycin, Trough Level 10.8 ug/mL (5.0-15.0)
--- NOTE | 2020-01-08 10:05 | PCM.RX.CS ---
Consult Pharmacy has been consulted to manage selected antiobiotic: Vancomycin Type of Consult: Follow-up Labs: Sodium 140 mmol/L (136-145) 01/08/20 07:20 Potassium 4.1 mmol/L (3.5-5.1) 01/08/20 07:20 Chloride 107 mmol/L (98-107) 01/08/20 07:20 Carbon Dioxide 25.0 mmol/L (21.0-32.0) 01/08/20 07:20 Anion Gap 8 (5-15) 01/08/20 07:20 BUN 15 mg/dL (7-18) 01/08/20 07:20 Creatinine 0.58 mg/dL (0.55-1.02) 01/08/20 07:20 Est GFR (MDRD) Af Amer 129 mL/min (>60) 01/08/20 07:20 Est GFR (MDRD) Non-Af 107 mL/min (>60) 01/08/20 07:20 BUN/Creatinine Ratio 25.9 RATIO (10-20) H 01/08/20 07:20 Glucose 90 mg/dL (74-106) 01/08/20 07:20 Vancomycin Trough 10.8 ug/mL (5.0-15.0) 01/08/20 07:20 Random Vancomycin 15.8 ug/mL (0.0-15.0) H 01/05/20 20:40 Goal Trough: 15-20 mcg/mL Pharmacy Plan for Drug Dosing: VANCOMYCIN LEVEL RECEIVED Current Vancomycin Dose: 750mg IV Q24hr Number of Doses Received: 3 Vancomycin Level: 10.8 (Goal 15-20) Hours Since Last Dose: 22.5 Renal Function: 0.58 Renal Function Trend: stable; improved since admission Vancomycin Plan/Comments: Patient trough drawn = 10.8 (22.5hrs from last admin). Goal 15-20. Will increase daily dose to 1250mg IV Q24hr (Estimated trough per global RPh = 16.5). Dose of 750mg already admin 01/07. Will give supplemental 750mg dose x1 for 01/07 for total daily dose of 1250mg. Start 1250mg IV Q24hr dosing on 01/09/20. Trough prior to 3rd dose of new regimen per protocol. Pending Level: 01/10/20 @0930 Pharmacy Service will continue to monitor and adjust dosing as required.
[2020-01-08 12:28] VITALS: PULSE 86; RESP 16; O2SAT 95
[2020-01-08 14:16] VITALS: BP 124/74; PULSE 87; RESP 18; TEMP 36.7; O2SAT 95
[2020-01-08] MEDS: Mirtazapine 15 MG Tablet PO (20:50)
[2020-01-08] MEDS: Atorvastatin Calcium 40 MG Tablet PO (20:50)
[2020-01-09] MEDS: Furosemide 40 MG Tablet PO (05:30)
[2020-01-09] MEDS: Sertraline 50 MG Tablet PO (05:30)
[2020-01-09] MEDS: 0.9% Saline Lock 10 ML Syringe IV (05:30)
[2020-01-09] MEDS: Senna/Docusate Sodium 1 Tablet PO ×2 (05:30→17:32)
[2020-01-09] MEDS: Polyethylene Glycol 3350 17 GM PACKET PO (05:30)
[2020-01-09] MEDS: Tolterodine Tartrate 2 MG CAP.SA PO (05:30)
[2020-01-09] MEDS: Menthol/Lanolin/Calamine/Znox 113 GM Tube 1 APPLIC TOPICAL ×2 (05:31→17:31)
[2020-01-09 05:38] VITALS: BP 114/64; PULSE 91; RESP 18; TEMP 37.1; O2SAT 92
[2020-01-09 06:23] LABS: Absolute Lymphocyte Count 0.81 X10^3/uL (0.83-4.51); Absolute Neutrophil Count 3.1 X10^3/uL (2.0-7.7); Basophil# 0.05 X10^3/uL; Eosinophil# 0.41 X10^3/uL; Eosinophils% 8.5 % (0-5); Hematocrit 29.9 % (37-47); Hemoglobin 9.6 g/dL (12.0-15.0); Lymphocyte # 0.81 X10^3/ul (4.0); Lymphocyte % 16.9 % (19-41); Mean Corp Hgb Conc 32.1 g/dL (32-36); Mean Corpuscular Hgb 30.6 pg (27.0-32.0); Mean Corpuscular Volume 95.2 fL (81-99); Mean Platelet Vol. 8.9 fl (6.2-12.0); Monocyte# 0.43 X10^3/uL; NRBC Flagged by Analyzer 0 % (0-5); Neutrophil # 3.09 X10^3/uL (2.7-7.7); Neutrophil % 64.4 % (47-70); Platelet Count 233 K/mm3 (150-450); RBC Distribution Width CV 15.2 % (11.6-14.6); RBC Distribution Width SD 52.2 fl (35.1-43.9); Red Blood Count 3.14 M/mm3 (4.2-5.4); White Blood Count 4.8 K/mm3 (4.4-11.0)
[2020-01-09 06:50] LABS: Anion Gap 8 (5-15); BUN 15 mg/dL (7-18); BUN/Creat Ratio 21.2 RATIO (10-20); Calcium,Total 9.2 mg/dL (8.5-10.1); Chloride 110 mmol/L (98-107); Creatinine, Serum 0.71 mg/dL (0.55-1.02); EST Glomerular Filtration Rate 85 mL/min (>60); Est Glom Filt Rate - Afr Amer 102 mL/min (>60); Estimated Creatinine Clearance 34.99 ml/min; Glucose 109 mg/dL (74-106); Potassium 3.8 mmol/L (3.5-5.1); Sodium Level 143 mmol/L (136-145)
[2020-01-09] MEDS: Iron Polysaccharide Complex 150 MG CAPSULE PO (07:37)
[2020-01-09] MEDS: Gabapentin 300 MG Capsule PO ×3 (07:37→17:31)
[2020-01-09 15:46] VITALS: BP 145/76; PULSE 90; RESP 16; TEMP 36.8; O2SAT 95
[2020-01-09] MEDS: Mirtazapine 15 MG Tablet PO (21:03)
[2020-01-09] MEDS: Atorvastatin Calcium 40 MG Tablet PO (21:03)
[2020-01-10 04:00] VITALS: BP 114/71; PULSE 93; RESP 16; TEMP 37.4; O2SAT 95
[2020-01-10] MEDS: Tolterodine Tartrate 2 MG CAP.SA PO (05:19)
[2020-01-10] MEDS: 0.9% Saline Lock 10 ML Syringe IV ×5 (05:19→21:53)
[2020-01-10] MEDS: Polyethylene Glycol 3350 17 GM PACKET PO (05:19)
[2020-01-10] MEDS: Senna/Docusate Sodium 1 Tablet PO ×2 (05:19→18:15)
[2020-01-10] MEDS: Furosemide 40 MG Tablet PO (05:19)
[2020-01-10] MEDS: Sertraline 50 MG Tablet PO (05:19)
[2020-01-10] MEDS: Menthol/Lanolin/Calamine/Znox 113 GM Tube 1 APPLIC TOPICAL ×2 (05:20→18:17)
[2020-01-10 06:12] LABS: Absolute Lymphocyte Count 0.77 X10^3/uL (0.83-4.51); Absolute Neutrophil Count 2.8 X10^3/uL (2.0-7.7); Basophil# 0.05 X10^3/uL; Basophil% 1.1 % (0-1); Eosinophil# 0.36 X10^3/uL; Hemoglobin 9.7 g/dL (12.0-15.0); Lymphocyte # 0.77 X10^3/ul (4.0); Lymphocyte % 17.1 % (19-41); Mean Corp Hgb Conc 32.3 g/dL (32-36); Mean Corpuscular Hgb 30.6 pg (27.0-32.0); Mean Corpuscular Volume 94.6 fL (81-99); Mean Platelet Vol. 9.5 fl (6.2-12.0); Monocyte# 0.52 X10^3/uL; Monocyte% 11.6 % (0-10); NRBC Flagged by Analyzer 0 % (0-5); Neutrophil # 2.79 X10^3/uL (2.7-7.7); Platelet Count 257 K/mm3 (150-450); RBC Distribution Width CV 14.9 % (11.6-14.6); RBC Distribution Width SD 51.3 fl (35.1-43.9); Red Blood Count 3.17 M/mm3 (4.2-5.4); White Blood Count 4.5 K/mm3 (4.4-11.0)
[2020-01-10 06:16] LABS: Prothrombin Time (Protime)PT. 39.3 SECONDS (11.7-14.9)
[2020-01-10 06:23] LABS: International Normalized Ratio 4.1
[2020-01-10 06:28] LABS: Anion Gap 7 (5-15); BUN 18 mg/dL (7-18); BUN/Creat Ratio 29.2 RATIO (10-20); Calcium,Total 8.9 mg/dL (8.5-10.1); Chloride 110 mmol/L (98-107); Creatinine, Serum 0.62 mg/dL (0.55-1.02); EST Glomerular Filtration Rate 99 mL/min (>60); Est Glom Filt Rate - Afr Amer 120 mL/min (>60); Estimated Creatinine Clearance 34.99 ml/min; Glucose 94 mg/dL (74-106); Potassium 4.1 mmol/L (3.5-5.1); Sodium Level 141 mmol/L (136-145)
[2020-01-10] MEDS: Iron Polysaccharide Complex 150 MG CAPSULE PO (08:21)
[2020-01-10] MEDS: Gabapentin 300 MG Capsule PO ×3 (08:21→18:15)
--- NOTE | 2020-01-10 09:51 | MDS.RN ---
Information for the mds was obtained from review of the clinical record, interview of resident, staff, and direct observation of resident's care.
[2020-01-10 09:53] LABS: Vancomycin, Trough Level 12.9 ug/mL (5.0-15.0)
[2020-01-10 10:30] VITALS: PULSE 92; RESP 18; O2SAT 96
[2020-01-10 14:18] VITALS: BP 121/67; PULSE 89; RESP 17; TEMP 36.8; O2SAT 96
--- NOTE | 2020-01-10 14:39 | PCM.RX.CS ---
Consult Pharmacy has been consulted to manage selected antiobiotic: Vancomycin Type of Consult: Follow-up Suspected Infection: Sepsis, Other Prior Doses of Antibiotics Received/Current Regimen: 1250mg iv q24h Labs: Sodium 141 mmol/L (136-145) 01/10/20 05:21 Potassium 4.1 mmol/L (3.5-5.1) 01/10/20 05:21 Chloride 110 mmol/L (98-107) H 01/10/20 05:21 Carbon Dioxide 24.0 mmol/L (21.0-32.0) 01/10/20 05:21 Anion Gap 7 (5-15) 01/10/20 05:21 BUN 18 mg/dL (7-18) 01/10/20 05:21 Creatinine 0.62 mg/dL (0.55-1.02) 01/10/20 05:21 Est GFR (MDRD) Af Amer 120 mL/min (>60) 01/10/20 05:21 Est GFR (MDRD) Non-Af 99 mL/min (>60) 01/10/20 05:21 BUN/Creatinine Ratio 29.2 RATIO (10-20) H 01/10/20 05:21 Glucose 94 mg/dL (74-106) 01/10/20 05:21 Vancomycin Trough 12.9 ug/mL (5.0-15.0) 01/10/20 09:15 Random Vancomycin 15.8 ug/mL (0.0-15.0) H 01/05/20 20:40 Weight used for dosin.6 kg Estimated Creatinine Clearance: 35ml/min Goal Trough: 15-20 mcg/mL Pharmacy Plan for Drug Dosing: Renal function reviewed, about same. Vanco trough today 12.9 (23.5 hrs post dose). Will get another trough level on 01.11.20 to see if reaches goal range (15-20 mcg/ml). Pharmacy Service will continue to monitor and adjust dosing as required. Follow-Up Labs: Trough Vancomycin - 01.11.20 @0930 before 1000 dose
--- NOTE | 2020-01-10 15:59 | NURSING ---
pt talking to family on phone and updating them.
--- NOTE | 2020-01-10 18:05 | NURSING ---
SON CALLED IN AND STATED FRIDAY APPOINTMENT WITH DR. BACA WAS CANCELED DUE TO THE WANTING SOME TEST DONE BEFORE SEEING PATIENT AND THAT DR. BACA WILL CALL . REPORTED TO HAYLEY.
[2020-01-10] MEDS: Warfarin 0.5 MG Tablet 1.5 MG PO (18:15)
[2020-01-10] MEDS: Mirtazapine 15 MG Tablet PO (21:51)
[2020-01-10] MEDS: Atorvastatin Calcium 40 MG Tablet PO ×2 (21:51)
[2020-01-11] MEDS: 0.9% Saline Lock 10 ML Syringe IV ×5 (01:05→13:59)
[2020-01-11 05:48] VITALS: BP 122/71; PULSE 86; RESP 16; TEMP 36.6; O2SAT 95
[2020-01-11 05:50] LABS: Absolute Lymphocyte Count 0.81 X10^3/uL (0.83-4.51); Absolute Neutrophil Count 2.6 X10^3/uL (2.0-7.7); Basophil# 0.06 X10^3/uL; Basophil% 1.4 % (0-1); Eosinophil# 0.37 X10^3/uL; Eosinophils% 8.5 % (0-5); Hematocrit 28.6 % (37-47); Hemoglobin 9.3 g/dL (12.0-15.0); Lymphocyte # 0.81 X10^3/ul (4.0); Lymphocyte % 18.5 % (19-41); Mean Corp Hgb Conc 32.5 g/dL (32-36); Mean Corpuscular Volume 95.3 fL (81-99); Mean Platelet Vol. 9.5 fl (6.2-12.0); Monocyte# 0.57 X10^3/uL; NRBC Flagged by Analyzer 0 % (0-5); Neutrophil # 2.55 X10^3/uL (2.7-7.7); Neutrophil % 58.4 % (47-70); Platelet Count 232 K/mm3 (150-450); RBC Distribution Width CV 15.3 % (11.6-14.6); RBC Distribution Width SD 52.6 fl (35.1-43.9); White Blood Count 4.4 K/mm3 (4.4-11.0)
[2020-01-11] MEDS: Senna/Docusate Sodium 1 Tablet PO ×2 (05:54→16:49)
[2020-01-11] MEDS: Polyethylene Glycol 3350 17 GM PACKET PO (05:54)
[2020-01-11] MEDS: Furosemide 40 MG Tablet PO (05:54)
[2020-01-11] MEDS: Sertraline 50 MG Tablet PO (05:54)
[2020-01-11] MEDS: Tolterodine Tartrate 2 MG CAP.SA PO (05:54)
[2020-01-11 05:55] LABS: Prothrombin Time (Protime)PT. 35.7 SECONDS (11.7-14.9)
[2020-01-11] MEDS: Menthol/Lanolin/Calamine/Znox 113 GM Tube 1 APPLIC TOPICAL ×2 (05:55→16:50)
[2020-01-11 05:59] LABS: International Normalized Ratio 3.6
[2020-01-11 06:10] LABS: Anion Gap 7 (5-15); BUN 14 mg/dL (7-18); BUN/Creat Ratio 22.4 RATIO (10-20); Calcium,Total 8.9 mg/dL (8.5-10.1); Chloride 110 mmol/L (98-107); Creatinine, Serum 0.62 mg/dL (0.55-1.02); EST Glomerular Filtration Rate 98 mL/min (>60); Est Glom Filt Rate - Afr Amer 119 mL/min (>60); Estimated Creatinine Clearance 34.99 ml/min; Glucose 95 mg/dL (74-106); Potassium 4.1 mmol/L (3.5-5.1); Sodium Level 142 mmol/L (136-145)
[2020-01-11] MEDS: Iron Polysaccharide Complex 150 MG CAPSULE PO (08:13)
[2020-01-11] MEDS: Gabapentin 300 MG Capsule PO ×3 (08:14→16:51)
[2020-01-11 14:33] VITALS: BP 117/100; PULSE 58; RESP 20; TEMP 36.7
--- NOTE | 2020-01-11 16:38 | NURSING ---
Update provided to family.
[2020-01-11] MEDS: Warfarin 0.5 MG Tablet 1.5 MG PO (16:49)
[2020-01-11] MEDS: Mirtazapine 15 MG Tablet PO (21:19)
[2020-01-12 05:25] VITALS: BP 116/66; PULSE 83; RESP 18; TEMP 36.9; O2SAT 93
[2020-01-12] MEDS: Polyethylene Glycol 3350 17 GM PACKET PO (05:30)
[2020-01-12] MEDS: Tolterodine Tartrate 2 MG CAP.SA PO (05:31)
[2020-01-12] MEDS: 0.9% Saline Lock 10 ML Syringe IV ×5 (05:31→23:20)
[2020-01-12] MEDS: Furosemide 40 MG Tablet PO (05:31)
[2020-01-12] MEDS: Senna/Docusate Sodium 1 Tablet PO ×2 (05:31→17:11)
[2020-01-12] MEDS: Sertraline 50 MG Tablet PO (05:31)
[2020-01-12] MEDS: 0.9% Normal Saline 250 ML IV.SOLN. IV (05:32)
[2020-01-12] MEDS: Menthol/Lanolin/Calamine/Znox 113 GM Tube 1 APPLIC TOPICAL ×2 (05:39→17:12)
[2020-01-12 05:54] LABS: Absolute Lymphocyte Count 0.71 X10^3/uL (0.83-4.51); Absolute Neutrophil Count 2.7 X10^3/uL (2.0-7.7); Basophil# 0.07 X10^3/uL; Basophil% 1.6 % (0-1); Eosinophil# 0.39 X10^3/uL; Eosinophils% 8.9 % (0-5); Hematocrit 29.1 % (37-47); Hemoglobin 9.1 g/dL (12.0-15.0); Lymphocyte # 0.71 X10^3/ul (4.0); Lymphocyte % 16.2 % (19-41); Mean Corp Hgb Conc 31.3 g/dL (32-36); Mean Platelet Vol. 8.9 fl (6.2-12.0); Monocyte# 0.51 X10^3/uL; Monocyte% 11.6 % (0-10); NRBC Flagged by Analyzer 0 % (0-5); Neutrophil % 61.5 % (47-70); Platelet Count 216 K/mm3 (150-450); RBC Distribution Width CV 15.3 % (11.6-14.6); RBC Distribution Width SD 53.3 fl (35.1-43.9); Red Blood Count 3.03 M/mm3 (4.2-5.4); White Blood Count 4.4 K/mm3 (4.4-11.0)
[2020-01-12 06:02] LABS: Prothrombin Time (Protime)PT. 35.4 SECONDS (11.7-14.9)
[2020-01-12 06:04] LABS: International Normalized Ratio 3.6
[2020-01-12 06:25] LABS: Anion Gap 7 (5-15); BUN 14 mg/dL (7-18); BUN/Creat Ratio 22.2 RATIO (10-20); Calcium,Total 9.1 mg/dL (8.5-10.1); Chloride 110 mmol/L (98-107); Creatinine, Serum 0.63 mg/dL (0.55-1.02); EST Glomerular Filtration Rate 97 mL/min (>60); Est Glom Filt Rate - Afr Amer 117 mL/min (>60); Estimated Creatinine Clearance 34.99 ml/min; Glucose 83 mg/dL (74-106); Sodium Level 142 mmol/L (136-145)
[2020-01-12] MEDS: Iron Polysaccharide Complex 150 MG CAPSULE PO (07:54)
[2020-01-12] MEDS: Gabapentin 300 MG Capsule PO ×3 (07:54→17:11)
[2020-01-12 09:27] VITALS: PULSE 100; RESP 16; O2SAT 95
--- NOTE | 2020-01-12 11:43 | PCM.RX.CS ---
Consult Pharmacy has been consulted to manage selected antiobiotic: Vancomycin Type of Consult: Follow-up Suspected Infection: Sepsis, Other Prior Doses of Antibiotics Received/Current Regimen: Currently on 1250mg iv q24h. Labs: Sodium 142 mmol/L (136-145) 01/12/20 05:22 Potassium 4.0 mmol/L (3.5-5.1) 01/12/20 05:22 Chloride 110 mmol/L (98-107) H 01/12/20 05:22 Carbon Dioxide 25.0 mmol/L (21.0-32.0) 01/12/20 05:22 Anion Gap 7 (5-15) 01/12/20 05:22 BUN 14 mg/dL (7-18) 01/12/20 05:22 Creatinine 0.63 mg/dL (0.55-1.02) 01/12/20 05:22 Est GFR (MDRD) Af Amer 117 mL/min (>60) 01/12/20 05:22 Est GFR (MDRD) Non-Af 97 mL/min (>60) 01/12/20 05:22 BUN/Creatinine Ratio 22.2 RATIO (10-20) H 01/12/20 05:22 Glucose 83 mg/dL (74-106) 01/12/20 05:22 Vancomycin Trough 14.0 ug/mL (5.0-15.0) 01/12/20 09:24 Random Vancomycin 15.8 ug/mL (0.0-15.0) H 01/05/20 20:40 Weight used for dosin kg Estimated Creatinine Clearance: ~35ml/min Goal Trough: 15-20 mcg/mL Pharmacy Plan for Drug Dosing: Trough today was 14.0 (goal range 15-20). Trough has been trending up, was 12.9 on 01.09. Nurse called 6.16 to say found ..20 bag incompletely infused. Based on this, will not increase dose at this time and get another trough level on 01.14.20. Pharmacy Service will continue to monitor and adjust dosing as required. Follow-Up Labs: Trough Vancomycin - 01.13.20 @0930 before 1000 dose
--- NOTE | 2020-01-12 13:49 | NURSING ---
Addendum entered by Joanne Tinoco 01/12/20 16:25: insurance called back and stated no preauth required. Nuclear med updated by message, awaiting return call. Original Note: Dr Alexandra wanting WBC scan to for occult infection per Dr alejandra. Preauth started for insurance. pt aware and updating son.
[2020-01-12 13:57] VITALS: BP 136/74; PULSE 89; RESP 18; TEMP 36.8; O2SAT 95
--- NOTE | 2020-01-12 17:02 | NURSING ---
dr alejandra aware of INR 3.6, warfarin decreased.
[2020-01-12] MEDS: Mirtazapine 15 MG Tablet PO (21:34)
[2020-01-12] MEDS: Atorvastatin Calcium 40 MG Tablet PO (21:34)
[2020-01-13 06:03] LABS: Absolute Lymphocyte Count 0.76 X10^3/uL (0.83-4.51); Absolute Neutrophil Count 2.5 X10^3/uL (2.0-7.7); Basophil# 0.06 X10^3/uL; Basophil% 1.4 % (0-1); Eosinophils% 9.6 % (0-5); Hematocrit 29.3 % (37-47); Hemoglobin 9.2 g/dL (12.0-15.0); Lymphocyte # 0.76 X10^3/ul (4.0); Lymphocyte % 18.2 % (19-41); Mean Corp Hgb Conc 31.4 g/dL (32-36); Mean Corpuscular Hgb 30.1 pg (27.0-32.0); Mean Corpuscular Volume 95.8 fL (81-99); Mean Platelet Vol. 9.4 fl (6.2-12.0); Monocyte# 0.48 X10^3/uL; Monocyte% 11.5 % (0-10); NRBC Flagged by Analyzer 0 % (0-5); Neutrophil # 2.47 X10^3/uL (2.7-7.7); Neutrophil % 59.3 % (47-70); Platelet Count 230 K/mm3 (150-450); RBC Distribution Width CV 14.9 % (11.6-14.6); RBC Distribution Width SD 51.9 fl (35.1-43.9); Red Blood Count 3.06 M/mm3 (4.2-5.4); White Blood Count 4.2 K/mm3 (4.4-11.0)
[2020-01-13 06:17] LABS: International Normalized Ratio 2.9; Prothrombin Time (Protime)PT. 30.1 SECONDS (11.7-14.9)
[2020-01-13 06:30] LABS: Anion Gap 7 (5-15); BUN 14 mg/dL (7-18); BUN/Creat Ratio 23.5 RATIO (10-20); Chloride 110 mmol/L (98-107); EST Glomerular Filtration Rate 103 mL/min (>60); Est Glom Filt Rate - Afr Amer 125 mL/min (>60); Estimated Creatinine Clearance 34.99 ml/min; Glucose 99 mg/dL (74-106); Sodium Level 142 mmol/L (136-145)
[2020-01-13] MEDS: Senna/Docusate Sodium 1 Tablet PO ×2 (07:09→16:20)
[2020-01-13] MEDS: Tolterodine Tartrate 2 MG CAP.SA PO (07:09)
[2020-01-13] MEDS: Furosemide 40 MG Tablet PO (07:09)
[2020-01-13] MEDS: Sertraline 50 MG Tablet PO (07:10)
[2020-01-13] MEDS: Polyethylene Glycol 3350 17 GM PACKET PO (07:10)
[2020-01-13] MEDS: Gabapentin 300 MG Capsule PO ×3 (07:10→16:20)
[2020-01-13] MEDS: Menthol/Lanolin/Calamine/Znox 113 GM Tube 1 APPLIC TOPICAL ×2 (07:11→16:23)
[2020-01-13 07:18] VITALS: BP 143/78; PULSE 83; RESP 18; TEMP 36.6; O2SAT 94
[2020-01-13] MEDS: Iron Polysaccharide Complex 150 MG CAPSULE PO (08:00)
[2020-01-13] MEDS: 0.9% Saline Lock 10 ML Syringe IV ×2 (10:59→21:39)
--- NOTE | 2020-01-13 12:26 | NURSING ---
Son, called in, updated on WBC scan tomorrow.
[2020-01-13 14:21] VITALS: BP 130/61; PULSE 97; RESP 17; TEMP 36.8; O2SAT 98
[2020-01-13] MEDS: Warfarin 0.5 MG Tablet PO (16:22)
[2020-01-13 19:37] VITALS: PULSE 78; RESP 17; O2SAT 96
[2020-01-13] MEDS: Atorvastatin Calcium 40 MG Tablet PO (21:43)
[2020-01-13] MEDS: Mirtazapine 15 MG Tablet PO (21:44)
[2020-01-14 06:13] VITALS: BP 128/70; PULSE 82; RESP 16; TEMP 37; O2SAT 92
[2020-01-14] MEDS: Menthol/Lanolin/Calamine/Znox 113 GM Tube 1 APPLIC TOPICAL ×2 (06:15→17:04)
[2020-01-14] MEDS: Tolterodine Tartrate 2 MG CAP.SA PO (06:16)
[2020-01-14] MEDS: Senna/Docusate Sodium 1 Tablet PO ×3 (06:16→17:00)
[2020-01-14] MEDS: Furosemide 40 MG Tablet PO (06:16)
[2020-01-14] MEDS: Sertraline 50 MG Tablet PO (06:16)
[2020-01-14] MEDS: Polyethylene Glycol 3350 17 GM PACKET PO (06:16)
[2020-01-14] MEDS: 0.9% Normal Saline 250 ML IV.SOLN. IV (06:17)
[2020-01-14] MEDS: 0.9% Saline Lock 10 ML Syringe IV ×2 (06:24→21:38)
[2020-01-14] MEDS: Gabapentin 300 MG Capsule PO ×3 (07:14→17:01)
[2020-01-14] MEDS: Iron Polysaccharide Complex 150 MG CAPSULE PO (08:31)
[2020-01-14 10:41] LABS: Vancomycin, Trough Level 14.3 ug/mL (5.0-15.0)
--- NOTE | 2020-01-14 11:31 | PCM.RX.CS ---
Consult Pharmacy has been consulted to manage selected antiobiotic: Vancomycin Type of Consult: Follow-up Labs: Sodium 142 mmol/L (136-145) 01/13/20 05:36 Potassium 4.0 mmol/L (3.5-5.1) 01/13/20 05:36 Chloride 110 mmol/L (98-107) H 01/13/20 05:36 Carbon Dioxide 25.0 mmol/L (21.0-32.0) 01/13/20 05:36 Anion Gap 7 (5-15) 01/13/20 05:36 BUN 14 mg/dL (7-18) 01/13/20 05:36 Creatinine 0.60 mg/dL (0.55-1.02) 01/13/20 05:36 Est GFR (MDRD) Af Amer 125 mL/min (>60) 01/13/20 05:36 Est GFR (MDRD) Non-Af 103 mL/min (>60) 01/13/20 05:36 BUN/Creatinine Ratio 23.5 RATIO (10-20) H 01/13/20 05:36 Glucose 99 mg/dL (74-106) 01/13/20 05:36 Vancomycin Trough 14.3 ug/mL (5.0-15.0) 01/14/20 09:55 Random Vancomycin 15.8 ug/mL (0.0-15.0) H 01/05/20 20:40 Goal Trough: 15-20 mcg/mL Pharmacy Plan for Drug Dosing: Trough remains below goal. Increase vancomycin to 1500mg IV q24h, recheck after 2 days. Pharmacy Service will continue to monitor and adjust dosing as required. Follow-Up Labs: Trough Vancomycin - 01/16 @ 5746
[2020-01-14 14:47] VITALS: BP 148/84; PULSE 94; RESP 17; TEMP 36.9; O2SAT 97
[2020-01-14] MEDS: Bisacodyl 5 MG Tablet 10 MG PO (14:49)
[2020-01-14] MEDS: Warfarin 0.5 MG Tablet PO (17:01)
[2020-01-14] MEDS: Atorvastatin Calcium 40 MG Tablet PO (21:40)
[2020-01-14] MEDS: Mirtazapine 15 MG Tablet PO (21:41)
[2020-01-15 04:00] VITALS: BP 147/83; PULSE 80; RESP 16; TEMP 37.3; O2SAT 99
[2020-01-15] MEDS: Polyethylene Glycol 3350 17 GM PACKET PO (05:04)
[2020-01-15] MEDS: Tolterodine Tartrate 2 MG CAP.SA PO (05:06)
[2020-01-15] MEDS: Sertraline 50 MG Tablet PO (05:06)
[2020-01-15] MEDS: Senna/Docusate Sodium 1 Tablet PO (05:06)
[2020-01-15] MEDS: Furosemide 40 MG Tablet PO (05:06)
[2020-01-15] MEDS: Menthol/Lanolin/Calamine/Znox 113 GM Tube 1 APPLIC TOPICAL ×2 (05:07→17:07)
[2020-01-15] MEDS: Gabapentin 300 MG Capsule PO ×3 (08:51→17:05)
[2020-01-15] MEDS: Iron Polysaccharide Complex 150 MG CAPSULE PO (08:51)
[2020-01-15] MEDS: 0.9% Saline Lock 10 ML Syringe IV ×2 (14:43→21:00)
[2020-01-15 15:13] VITALS: BP 131/70; PULSE 86; RESP 18; TEMP 37.5; O2SAT 95
[2020-01-15] MEDS: Warfarin 0.5 MG Tablet PO (16:46)
[2020-01-15] MEDS: Atorvastatin Calcium 40 MG Tablet PO (20:59)
[2020-01-15] MEDS: Mirtazapine 15 MG Tablet PO (20:59)
[2020-01-15] MEDS: 0.9% Normal Saline 250 ML IV.SOLN. IV (21:01)
[2020-01-16] MEDS: Polyethylene Glycol 3350 17 GM PACKET PO (05:55)
[2020-01-16] MEDS: Furosemide 40 MG Tablet PO (05:56)
[2020-01-16] MEDS: Tolterodine Tartrate 2 MG CAP.SA PO (05:56)
[2020-01-16] MEDS: Senna/Docusate Sodium 1 Tablet PO ×2 (05:56→17:09)
[2020-01-16] MEDS: Sertraline 50 MG Tablet PO (05:57)
[2020-01-16] MEDS: Menthol/Lanolin/Calamine/Znox 113 GM Tube 1 APPLIC TOPICAL ×2 (06:02→17:12)
[2020-01-16 06:29] VITALS: BP 150/76; PULSE 88; RESP 16; TEMP 36.9; O2SAT 93
[2020-01-16] MEDS: Iron Polysaccharide Complex 150 MG CAPSULE PO (07:46)
[2020-01-16] MEDS: Gabapentin 300 MG Capsule PO ×3 (07:46→17:10)
[2020-01-16 09:52] VITALS: PULSE 96; RESP 14; O2SAT 97
--- NOTE | 2020-01-16 13:38 | NURSING ---
Update provided to family.
[2020-01-16 14:09] VITALS: BP 125/75; PULSE 84; RESP 16; TEMP 37.2; O2SAT 94
[2020-01-16] MEDS: Warfarin 0.5 MG Tablet PO (17:10)
[2020-01-16] MEDS: Atorvastatin Calcium 40 MG Tablet PO (21:31)
[2020-01-16] MEDS: Mirtazapine 15 MG Tablet PO (21:31)
[2020-01-16] MEDS: 0.9% Saline Lock 10 ML Syringe IV (21:35)
[2020-01-16] MEDS: 0.9% Normal Saline 250 ML IV.SOLN. IV (21:36)
[2020-01-17 05:23] VITALS: BP 137/65; PULSE 85; RESP 16; TEMP 36.8; O2SAT 93
[2020-01-17] MEDS: Senna/Docusate Sodium 1 Tablet PO ×2 (05:24→16:59)
[2020-01-17] MEDS: Polyethylene Glycol 3350 17 GM PACKET PO (05:24)
[2020-01-17] MEDS: 0.9% Saline Lock 10 ML Syringe IV ×4 (05:25→21:09)
[2020-01-17] MEDS: Tolterodine Tartrate 2 MG CAP.SA PO (05:25)
[2020-01-17] MEDS: Sertraline 50 MG Tablet PO (05:25)
[2020-01-17] MEDS: Furosemide 40 MG Tablet PO (05:25)
[2020-01-17] MEDS: Menthol/Lanolin/Calamine/Znox 113 GM Tube 1 APPLIC TOPICAL ×2 (05:28→17:00)
[2020-01-17 06:46] LABS: International Normalized Ratio 1.9; Prothrombin Time (Protime)PT. 21.2 SECONDS (11.7-14.9)
[2020-01-17 07:04] LABS: Vancomycin, Trough Level 18.2 ug/mL (5.0-15.0)
--- NOTE | 2020-01-17 08:42 | PCM.RX.CS ---
Consult Pharmacy has been consulted to manage selected antiobiotic: Vancomycin Type of Consult: Follow-up Labs: Sodium 142 mmol/L (136-145) 01/13/20 05:36 Potassium 4.0 mmol/L (3.5-5.1) 01/13/20 05:36 Chloride 110 mmol/L (98-107) H 01/13/20 05:36 Carbon Dioxide 25.0 mmol/L (21.0-32.0) 01/13/20 05:36 Anion Gap 7 (5-15) 01/13/20 05:36 BUN 14 mg/dL (7-18) 01/13/20 05:36 Creatinine 0.60 mg/dL (0.55-1.02) 01/13/20 05:36 Est GFR (MDRD) Af Amer 125 mL/min (>60) 01/13/20 05:36 Est GFR (MDRD) Non-Af 103 mL/min (>60) 01/13/20 05:36 BUN/Creatinine Ratio 23.5 RATIO (10-20) H 01/13/20 05:36 Glucose 99 mg/dL (74-106) 01/13/20 05:36 Vancomycin Trough 18.2 ug/mL (5.0-15.0) H 01/17/20 06:22 Random Vancomycin 15.8 ug/mL (0.0-15.0) H 01/05/20 20:40 Goal Trough: 15-20 mcg/mL Pharmacy Plan for Drug Dosing: VANCOMYCIN LEVEL RECEIVED Current Vancomycin Dose: 1500mg IV Q24hr Number of Doses Received: 2 of new regimen Vancomycin Level: 18.2 Hours Since Last Dose: 20.5hr Renal Function: 0.6 (01/12) Renal Function Trend: stable Lab/Micro: no new results Vancomycin Plan/Comments: Trough drawn which resulted in a value of 18.2 (~20.5hr from last administered dose). Will continue current regimen and check a trough again in 3 days. Dose prior to trough administered several hours late, so likely trough would have been less. In light of this, checking a trough in 3 days instead of 4 per protocol. Will continue current dose of 1500mg IV Q24hr. -Also calling TCU to get weekly BMP ordered as well, no active orders on EMR. Pending Level: 01/20/20 @0630 Pharmacy Service will continue to monitor and adjust dosing as required.
[2020-01-17] MEDS: Gabapentin 300 MG Capsule PO ×3 (09:40→16:59)
[2020-01-17] MEDS: Iron Polysaccharide Complex 150 MG CAPSULE PO (09:40)
--- NOTE | 2020-01-17 13:08 | NURSING ---
faxed WBC scan study to Dr Alexandra per Dr Vazquez request.
--- NOTE | 2020-01-17 13:26 | NURSING ---
updated son on WBC scan results per Dr Vazquez request.
[2020-01-17 15:13] VITALS: BP 140/80; PULSE 83; RESP 16; TEMP 36.8; O2SAT 93
[2020-01-17] MEDS: Atorvastatin Calcium 40 MG Tablet PO (21:02)
[2020-01-17] MEDS: Mirtazapine 15 MG Tablet PO (21:03)
[2020-01-18 06:02] LABS: Anion Gap 6 (5-15); BUN 13 mg/dL (7-18); BUN/Creat Ratio 21.1 RATIO (10-20); Calcium,Total 8.9 mg/dL (8.5-10.1); Chloride 110 mmol/L (98-107); Creatinine, Serum 0.62 mg/dL (0.55-1.02); EST Glomerular Filtration Rate 100 mL/min (>60); Est Glom Filt Rate - Afr Amer 120 mL/min (>60); Estimated Creatinine Clearance 34.99 ml/min; Glucose 90 mg/dL (74-106); Potassium 3.9 mmol/L (3.5-5.1); Sodium Level 141 mmol/L (136-145)
[2020-01-18 06:09] VITALS: BP 137/66; PULSE 89; RESP 18; TEMP 36.6; O2SAT 94
[2020-01-18] MEDS: Polyethylene Glycol 3350 17 GM PACKET PO (06:14)
[2020-01-18] MEDS: Menthol/Lanolin/Calamine/Znox 113 GM Tube 1 APPLIC TOPICAL ×2 (06:14→17:13)
[2020-01-18] MEDS: Furosemide 40 MG Tablet PO (06:14)
[2020-01-18] MEDS: Tolterodine Tartrate 2 MG CAP.SA PO (06:14)
[2020-01-18] MEDS: Sertraline 50 MG Tablet PO (06:14)
[2020-01-18] MEDS: Senna/Docusate Sodium 1 Tablet PO ×2 (06:14→17:12)
[2020-01-18 09:12] LABS: Absolute Lymphocyte Count 0.81 X10^3/uL (0.83-4.51); Absolute Neutrophil Count 2.5 X10^3/uL (2.0-7.7); Basophil# 0.05 X10^3/uL; Basophil% 1.2 % (0-1); Eosinophil# 0.35 X10^3/uL; Eosinophils% 8.2 % (0-5); Hematocrit 29.4 % (37-47); Hemoglobin 9.5 g/dL (12.0-15.0); Lymphocyte # 0.81 X10^3/ul (4.0); Lymphocyte % 19.1 % (19-41); Mean Corp Hgb Conc 32.3 g/dL (32-36); Mean Corpuscular Hgb 30.4 pg (27.0-32.0); Mean Corpuscular Volume 93.9 fL (81-99); Mean Platelet Vol. 9.7 fl (6.2-12.0); Monocyte# 0.55 X10^3/uL; Monocyte% 12.9 % (0-10); NRBC Flagged by Analyzer 0 % (0-5); Neutrophil # 2.48 X10^3/uL (2.7-7.7); Neutrophil % 58.4 % (47-70); Platelet Count 224 K/mm3 (150-450); RBC Distribution Width CV 14.7 % (11.6-14.6); Red Blood Count 3.13 M/mm3 (4.2-5.4); White Blood Count 4.3 K/mm3 (4.4-11.0)
[2020-01-18 09:22] LABS: CRP < 2.90 mg/L (0.0-3.0)
[2020-01-18] MEDS: Gabapentin 300 MG Capsule PO ×3 (09:29→17:12)
[2020-01-18] MEDS: Iron Polysaccharide Complex 150 MG CAPSULE PO (09:29)
[2020-01-18 09:41] LABS: Erythrocyte Sedimentation Rate 22 mm/hr (0-30)
--- NOTE | 2020-01-18 09:51 | PCM.PN.ID ---
Patient Problems: Active and Suspected Problems Debility (Acute) Toxic encephalopathy (Acute) Stroke (Acute) Subjective: Feeling well, working with PT. No fever, no n/v/d, no back pain. - Physical Exam Vitals/I&O's: Vital Signs Temp Pulse Resp BP Pulse Ox 97.8 F 89 18 137/66 H 94 01/18/20 06:09 01/18/20 06:09 01/18/20 06:09 01/18/20 06:09 01/18/20 06:09 Oxygen Delivery Method Room Air Weight: 65.317 kg Body Mass Index (BMI) 27.3 Finger Stick Blood Glucose 106 Intake and Output for Last 24 Hours 01/16/20 01/17/20 01/18/20 23:59 23:59 23:59 Intake Total 1909 440 / 440 Balance 1909 440 / 440 General: Alert, Cooperative, No apparent distress Lungs: Clear to auscultation, Normal air movement Cardiovascular: Regular rate, Regular Rhythm Abdomen: Soft, Non Tender, Non-Distended Skin: No rashes Laboratory Results 01/18/20 05:10: Sodium 141, Potassium 3.9, Chloride 110 H, Carbon Dioxide 25.0, Anion Gap 6, BUN 13, Creatinine 0.62, Estim Creat Clear Calc 34.99, Est GFR (MDRD) Af Amer 120, Est GFR (MDRD) Non-Af 100, BUN/Creatinine Ratio 21.1 H, Glucose 90, Calcium 8.9 01/18/20 05:10: WBC 4.3 L, RBC 3.13 L, Hgb 9.5 L, Hct 29.4 L, MCV 93.9, MCH 30.4, MCHC 32.3, RDW Std Deviation 50.0 H, RDW Coeff of La 14.7 H, Plt Count 224, MPV 9.7, Immature Gran % (Auto) 0.200, Neut % (Auto) 58.4, Lymph % (Auto) 19.1, Barber % (Auto) 12.9 H, Eos % (Auto) 8.2 H, Baso % (Auto) 1.2 H, Absolute Neuts (auto) 2.5, Absolute Lymphs (auto) 0.81 L, Nucleated RBC % 0, ESR 22 01/18/20 05:10: C-React Prot Ext Range < 2.90 Current Medications Acetaminophen (Tylenol) 1,000 mg PO Q6H PRN PRN PRN Reason: Pain Score 1-05/06 Last Admin: 01/06/20 16:42 Dose: 1,000 mg Documented by: Atorvastatin Calcium (Lipitor) 40 mg PO DAILY@2200 DAREK Last Admin: 01/17/20 21:02 Dose: 40 mg Documented by: Bisacodyl (Dulcolax) 10 mg PO DAILY PRN PRN Reason: Constipation Last Admin: 01/14/20 14:49 Dose: 10 mg Documented by: Calamine/Phenol (Calmoseptine Ointment) 1 applic TOPICAL BID COUNT INCLUDES THE [facility]; Protocol Last Admin: 01/18/20 06:14 Dose: 1 applicatio Documented by: Furosemide (Lasix) 40 mg PO DAILY COUNT INCLUDES THE [facility] Last Admin: 01/18/20 06:14 Dose: 40 mg Documented by: Gabapentin (Neurontin) 300 mg PO TIDCM COUNT INCLUDES THE [facility] Last Admin: 01/18/20 09:29 Dose: 300 mg Documented by: Heparin Sodium (Beef Lung) () 50 units IV UD PRN PRN Reason: PICC Line Heparin Flush Heparin Sodium (Beef Lung) () 50 units IV UD PRN PRN Reason: PICC Line Heparin Flush Meropenem 1 gm/ Sodium (Chloride) 100 mls @ 33 mls/hr IV Q8 COUNT INCLUDES THE [facility] Stop: 02/09/20 22:01 Last Infusion: 01/18/20 09:33 Dose: Infused Documented by: Vancomycin IV Pharmacy to Dose (1 ea/ Sodium Chloride) 500 mls @ 250 mls/hr IV X1 PRN; Protocol PRN Reason: Rx to Dose Vancomycin HCl 1,500 mg/ (Sodium Chloride) 530 mls @ 250 mls/hr IV Q24H COUNT INCLUDES THE [facility] Stop: 02/09/20 11:38 Last Admin: 01/18/20 09:31 Dose: 250 mls/hr Documented by: Melatonin (Melatonin) 5 mg PO QHS PRN PRN Reason: SLEEP Mirtazapine (Remeron) 15 mg PO DAILY@2200 COUNT INCLUDES THE [facility] Last Admin: 01/17/20 21:03 Dose: 15 mg Documented by: Multi-Ingredient Cream (Eucerin) 1 applic TOPICAL 00,2199 COUNT INCLUDES THE [facility]; Protocol Last Admin: 01/18/20 06:15 Dose: 1 applicatio Documented by: Polyethylene Glycol (Miralax) 17 gm PO DAILY COUNT INCLUDES THE [facility] Last Admin: 01/18/20 06:14 Dose: 17 gm Documented by: Polysaccharide Iron Complex (Ferrex 150) [facility] Last Admin: 01/18/20 09:29 Dose: 150 mg Documented by: Potassium Chloride (K-Dur) [facility] Last Admin: 01/18/20 09:29 Dose: 20 meq Documented by: Senna/Docusate Sodium (Senokot-S, Karlene-Colace) 1 tablet PO BID COUNT INCLUDES THE [facility] Last Admin: 01/18/20 06:14 Dose: 1 tablet Documented by: Sertraline HCl (Zoloft) 50 mg PO DAILY COUNT INCLUDES THE [facility] Last Admin: 01/18/20 06:14 Dose: 50 mg Documented by: Sodium Chloride () 10 - 40 ml IV UD PRN PRN Reason: Open End PICC Flush Last Admin: 01/17/20 21:09 Dose: 10 ml Documented by: Sodium Chloride (0.9% Nacl (Sterile) Posiflush) 10 - 40 ml IV UD PRN PRN Reason: Port access or dressing change Sodium Chloride () 250 ml IV PRN PRN PRN Reason: secondary iv antibiotics Last Admin: 01/16/20 21:36 Dose: 250 ml Documented by: Sodium Chloride () 10 - 40 ml IV UD PRN PRN Reason: Open End PICC Flush Sodium Chloride (0.9% Nacl (Sterile) Posiflush) 10 - 40 ml IV UD PRN PRN Reason: Port access or dressing change Tolterodine Tartrate (Detrol La) 2 mg PO DAILY COUNT INCLUDES THE [facility] Last Admin: 01/18/20 06:14 Dose: 2 mg Documented by: Warfarin Sodium (Coumadin (Pbkc)) 2 mg PO DAILY@1700 COUNT INCLUDES THE [facility] Last Admin: 01/17/20 16:59 Dose: 2 mg Documented by: Medical Necessity - Tobacco Use Smoking Status: Never smoker Tobacco Use: Non-smoker Route of nutrition/ use of supplements: [] Nutritional Intake: [] IV Site: [] Stanton Catheter: [] - Assessment/Plan Antibiotics: [] Assessment/Plan: [] Active and Suspected Problems Debility (Acute) Toxic encephalopathy (Acute) Stroke (Acute) Fever, normal wbc, altered mental status with concern for new stroke on 12/25 after completing empiric course of vanc/zohaib 12/20 for suspected bacterial meningitis after admission to [facility]. Prior h/o CSF leak from laminectomy in the past few months. Now back on vanc/zohaib. CXR clear, UA clear, bcx neg so far. Mental status much improved, fever resolved except for one time temp last night. MRI now shows new occipital stroke. AHSAN showed no veg. Difficult to say what her infection is at this time with all her negative cxs, but it does seem that she has responded to iv abx. Plan now is iv vanc/zohaib for 6 weeks of treatment, stop date 02/09/20. Weekly bmp, cbc, LFT, and vanc trough. Certainly at risk for ongoing csf leak causing recurrent meningitis, so will need outpt neurosurgery followup with Dr. Alexandra. She is not sure when this will be. Hopefully can be scheduled prior to completing course of abx. Will follow
--- NOTE | 2020-01-18 11:25 | NURSING ---
Dr Alexandra's office called and requesting CBC,ESR,CPR. Faxed results per his request at this time, confirmation received that it went through.
[2020-01-18 11:54] VITALS: PULSE 84; RESP 16; O2SAT 94
--- NOTE | 2020-01-18 12:37 | NURSING ---
Daughter, molly updated.
[2020-01-18 14:46] VITALS: BP 126/77; PULSE 84; RESP 17; TEMP 36.9; O2SAT 94
[2020-01-18] MEDS: 0.9% Saline Lock 10 ML Syringe IV ×2 (17:13→21:59)
[2020-01-18] MEDS: Atorvastatin Calcium 40 MG Tablet PO (21:52)
[2020-01-18] MEDS: Mirtazapine 15 MG Tablet PO (21:52)
[2020-01-18] MEDS: 0.9% Normal Saline 250 ML IV.SOLN. IV (22:00)
[2020-01-19 06:23] VITALS: BP 142/63; PULSE 80; RESP 18; TEMP 36.9; O2SAT 92
[2020-01-19] MEDS: Polyethylene Glycol 3350 17 GM PACKET PO (06:26)
[2020-01-19] MEDS: Senna/Docusate Sodium 1 Tablet PO ×2 (06:28→17:04)
[2020-01-19] MEDS: Furosemide 40 MG Tablet PO (06:29)
[2020-01-19] MEDS: Tolterodine Tartrate 2 MG CAP.SA PO (06:29)
[2020-01-19] MEDS: Sertraline 50 MG Tablet PO (06:29)
[2020-01-19] MEDS: Menthol/Lanolin/Calamine/Znox 113 GM Tube 1 APPLIC TOPICAL ×2 (06:29→17:04)
[2020-01-19] MEDS: Gabapentin 300 MG Capsule PO ×3 (06:32→17:04)
[2020-01-19] MEDS: Iron Polysaccharide Complex 150 MG CAPSULE PO (07:43)
[2020-01-19 14:16] VITALS: BP 141/72; PULSE 89; RESP 18; TEMP 36.7; O2SAT 96
[2020-01-19] MEDS: 0.9% Saline Lock 10 ML Syringe IV ×2 (18:34→20:54)
[2020-01-19] MEDS: 0.9% Normal Saline 250 ML IV.SOLN. IV (20:57)
[2020-01-19] MEDS: Mirtazapine 15 MG Tablet PO (21:06)
[2020-01-19] MEDS: Atorvastatin Calcium 40 MG Tablet PO (21:06)
[2020-01-20] MEDS: 0.9% Saline Lock 10 ML Syringe IV ×4 (00:28→22:10)
[2020-01-20] MEDS: Polyethylene Glycol 3350 17 GM PACKET PO (05:15)
[2020-01-20] MEDS: Furosemide 40 MG Tablet PO (05:15)
[2020-01-20] MEDS: Senna/Docusate Sodium 1 Tablet PO ×2 (05:16→17:27)
[2020-01-20] MEDS: Sertraline 50 MG Tablet PO (05:17)
[2020-01-20] MEDS: Tolterodine Tartrate 2 MG CAP.SA PO (05:18)
[2020-01-20] MEDS: Menthol/Lanolin/Calamine/Znox 113 GM Tube 1 APPLIC TOPICAL ×2 (05:19→17:27)
[2020-01-20 05:37] LABS: International Normalized Ratio 2.1; Prothrombin Time (Protime)PT. 22.8 SECONDS (11.7-14.9)
[2020-01-20 07:02] VITALS: BP 141/70; PULSE 76; RESP 19; TEMP 36.4; O2SAT 95
[2020-01-20] MEDS: Iron Polysaccharide Complex 150 MG CAPSULE PO (07:41)
[2020-01-20] MEDS: Gabapentin 300 MG Capsule PO ×3 (07:42→17:26)
[2020-01-20 10:34] LABS: Vancomycin, Trough Level 17.6 ug/mL (5.0-15.0)
--- NOTE | 2020-01-20 11:22 | PCM.RX.CS ---
Consult Pharmacy has been consulted to manage selected antiobiotic: Vancomycin Type of Consult: Follow-up Labs: Sodium 141 mmol/L (136-145) 01/18/20 05:10 Potassium 3.9 mmol/L (3.5-5.1) 01/18/20 05:10 Chloride 110 mmol/L (98-107) H 01/18/20 05:10 Carbon Dioxide 25.0 mmol/L (21.0-32.0) 01/18/20 05:10 Anion Gap 6 (5-15) 01/18/20 05:10 BUN 13 mg/dL (7-18) 01/18/20 05:10 Creatinine 0.62 mg/dL (0.55-1.02) 01/18/20 05:10 Est GFR (MDRD) Af Amer 120 mL/min (>60) 01/18/20 05:10 Est GFR (MDRD) Non-Af 100 mL/min (>60) 01/18/20 05:10 BUN/Creatinine Ratio 21.1 RATIO (10-20) H 01/18/20 05:10 Glucose 90 mg/dL (74-106) 01/18/20 05:10 Vancomycin Trough 17.6 ug/mL (5.0-15.0) H 01/20/20 09:26 Random Vancomycin 15.8 ug/mL (0.0-15.0) H 01/05/20 20:40 Goal Trough: 15-20 mcg/mL Pharmacy Plan for Drug Dosing: VANCOMYCIN LEVEL RECEIVED Current Vancomycin Dose: 1500mg q24h (0930) Number of Doses Received: 6 of the 1500mg dose Vancomycin Level: 17.6 Hours Since Last Dose: 22 Renal Function: 0.62 (level from 01/18/20) Renal Function Trend: stable Lab/Micro: Vancomycin Plan/Comments: continue current dose of 1500mg q24h, and repeat level in 4 days Pending Level: 01/24/20 at 0900 Pharmacy Service will continue to monitor and adjust dosing as required. Follow-Up Labs: Trough Vancomycin - 01/24/20 @ 0900
[2020-01-20 14:36] VITALS: BP 136/69; PULSE 82; RESP 18; TEMP 36.7; O2SAT 96
[2020-01-20] MEDS: Mirtazapine 15 MG Tablet PO (21:58)
[2020-01-20] MEDS: Atorvastatin Calcium 40 MG Tablet PO (21:58)
[2020-01-21] MEDS: Polyethylene Glycol 3350 17 GM PACKET PO (05:30)
[2020-01-21] MEDS: Sertraline 50 MG Tablet PO (05:30)
[2020-01-21] MEDS: Tolterodine Tartrate 2 MG CAP.SA PO (05:30)
[2020-01-21] MEDS: Senna/Docusate Sodium 1 Tablet PO ×2 (05:30→17:20)
[2020-01-21] MEDS: Furosemide 40 MG Tablet PO (05:30)
[2020-01-21] MEDS: Menthol/Lanolin/Calamine/Znox 113 GM Tube 1 APPLIC TOPICAL ×2 (05:32→17:21)
[2020-01-21 05:33] VITALS: BP 110/69; PULSE 84; RESP 18; O2SAT 95
[2020-01-21 06:47] VITALS: TEMP 37
[2020-01-21] MEDS: Gabapentin 300 MG Capsule PO ×3 (08:04→17:20)
[2020-01-21] MEDS: Iron Polysaccharide Complex 150 MG CAPSULE PO (08:04)
[2020-01-21] MEDS: 0.9% Saline Lock 10 ML Syringe IV ×3 (08:53→21:50)
--- NOTE | 2020-01-21 14:10 | PN_ITS ---
Subjective: Resident seen for regulatory visit. She has no new problems, concerns, issues, complaints. I consulted with Dr. Connor Alexandra, Neurosurgery, who recommended Indium tagged WBC scan to look for occult sites of infection. 01/14/2020 Tagged WBC negative for infection, results faxed to Dr. Connor Alexandra. Resident doing well with therapy. Vitals/I&O's: Vital Signs Temp Pulse Resp BP Pulse Ox 98.6 F 84 18 110/69 95 01/21/20 06:47 01/21/20 05:33 01/21/20 05:33 01/21/20 05:33 01/21/20 05:33 Oxygen Delivery Method Room Air Weight: 67.132 kg Body Mass Index (BMI) 27.3 Finger Stick Blood Glucose 106 Intake and Output for Last 24 Hours 01/19/20 01/20/20 01/21/20 23:59 23:59 23:59 Intake Total 1670 / 1670 2029 / 2029 200 / 200 Balance 1670 / 1670 2029 200 / 200 Past Medical History Past Medical History (Chronic Problems): Chronic Problems Pulmonary embolism (Chronic) DVT (deep venous thrombosis) (Chronic) Coronary artery disease (Chronic) Hyperlipidemia (Chronic) Obstructive sleep apnea (Chronic) Lumbar spinal stenosis (Chronic) Hypertension (Chronic) Pulmonary hypertension (Chronic) Urinary incontinence (Chronic) Cholelithiasis (Chronic) Depression (Chronic) Insomnia (Chronic) Neuropathic pain (Chronic) Hydrocephalus (Chronic) Allergies ibuprofen [From Advil] Adverse Reaction (Verified 11/28/19 15:14) Rash Home Medications: Ambulatory Orders Medication Instructions Recorded Amlodipine [Norvasc] 5 mg PO DAILY 11/26/19 Atorvastatin Calcium 40 mg PO DAILY 11/26/19 Gabapentin [Neurontin] 300 mg PO TID 11/26/19 Melatonin 5 mg PO QHS PRN 11/26/19 Mirtazapine 15 mg PO DAILY 11/26/19 Sertraline HCl 50 mg PO DAILY 11/26/19 Oxybutynin Chloride [Oxybutynin 5 mg PO DAILY 12/06/19 Chloride ER] Menthol/Lanolin/Calamine/Znox 1 applic TOPICAL BID tube 12/21/19 [Calmoseptine Ointment] Mineral Oil/Petrolatum,White 1 applic TOPICAL 0600,2200 jar 12/21/19 [Eucerin] Potassium Chloride [K-Dur] 20 meq PO BIDCM #60 tab 12/21/19 Bisacodyl [Dulcolax] 10 mg PO PRN PRN 12/25/19 Furosemide [Lasix] 40 mg PO DAILY 12/25/19 Polyethylene Glycol 3350 [Miralax] 17 gm PO DAILY 12/25/19 Sennosides/Docusate Sodium 1 ea PO BID 12/25/19 [Senna-Docusate Sodium Tablet] Tolterodine Tartrate [Detrol LA] 2 mg PO DAILY 12/25/19 Acetaminophen [Tylenol Tablet] 650 mg PO Q6H PRN PRN tab 12/30/19 Enoxaparin [Lovenox] 70 mg SUBCUT Q12 syringe 12/30/19 Meropenem [Merrem] 1 gm IV Q8 40 Days #120 vial 12/30/19 Vancomycin IV 750 mg IV Q12H 40 Days #80 vial 12/30/19 Warfarin [Coumadin] 5 mg PO DAILY@1700 tab 12/30/19 Surgical History: hysterectomy, - - Lumbar spine surgery, Durotomy closure, Bladder suspension. 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 Sibling History Items: Diabetes, Heart Disease, Hypertension Capacity - Capacity Assessment Tool Can the patient make a choice & communicate that choice?: Yes Can the patient understand benefits, risks and alternatives?: Yes Can the patient make a logical, rational choice?: Yes Is the choice the patient makes consistent w/ their values?: Yes Is there an impending, emergent risk to the patient?: No Does the patient have an Advance Directive?: No Is there a Surrogate Available?: Yes i.e. HCPOA: Yes i.e. close relative (spouse, child, parent, sibling)?: Yes Review of Systems Constitutional: Denies: Chills, Fever, Weight Change HEENT: Denies: Head Aches, Sinus Congestion, Sinus Drainage Cardiovascular: Denies: Chest Pain, Palpitations Respiratory: Denies: Cough, Shortness of breath at rest, Sputum production Gastrointestinal: Denies: Abdominal Pain, Nausea, Vomiting Genitourinary: Denies: Dysuria Musculoskeletal: Denies: Joint Pain, Joint Tenderness Skin: Denies: Rash, Wounds Neurological: Denies: Numbness, Tingling, Focal weakness Psychiatric: Denies: Anxiety, Depression, Homicidal Ideations, Suicidal Ideations Hematologic/ Lymphatic: Denies: Easy Bruising, Easy Bleeding Patient Problems: Active and Suspected Problems Debility (Acute) Toxic encephalopathy (Acute) Stroke (Acute) - Physical Exam Vitals/I&O's: Vital Signs Temp Pulse Resp BP Pulse Ox 98.6 F 84 18 110/69 95 01/21/20 06:47 01/21/20 05:33 01/21/20 05:33 01/21/20 05:33 01/21/20 05:33 Oxygen Delivery Method Room Air Weight: 67.132 kg Body Mass Index (BMI) 27.3 Finger Stick Blood Glucose 106 Intake and Output for Last 24 Hours 01/19/20 01/20/20 01/21/20 23:59 23:59 23:59 Intake Total 1670 / 1670 2029 200 / 200 Balance 1670 / 1670 2029 200 / 200 General: Alert, Oriented x3, Cooperative HEENT: Atraumatic, PERRLA, EOMI, Normocephalic Neck: Supple, No JVD, Negative Carotid Bruits Lungs: Clear to auscultation, Normal air movement Cardiovascular: Regular rate, No murmurs Abdomen: Bowel Sounds Present, Soft, Non Tender Extremities: No edema, Capillary Refill Less than 3 Seconds, - - PICC right upper extremity. Skin: No rashes, No breakdown Musculoskeletal: No Tenderness to Palpation of Joints or Extremities Neurological: Cranial nerves II-XII grossly intact Psych/Mental Status: Normal Affect, Appropriate Current Medications Acetaminophen (Tylenol) 1,000 mg PO Q6H PRN PRN PRN Reason: Pain Score 1-05/06 Last Admin: 01/06/20 16:42 Dose: 1,000 mg Documented by: Atorvastatin Calcium (Lipitor) 40 mg PO DAILY@2200 DAREK Last Admin: 01/20/20 21:58 Dose: 40 mg Documented by: Bisacodyl (Dulcolax) 10 mg PO DAILY PRN PRN Reason: Constipation Last Admin: 01/14/20 14:49 Dose: 10 mg Documented by: Calamine/Phenol (Calmoseptine Ointment) 1 applic TOPICAL BID [facility]; Protocol Last Admin: 01/21/20 05:32 Dose: 1 applicatio Documented by: Furosemide (Lasix) 40 mg PO DAILY [facility] Last Admin: 01/21/20 05:30 Dose: 40 mg Documented by: Gabapentin (Neurontin) 300 mg PO TIDCM [facility] Last Admin: 01/21/20 12:33 Dose: 300 mg Documented by: Heparin Sodium (Beef Lung) () 50 units IV UD PRN PRN Reason: PICC Line Heparin Flush Last Admin: 01/20/20 00:28 Dose: 50 units Documented by: Heparin Sodium (Beef Lung) () 50 units IV UD PRN PRN Reason: PICC Line Heparin Flush Meropenem 1 gm/ Sodium (Chloride) 100 mls @ 33 mls/hr IV Q8 [facility] Stop: 02/09/20 22:01 Last Infusion: 01/21/20 08:54 Dose: Infused Documented by: Vancomycin IV Pharmacy to Dose (1 ea/ Sodium Chloride) 500 mls @ 250 mls/hr IV X1 PRN; Protocol PRN Reason: Rx to Dose Vancomycin HCl 1,500 mg/ (Sodium Chloride) 530 mls @ 250 mls/hr IV Q24H [facility] Stop: 02/09/20 11:38 Last Admin: 01/21/20 11:13 Dose: 250 mls/hr Documented by: Melatonin (Melatonin) 5 mg PO QHS PRN PRN Reason: SLEEP Mirtazapine (Remeron) 15 mg PO DAILY@2200 [facility] Last Admin: 01/20/20 21:58 Dose: 15 mg Documented by: Multi-Ingredient Cream (Eucerin) 1 applic TOPICAL 0600,2200 [facility]; Protocol Last Admin: 01/21/20 05:31 Dose: 1 applicatio Documented by: Polyethylene Glycol (Miralax) 17 gm PO DAILY [facility] Last Admin: 01/21/20 05:30 Dose: 17 gm Documented by: Polysaccharide [facility] ([facility]rex 150) [facility] Last Admin: 01/21/20 08:04 Dose: 150 mg Documented by: Potassium Ch[facility] ([facility]-Dur) [facility] Last Admin: 01/21/20 08:04 Dose: 20 meq Documented by: Senna/Docusate Sodium (Senokot-S, Karlene-Colace) 1 tablet PO BID [facility] Last Admin: 01/21/20 05:30 Dose: 1 tablet Documented by: Sertraline HCl (Zoloft) 50 mg PO DAILY [facility] Last Admin: 01/21/20 05:30 Dose: 50 mg Documented by: Sodium Chloride () 10 - 40 ml IV UD PRN PRN Reason: Open End PICC Flush Last Admin: 01/21/20 11:13 Dose: 10 ml Documented by: Sodium Chloride (0.9% Nacl (Sterile) Posiflush) 10 - 40 ml IV UD PRN PRN Reason: Port access or dressing change Sodium Chloride () 250 ml IV PRN PRN PRN Reason: secondary iv antibiotics Last Admin: 01/19/20 20:57 Dose: 250 ml Documented by: Sodium Chloride () 10 - 40 ml IV UD PRN PRN Reason: Open End PICC Flush Sodium Chloride (0.9% Nacl (Sterile) Posiflush) 10 - 40 ml IV UD PRN PRN Reason: Port access or dressing change Tolterodine Tartrate (Detrol La) 2 mg PO DAILY [facility] Last Admin: 01/21/20 05:30 Dose: 2 mg Documented by: Warfarin Sodium (Coumadin (Pbkc)) 2 mg PO DAILY@1700 [facility] Last Admin: 01/20/20 17:25 Dose: 2 mg Documented by: Assessment/Plan All Active Problems Debility (Acute) Toxic encephalopathy (Acute) Stroke (Acute) Severe sepsis (Acute) Encephalopathy (Acute) 79 year old female with below past medical history hospitalized for sepsis, source unknown, 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 * Debility - PT/OT. * Pain - Tylenol 1000MG Q6H PRN pain (1-10). * Bowel - Miralax 17GM daily, Senna/colace 1 tablet BID, Dulcolax 10MG daily PRN. * Adult immunization - Administer Prevnar 13, Pneumovax 23, Fluzone as appropr iate. * DVT prophylaxis - Not necessary, already anticoagulated. * Hyperlipidemia - High intensity Atorvastatin 40MG QHS. * DVT/PE/Stroke - Eliquis failure, coumadin 2MG, follow INR. * Edema - Lasix 40MG daily. * Neuropathic pain - Gabapentin 300MG TID. * Insomnia - Melatonin 5MG QHS PRN. * Skin irritation - Calmoseptine BID, Eucerin BID. * Sepsis, unknown source - Meropenem 1GM IV Q8H, Vancomycin 1500MG IV Q12H thru 02/09/2020, consult Dr. Hamilton. Indium Tagged WBC scan NEGATIVE, Dr. Alexandra appointment cancelled due to COVID-19. * Appetite loss - Mirtazapine 15MG QHS. * Hypokalemia - K-Dur 20MEQ BID. * Depression - Sertraline 50MG daily. * Overactive bladder - Tolterodine 2MG daily.
[2020-01-21 16:00] VITALS: BP 149/87; PULSE 77; RESP 16; TEMP 36.8; O2SAT 96
[2020-01-21] MEDS: 0.9% Normal Saline 250 ML IV.SOLN. IV (21:49)
[2020-01-21] MEDS: Atorvastatin Calcium 40 MG Tablet PO (22:02)
[2020-01-21] MEDS: Mirtazapine 15 MG Tablet PO (22:02)
[2020-01-22 04:00] VITALS: BP 141/80; PULSE 81; RESP 16; TEMP 36.2; O2SAT 93
[2020-01-22] MEDS: Polyethylene Glycol 3350 17 GM PACKET PO (05:36)
[2020-01-22] MEDS: Tolterodine Tartrate 2 MG CAP.SA PO (05:38)
[2020-01-22] MEDS: Furosemide 40 MG Tablet PO (05:38)
[2020-01-22] MEDS: Sertraline 50 MG Tablet PO (05:38)
[2020-01-22] MEDS: Senna/Docusate Sodium 1 Tablet PO ×2 (05:38→16:49)
[2020-01-22] MEDS: Menthol/Lanolin/Calamine/Znox 113 GM Tube 1 APPLIC TOPICAL ×2 (05:39→16:50)
[2020-01-22] MEDS: 0.9% Saline Lock 10 ML Syringe IV ×4 (05:40→21:36)
[2020-01-22] MEDS: Gabapentin 300 MG Capsule PO ×3 (07:54→16:49)
[2020-01-22] MEDS: Iron Polysaccharide Complex 150 MG CAPSULE PO (07:54)
[2020-01-22 07:57] VITALS: RESP 16
[2020-01-22 14:56] VITALS: BP 134/53; PULSE 89; RESP 18; TEMP 37; O2SAT 96
[2020-01-22] MEDS: Atorvastatin Calcium 40 MG Tablet PO (21:48)
[2020-01-22] MEDS: Mirtazapine 15 MG Tablet PO (21:50)
[2020-01-23] MEDS: Polyethylene Glycol 3350 17 GM PACKET PO (06:13)
[2020-01-23] MEDS: Senna/Docusate Sodium 1 Tablet PO ×2 (06:13→16:46)
[2020-01-23] MEDS: Furosemide 40 MG Tablet PO (06:13)
[2020-01-23] MEDS: Menthol/Lanolin/Calamine/Znox 113 GM Tube 1 APPLIC TOPICAL ×2 (06:13→16:48)
[2020-01-23] MEDS: Tolterodine Tartrate 2 MG CAP.SA PO (06:13)
[2020-01-23] MEDS: Sertraline 50 MG Tablet PO (06:13)
[2020-01-23] MEDS: 0.9% Saline Lock 10 ML Syringe IV ×3 (06:15→21:03)
[2020-01-23 07:11] VITALS: BP 148/78; PULSE 65; RESP 16; TEMP 37.1
[2020-01-23] MEDS: Iron Polysaccharide Complex 150 MG CAPSULE PO (09:48)
[2020-01-23] MEDS: Gabapentin 300 MG Capsule PO ×3 (09:48→16:46)
[2020-01-23 14:48] VITALS: BP 122/78; PULSE 90; RESP 14; TEMP 36.9; O2SAT 94
[2020-01-23 18:40] VITALS: PULSE 18; RESP 16; O2SAT 98
[2020-01-23] MEDS: Mirtazapine 15 MG Tablet PO (21:02)
[2020-01-23] MEDS: Atorvastatin Calcium 40 MG Tablet PO (21:02)
[2020-01-23] MEDS: 0.9% Normal Saline 250 ML IV.SOLN. IV (21:03)
[2020-01-24] MEDS: Polyethylene Glycol 3350 17 GM PACKET PO (05:47)
[2020-01-24] MEDS: Furosemide 40 MG Tablet PO (05:48)
[2020-01-24] MEDS: Senna/Docusate Sodium 1 Tablet PO ×2 (05:48→16:57)
[2020-01-24] MEDS: Tolterodine Tartrate 2 MG CAP.SA PO (05:49)
[2020-01-24] MEDS: Menthol/Lanolin/Calamine/Znox 113 GM Tube 1 APPLIC TOPICAL ×2 (05:49→16:54)
[2020-01-24] MEDS: Sertraline 50 MG Tablet PO (05:49)
[2020-01-24] MEDS: 0.9% Saline Lock 10 ML Syringe IV ×3 (05:50→21:53)
[2020-01-24 05:57] VITALS: BP 156/67; PULSE 67; RESP 16; TEMP 36.3; O2SAT 97
[2020-01-24 06:13] LABS: Prothrombin Time (Protime)PT. 21.9 SECONDS (11.7-14.9)
[2020-01-24] MEDS: Iron Polysaccharide Complex 150 MG CAPSULE PO (08:10)
[2020-01-24] MEDS: Gabapentin 300 MG Capsule PO ×3 (08:10→16:57)
[2020-01-24 09:33] LABS: Vancomycin, Trough Level 16.1 ug/mL (5.0-15.0)
--- NOTE | 2020-01-24 10:35 | PCM.RX.CS ---
Consult Pharmacy has been consulted to manage selected antiobiotic: Vancomycin Type of Consult: Follow-up Suspected Infection: Sepsis Prior Doses of Antibiotics Received/Current Regimen: Currently on 1500mg iv q24h. Labs: Sodium 141 mmol/L (136-145) 01/18/20 05:10 Potassium 3.9 mmol/L (3.5-5.1) 01/18/20 05:10 Chloride 110 mmol/L (98-107) H 01/18/20 05:10 Carbon Dioxide 25.0 mmol/L (21.0-32.0) 01/18/20 05:10 Anion Gap 6 (5-15) 01/18/20 05:10 BUN 13 mg/dL (7-18) 01/18/20 05:10 Creatinine 0.62 mg/dL (0.55-1.02) 01/18/20 05:10 Est GFR (MDRD) Af Amer 120 mL/min (>60) 01/18/20 05:10 Est GFR (MDRD) Non-Af 100 mL/min (>60) 01/18/20 05:10 BUN/Creatinine Ratio 21.1 RATIO (10-20) H 01/18/20 05:10 Glucose 90 mg/dL (74-106) 01/18/20 05:10 Vancomycin Trough 16.1 ug/mL (5.0-15.0) H 01/24/20 08:35 Random Vancomycin 15.8 ug/mL (0.0-15.0) H 01/05/20 20:40 Weight used for dosin kg Estimated Creatinine Clearance: ~35 ml/min Goal Trough: 15-20 mcg/mL Pharmacy Plan for Drug Dosing: Trough today was 16.1 (goal range 15-20mcg/ml). No new renal labs. Will continue same dosage regimen and get another trough level in 4 days. Pharmacy Service will continue to monitor and adjust dosing as required. Follow-Up Labs: Trough Vancomycin - 7.2.20 @0900 before 0930 dose
--- NOTE | 2020-01-24 12:46 | NURSING ---
Ladarius Aguilera called for any updates from Dr Alexandra after blood work was faxed last week, have not received a call from Dr Alexandra as of now
[2020-01-24 14:41] VITALS: BP 142/74; PULSE 98; RESP 16; TEMP 36.7; O2SAT 97
[2020-01-24] MEDS: Atorvastatin Calcium 40 MG Tablet PO (21:47)
[2020-01-24] MEDS: Mirtazapine 15 MG Tablet PO (21:47)
[2020-01-25 05:43] LABS: Absolute Lymphocyte Count 0.69 X10^3/uL (0.83-4.51); Basophil# 0.05 X10^3/uL; Basophil% 1.4 % (0-1); Eosinophil# 0.34 X10^3/uL; Eosinophils% 9.3 % (0-5); Hematocrit 29.8 % (37-47); Hemoglobin 9.8 g/dL (12.0-15.0); Lymphocyte # 0.69 X10^3/ul (4.0); Lymphocyte % 18.8 % (19-41); Mean Corp Hgb Conc 32.9 g/dL (32-36); Mean Corpuscular Hgb 30.6 pg (27.0-32.0); Mean Corpuscular Volume 93.1 fL (81-99); Mean Platelet Vol. 9.2 fl (6.2-12.0); Monocyte# 0.56 X10^3/uL; Monocyte% 15.3 % (0-10); NRBC Flagged by Analyzer 0 % (0-5); Neutrophil # 2.02 X10^3/uL (2.7-7.7); Neutrophil % 54.9 % (47-70); Platelet Count 192 K/mm3 (150-450); RBC Distribution Width CV 14.7 % (11.6-14.6); RBC Distribution Width SD 50.1 fl (35.1-43.9); White Blood Count 3.7 K/mm3 (4.4-11.0)
[2020-01-25 05:53] VITALS: BP 116/58; PULSE 85; RESP 18; TEMP 36.7; O2SAT 94
[2020-01-25] MEDS: Polyethylene Glycol 3350 17 GM PACKET PO (05:54)
[2020-01-25] MEDS: Sertraline 50 MG Tablet PO (05:55)
[2020-01-25] MEDS: Furosemide 40 MG Tablet PO (05:55)
[2020-01-25] MEDS: Senna/Docusate Sodium 1 Tablet PO ×2 (05:55→16:22)
[2020-01-25] MEDS: Tolterodine Tartrate 2 MG CAP.SA PO (05:55)
[2020-01-25 05:59] LABS: Anion Gap 5 (5-15); BUN 17 mg/dL (7-18); BUN/Creat Ratio 29.5 RATIO (10-20); Calcium,Total 8.7 mg/dL (8.5-10.1); Chloride 110 mmol/L (98-107); Creatinine, Serum 0.58 mg/dL (0.55-1.02); EST Glomerular Filtration Rate 107 mL/min (>60); Est Glom Filt Rate - Afr Amer 130 mL/min (>60); Estimated Creatinine Clearance 34.99 ml/min; Glucose 94 mg/dL (74-106); Potassium 4.1 mmol/L (3.5-5.1); Sodium Level 140 mmol/L (136-145)
[2020-01-25] MEDS: Menthol/Lanolin/Calamine/Znox 113 GM Tube 1 APPLIC TOPICAL ×2 (05:59→16:24)
[2020-01-25] MEDS: Gabapentin 300 MG Capsule PO ×3 (09:21→16:23)
[2020-01-25] MEDS: Iron Polysaccharide Complex 150 MG CAPSULE PO (09:21)
[2020-01-25] MEDS: 0.9% Saline Lock 10 ML Syringe IV ×2 (12:43→17:42)
[2020-01-25 13:22] VITALS: BP 127/55; PULSE 75; RESP 16; TEMP 36.9
[2020-01-25] MEDS: Atorvastatin Calcium 40 MG Tablet PO (21:29)
[2020-01-25] MEDS: Mirtazapine 15 MG Tablet PO (21:29)
[2020-01-26 04:00] VITALS: BP 139/61; PULSE 87; RESP 18; TEMP 36.9; O2SAT 94
[2020-01-26] MEDS: Sertraline 50 MG Tablet PO (05:28)
[2020-01-26] MEDS: Senna/Docusate Sodium 1 Tablet PO ×2 (05:28→16:19)
[2020-01-26] MEDS: Polyethylene Glycol 3350 17 GM PACKET PO (05:28)
[2020-01-26] MEDS: Furosemide 40 MG Tablet PO (05:28)
[2020-01-26] MEDS: Tolterodine Tartrate 2 MG CAP.SA PO (05:28)
[2020-01-26] MEDS: Menthol/Lanolin/Calamine/Znox 113 GM Tube 1 APPLIC TOPICAL ×2 (05:30→16:19)
[2020-01-26] MEDS: Gabapentin 300 MG Capsule PO ×3 (08:52→16:19)
[2020-01-26] MEDS: Iron Polysaccharide Complex 150 MG CAPSULE PO (08:52)
[2020-01-26] MEDS: 0.9% Saline Lock 10 ML Syringe IV ×3 (08:53→21:22)
[2020-01-26 10:00] VITALS: PULSE 97; RESP 16; O2SAT 98
[2020-01-26 15:40] VITALS: BP 136/105; PULSE 93; RESP 18; TEMP 36; O2SAT 95
[2020-01-26] MEDS: Alteplase 2 MG/2 ML Vial IV (18:25)
[2020-01-26] MEDS: Acetaminophen 500 MG Tablet 1000 MG PO (21:21)
[2020-01-26] MEDS: Mirtazapine 15 MG Tablet PO (21:22)
[2020-01-26] MEDS: Atorvastatin Calcium 40 MG Tablet PO (21:23)
[2020-01-27 05:21] VITALS: BP 134/62; PULSE 79; RESP 17; TEMP 36.6; O2SAT 95
[2020-01-27] MEDS: Polyethylene Glycol 3350 17 GM PACKET PO (05:26)
[2020-01-27] MEDS: Senna/Docusate Sodium 1 Tablet PO ×2 (05:26→17:00)
[2020-01-27] MEDS: Furosemide 40 MG Tablet PO (05:26)
[2020-01-27] MEDS: Sertraline 50 MG Tablet PO (05:26)
[2020-01-27] MEDS: Tolterodine Tartrate 2 MG CAP.SA PO (05:26)
[2020-01-27] MEDS: Menthol/Lanolin/Calamine/Znox 113 GM Tube 1 APPLIC TOPICAL ×2 (05:27→17:04)
[2020-01-27] MEDS: Nystatin Powder 15gm Bottle 1 APPLIC TOPICAL ×2 (05:28→21:57)
[2020-01-27] MEDS: 0.9% Saline Lock 10 ML Syringe IV ×3 (05:31→15:49)
[2020-01-27 06:07] LABS: International Normalized Ratio 2.4; Prothrombin Time (Protime)PT. 25.9 SECONDS (11.7-14.9)
[2020-01-27] MEDS: Gabapentin 300 MG Capsule PO ×3 (07:27→17:00)
[2020-01-27] MEDS: Iron Polysaccharide Complex 150 MG CAPSULE PO (07:27)
[2020-01-27 08:57] VITALS: BP 136/78; PULSE 101; RESP 18; TEMP 37.2; O2SAT 96
[2020-01-27] MEDS: DiphenhydrAMINE 25 MG Capsule 50 MG PO (09:04)
--- NOTE | 2020-01-27 10:16 | NURSING ---
0830 CONVERSION WORKER called this nurse to room, pt noted to have swollen upper lip and end of tongue. slight slurred to speech d/t edema. Alert & oriented, vitals stable. pt did receive cath keara via Pic[facility] last evening. No hives, rash or itching. Dr Vazquez updated, new order for benadryl. will continue to monitor effectiveness.
[2020-01-27 10:22] LABS: Vancomycin, Trough Level 16.3 ug/mL (5.0-15.0)
--- NOTE | 2020-01-27 10:31 | PN.ID_ITS ---
Patient Problems: Active and Suspected Problems Debility (Acute) Toxic encephalopathy (Acute) Stroke (Acute) Subjective: Feeling well, except for some lip swelling this AM, improved with benadryl - Physical Exam Vitals/I&O's: Vital Signs Temp Pulse Resp BP Pulse Ox 99.0 F 101 H 18 136/78 H 96 01/27/20 08:57 01/27/20 08:57 01/27/20 08:57 01/27/20 08:57 01/27/20 08:57 Oxygen Delivery Method Room Air Weight: 67.727 kg Body Mass Index (BMI) 27.3 Finger Stick Blood Glucose 106 Intake and Output for Last 24 Hours 01/25/20 01/26/20 01/27/20 23:59 23:59 23:59 Intake Total 1789 / 1849 560.00 / 560.00 Balance 1789 560.00 / 560.00 General: Alert, Cooperative, No apparent distress Lungs: Clear to auscultation, Normal air movement Cardiovascular: Regular rate, Regular Rhythm Abdomen: Soft, Non Tender, Non-Distended Skin: No rashes Laboratory Results 01/27/20 05:25: PT 25.9 H, INR 2.4 01/27/20 09:08: Vancomycin Trough 16.3 H Current Medications Acetaminophen (Tylenol) 1,000 mg PO Q6H PRN PRN PRN Reason: Pain Score 1-10/10 Last Admin: 01/26/20 21:21 Dose: 1,000 mg Documented by: Atorvastatin Calcium (Lipitor) 40 mg PO DAILY@2200 [facility] Last Admin: 01/26/20 21:23 Dose: 40 mg Documented by: Bisacodyl (Dulcolax) 10 mg PO DAILY PRN PRN Reason: Constipation Last Admin: 01/14/20 14:49 Dose: 10 mg Documented by: Calamine/Phenol (Calmoseptine Ointment) 1 applic TOPICAL BID [facility]; Protocol Last Admin: 01/27/20 05:27 Dose: 1 applicatio Documented by: Furosemide (Lasix) 40 mg PO DAILY [facility] Last Admin: 01/27/20 05:26 Dose: 40 mg Documented by: Gabapentin (Neurontin) 300 mg PO TIDCM [facility] Last Admin: 01/27/20 07:27 Dose: 300 mg Documented by: Heparin Sodium (Beef Lung) () 50 units IV UD PRN PRN Reason: PICC Line Heparin Flush Heparin Sodium (Beef Lung) () 50 units IV UD PRN PRN Reason: PICC Line Heparin Flush Vancomycin IV Pharmacy to Dose (1 ea/ Sodium Chloride) 500 mls @ 250 mls/hr IV X1 PRN; Protocol PRN Reason: Rx to Dose Vancomycin HCl 1,500 mg/ (Sodium Chloride) 530 mls @ 250 mls/hr IV Q24H [facility] Stop: 02/09/20 11:38 Last Admin: 01/27/20 10:27 Dose: 250 mls/hr Documented by: Sodium Chloride () 250 mls @ 15 mls/hr IV .[id number] PRN PRN Reason: Saline Flush Sodium Chloride () 250 mls @ 15 mls/hr IV .[id number] PRN PRN Reason: Additional IVPB Infusion Meropenem 1 gm/ Sodium (Chloride) 100 mls @ 33 mls/hr IV Q12H [facility] Melatonin (Melatonin) 5 mg PO QHS PRN PRN Reason: SLEEP Mirtazapine (Remeron) 15 mg PO DAILY@2200 [facility] Last Admin: 01/26/20 21:22 Dose: 15 mg Documented by: Multi-Ingredient Cream (Eucerin) 1 applic TOPICAL 0600,2200 [facility]; Protocol Last Admin: 01/27/20 05:27 Dose: 1 applicatio Documented by: Nystatin (Mycostatin Powder) 1 applic TOPICAL 0600,2200 [facility]; Protocol Last Admin: 01/27/20 05:28 Dose: 1 applicatio Documented by: Polyethylene Glycol (Miralax) 17 gm PO DAILY [facility] Last Admin: 01/27/20 05:26 Dose: 17 gm Documented by: Polysaccharide [facility] 150[facility] Last Admin: 01/27/20 07:27 Dose: 150 mg Documented by: Potassium Chloride (K-Dur) [facility] Last Admin: 01/27/20 07:27 Dose: 20 meq Documented by: Senna/Docusate Sodium (Senokot-S, Karlene-Colace) 1 tablet PO BID [facility] Last Admin: 01/27/20 05:26 Dose: 1 tablet Documented by: Sertraline HCl (Zoloft) 50 mg PO DAILY [facility] Last Admin: 01/27/20 05:26 Dose: 50 mg Documented by: Sodium Chloride () 250 ml IV PRN PRN PRN Reason: secondary iv antibiotics Last Admin: 01/23/20 21:03 Dose: 250 ml Documented by: Sodium Chloride () 10 - 40 ml IV UD PRN PRN Reason: SALINE FLUSH Last Admin: 01/27/20 10:27 Dose: 40 ml Documented by: Sodium Chloride () 10 - 40 ml IV UD PRN PRN Reason: Open End PICC Flush Sodium Chloride (0.9% Nacl (Sterile) Posiflush) 10 - 40 ml IV UD PRN PRN Reason: Port access or dressing change Tolterodine Tartrate (Detrol La) 2 mg PO DAILY [facility] Last Admin: 01/27/20 05:26 Dose: 2 mg Documented by: Warfarin Sodium (Coumadin (Pbkc)) 2 mg PO DAILY@1700 [facility] Last Admin: 01/26/20 16:19 Dose: 2 mg Documented by: Medical Necessity - Tobacco Use Smoking Status: Never smoker Tobacco Use: Non-smoker Route of nutrition/ use of supplements: [] Nutritional Intake: [] IV Site: [] Stanton Catheter: [] - Assessment/Plan Antibiotics: [] Assessment/Plan: [] Active and Suspected Problems Debility (Acute) Toxic encephalopathy (Acute) Stroke (Acute) Fever, normal wbc, altered mental status with concern for new stroke on 12/25 after completing empiric course of vanc/zohaib 12/20 for 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 Prior h/o CSF leak from laminectomy in the past few months. Now back on vanc/zohaib. CXR clear, UA clear, bcx neg so far. Mental status much improved, fever resolved except for one time temp last night. MRI now shows new occipital stroke. AHSAN showed no veg. Difficult to say what her infection is at this time with all her negative cxs, but it does seem that she has responded to iv abx. Plan now is iv vanc/zohaib for 6 weeks of treatment, stop date 02/09/20. Weekly bmp, cbc, LFT, and vanc trough. Tagged wbc scan was neg. Dr. Vazquez discussed with Dr. Alexandra. Will follow
--- NOTE | 2020-01-27 12:42 | PT ---
Family communication Spoke with pt's son, Alan and updated him on pt's progress with therapy. Phillips stated he called Dr. Suazo's office and is waiting on a return call from them about what the follow-up plan will be for pt after they have reviewed labs. Pt's son thankful for update.
--- NOTE | 2020-01-27 12:46 | NURSING ---
Addendum entered by Joanne Tinoco 01/27/20 13:13: much improvement in lip and tongue edema. pt feels that it is much better. will continue to montior. Addendum entered by Joanne Tinoco 01/27/20 12:57: Tongue noted to be a little larger than previously. pt remains alert & oriented. denies SOB, sat 96% HR 91. Pt does not want to be sent to ER if it can be avoided. Explained to pt that may be a possibility if it gets worse at all. pt verbalized understanding. Original Note: pt upper lip beginning to swell again. Dr alejandra notified, new order to administer 125mg IVP solumedrol & then start medrol dose mateo
[2020-01-27] MEDS: MethylPREDNISolone 125 MG/2 ML Vial IV (12:57)
--- NOTE | 2020-01-27 14:20 | NURSING ---
Dr Alexandra office notified, awaiting return call regarding next steps. Phillips, pt son is wanting to know what the next steps are since all tests/labs that were ordered have been negative.
[2020-01-27 14:22] VITALS: BP 136/74; PULSE 94; RESP 18; TEMP 36.8; O2SAT 97
--- NOTE | 2020-01-27 15:42 | PCM.RX.CS ---
Consult Pharmacy has been consulted to manage selected antiobiotic: Vancomycin Type of Consult: Follow-up Labs: Sodium 140 mmol/L (136-145) 01/25/20 05:30 Potassium 4.1 mmol/L (3.5-5.1) 01/25/20 05:30 Chloride 110 mmol/L (98-107) H 01/25/20 05:30 Carbon Dioxide 25.0 mmol/L (21.0-32.0) 01/25/20 05:30 Anion Gap 5 (5-15) 01/25/20 05:30 BUN 17 mg/dL (7-18) 01/25/20 05:30 Creatinine 0.58 mg/dL (0.55-1.02) 01/25/20 05:30 Est GFR (MDRD) Af Amer 130 mL/min (>60) 01/25/20 05:30 Est GFR (MDRD) Non-Af 107 mL/min (>60) 01/25/20 05:30 BUN/Creatinine Ratio 29.5 RATIO (10-20) H 01/25/20 05:30 Glucose 94 mg/dL (74-106) 01/25/20 05:30 Vancomycin Trough 16.3 ug/mL (5.0-15.0) H 01/27/20 09:08 Random Vancomycin 15.8 ug/mL (0.0-15.0) H 01/05/20 20:40 Estimated Creatinine Clearance: 35 Goal Trough: 15-20 mcg/mL Pharmacy Plan for Drug Dosin. 11 hour trough came back therapeutic at 16.3mg/dL (goal 15-20) 2. Continue current dosing 3. Next level in 4 days 4. Pharmacy Service will continue to monitor and adjust dosing as required. Labs to be done on [date and time ordered]: 01/31/20 @ 0900
[2020-01-27] MEDS: MethylPREDNISolone DosePak 4 MG BOX PO ×2 (15:47→21:56)
--- NOTE | 2020-01-27 18:33 | CASEMGMT ---
Social Work SW met with pt in room and informed that insurance has authorized continued stay through 02/08 when IV ATB are complete with expected d/c on 02/09. Pt expresses understanding and is agreeable to d/c home on 02/10/20 PEDRO Brito
[2020-01-27] MEDS: Atorvastatin Calcium 40 MG Tablet PO (21:56)
[2020-01-27] MEDS: Mirtazapine 15 MG Tablet PO (21:58)
[2020-01-28] MEDS: Sertraline 50 MG Tablet PO (05:37)
[2020-01-28] MEDS: Polyethylene Glycol 3350 17 GM PACKET PO (05:37)
[2020-01-28] MEDS: Furosemide 40 MG Tablet PO (05:37)
[2020-01-28] MEDS: Senna/Docusate Sodium 1 Tablet PO ×2 (05:37→17:05)
[2020-01-28] MEDS: Tolterodine Tartrate 2 MG CAP.SA PO (05:37)
[2020-01-28] MEDS: Menthol/Lanolin/Calamine/Znox 113 GM Tube 1 APPLIC TOPICAL ×2 (05:49→17:07)
[2020-01-28] MEDS: Nystatin Powder 15gm Bottle 1 APPLIC TOPICAL ×2 (05:49→21:07)
[2020-01-28 05:57] VITALS: BP 135/56; PULSE 69; RESP 19; TEMP 36.6; O2SAT 95
[2020-01-28] MEDS: Gabapentin 300 MG Capsule PO ×3 (07:32→17:05)
[2020-01-28] MEDS: MethylPREDNISolone DosePak 4 MG BOX PO ×4 (07:32→21:04)
[2020-01-28] MEDS: Iron Polysaccharide Complex 150 MG CAPSULE PO (07:32)
[2020-01-28] MEDS: Clotrimazole/Betamethasone 1 Tube 1 APPLIC TOPICAL ×2 (09:22→17:06)
[2020-01-28 09:25] VITALS: PULSE 72; RESP 18; O2SAT 97
[2020-01-28] MEDS: 0.9% Saline Lock 10 ML Syringe IV ×3 (09:37→15:08)
--- NOTE | 2020-01-28 11:05 | NURSING ---
Addendum entered by Joanne Tinoco 01/28/20 11:48: IV benadryl given with good effect. less edema. pt feels its better Original Note: pt began with angioedema of lips, tongue, faint redness/rash to cheeks shortly after IV vanc infusing. Dr alejandra updated, koko Hamilton notified, Dr Hamilton returned call & new order to DC IV Vanc.
[2020-01-28] MEDS: DiphenhydrAMINE 50 MG/ML Syringe IV ×2 (11:13→15:08)
[2020-01-28 14:48] VITALS: BP 138/64; PULSE 88; RESP 16; TEMP 36.3; O2SAT 96
[2020-01-28] MEDS: Atorvastatin Calcium 40 MG Tablet PO (21:04)
[2020-01-28] MEDS: Mirtazapine 15 MG Tablet PO (21:05)
[2020-01-29 05:47] VITALS: BP 136/73; PULSE 78; RESP 18; TEMP 36.8; O2SAT 92
[2020-01-29] MEDS: Polyethylene Glycol 3350 17 GM PACKET PO (05:48)
[2020-01-29] MEDS: Senna/Docusate Sodium 1 Tablet PO ×2 (05:49→17:58)
[2020-01-29] MEDS: Tolterodine Tartrate 2 MG CAP.SA PO (05:49)
[2020-01-29] MEDS: Clotrimazole/Betamethasone 1 Tube 1 APPLIC TOPICAL ×2 (05:50→17:59)
[2020-01-29] MEDS: Furosemide 40 MG Tablet PO (05:50)
[2020-01-29] MEDS: Sertraline 50 MG Tablet PO (05:50)
[2020-01-29] MEDS: Menthol/Lanolin/Calamine/Znox 113 GM Tube 1 APPLIC TOPICAL ×2 (05:51→18:01)
[2020-01-29] MEDS: Nystatin Powder 15gm Bottle 1 APPLIC TOPICAL ×2 (05:52→23:32)
[2020-01-29] MEDS: 0.9% Normal Saline 250 ML IV.SOLN. IV (05:53)
[2020-01-29] MEDS: 0.9% Saline Lock 10 ML Syringe IV ×2 (05:53→17:57)
[2020-01-29] MEDS: Iron Polysaccharide Complex 150 MG CAPSULE PO (09:29)
[2020-01-29] MEDS: Gabapentin 300 MG Capsule PO ×3 (09:29→17:59)
[2020-01-29] MEDS: MethylPREDNISolone DosePak 4 MG BOX PO ×4 (09:30→23:29)
[2020-01-29 10:00] VITALS: PULSE 84; RESP 14; O2SAT 97
[2020-01-29 15:53] VITALS: BP 146/72; PULSE 96; RESP 18; TEMP 36.6; O2SAT 95
[2020-01-29] MEDS: Mirtazapine 15 MG Tablet PO (23:29)
[2020-01-29] MEDS: Atorvastatin Calcium 40 MG Tablet PO (23:29)
[2020-01-30 04:45] VITALS: BP 141/67; PULSE 78; RESP 18; TEMP 36.4; O2SAT 93
[2020-01-30] MEDS: Polyethylene Glycol 3350 17 GM PACKET PO (04:47)
[2020-01-30] MEDS: Sertraline 50 MG Tablet PO (04:48)
[2020-01-30] MEDS: Furosemide 40 MG Tablet PO (04:49)
[2020-01-30] MEDS: Senna/Docusate Sodium 1 Tablet PO ×2 (04:49→17:27)
[2020-01-30] MEDS: Tolterodine Tartrate 2 MG CAP.SA PO (04:49)
[2020-01-30] MEDS: Menthol/Lanolin/Calamine/Znox 113 GM Tube 1 APPLIC TOPICAL ×2 (04:50→17:25)
[2020-01-30] MEDS: Clotrimazole/Betamethasone 1 Tube 1 APPLIC TOPICAL ×2 (04:51→17:25)
[2020-01-30] MEDS: Nystatin Powder 15gm Bottle 1 APPLIC TOPICAL ×2 (04:52→20:36)
[2020-01-30] MEDS: Iron Polysaccharide Complex 150 MG CAPSULE PO (08:43)
[2020-01-30] MEDS: Gabapentin 300 MG Capsule PO ×3 (08:43→17:27)
[2020-01-30] MEDS: MethylPREDNISolone DosePak 4 MG BOX PO ×3 (08:48→20:34)
[2020-01-30 14:40] VITALS: BP 134/79; PULSE 81; RESP 16; TEMP 36.8; O2SAT 94
[2020-01-30] MEDS: Atorvastatin Calcium 40 MG Tablet PO (20:34)
[2020-01-30] MEDS: Mirtazapine 15 MG Tablet PO (20:34)
[2020-01-31 05:49] LABS: Prothrombin Time (Protime)PT. 30.4 SECONDS (11.7-14.9)
[2020-01-31 06:16] VITALS: BP 132/71; PULSE 83; RESP 16; TEMP 36.6; O2SAT 92
[2020-01-31] MEDS: Tolterodine Tartrate 2 MG CAP.SA PO (06:18)
[2020-01-31] MEDS: Sertraline 50 MG Tablet PO (06:18)
[2020-01-31] MEDS: Polyethylene Glycol 3350 17 GM PACKET PO (06:18)
[2020-01-31] MEDS: Furosemide 40 MG Tablet PO (06:18)
[2020-01-31] MEDS: Menthol/Lanolin/Calamine/Znox 113 GM Tube 1 APPLIC TOPICAL ×2 (06:19→18:00)
[2020-01-31] MEDS: Senna/Docusate Sodium 1 Tablet PO (06:19)
[2020-01-31] MEDS: Clotrimazole/Betamethasone 1 Tube 1 APPLIC TOPICAL ×2 (06:21→18:03)
[2020-01-31] MEDS: Nystatin Powder 15gm Bottle 1 APPLIC TOPICAL ×2 (06:30→21:38)
[2020-01-31] MEDS: 0.9% Saline Lock 10 ML Syringe IV ×3 (06:42→21:34)
[2020-01-31] MEDS: Iron Polysaccharide Complex 150 MG CAPSULE PO (09:15)
[2020-01-31] MEDS: MethylPREDNISolone DosePak 4 MG BOX PO ×2 (09:15→21:39)
[2020-01-31] MEDS: Gabapentin 300 MG Capsule PO ×3 (09:15→17:59)
[2020-01-31 10:00] VITALS: PULSE 95; RESP 16; O2SAT 96
[2020-01-31 10:13] LABS: Vancomycin, Trough Level 3.4 ug/mL (5.0-15.0)
[2020-01-31 13:56] VITALS: BP 155/81; PULSE 70; RESP 18; TEMP 36.3; O2SAT 97
[2020-01-31] MEDS: Warfarin 0.5 MG Tablet 1.5 MG PO (17:59)
[2020-01-31] MEDS: Atorvastatin Calcium 40 MG Tablet PO (21:39)
[2020-01-31] MEDS: Mirtazapine 15 MG Tablet PO (21:40)
[2020-02-01 05:55] LABS: Absolute Neutrophil Count 4.1 X10^3/uL (2.0-7.7); Basophil# 0.09 X10^3/uL; Basophil% 1.5 % (0-1); Eosinophil# 0.28 X10^3/uL; Eosinophils% 4.6 % (0-5); Hematocrit 30.6 % (37-47); Hemoglobin 9.9 g/dL (12.0-15.0); Lymphocyte % 17.9 % (19-41); Mean Corp Hgb Conc 32.4 g/dL (32-36); Mean Corpuscular Hgb 30.3 pg (27.0-32.0); Mean Corpuscular Volume 93.6 fL (81-99); Mean Platelet Vol. 9.2 fl (6.2-12.0); Monocyte# 0.59 X10^3/uL; Monocyte% 9.6 % (0-10); NRBC Flagged by Analyzer 0 % (0-5); Neutrophil # 4.05 X10^3/uL (2.7-7.7); Neutrophil % 66.1 % (47-70); Platelet Count 258 K/mm3 (150-450); RBC Distribution Width SD 47.3 fl (35.1-43.9); Red Blood Count 3.27 M/mm3 (4.2-5.4); White Blood Count 6.1 K/mm3 (4.4-11.0)
[2020-02-01 06:14] VITALS: BP 160/88; PULSE 93; RESP 16; TEMP 36.3; O2SAT 96
[2020-02-01 06:14] LABS: Anion Gap 6 (5-15); BUN 23 mg/dL (7-18); Calcium,Total 8.8 mg/dL (8.5-10.1); Chloride 108 mmol/L (98-107); Creatinine, Serum 0.62 mg/dL (0.55-1.02); EST Glomerular Filtration Rate 98 mL/min (>60); Est Glom Filt Rate - Afr Amer 119 mL/min (>60); Estimated Creatinine Clearance 34.99 ml/min; Glucose 98 mg/dL (74-106); Potassium 4.3 mmol/L (3.5-5.1); Sodium Level 141 mmol/L (136-145)
[2020-02-01] MEDS: Menthol/Lanolin/Calamine/Znox 113 GM Tube 1 APPLIC TOPICAL ×2 (06:16→16:56)
[2020-02-01] MEDS: Polyethylene Glycol 3350 17 GM PACKET PO (06:17)
[2020-02-01] MEDS: Furosemide 40 MG Tablet PO (06:17)
[2020-02-01] MEDS: Senna/Docusate Sodium 1 Tablet PO ×2 (06:17→16:55)
[2020-02-01] MEDS: Tolterodine Tartrate 2 MG CAP.SA PO (06:17)
[2020-02-01] MEDS: Sertraline 50 MG Tablet PO (06:17)
[2020-02-01] MEDS: Clotrimazole/Betamethasone 1 Tube 1 APPLIC TOPICAL ×2 (06:18→16:58)
[2020-02-01] MEDS: Nystatin Powder 15gm Bottle 1 APPLIC TOPICAL (06:18)
[2020-02-01] MEDS: 0.9% Saline Lock 10 ML Syringe IV ×2 (06:19→16:59)
[2020-02-01] MEDS: MethylPREDNISolone DosePak 4 MG BOX PO (08:26)
[2020-02-01] MEDS: Iron Polysaccharide Complex 150 MG CAPSULE PO (08:26)
[2020-02-01] MEDS: Gabapentin 300 MG Capsule PO ×3 (08:26→16:55)
--- NOTE | 2020-02-01 08:42 | DCINST_ITS ---
- Discharge Diagnoses Current Active Problems: Current Active and Chronic Problems Debility (Acute) Toxic encephalopathy (Acute) Stroke (Acute) You will use the following diet at home:: No restrictions, Regular Your food should be the consistency of: Regular Your liquids should be the consistency of: Regular/Thin Discharge Activity: Return to Normal Activity, May Shower, Use Walker Weight Bearing Status: Weight bearing as tolerated Call your doctor if you observe: Fever of 101 or Higher, Inability to urinate, Inability to have a bowel movement, Shortness of breath, Chest pain, Uncontroll ed pain Allergies/Adverse Reactions: Allergies alteplase [From Activase] Allergy (Verified 01/27/20 10:35) Angioedema ibuprofen [From Advil] Adverse Reaction (Verified 11/28/19 15:14) Rash Medications to take at Discharge Amlodipine [Norvasc] 5 mg PO DAILY 11/26/19 Atorvastatin Calcium 40 mg PO DAILY 11/26/19 Gabapentin [Neurontin] 300 mg PO TID 11/26/19 Melatonin 5 mg PO QHS PRN 11/26/19 Sertraline HCl 50 mg PO DAILY 11/26/19 Menthol/Lanolin/Calamine/Znox [Calmoseptine Ointment] 1 applic TOPICAL BID tube 12/21/19 Mineral Oil/Petrolatum,White [Eucerin] 1 applic TOPICAL 0600,2200 jar 12/21/19 Acetaminophen [Tylenol] 1,000 mg PO Q6H PRN PRN tablet 02/01/20 Clotrimazole/Betamethasone [Lotrisone] 1 applic TOPICAL BID #1 tube 02/01/20 Furosemide [Lasix] 40 mg PO DAILY #30 tab 02/01/20 Iron Polysaccharide Complex [Ferrex 150] 150 mg PO DAILYCM #30 cap 02/01/20 Mirtazapine 15 mg PO DAILY #30 02/01/20 Nystatin Powder [Mycostatin Powder] 1 applic TOPICAL 0600,2200 bottle 02/01/20 Potassium Chloride [K-Dur] 20 meq PO BIDCM #60 tab 02/01/20 Tolterodine Tartrate [Detrol LA] 2 mg PO DAILY #30 cap.sa 02/01/20 Warfarin [Coumadin] 1.5 mg PO DAILY 30 Days #45 tab 02/01/20 The following prescriptions were given: Warfarin [Coumadin] 1.5 mg PO DAILY 30 Days #45 tab Transmission Status: Pending to [facility] 1724 Tolterodine Tartrate [Detrol LA] 2 mg PO DAILY #30 cap.sa Transmission Status: Pending to [facility] 1724 Iron Polysaccharide Complex [Ferrex 150] 150 mg PO DAILYCM #30 cap Transmission Status: Pending to [facility] 1724 Potassium Chloride [K-Dur] 20 meq PO BIDCM #60 tab Transmission Status: Pending to [facility] 1724 Furosemide [Lasix] 40 mg PO DAILY #30 tab Transmission Status: Pending to [facility] 1724 Clotrimazole/Betamethasone [Lotrisone] 1 applic TOPICAL BID #1 tube Transmission Status: Pending to [facility] 1724 Mirtazapine 15 mg PO DAILY #30 Orders to be completed after discharge: Prothrombin Time w/INR Time Frame: 1 Day, Facility: [facility], Location: Laboratory Primary Care Physician: Emile Steward MD [Primary Care Provider] - Please follow up with your Primary Care Physician in: 1 week. Test Results: Test results from this visit will be discussed in further detail at your follow- up appointment, if applicable. Please Follow Up With: Dr. Alexandra (ortho) When: [phone] Please Follow Up With: Dr. James Wallace Proposed Discharge Date: 02/10/20
--- NOTE | 2020-02-01 08:43 | DS.PCM_ITS ---
Discharge Date and Diagnosis - Problem List Patient Problems: Active and Suspected Problems Debility (Acute) Toxic encephalopathy (Acute) Stroke (Acute) Date of Admission: 12/30/19 Date of Discharge: 02/10/20 - Primary Discharge Diagnosis Acute Problems: Active Problems Debility (Acute) Toxic encephalopathy (Acute) Stroke (Acute) - Secondary Discharge Diagnosis Chronic Problems: Chronic Problems Pulmonary embolism (Chronic) DVT (deep venous thrombosis) (Chronic) Coronary artery disease (Chronic) Hyperlipidemia (Chronic) Obstructive sleep apnea (Chronic) Lumbar spinal stenosis (Chronic) Hypertension (Chronic) Pulmonary hypertension (Chronic) Urinary incontinence (Chronic) Cholelithiasis (Chronic) Depression (Chronic) Insomnia (Chronic) Neuropathic pain (Chronic) Hydrocephalus (Chronic) Hospital Course and Treatment Imaging Results: 12/30/19 16:29 Diet: Regular Diet Food consistency:: Regular Liquid Consistency:: Regular/Thin Is pt able to select menu?: Yes Labs (Last 48 Hours) 01/31/20 01/31/20 02/01/20 05:10 09:24 05:05 WBC RBC Hgb Hct MCV MCH MCHC RDW Std Deviation RDW Coeff of La Plt Count MPV Immature Gran % (Auto) Neut % (Auto) Lymph % (Auto) [place] % (Auto) Eos % (Auto) Baso % (Auto) Absolute Neuts (auto) Absolute Lymphs (auto) Nucleated RBC % PT 30.4 H INR 3.0 Sodium 141 Potassium 4.3 Chloride 108 H Carbon Dioxide 27.0 Anion Gap 6 BUN 23 H Creatinine 0.62 Estim Creat Clear Calc 34.99 Est GFR (MDRD) Af Amer 119 Est GFR (MDRD) Non-Af 98 BUN/Creatinine Ratio 37.0 H Glucose 98 Calcium 8.8 Vancomycin Trough 3.4 L 02/01/20 05:05 WBC 6.1 RBC 3.27 L Hgb 9.9 L Hct 30.6 L MCV 93.6 MCH 30.3 MCHC 32.4 RDW Std Deviation 47.3 H RDW Coeff of La 14.0 Plt Count 258 MPV 9.2 Immature Gran % (Auto) 0.300 Neut % (Auto) 66.1 Lymph % (Auto) 17.9 L [place] % (Auto) 9.6 Eos % (Auto) 4.6 Baso % (Auto) 1.5 H Absolute Neuts (auto) 4.1 Absolute Lymphs (auto) 1.10 Nucleated RBC % 0 PT INR Sodium Potassium Chloride Carbon Dioxide Anion Gap BUN Creatinine Estim Creat Clear Calc Est GFR (MDRD) Af Amer Est GFR (MDRD) Non-Af BUN/Creatinine Ratio Glucose Calcium Vancomycin Trough Operations: None Procedures: None Summary of Care Provided: The patient is a 79 year old Female with below past medical history hospitalized for sepsis, source unknown, 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 Resident on warfarin due to stroke while on Eliquis, Eliquis failure. Source of infection unclear, recommend [facility] if resident becomes ill again. Discharge home with , Home Health Care PT/OT/ST/SN. Patient Problems: Active and Suspected Problems Debility (Acute) Toxic encephalopathy (Acute) Stroke (Acute) - Physical Exam Vitals/I&O's: Vital Signs Temp Pulse Resp BP Pulse Ox 97.3 F L 93 16 160/88 H 96 02/01/20 06:14 02/01/20 06:14 02/01/20 06:14 02/01/20 06:14 02/01/20 06:14 Oxygen Delivery Method Room Air Weight: 67.727 kg Body Mass Index (BMI) 27.3 Finger Stick Blood Glucose 106 Intake and Output for Last 24 Hours 01/30/20 01/31/20 02/01/20 23:59 23:59 23:59 Intake Total 920 / 920 1160 / 1160 Balance 920 / 920 1160 / 1160 Laboratory Results 01/31/20 09:24: Vancomycin Trough 3.4 L 02/01/20 05:05: Sodium 141, Potassium 4.3, Chloride 108 H, Carbon Dioxide 27.0, Anion Gap 6, BUN 23 H, Creatinine 0.62, Estim Creat Clear Calc 34.99, Est GFR (MDRD) Af Amer 119, Est GFR (MDRD) Non-Af 98, BUN/Creatinine Ratio 37.0 H, Glucose 98, Calcium 8.8 02/01/20 05:05: WBC 6.1, RBC 3.27 L, Hgb 9.9 L, Hct 30.6 L, MCV 93.6, MCH 30.3, MCHC 32.4, RDW Std Deviation 47.3 H, RDW Coeff of La 14.0, Plt Count 258, MPV 9.2, Immature Gran % (Auto) 0.300, Neut % (Auto) 66.1, Lymph % (Auto) 17.9 L, [place] % (Auto) 9.6, Eos % (Auto) 4.6, Baso % (Auto) 1.5 H, Absolute Neuts (auto) 4.1, Absolute Lymphs (auto) 1.10, Nucleated RBC % 0 Current Medications Acetaminophen (Tylenol) 1,000 mg PO Q6H PRN PRN PRN Reason: Pain Score 1-05/06 Last Admin: 01/26/20 21:21 Dose: 1,000 mg Documented by: Atorvastatin Calcium (Lipitor) 40 mg PO DAILY@2200 [facility] Last Admin: 01/31/20 21:39 Dose: 40 mg Documented by: Bisacodyl (Dulcolax) 10 mg PO DAILY PRN PRN Reason: Constipation Last Admin: 01/14/20 14:49 Dose: 10 mg Documented by: Calamine/Phenol (Calmoseptine Ointment) 1 applic TOPICAL BID [facility]; Protocol Last Admin: 02/01/20 06:16 Dose: 1 applicatio Documented by: Clotrimazole (Lotrisone) 1 applic TOPICAL BID [facility]; Protocol Stop: 02/07/20 18:01 Last Admin: 02/01/20 06:18 Dose: 1 applicatio Documented by: Furosemide (Lasix) 40 mg PO DAILY [facility] Last Admin: 02/01/20 06:17 Dose: 40 mg Documented by: Gabapentin (Neurontin) 300 mg PO TIDCM [facility] Last Admin: 02/01/20 08:26 Dose: 300 mg Documented by: Heparin Sodium (Beef Lung) () 50 units IV UD PRN PRN Reason: PICC Line Heparin Flush Heparin Sodium (Beef Lung) () 50 units IV UD PRN PRN Reason: PICC Line Heparin Flush Sodium Chloride () 250 mls @ 15 mls/hr IV .[id number] PRN PRN Reason: Saline Flush Last Infusion: 01/31/20 21:45 Dose: 0 mls/hr Documented by: Sodium Chloride () 250 mls @ 15 mls/hr IV .[id number] PRN PRN Reason: Additional IVPB Infusion Meropenem 1 gm/ Sodium (Chloride) 100 mls @ 33 mls/hr IV Q12H [facility] Last Admin: 02/01/20 06:17 Dose: 33 mls/hr Documented by: Melatonin (Melatonin) 5 mg PO QHS PRN PRN Reason: SLEEP Methylprednisolone (Medrol Dosepak) 4 mg PO 0800 [facility]; Taper Stop: 02/01/20 08:59 Last Admin: 02/01/20 08:26 Dose: 4 mg Documented by: Mirtazapine (Remeron) 15 mg PO DAILY@2200 [facility] Last Admin: 01/31/20 21:40 Dose: 15 mg Documented by: Multi-Ingredient Cream (Eucerin) 1 applic TOPICAL 0600,0 [facility]; Protocol Last Admin: 02/01/20 06:16 Dose: 1 applicatio Documented by: Nystatin (Mycostatin Powder) 1 applic TOPICAL 0600,2200 [facility]; Protocol Last Admin: 02/01/20 06:18 Dose: 1 applicatio Documented by: Polyethylene Glycol (Miralax) 17 gm PO DAILY [facility] Last Admin: 02/01/20 06:17 Dose: 17 gm Documented by: Pol[facility]accharide [facility] 150[facility] Admin: 02/01/20 08:26 Dose: 150 mg Documented by: Potassium [facility] ([facility]) [facility] Last Admin: 02/01/20 08:26 Dose: 20 meq Documented by: Senna/Docusate Sodium (Senokot-S, Karlene-Colace) 1 tablet PO BID [facility] Last Admin: 02/01/20 06:17 Dose: 1 tablet Documented by: Sertraline HCl (Zoloft) 50 mg PO DAILY [facility] Last Admin: 02/01/20 06:17 Dose: 50 mg Documented by: Sodium Chloride () 250 ml IV PRN PRN PRN Reason: secondary iv antibiotics Last Admin: 01/29/20 05:53 Dose: 250 ml Documented by: Sodium Chloride () 10 - 40 ml IV UD PRN PRN Reason: SALINE FLUSH Last Admin: 02/01/20 06:19 Dose: 10 ml Documented by: Sodium Chloride () 10 - 40 ml IV UD PRN PRN Reason: Open End PICC Flush Sodium Chloride (0.9% Nacl (Sterile) Posiflush) 10 - 40 ml IV UD PRN PRN Reason: Port access or dressing change Tolterodine Tartrate (Detrol La) 2 mg PO DAILY [facility] Last Admin: 02/01/20 06:17 Dose: 2 mg Documented by: Warfarin Sodium (Coumadin (Pbkc)) 1.5 mg PO DAILY@1700 [facility] Last Admin: 01/31/20 17:59 Dose: 1.5 mg Documented by: Discharge Diet: No Restrictions Discharge Activity: Return to Normal Activity, May Shower, Use Walker Weight Bearing Status: Weight bearing as tolerated Call your doctor if you observe: Fever of 101 or Higher, Inability to urinate, Inability to have a bowel movement, Shortness of breath, Chest pain, Uncontrolled pain Home Medications: Medications to take at Discharge Amlodipine [Norvasc] 5 mg PO DAILY 11/26/19 Atorvastatin Calcium 40 mg PO DAILY 11/26/19 Gabapentin [Neurontin] 300 mg PO TID 11/26/19 Melatonin 5 mg PO QHS PRN 11/26/19 Sertraline HCl 50 mg PO DAILY 11/26/19 Menthol/Lanolin/Calamine/Znox [Calmoseptine Ointment] 1 applic TOPICAL BID tube 12/21/19 Mineral Oil/Petrolatum,White [Eucerin] 1 applic TOPICAL 0600,2200 jar 12/21/19 Acetaminophen [Tylenol] 1,000 mg PO Q6H PRN PRN tablet 02/01/20 Clotrimazole/Betamethasone [Lotrisone] 1 applic TOPICAL BID #1 tube 02/01/20 Furosemide [Lasix] 40 mg PO DAILY #30 tab 02/01/20 Iron Polysaccharide Complex [Ferrex 150] 150 mg PO DAILYCM #30 cap 02/01/20 Mirtazapine 15 mg PO DAILY #30 02/01/20 Nystatin Powder [Mycostatin Powder] 1 applic TOPICAL 0600,2200 bottle 02/01/20 Potassium Chloride [K-Dur] 20 meq PO BIDCM #60 tab 02/01/20 Tolterodine Tartrate [Detrol LA] 2 mg PO DAILY #30 cap.sa 02/01/20 Warfarin [Coumadin] 1.5 mg PO DAILY 30 Days #45 tab 02/01/20 Following Prescrptions Were Given to Patient: Warfarin [Coumadin] 1.5 mg PO DAILY 30 Days #45 tab Transmission Status: Pending to [facility] 1724 Tolterodine Tartrate [Detrol LA] 2 mg PO DAILY #30 cap.sa Transmission Status: Pending to [facility] 1724 Iron Polysaccharide Complex [Ferrex 150] 150 mg PO DAILYCM #30 cap Transmission Status: Pending to [facility] 1724 Potassium Chloride [K-Dur] 20 meq PO BIDCM #60 tab Transmission Status: Pending to [facility] 1724 Furosemide [Lasix] 40 mg PO DAILY #30 tab Transmission Status: Pending to [facility] 1724 Clotrimazole/Betamethasone [Lotrisone] 1 applic TOPICAL BID #1 tube Transmission Status: Pending to [facility] 1724 Mirtazapine 15 mg PO DAILY #30 Other Amb Orders: Prothrombin Time w/INR Time Frame: 1 Day, Facility: [facility], Location: Laboratory Primary Care Physician: Emile Steward MD [Primary Care Provider] - Please follow up with your Primary Care Physician in: 1 week. Please Follow Up With: Dr. Alex[facility] ([facility]) When: [phone] Please Follow Up With: Dr. James Wallace Disposition: Home with Home Health Minutes spent on discharge:: 35 Patient Condition:: Stable Medical Necessity - Tobacco Use Smoking Status: Never smoker Tobacco Use: Non-smoker Meaningful Use Info Meaningful Use Diagnoses (Choose all that apply): None applicable
[2020-02-01 14:33] VITALS: BP 132/82; PULSE 88; RESP 16; TEMP 36.1; O2SAT 97
[2020-02-01] MEDS: Warfarin 0.5 MG Tablet 1.5 MG PO (16:55)
[2020-02-01 20:25] VITALS: BP 144/87; PULSE 87; RESP 16; TEMP 36.8; O2SAT 96
[2020-02-01] MEDS: Atorvastatin Calcium 40 MG Tablet PO (20:34)
[2020-02-01] MEDS: Mirtazapine 15 MG Tablet PO (20:35)
[2020-02-02] MEDS: Polyethylene Glycol 3350 17 GM PACKET PO (06:38)
[2020-02-02] MEDS: Furosemide 40 MG Tablet PO (06:39)
[2020-02-02] MEDS: Tolterodine Tartrate 2 MG CAP.SA PO (06:39)
[2020-02-02] MEDS: Senna/Docusate Sodium 1 Tablet PO ×2 (06:39→18:08)
[2020-02-02] MEDS: Sertraline 50 MG Tablet PO (06:40)
[2020-02-02] MEDS: Nystatin Powder 15gm Bottle 1 APPLIC TOPICAL ×2 (06:41→20:39)
[2020-02-02] MEDS: Menthol/Lanolin/Calamine/Znox 113 GM Tube 1 APPLIC TOPICAL ×2 (06:41→18:10)
[2020-02-02 06:45] VITALS: BP 134/70; PULSE 85; RESP 18; TEMP 36.2; O2SAT 92
[2020-02-02] MEDS: Clotrimazole/Betamethasone 1 Tube 1 APPLIC TOPICAL ×2 (06:45→18:10)
[2020-02-02] MEDS: 0.9% Saline Lock 10 ML Syringe IV (06:56)
[2020-02-02] MEDS: Iron Polysaccharide Complex 150 MG CAPSULE PO (08:57)
[2020-02-02] MEDS: Gabapentin 300 MG Capsule PO ×3 (08:58→18:08)
[2020-02-02] MEDS: Acetaminophen 500 MG Tablet 1000 MG PO (09:00)
[2020-02-02 10:59] VITALS: PULSE 81; RESP 18; O2SAT 96
[2020-02-02 14:49] VITALS: BP 134/82; PULSE 79; RESP 14; TEMP 36.4; O2SAT 93
[2020-02-02] MEDS: Warfarin 0.5 MG Tablet 1.5 MG PO (18:07)
[2020-02-02] MEDS: Mirtazapine 15 MG Tablet PO (20:37)
[2020-02-02] MEDS: Atorvastatin Calcium 40 MG Tablet PO (20:37)
[2020-02-03 06:04] LABS: International Normalized Ratio 2.6; Prothrombin Time (Protime)PT. 27.4 SECONDS (11.7-14.9)
[2020-02-03 06:37] VITALS: BP 143/79; PULSE 87; RESP 16; TEMP 36.7; O2SAT 95
[2020-02-03] MEDS: Furosemide 40 MG Tablet PO (06:39)
[2020-02-03] MEDS: Tolterodine Tartrate 2 MG CAP.SA PO (06:39)
[2020-02-03] MEDS: Senna/Docusate Sodium 1 Tablet PO ×2 (06:39→17:21)
[2020-02-03] MEDS: Sertraline 50 MG Tablet PO (06:39)
[2020-02-03] MEDS: Nystatin Powder 15gm Bottle 1 APPLIC TOPICAL ×2 (06:40→22:15)
[2020-02-03] MEDS: Menthol/Lanolin/Calamine/Znox 113 GM Tube 1 APPLIC TOPICAL ×2 (06:40→18:37)
[2020-02-03] MEDS: Clotrimazole/Betamethasone 1 Tube 1 APPLIC TOPICAL (06:42)
[2020-02-03] MEDS: Gabapentin 300 MG Capsule PO ×3 (09:29→17:21)
[2020-02-03] MEDS: Iron Polysaccharide Complex 150 MG CAPSULE PO (09:29)
[2020-02-03] MEDS: 0.9% Saline Lock 10 ML Syringe IV ×2 (12:00→22:12)
[2020-02-03 14:19] VITALS: BP 119/73; PULSE 96; RESP 16; TEMP 36.6; O2SAT 96
--- NOTE | 2020-02-03 15:42 | CASEMGMT ---
Social Work Provided list of HHC agencies to pt. Pt chose [facility]. Referral made to PT/OT/SN. No DME needs. Plan: DC home with [facility] PT/OT/SN 02/09 FINESSE Marmolejo
[2020-02-03] MEDS: Warfarin 0.5 MG Tablet 1.5 MG PO (17:21)
[2020-02-03] MEDS: Mirtazapine 15 MG Tablet PO (22:14)
[2020-02-03] MEDS: Atorvastatin Calcium 40 MG Tablet PO (22:14)
[2020-02-04] MEDS: 0.9% Saline Lock 10 ML Syringe IV ×2 (05:40→21:00)
[2020-02-04] MEDS: Polyethylene Glycol 3350 17 GM PACKET PO (05:41)
[2020-02-04] MEDS: Tolterodine Tartrate 2 MG CAP.SA PO (05:41)
[2020-02-04] MEDS: Sertraline 50 MG Tablet PO (05:41)
[2020-02-04] MEDS: Furosemide 40 MG Tablet PO (05:41)
[2020-02-04] MEDS: Senna/Docusate Sodium 1 Tablet PO ×2 (05:41→17:09)
[2020-02-04] MEDS: Menthol/Lanolin/Calamine/Znox 113 GM Tube 1 APPLIC TOPICAL ×2 (05:42→17:13)
[2020-02-04] MEDS: Clotrimazole/Betamethasone 1 Tube 1 APPLIC TOPICAL (05:46)
[2020-02-04 05:50] VITALS: BP 128/80; PULSE 80; RESP 15; TEMP 36.3; O2SAT 95
[2020-02-04] MEDS: Nystatin Powder 15gm Bottle 1 APPLIC TOPICAL ×2 (07:33→21:46)
[2020-02-04] MEDS: Gabapentin 300 MG Capsule PO ×3 (07:58→17:09)
[2020-02-04] MEDS: Iron Polysaccharide Complex 150 MG CAPSULE PO (07:58)
[2020-02-04 08:23] VITALS: PULSE 87; RESP 16; O2SAT 98
[2020-02-04 13:45] VITALS: BP 128/81; PULSE 96; RESP 17; TEMP 35.9; O2SAT 96
[2020-02-04 16:06] LABS: Erythrocyte Sedimentation Rate 18 mm/hr (0-30)
[2020-02-04 16:10] LABS: CRP < 2.90 mg/L (0.0-3.0)
[2020-02-04] MEDS: Warfarin 0.5 MG Tablet 1.5 MG PO (17:09)
[2020-02-04] MEDS: Atorvastatin Calcium 40 MG Tablet PO (21:43)
[2020-02-04] MEDS: Mirtazapine 15 MG Tablet PO (21:43)
[2020-02-05 04:00] VITALS: BP 121/81; PULSE 83; RESP 15; O2SAT 95
[2020-02-05] MEDS: Senna/Docusate Sodium 1 Tablet PO ×2 (05:46→17:33)
[2020-02-05] MEDS: 0.9% Saline Lock 10 ML Syringe IV (05:47)
[2020-02-05] MEDS: Polyethylene Glycol 3350 17 GM PACKET PO (05:47)
[2020-02-05] MEDS: Furosemide 40 MG Tablet PO (05:47)
[2020-02-05] MEDS: Gabapentin 300 MG Capsule PO ×3 (05:47→17:32)
[2020-02-05] MEDS: Tolterodine Tartrate 2 MG CAP.SA PO (05:48)
[2020-02-05] MEDS: Menthol/Lanolin/Calamine/Znox 113 GM Tube 1 APPLIC TOPICAL ×2 (05:54→17:28)
[2020-02-05] MEDS: Nystatin Powder 15gm Bottle 1 APPLIC TOPICAL ×2 (05:55→20:55)
[2020-02-05] MEDS: Sertraline 50 MG Tablet PO (05:57)
[2020-02-05] MEDS: Iron Polysaccharide Complex 150 MG CAPSULE PO (08:53)
[2020-02-05 15:02] VITALS: BP 128/72; PULSE 94; RESP 16; TEMP 36.3; O2SAT 95
[2020-02-05] MEDS: Warfarin 0.5 MG Tablet 1.5 MG PO (17:30)
[2020-02-05] MEDS: Atorvastatin Calcium 40 MG Tablet PO (20:56)
[2020-02-05] MEDS: Mirtazapine 15 MG Tablet PO (20:56)
[2020-02-06 06:24] VITALS: BP 124/65; PULSE 84; RESP 18; TEMP 36.6; O2SAT 92
[2020-02-06] MEDS: Polyethylene Glycol 3350 17 GM PACKET PO (06:25)
[2020-02-06] MEDS: Senna/Docusate Sodium 1 Tablet PO (06:27)
[2020-02-06] MEDS: Furosemide 40 MG Tablet PO (06:27)
[2020-02-06] MEDS: Sertraline 50 MG Tablet PO (06:27)
[2020-02-06] MEDS: Tolterodine Tartrate 2 MG CAP.SA PO (06:27)
[2020-02-06] MEDS: Menthol/Lanolin/Calamine/Znox 113 GM Tube 1 APPLIC TOPICAL ×2 (06:28→16:55)
[2020-02-06] MEDS: Nystatin Powder 15gm Bottle 1 APPLIC TOPICAL ×2 (06:29→20:43)
[2020-02-06] MEDS: 0.9% Saline Lock 10 ML Syringe IV ×3 (06:31→20:42)
[2020-02-06 10:00] VITALS: PULSE 75; RESP 14; O2SAT 97
[2020-02-06] MEDS: Gabapentin 300 MG Capsule PO ×3 (10:07→16:53)
[2020-02-06] MEDS: Iron Polysaccharide Complex 150 MG CAPSULE PO (10:07)
[2020-02-06 14:31] VITALS: BP 151/80; PULSE 86; RESP 17; TEMP 36.1; O2SAT 97
--- NOTE | 2020-02-06 15:40 | NURSING ---
Pts at main entrance to drop clothes of. Pt requested the TV TECHNICIAN ask her to give her $[address] for [address].
[2020-02-06] MEDS: Warfarin 0.5 MG Tablet 1.5 MG PO (16:53)
[2020-02-06] MEDS: Mirtazapine 15 MG Tablet PO (20:41)
[2020-02-06] MEDS: Atorvastatin Calcium 40 MG Tablet PO (20:41)
[2020-02-07 05:49] LABS: International Normalized Ratio 2.4; Prothrombin Time (Protime)PT. 25.6 SECONDS (11.7-14.9)
[2020-02-07 06:18] VITALS: BP 131/66; PULSE 91; RESP 16; TEMP 36.6; O2SAT 92
[2020-02-07] MEDS: Furosemide 40 MG Tablet PO (06:19)
[2020-02-07] MEDS: Tolterodine Tartrate 2 MG CAP.SA PO (06:19)
[2020-02-07] MEDS: Senna/Docusate Sodium 1 Tablet PO ×2 (06:20→17:05)
[2020-02-07] MEDS: Sertraline 50 MG Tablet PO (06:20)
[2020-02-07] MEDS: Menthol/Lanolin/Calamine/Znox 113 GM Tube 1 APPLIC TOPICAL ×2 (06:21→17:04)
[2020-02-07] MEDS: Nystatin Powder 15gm Bottle 1 APPLIC TOPICAL ×2 (06:21→20:28)
[2020-02-07] MEDS: 0.9% Saline Lock 10 ML Syringe IV ×2 (06:29→20:30)
[2020-02-07] MEDS: Gabapentin 300 MG Capsule PO ×3 (08:17→17:06)
[2020-02-07] MEDS: Iron Polysaccharide Complex 150 MG CAPSULE PO (08:17)
[2020-02-07 15:20] VITALS: BP 130/78; PULSE 93; RESP 16; TEMP 36.9; O2SAT 95
[2020-02-07] MEDS: Warfarin 0.5 MG Tablet 1.5 MG PO (17:05)
[2020-02-07] MEDS: Mirtazapine 15 MG Tablet PO (20:28)
[2020-02-07] MEDS: Atorvastatin Calcium 40 MG Tablet PO (20:28)
[2020-02-08 05:36] LABS: Absolute Lymphocyte Count 1.05 X10^3/uL (0.83-4.51); Absolute Neutrophil Count 3.9 X10^3/uL (2.0-7.7); Basophil# 0.07 X10^3/uL; Basophil% 1.2 % (0-1); Eosinophil# 0.34 X10^3/uL; Eosinophils% 5.7 % (0-5); Hemoglobin 10.5 g/dL (12.0-15.0); Lymphocyte # 1.05 X10^3/ul (4.0); Lymphocyte % 17.6 % (19-41); Mean Corp Hgb Conc 32.8 g/dL (32-36); Mean Corpuscular Hgb 29.4 pg (27.0-32.0); Mean Corpuscular Volume 89.6 fL (81-99); Mean Platelet Vol. 9.6 fl (6.2-12.0); Monocyte# 0.63 X10^3/uL; Monocyte% 10.6 % (0-10); NRBC Flagged by Analyzer 0 % (0-5); Neutrophil # 3.86 X10^3/uL (2.7-7.7); Neutrophil % 64.7 % (47-70); Platelet Count 199 K/mm3 (150-450); RBC Distribution Width CV 13.6 % (11.6-14.6); RBC Distribution Width SD 44.9 fl (35.1-43.9); Red Blood Count 3.57 M/mm3 (4.2-5.4)
[2020-02-08 05:59] LABS: Anion Gap 7 (5-15); BUN 23 mg/dL (7-18); Calcium,Total 8.8 mg/dL (8.5-10.1); Chloride 110 mmol/L (98-107); Creatinine, Serum 0.66 mg/dL (0.55-1.02); EST Glomerular Filtration Rate 92 mL/min (>60); Est Glom Filt Rate - Afr Amer 112 mL/min (>60); Estimated Creatinine Clearance 34.99 ml/min; Glucose 94 mg/dL (74-106); Potassium 3.9 mmol/L (3.5-5.1); Sodium Level 142 mmol/L (136-145)
[2020-02-08] MEDS: 0.9% Saline Lock 10 ML Syringe IV ×2 (06:32→17:22)
[2020-02-08 06:36] VITALS: BP 133/55; PULSE 85; RESP 16; TEMP 36.1; O2SAT 97
[2020-02-08] MEDS: Tolterodine Tartrate 2 MG CAP.SA PO (06:37)
[2020-02-08] MEDS: Sertraline 50 MG Tablet PO (06:38)
[2020-02-08] MEDS: Senna/Docusate Sodium 1 Tablet PO ×2 (06:38→17:22)
[2020-02-08] MEDS: Furosemide 40 MG Tablet PO (06:38)
[2020-02-08] MEDS: Menthol/Lanolin/Calamine/Znox 113 GM Tube 1 APPLIC TOPICAL (06:40)
[2020-02-08] MEDS: Nystatin Powder 15gm Bottle 1 APPLIC TOPICAL ×2 (06:40→21:17)
[2020-02-08] MEDS: Iron Polysaccharide Complex 150 MG CAPSULE PO (07:38)
[2020-02-08] MEDS: Gabapentin 300 MG Capsule PO ×3 (07:38→17:21)
[2020-02-08 10:29] VITALS: PULSE 98; RESP 16; O2SAT 97
[2020-02-08 15:45] VITALS: BP 140/84; PULSE 82; RESP 16; TEMP 36.2; O2SAT 96
[2020-02-08] MEDS: Warfarin 0.5 MG Tablet 1.5 MG PO (17:21)
[2020-02-08] MEDS: Atorvastatin Calcium 40 MG Tablet PO (21:16)
[2020-02-08] MEDS: Mirtazapine 15 MG Tablet PO (21:16)
[2020-02-09 05:13] VITALS: BP 102/58; PULSE 87; RESP 16; TEMP 36.7; O2SAT 93
[2020-02-09] MEDS: Furosemide 40 MG Tablet PO (05:14)
[2020-02-09] MEDS: Tolterodine Tartrate 2 MG CAP.SA PO (05:14)
[2020-02-09] MEDS: Senna/Docusate Sodium 1 Tablet PO ×2 (05:14→17:17)
[2020-02-09] MEDS: Sertraline 50 MG Tablet PO (05:14)
[2020-02-09] MEDS: 0.9% Saline Lock 10 ML Syringe IV ×2 (05:23→17:16)
[2020-02-09] MEDS: Nystatin Powder 15gm Bottle 1 APPLIC TOPICAL ×2 (05:24→22:09)
[2020-02-09] MEDS: Gabapentin 300 MG Capsule PO ×3 (08:39→17:17)
[2020-02-09] MEDS: Iron Polysaccharide Complex 150 MG CAPSULE PO (08:39)
[2020-02-09 10:00] VITALS: PULSE 60; RESP 18; O2SAT 99
--- NOTE | 2020-02-09 13:49 | CASEMGMT ---
BIMS and PHQ9 interviews completed on this date for MDS assessment. PEDRO Brito
[2020-02-09 14:36] VITALS: BP 122/72; PULSE 85; RESP 15; TEMP 36.6; O2SAT 95
[2020-02-09] MEDS: Warfarin 0.5 MG Tablet 1.5 MG PO (17:17)
[2020-02-09] MEDS: Atorvastatin Calcium 40 MG Tablet PO (22:07)
[2020-02-09] MEDS: Mirtazapine 15 MG Tablet PO (22:08)
[2020-02-10 05:59] VITALS: BP 131/50; PULSE 86; RESP 18; TEMP 36.6; O2SAT 92
[2020-02-10] MEDS: Polyethylene Glycol 3350 17 GM PACKET PO (06:00)
[2020-02-10] MEDS: Senna/Docusate Sodium 1 Tablet PO (06:01)
[2020-02-10] MEDS: Sertraline 50 MG Tablet PO (06:01)
[2020-02-10] MEDS: Furosemide 40 MG Tablet PO (06:01)
[2020-02-10] MEDS: Tolterodine Tartrate 2 MG CAP.SA PO (06:01)
[2020-02-10 06:53] LABS: International Normalized Ratio 2.3; Prothrombin Time (Protime)PT. 24.9 SECONDS (11.7-14.9)
[2020-02-10 08:00] VITALS: BP 121/71; PULSE 104; RESP 16; TEMP 36.6; O2SAT 93
[2020-02-10] MEDS: Iron Polysaccharide Complex 150 MG CAPSULE PO (08:49)
[2020-02-10] MEDS: Gabapentin 300 MG Capsule PO (08:49)
[2020-02-10 10:00] VITALS: PULSE 104; RESP 16; O2SAT 93
== END 2020-02-10 10:22 | disposition home or self-care (01) | DRG 871 ==
PROVIDERS: Internal Medicine Infectious Disease; Admitting Provider Family Medicine Geriatric Medicine; PCP Internal Medicine; Visit Provider Family Medicine Geriatric Medicine
DX: A41.9 Sepsis, unspecified organism (principal); G92 Toxic encephalopathy; G91.9 Hydrocephalus, unspecified; N32.81 Overactive bladder; E78.5 Hyperlipidemia, unspecified; I25.10 Atherosclerotic heart disease of native coronary artery without angina pectoris; G47.33 Obstructive sleep apnea (adult) (pediatric); I27.20 Pulmonary hypertension, unspecified; E87.6 Hypokalemia; I10 Essential (primary) hypertension; F32.9 Major depressive disorder, single episode, unspecified; Z86.711 Personal history of pulmonary embolism; Z86.718 Personal history of other venous thrombosis and embolism; Z86.73 Personal history of transient ischemic attack (TIA), and cerebral infarction without residual deficits
CPT/HCPCS: 36415; 80048; 80076; 80202; 85025; 85610; 85652; 86140; 92507; 92523; 92526; 92610; 97110; 97116; 97162; 97166; 97530; 97535; 97802; J2185; J2997; J7040; J7050; A4216; J3490

== ENCOUNTER → 2020-01-14 06:12 | Outpatient (CLI) | payer MEDICARE, SELFPAY ==
[2019-12-30 15:18] VITALS: BMI 27.3
--- NOTE | 2020-01-14 06:18 | NM_ITS ---
STUDY: TAGGED WHITE BLOOD CELL STUDY REASON FOR EXAM: Female, 79 years old. BACK SURGERY IN AUGUST -- SEPSIS RADIATION DOSAGE (If Supplied By Facility): CTDIvol = ( ) mGy, DLP = ( ) mGycm. Individualized dose optimization techniques were used for this CT.? TECHNIQUE: Patient was injected with 23.2 mCi of technetium 99m tagged white blood cells via right antecubital fossa. COMPARISON: CT abdomen from 12/26/2019, MRI spine 12/26/2019 FINDINGS: Aside from the uptake of radiotracer at the injection site, there is normal uptake of activity within the liver and spleen. Expected activity of the proximal appendicular and axial skeleton. There is no abnormal activity noted within the abdomen/pelvis. No suspicious activity noted within osseous structures or either lung field. NM/Inflammatory Process WB IMPRESSION: Unremarkable tagged white blood cell study. Evidence of inflammatory process or abscess Electronically Signed: Kahlil Aldrich MD ([place]) at 13:23 EDT , Service support ,
== END ==
PROVIDERS: PCP Internal Medicine; Visit Provider Family Medicine Geriatric Medicine
DX: B99.9 Unspecified infectious disease (principal)
CPT/HCPCS: 78802; A9521